=== PATIENT | male | born 1945 | race Caucasian/White ===

== ENCOUNTER → 2016-07-01 | Outpatient (CLI) | payer BC ==
[~2016-07-01] MED LIST: APIX1TAB3 PO; ATOR10TA88 PO; BUME1TAB43 PO; BUME2TAB3 PO; CARV25TA2 PO; DOXY100C76 PO; FURO80TA63 PO; HYDR-5688 PO; MCRK20 PO; METO50TA7 PO; TPRSR50 PO
[2016-07-01 14:47] LABS: BASO % 0.2 %; BASO ABS # 0.02 K/uL (0-0.2); COMPLETE YES; EOS % 1.3 %; HEMATOCRIT 43.3 % (42-52); IG% 0.2 %; LYMPH % 18.7 %; LYMPH ABS # 1.62 K/uL (1.2-3.4); MEAN CELL VOLUME 96.9 fL (80-100); MEAN CORPUSCULAR HEMOGLOBIN 32.2 pg (25-34); MEAN CORPUSCULAR HGB CONC 33.3 g/dl (32-36); MEAN PLATELET VOLUME 11.2 fL (7.4-10.4); MONO % 6.2 %; NEUT % 73.4 %; PLATELET COUNT 193 K/uL (130-400); RED BLOOD COUNT 4.47 M/uL (4.7-6.1); WHITE BLOOD COUNT 8.67 K/uL (4.8-10.8)
[2016-07-01 14:57] LABS: ALT/SGPT 23 U/L (12-78); AST/SGOT 18 U/L (15-37); BLOOD UREA NITROGEN 29 mg/dl (7-18); BUN/CREATININE RATIO 18.4 (10-20); CALCIUM 9.2 mg/dl (8.5-10.1); CARBON DIOXIDE 31 mmol/L (21-32); CHLORIDE 99 mmol/L (98-107); GLUCOSE 107 mg/dl (70-99); POTASSIUM 3.9 mmol/L (3.5-5.1); SODIUM 141 mmol/L (136-145)
[2016-07-01 15:00] LABS: ALB/GLOB RATIO 1.1 (0.9-2); ALKALINE PHOSPHATASE 128 U/L (45-117)
== END | disposition home or self-care (01) ==
LOC: EDBD → C.LAB1850 13:20
PROVIDERS: ATTEND Internal Medicine Cardiovascular Disease
DX: R10.11 Right upper quadrant pain (principal)

== ENCOUNTER → 2016-07-03 | Outpatient (CLI) | payer BC ==
--- NOTE | 2016-07-03 09:41 | DIAGNOSTIC IMAGING REPORT ---
Right upper quadrant ultrasound GALLBLADDER-ABD LIMITED CLINICAL HISTORY: R10.11 Abdominal pain, acute, right upper [id number] pain. Nausea. TECHNIQUE: Ultrasound COMPARISON STUDY: None FINDINGS: Gallbladder contains a component of sludge as well as small gallstones. There is no abnormal pericholecystic fluid. Common bile duct is 4 mm. Liver is uniform throughout. Right kidney is negative for hydronephrosis but shows several septated cysts measuring up to 10 cm. IMPRESSION: 1. Combination of gallstones and sludge within the gallbladder lumen. Normal caliber bile ducts. Complex right renal cyst measuring up to 10 cm with associated internal septations/calcifications. A multiphase CT evaluation of the kidneys is suggested as baseline evaluation Electronically signed by: Rubio Melvin M.D. 07/03/2016 9:40 AM Dictated Date/Time: 07/03/2016 9:22 AM
== END | disposition home or self-care (01) ==
LOC: C.ULTR 08:11
PROVIDERS: ATTEND Internal Medicine Cardiovascular Disease
DX: R10.11 Right upper quadrant pain (principal)

== ENCOUNTER 2016-07-11 12:27 | Inpatient (IN) | payer BC, OTHER ==
[~2016-07-11] VITALS: Ht 172.7 cm; Wt 81.1 kg
[~2016-07-11 12:27] MED LIST changes: -APIX1TAB3 PO; -BUME1TAB43 PO; -BUME2TAB3 PO; -DOXY100C76 PO; -HYDR-5688 PO; -MCRK20 PO; -METO50TA7 PO; -TPRSR50 PO
[2016-07-11 12:49] LABS: HEMATOCRIT 45.8 % (42-52); MEAN CELL VOLUME 99.3 fL (80-100); MEAN CORPUSCULAR HEMOGLOBIN 32.5 pg (25-34); MEAN CORPUSCULAR HGB CONC 32.8 g/dl (32-36); MEAN PLATELET VOLUME 12.3 fL (7.4-10.4); PLATELET COUNT 160 K/uL (130-400); RED BLOOD COUNT 4.61 M/uL (4.7-6.1); WHITE BLOOD COUNT 8.03 K/uL (4.8-10.8)
[2016-07-11 12:57] LABS: INR 1.5 (0.9-1.1); PROTHROMBIN TIME (PATIENT) 16.3 SECONDS (9.0-12.0)
[2016-07-11 13:06] LABS: BUN/CREATININE RATIO 23.5 (10-20); CALCIUM 9.2 mg/dl (8.5-10.1); CREATININE 2.1 mg/dl (0.60-1.40); POTASSIUM 4.8 mmol/L (3.5-5.1)
[2016-07-11 13:11] LABS: ALB/GLOB RATIO 1.2 (0.9-2); CKMB/CK RATIO 1.7 (0-3.0)
[2016-07-11] MEDS ORDERED: SODIUM CHLORIDE 0.9% 1000ML 1,000 ML IV STA (13:11)
[2016-07-11] MEDS ORDERED: SODIUM CHLORIDE 0.9% 250ML 250 ML IV STA (13:11)
[2016-07-11] MEDS ORDERED: METOPROLOL TARTRATE 1 MG/ML VIAL IV STA (13:11)
--- NOTE | 2016-07-11 13:28 | EMERGENCY ROOM VISIT NOTE ---
History Report prepared by Sujatha: Chio Mayo Under the Supervision of: Dr. Libra Romano M.D. First contact with patient: 12:54 Chief Complaint: ILLNESS Stated Complaint: SEPSIS, TACHYCARDIA Nursing Triage Summary: Pt brought to ED by Dr. Dallas. EKG shows A.fib with RVR. Pt states he feels weak and tired. Pt denies cp. History of Present Illness The patient is a 71 year old male who presents to the Emergency Room with complaints of persistent weakness over the past month. He states that when he wakes up in the morning, he feels like he has no energy and also feels lightheaded. He also complains of a loss off appetite. When he eats or drinks, even a sip of water, he becomes gassy, bloated, and starts belching. He notes that he has some abdominal pain when he presses on the right side of his abdomen. He complains that he is constipated. The patient has followed with Dr. King, who is under the impression that the patient has gallbladder problems. Today, Dr. King referred the patient to the emergency room due to his symptoms. Denies chest pain with exertion or other complaints. He was recently diagnosed with a-fib. Source of History: patient Onset: 1 month ago Position: other (global) Quality: other (weakness) Timing: other (persistent) Associated Symptoms: + abdominal pain (to the touch) Note: Other symptoms: lightheadedness, decreased appetite, gas and belching with PO intake Review of Systems See HPI for pertinent positives & negatives. A total of 10 systems reviewed and were otherwise negative. Past Medical & Surgical Medical Problems: (1) A-fib (2) Heart failure (3) tachycardia, abdominal pain Family History No pertinent family history stated. Social History Smoking Status: Former Smoker Marital Status: Occupation Status: employed Current/Historical Medications Scheduled Atorvastatin (Lipitor), 10 MG PO QAM Carvedilol (Coreg), 1 TAB PO BID Furosemide (Lasix), 80 MG PO QAM Allergies Coded Allergies: NO KNOWN DRUG ALLERGIES (Verified Allergy, Unknown, ., 03/06/16) Physical Exam Vital Signs Date Time Temp Pulse Resp B/P Pulse Ox O2 Delivery O2 Flow Rate FiO2 07/11/16 14:06 103 20 125/94 95 Nasal Cannula 2.0 07/11/16 13:45 100 20 145/98 99 Room Air 07/11/16 13:39 114 20 138/87 95 Room Air 07/11/16 13:38 120 138/87 07/11/16 12:52 113 07/11/16 12:48 95 Nasal Cannula 2.0 07/11/16 12:46 98 18 129/81 93 Room Air 07/11/16 12:38 94 Nasal Cannula 2.0 07/11/16 12:30 36.3 110 18 131/92 92 Room Air Physical Exam Vital signs reviewed. General: Well-appearing 71 year old male, in no significant distress, pale in appearance. HEENT: No scleral icterus, PERRLA, neck supple. Atraumatic. Cardiovascular: Rapid and irregular heartbeat, no extra sounds. Pulmonary: Clear to auscultation bilaterally, normal work of breathing. Abdomen: Soft, nontender, nondistended, positive bowel sounds. Musculoskeletal: Atraumatic, no peripheral edema. Neurologic: Patient awake alert and oriented x 3. Skin: Warm, dry, no rash, pale in appearance. Medical Decision & Procedures ER Provider Diagnostic Interpretation: Radiology results as stated below per my review and radiologist interpretation: CHEST ONE VIEW PORTABLE CLINICAL HISTORY: CP dyspnea COMPARISON STUDY: 06/13/2015 FINDINGS: Stable cardiomegaly. Prominent pulmonary vasculature. Diaphragms smooth. Costophrenic angles are sharp. IMPRESSION: Mild congestive heart failure Electronically signed by: Rubio Melvin M.D. 07/11/2016 1:36 PM Dictated Date/Time: 07/11/2016 1:36 PM Laboratory Results Test 07/11/16 12:40 07/11/16 12:46 Total Creatine Kinase 202 U/L (39-308) Creatine Kinase MB 3.5 ng/ml (0.5-3.6) Creatine Kinase MB Ratio 1.7 (0-3.0) Pro-B-Type Natriuretic Peptide 09206 pg/ml (0-900) Hepatitis C Antibody Screen NEG (NEG) Bedside Troponin I 0.120 ng/ml (0-0.045) Laboratory results per my review. Medications Administered Medications (Trade) Dose Ordered Sig/Sulma Route Start Time Stop Time Status Last Admin Dose Admin Sodium Chloride 250 ml @ 999 mls/hr Q16M STAT IV 07/11/16 13:11 07/11/16 13:26 DC 07/11/16 13:11 999 MLS/HR Sodium Chloride (Nss 1000ml) 1,000 ml @ 125 mls/hr Q8H STAT IV 07/11/16 13:11 07/11/16 15:40 DC 07/11/16 13:11 125 MLS/HR Metoprolol Tartrate (Lopressor Iv) 5 mg NOW STAT IV 07/11/16 13:11 07/11/16 13:12 DC 07/11/16 13:38 5 MG ECG Indication: weakness Rate (beats per minute): 114 Rhythm: atrial fibrillation (with RVR) Findings: RBBB, other (previous inferior infarct) ED Course 1309: Past medical records reviewed. The patient was evaluated in room B7. A complete history and physical examination was performed. 1311: Ordered Lopressor 5 mg IV, NSS 1000 ml @ 125 mls/hr IV, NSS 250 mls/hr IV. 1410: I discussed the case with Dr. Marcel KUMAR Hospitalist. The patient will be evaluated for further management. 1420: Upon reevaluation, the patient is resting comfortably. I discussed laboratory and radiographic results with him. He verbalized agreement of the treatment plan. Medical Decision Differential diagnosis: Acute coronary syndrome, pulmonary embolus, aortic dissection, musculoskeletal pain, pneumonia, pleural effusion, pneumothorax This patient was evaluated and appeared to be in no significant distress. IV access was obtained and laboratory work was drawn. The patient was placed on the court monitor and found to be in a rapid atrial fibrillation. Patient was medicated with IV metoprolol, given gentle IV hydration to maintain blood pressure. Patient's laboratory work reveals a renal insufficiency with a creatinine of 2.1, an elevated troponin at 0.449. Chest x-ray reveals mild pulmonary edema. The patient was made aware of the findings. He will be evaluated by the hospitalist service for further management. Patient is complaining that he is hungry and was given a light snack. Consults Time Called: 1405 Consulting Physician: Dr. Marcel KUMAR Hospitalist Returned Call: 1410 I discussed the case with him. The patient will be evaluated for further management. Impression Primary Impression: Rapid atrial fibrillation Additional Impressions: Elevated troponin Acute on chronic renal insufficiency Pulmonary edema Scribe Attestation The scribe's documentation has been prepared under my direction and personally reviewed by me in its entirety. I confirm that the note above accurately reflects all work, treatment, procedures, and medical decision making performed by me. Departure Information Dispostion Being Evaluated By Hospitalist Referrals Leo Eddy M.D. (PCP) Patient Instructions My [facility] Problem Qualifiers Additional Impressions: Pulmonary edema Chronicity: acute Qualified Codes: J81.0 - Acute pulmonary edema
[2016-07-11] MEDS ORDERED: METOPROLOL TARTRATE 1 MG/ML VIAL ONE (13:30)
--- NOTE | 2016-07-11 13:37 | DIAGNOSTIC IMAGING REPORT ---
CHEST ONE VIEW PORTABLE CLINICAL HISTORY: CP dyspnea COMPARISON STUDY: 06/13/2015 FINDINGS: Stable cardiomegaly. Prominent pulmonary vasculature. Diaphragms smooth. Costophrenic angles are sharp. IMPRESSION: Mild congestive heart failure Electronically signed by: Rubio Melvin M.D. 07/11/2016 1:36 PM Dictated Date/Time: 07/11/2016 1:36 PM
[2016-07-11] MEDS ORDERED: ACETAMINOPHEN 325 MG TAB PO PRN (14:30)
[2016-07-11] MEDS ORDERED: LOPERAMIDE HCL 2 MG CAP PO PRN (15:00)
--- NOTE | 2016-07-11 15:09 | History and Physical ---
History & Physical Date & Time of Service: Jul 11, 2016 at 14:36 Chief Complaint: Sepsis, Tachycardia Primary Care Physician: Leo Eddy M.D. History of Present Illness Source: patient, family This is a 71yo male with PMHx of atrial flutter, cardiomyopathy, congestive heart failure, dyslipidemia, ongoing GI symptoms lasting the past 6 weeks including abdominal pain decreased appetite, bloating, nausea, initially with constipation now replaced by diarrhea. The patient's has accompanied him. The patient was seen in Dr. Eddy's office this morning for a routine appointment. The patient admits to continued right upper quadrant pain and inability inability to tolerate oral intake. The patient reports he has been losing weight. While in the office he was found to be orthostatic, and tachycardic with heart rate increased to 110 so was sent to the ED. The patient currently complains of feeling short of breath, lightheaded when he goes from sit to stand. The patient denies chest pain, palpitations or flutter. The patient denies any fevers sweats or chills. The is unable to determine if his skin has become more yellow, although he appears jaundiced. He had been seen in Dr. King's office on 07/01/2016 where he was instructed to stop taking Lasix as he has been "losing too much weight", and was instructed to restart the medication when he had gained 3 pounds. The patient has not taken Lasix for the last 2 days. During that appointment patient complained of the above abdominal symptoms, so a RUQ ultrasound was ordered which showed evidence of gallstones and sludge on 07/03/2016. In the ED the patient has been rehydrated with NSS @ 125 Ml/hr. Cr= 2.1, total bilirubin elevated at 2.7. LFTs are not elevated. Troponin= 0.120. INR is elevated at 1.5. CBC is essentially unremarkable. Chest x-ray was completed showing mild congestive heart failure. Past Medical/Surgical History Medical Problems: (1) A-fib Status: Chronic (2) Heart failure Status: Chronic Social History Smoking Status: Former Smoker Marital Status: Occupational Status: employed Immunizations History of Influenza Vaccine: Yes History of Tetanus Vaccine?: Unknown History of Pneumococcal: No History of Hepatitis B Vaccine: Yes Multi-Drug Resistant Organisms History of MDRO: No Allergies Coded Allergies: NO KNOWN DRUG ALLERGIES (Verified Allergy, Unknown, ., 03/06/16) Home Medications Scheduled Atorvastatin (Lipitor), 10 MG PO QAM Carvedilol (Coreg), 1 TAB PO BID Furosemide (Lasix), 80 MG PO QAM Review of Systems Constitutional: + fatigue, + weakness, + weight loss, No chills, No fever, No sweats Eyes: No diplopia, No worsening of vision ENT: + problem reported (dry mouth), No hearing loss, No nasal symptoms, No sore throat, No trouble swallowing, No unusual epistaxis Respiratory: + dyspnea on exertion, + shortness of breath, No cough, No hemoptysis, No sputum Cardiovascular: No chest pain, No edema, No palpitations Abdomen: + diarrhea, + nausea, + pain, + vomiting, No GI bleeding, No constipation Musculoskeletal: No calf pain, No joint pain, No swelling Genitourinary - Male: + urinary frequency, + urinary incontinence, No hematuria Neurologic: + weakness, No balance problems, No numbness/tingling Endocrine: + fatigue Integumentary: No itch, No rash Physical Exam Vital Signs Date Time Temp Pulse Resp B/P Pulse Ox O2 Delivery O2 Flow Rate FiO2 07/11/16 14:06 103 20 125/94 95 Nasal Cannula 2.0 07/11/16 13:45 100 20 145/98 99 Room Air 07/11/16 13:39 114 20 138/87 95 Room Air 07/11/16 13:38 120 138/87 07/11/16 12:52 113 07/11/16 12:48 95 Nasal Cannula 2.0 07/11/16 12:46 98 18 129/81 93 Room Air 07/11/16 12:38 94 Nasal Cannula 2.0 07/11/16 12:30 36.3 110 18 131/92 92 Room Air General Appearance: WD/WN, no apparent distress, + pertinent finding (appears jaundiced) Head: normocephalic, atraumatic Eyes: PERRL, EOMI ENT: hearing grossly normal, + pertinent finding (petechiae over soft palate, mucous membranes dry) Neck: supple, no JVD Respiratory/Chest: chest non-tender, no respiratory distress, no accessory muscle use, + pertinent finding (wearing 2 L supplemental O2 via NC, + faint crackles at bases bilaterally) Cardiovascular: normal peripheral pulses, + tachycardia, + irregularly irregular, + pertinent finding Abdomen/GI: soft, + pertinent finding (+ hypoactive bowel sounds, + tympany with percussion, pain in right upper quadrant with palpation, no rebound tenderness or guarding) Back: normal inspection, no CVA tenderness Extremities/Musculoskelatal: normal inspection, no calf tenderness, no pedal edema Neurologic/Psych: alert, normal mood/affect, oriented x 3 Skin: warm/dry, + jaundice Diagnostics Laboratory Results Results Past 24 Hours Test 07/11/16 12:40 07/11/16 12:46 Range/Units White Blood Count 8.03 4.8-10.8 K/uL Red Blood Count 4.61 4.7-6.1 M/uL Hemoglobin 15.0 14.0-18.0 g/dL Hematocrit 45.8 42-52 % Mean Corpuscular Volume 99.3 80-100 fL Mean Corpuscular Hemoglobin 32.5 25-34 pg Mean Corpuscular Hemoglobin Concent 32.8 32-36 g/dl RDW Standard Deviation 52.5 36.4-46.3 fL RDW Coefficient of Variation 14.6 11.5-14.5 % Platelet Count 160 130-400 K/uL Mean Platelet Volume 12.3 7.4-10.4 fL Prothrombin Time 16.3 9.0-12.0 SECONDS Prothromb Time International Ratio 1.5 0.9-1.1 Activated Partial Thromboplast Time 26.4 21.0-31.0 SECONDS Partial Thromboplastin Ratio 1.0 Sodium Level 145 136-145 mmol/L Potassium Level 4.8 3.5-5.1 mmol/L Chloride Level 107 98-107 mmol/L Carbon Dioxide Level 30 21-32 mmol/L Anion Gap 8.0 3-11 mmol/L Blood Urea Nitrogen 49 7-18 mg/dl Creatinine 2.10 0.60-1.40 mg/dl Est Creatinine Clear Calc Drug Dose 34.5 ml/min Estimated GFR () 35.4 Estimated GFR (Non- 30.5 BUN/Creatinine Ratio 23.5 10-20 Random Glucose 116 70-99 mg/dl Calcium Level 9.2 8.5-10.1 mg/dl Total Bilirubin 2.7 0.2-1 mg/dl Aspartate Amino Transf (AST/SGOT) 30 15-37 U/L Alanine Aminotransferase (ALT/SGPT) 42 12-78 U/L Alkaline Phosphatase 107 45-117 U/L Total Creatine Kinase 202 39-308 U/L Creatine Kinase MB 3.5 0.5-3.6 ng/ml Creatine Kinase MB Ratio 1.7 0-3.0 Total Protein 6.8 6.4-8.2 gm/dl Albumin 3.7 3.4-5.0 gm/dl Globulin 3.1 2.5-4.0 gm/dl Albumin/Globulin Ratio 1.2 0.9-2 Bedside Troponin I 0.120 0-0.045 ng/ml Diagnostic Radiology CHEST ONE VIEW PORTABLE CLINICAL HISTORY: CP dyspnea COMPARISON STUDY: 06/13/2015 FINDINGS: Stable cardiomegaly. Prominent pulmonary vasculature. Diaphragms smooth. Costophrenic angles are sharp. IMPRESSION: Mild congestive heart failure Electronically signed by: Rubio Melvin M.D. 07/11/2016 1:36 PM Dictated Date/Time: 07/11/2016 1:36 PM The status of this report is Signed. EKG Vent. rate 114 BPM WA interval * ms QRS duration 132 ms QT/QTc 392/540 ms P-R-T axes * -77 86 Atrial fibrillation with RVR, right bundle branch block. Impression Assessment and Plan This is a 71yo male with PMHx of atrial flutter, cardiomyopathy, congestive heart failure, dyslipidemia, ongoing GI symptoms lasting the past 6 weeks including abdominal pain decreased appetite, bloating, nausea, initially with constipation now replaced by diarrhea. Weakness, fatigue, abdominal pain - Admit to telemetry - GI consulted with RUQ findings significant for gallstones and sludge on 2016, increased jaundice, RUQ pain, however without elevated LFTs. - Will need general surgery consult after HIDA performed. - checking Stool studies - Checking an abdominal series - Order HIDA scan Cardiomyopathy Congestive heart failure Atrial flutter with 2:1 AV block - Patient has been followed by Dr. King as an outpatient. - will consult Cardiology in the setting of likely need for surgery - Found to be tachycardic in the outpatient setting - EKG showing atrial fibrillation with RVR. - Continue home medications Metoprolol succinate 50 mg once daily, Coreg 25 mg BID, hold Lasix - Gently hydrate IVFs for now as pt appears dry INR elevated - 1.5, pt is not on a blood thinner. - Drinks EtOH - one 6pack in a week, patient denies recently drinking due to the above abdominal complaints - Patient does not appear to be on elequis or other agent per Dr. Castillo note. NIKHIL on CKD stage III - Creatinine elevated at 2.1, baseline appears to be 1.6 - Continue fluids as above, caution with fluid overload with history of cardiomyopathy and congestive heart failure DVT prophylaxis: Teds, SCDs CODE STATUS: Full code Disposition: From home, will need PT OT eval Level of Care Telemetry Resuscitation Status FULL RESUSCITATION VTE Prophylaxis VTE Risk Assessment Done? Y/N: Yes Risk Level: Low Given or contraindicated: T.Laly Stockings, SCD's Assessment and Plan Attending Addendum: I have physically seen and examined this patient, have directed their medical care, have supervised the PA's activity, and agree with the H&P as noted above, with the following changes: The patient is awake, appears mildly jaundiced, alert and oriented 3, normocephalic and atraumatic, lying in bed and in no acute distress. HEENT--PERRL, EOMI, mucous membranes and oropharynx dry, mildly erythematous. Neck--supple, no JVD or bruits, thyroid normal, trachea midline, no adenopathy. Heart--irregularly irregular and tachycardic, no murmurs, rubs or gallops. Lungs--few crackles at the bases bilaterally, no respiratory distress, no accessory muscle use. Abdomen--normal bowel sounds and soft, tender right upper quadrant, mildly tympanitic. Extremities--no cyanosis, clubbing or edema. There are good distal pulses b/l. Dermatologic--mild jaundice. Neurologic--cranial nerves II through XII grossly intact, motor and sensory examination normal. Rheumatologic--normal range of motion, nontender, muscles and joints. Psychiatric--normal affect. Assessment and Plan: Presumptive cholecystitis--admitted to the telemetry unit. Nothing by mouth status. Order a HIDA scan with gallbladder ejection fraction. Consult surgery. IV antibiotics. Atrial flutter with 21 AV block/cardiomyopathy/CHF--admitted to telemetry, follow serial cardiac enzymes, cardiac rhythm monitoring and order a 2-D echocardiogram with Dopplers. EKG today shows atrial fibrillation with RVR. Troponin is mildly elevated at 0.120, but may just be secondary to rapid heart rate. Continue metoprolol succinate 50 mg daily, Coreg 25 mg by mouth twice a day. We will hold Lasix this patient since patient appears hypovolemic, and gently hydrate with IV fluids. Follow serial BMP and magnesium levels. Lopressor 5 mg IV every 4 hours when necessary sustained heart rate greater than 110. Acute on chronic renal insufficiency--baseline creatinine is 1.6, and is mildly elevated at 2.1 today, pointing toward prerenal state. Gently hydrate as noted above and follow laboratories. Elevated INR of 1.5--patient does not report being on blood thinners. He does not appear to have significant alcohol intake, and liver enzymes are within normal range. We will review his outside records.
[2016-07-11 15:13] VITALS: Ht 172.7 cm; Wt 81.1 kg
[2016-07-11 15:45] VITALS: BP 134/78; PULSE 112; TEMP 36.4; O2SAT 98
[2016-07-11] MEDS: CIPROFLOXACIN / D5W 400 MG in PREMIXED IN D5W 200 ML IV SCH (16:30)
--- NOTE | 2016-07-11 16:36 | DIAGNOSTIC IMAGING REPORT ---
ABDOMEN 2 VIEWS CLINICAL HISTORY: Generalized abdominal pain. Nausea. FINDINGS: Supine and erect abdominal radiographs are correlated with abdominal CT dated 02/14/2009. There is an indeterminant distended bowel loop in the midabdomen. This measures up to 5 cm in diameter. There is no convincing radiographic evidence of bowel obstruction. No intraperitoneal free air is seen. Calcified phleboliths are observed in the pelvis. The skeletal structures are osteopenic. Mild lumbosacral is moderate. The heart is enlarged. A right pleural effusion with right basilar opacities is noted. IMPRESSION: 1. There is no clear radiographic evidence of bowel obstruction or intraperitoneal free air. 2. There is a nonspecific distended gas-filled loop of small bowel in the midabdomen, possibly related to regional inflammation. Clinical correlation will be required. 3. Cardiomegaly and a small right pleural effusion. Electronically signed by: Severo Campbell M.D. 07/11/2016 4:35 PM Dictated Date/Time: 07/11/2016 4:33 PM
[2016-07-11] MEDS ORDERED: METOPROLOL TARTRATE 1 MG/ML VIAL IV PRN (17:00)
[2016-07-11] MEDS ORDERED: LORAZEPAM 2 MG/ML 1 ML VIAL IV PRN (17:00)
[2016-07-11] MEDS ORDERED: LORAZEPAM INJ 0.5 MG in SYRINGE 0.75 ML IV PRN (17:15)
[2016-07-11] MEDS: SODIUM CHLORIDE 0.9% 1000ML 1,000 ML IV SCH (17:26)
[2016-07-11] MEDS ORDERED: HEPARIN IV LOW DOSE NO BOLUS SCH (17:55)
[2016-07-11] MEDS: METRONIDAZOLE 500MG / NSS IV SCH (18:49)
[2016-07-11 18:56] VITALS: BP 129/90; PULSE 102; O2SAT 97
[2016-07-11 19:30] VITALS: BP 125/90; PULSE 113; TEMP 36.4; O2SAT 95
--- NOTE | 2016-07-11 19:31 | CARDIOLOGY CONSULTATION ---
DATE OF CONSULTATION: 07/11/2016 DATE OF CONSULTATION: 07/11/2016. REFERRING PHYSICIAN: Angela Hayes PA-C. CHIEF COMPLAINT: Dyspnea. HISTORY OF PRESENT ILLNESS: Mr. Rashmi Butler is a 71-year-old gentleman with a longstanding history of cardiomyopathy. The patient has been seen on multiple occasions over the past several months for a variety of complaints, primarily upper respiratory in nature. Initially, the patient had symptoms of an upper respiratory infection, underwent 2 courses of antibiotics without notable resolution. This involved some worsening breathing difficulty as well as a nonproductive cough. During this period of time the patient was diagnosed with atrial flutter and underwent medical therapy for rate control. More recently, the patient has been complaining of worsening abdominal discomfort. The patient had significant nausea and anorexia over the past several weeks. This is often times associated with eating. Additionally, the patient originally had an element of constipation which has now progressed to diarrhea. During this period of time the patient has affected a 15 pound weight loss by report. His diuretics were discontinued as he was felt to be slightly dehydrated due to continued use of diuretics and notable reduced increase oral intake. The patient was evaluated in the outpatient setting today and was noted to have element of tachycardia and orthostasis. This accompanied by his ongoing gastrointestinal complaints prompted an evaluation in the Emergency Room and eventual inpatient admission. In general the patient is an active individual who is able to ambulate at his own pace. According to his , he gets dyspneic with rapid walking or other activities. He does have an element of orthopnea and has a hospital bed at home. This does not appear to have changed markedly in the recent past. He did not report any lower extremity edema. He did report the aforementioned weight loss. He has not had any symptoms of chest discomfort recently. He is not aware of any palpitations and did not describe symptoms of racing heartbeat. He did describe an element of feverishness recently but did not describe rigors. PAST MEDICAL HISTORY: 1. Significant for a cardiomyopathy. This was evaluated in 2008. At that time the ejection fraction was 30%. The patient also had a perfusion study done at that time which did not suggest evidence of ischemia. It does not appear that any additional workup has been performed in that regard. The patient does not report a history of cardiac catheterization and I cannot find a record of a recent echocardiogram. 2. Aortic insufficiency described as moderate in 2009. 3. Pulmonary hypertension based on the velocity of the TR jet in 2009. 4. Hypertension. 5. Dyslipidemia. 6. Restrictive obstructive pulmonary disease reportedly severe with occasional exacerbations. 7. Hyperglycemia. 8. 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 PAST SURGICAL HISTORY: Significant for the aforementioned resection of malignant histiocytoma and a left trigger finger release. OUTPATIENT MEDICATIONS CURRENTLY: Include atorvastatin 10 mg daily, metoprolol extended release 50 mg daily, carvedilol 25 mg twice daily. The patient had previously been on a diuretic regimen which was held recently due to concerns over dehydration. MEDICAL ALLERGIES: No known medical allergies. FAMILY HISTORY: No history of premature coronary disease or cardiomyopathy. 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 He has an occasional alcoholic beverage. He has a remote history of tobacco abuse, having quit in 1984. REVIEW OF SYSTEMS: A complete system review of systems was performed and the pertinent positives noted in the history of present illness. PHYSICAL EXAMINATION: GENERAL: The patient appeared to be slightly somnolent during the examination today due to administration of sedative immediately prior to the interview; however, he was easily arousable, answered questions appropriately. VITAL SIGNS: Include a blood pressure of 132/96 with a pulse of 102. The sclerae anicteric. HEAD, EYES, EARS, NOSE, AND THROAT: Pupils equal, reactive to light and accommodation. Extraocular movements were intact. Palpation of submandibular region did not appreciate any significant lymphadenopathy. The carotids are palpable bilaterally. I cannot appreciate any bruits on auscultation. Thyroid was not enlarged. Auscultation both lung boyd overall distant breath sounds with poor excursion. There were occasional crackles at the bases bilaterally but no expiratory wheezing. CARDIAC EXAMINATION: Revealed there to be an irregular irregular rhythm. I did not appreciate a murmur on examination. PMI did not appear to be markedly displaced. EXTREMITIES: Both wrists were normal. He has normal radial pulses bilaterally. There is no evidence of cyanosis or clubbing. Evaluation of lower extremities did not reveal any significant peripheral edema. I did not appreciate any rashes on examination today. Laboratory studies obtained at [facility] include white cell count of 8, hemoglobin of 15 and a platelet count of 160. An abdominal series and chest x-ray were obtained. The chest x-ray suggested pulmonary vascular congestion. Abdominal series was unremarkable. A 12-lead EKG was obtained today in the clinic. 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 Outpatient studies recently included abdominal ultrasound which revealed gallbladder sludge but no evidence of active cholecystitis. Additional laboratory studies included N-terminal proBNP which was elevated at 32,000. There is also some elevation in cardiac biomarkers up to 0.44 troponin. ASSESSMENT AND PLAN: 1. Acute decompensated left ventricular systolic failure: The patient does have a persistent upper respiratory symptoms. There is an element of pulmonary vascular congestion on x-ray and has severely elevated N-terminal proBNP. This is all in the setting of known severe cardiomyopathy. Unfortunately, the patient overall appears to be slightly volume depleted. He has an element of renal insufficiency based on his outpatient laboratory studies and was orthostatic in the clinic as well. This poses a considerable problem given the pulmonary vascular congestion and overall volume depletion. This may have resulted from severely reduced LV systolic function, perhaps worse than in the past. He has also been handicapped by conversion to atrial fibrillation from sinus rhythm. I think it would be reasonable to repeat an echocardiogram. The patient may require more aggressive support in this setting such as inotropic support for effective diuresis. The clinical examination and symptom report are complicated by his concurrent pulmonary disease. 2. Atrial fibrillation has been present for several months now and may have led to worsening cardiac function overall. He has had some rapid heart rates which may have contributed to decompensation or be a result of his volume depletion. He has not been on anticoagulation by his choice. The option for cardioversion exists; however, in the acute setting with his other morbidities the likelihood that he maintains sinus rhythm for an extended period is small. I think we will continue with supportive measures such as rate control and management of his volume status. 3. Valvular heart disease. The patient was previously felt to have an element of aortic insufficiency. It would be reasonable to reevaluate this with an echocardiogram. 4. Elevated cardiac biomarkers. I doubt this represents an acute coronary syndrome. It is more likely representation of chronic systolic failure in the setting of worsening renal function. He did not describe symptoms consistent with recent acute coronary syndrome. At this point I would not treat it as such. We can trend his biomarkers and reevaluate his left ventricular function. FINAL RECOMMENDATIONS: 1. Echocardiogram. 2. Continue outpatient regimen of beta blockers. 3. Await additional laboratory results for recommendation regarding diuresis. 4. Trend cardiac biomarkers. 5. Will continue to follow during this patient's admission. MOE
[2016-07-11] MEDS: HEPARIN 25,000 UNIT/500ML D5W 500 ML IV PRN (20:38)
[2016-07-11] MEDS: CARVEDILOL 25 MG TAB PO SCH (21:00)
[2016-07-11 22:55] VITALS: BP 114/73; PULSE 96; TEMP 37; O2SAT 93
--- NOTE | 2016-07-12 00:52 | GASTROINTESTINAL CONSULTATION ---
DATE OF CONSULTATION: 07/11/2016 CHIEF COMPLAINT: Right upper quadrant pain, weight loss, abnormal recent ultrasound. 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 This seems to be most bothersome following a meal, although it can occur without meals. He did have an outpatient abdominal ultrasound and this revealed evidence of gallstones and sludge within the gallbladder lumen. The bile ducts had a normal caliber. There was also a complex right renal cyst measuring up to 10 cm with associated internal septations and calcifications. The patient has no prior history of peptic ulcer disease and laboratory studies on admission showed a white count of 8 with a hemoglobin of 15, hematocrit 46, platelets 160,000, with hepatitis C serology that was negative. Serum chemistries that revealed a mildly elevated troponin level of 0.449. His albumin is 3.5, total bilirubin although elevated at 2.7, direct fraction is currently not available. The remainder of the LFTs are normal with an alkaline phosphatase of 107, ALT 42, AST 30. The patient has a markedly elevated BNP at 32,234. The patient also has renal insufficiency, BUN of 49 and creatinine 2.1. The patient denies any chronic NSAID or high-dose aspirin usage. PAST MEDICAL HISTORY: Significant for atrial flutter, cardiomyopathy, congestive heart failure, hyperlipidemia. The patient did have symptoms of constipation which has been now more of a diarrheal component. The patient was admitted through Dr. Eddy's office for tachycardia. SOCIAL HISTORY: He was a prior tobacco user. Denies alcoholic beverages. 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 ALLERGIES: He has no known drug allergies. HOME MEDICATIONS: Include atorvastatin, carvedilol, and furosemide, although this was recently reduced and discontinued because of excess weight loss during diuresis. FAMILY HISTORY: Otherwise noncontributory. REVIEW OF SYSTEMS: Otherwise noncontributory based on 14-point exam. The patient denies odynophagia, dysphagia, vomiting, although did have some nausea intermittently. The patient did have initially constipation which changed somewhat to diarrhea; however, he denies melena or bright red blood per rectum. He denies dysuria or hematuria. PHYSICAL EXAMINATION: VITAL SIGNS: At the present time include temperature of 36.4, heart rate 112, respirations 18, blood pressure 134/78, pulse ox 98 on 2 liters nasal cannula. GENERAL: The patient is awake, alert and oriented x3. HEENT: Sclerae are anicteric. Conjunctivae are moist. Oral mucosa is moist. NECK: There is no cervical or supraclavicular adenopathy. I do not appreciate thyromegaly. HEART: Normal S1, S2. LUNGS: Clear to auscultation. ABDOMEN: Soft with minimal tenderness in the right upper quadrant and to a lesser extent in the right mid abdomen, without rebound or guarding. I do not appreciate evidence of ascites or shifting dullness. There is no evidence of abdominal bruits. EXTREMITIES: Without clubbing or cyanosis. There is trace edema bilaterally. RECTAL: Deferred at this time. LABORATORY STUDIES: Reviewed and described above. In review of the patient's imaging, in addition to the recent ultrasound, CT scan from 01/2009 includes a history of sarcoma with prostatic enlargement and renal cysts in addition to bilateral pleural effusions. A large exophytic right renal cyst was reported as unchanged in 2008. Size was not provided, however. 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 The bilirubin, although elevated, is of total type and the pattern of this is unclear, if it represents direct or indirect fraction or predominate of direct or direct fraction. The other labs do not suggest an obstructive pattern or an acute hepatitis. Given the patient's history of congestive heart failure, this could reflect a source of passive congestion. There are gallstones and sludge in the gallbladder, but no evidence for biliary dilation. In addition to gallbladder source, peptic ulcer disease remains a possibility. I made the following recommendations: As a noninvasive approach, I believe an MRCP to assess the pancreas, gallbladder and biliary system would be a prudent initial step. In addition, we will obtain blood work today including a repeat liver panel, total and direct fractions of bilirubin, and GGT. At some point, upper endoscopy may be reasonable once the patient's cardiac enzyme profile is stable and the results of the MRCP are known. Although ultimately cholecystectomy may be of benefit for the patient and may be related to the patient's recurrent symptoms, this has to be carefully considered given his cardiac status. An additional source of the patient's right-sided abdominal pain may reflect the renal cyst, although this has been present for several years. It is unclear if there has been an interval change in its size or complexity and this may need additional cross-sectional imaging. We will follow with you. Dr. Urrutia is covering Friday and the weekend. Thank you for allowing me to participate in this pleasant gentleman's care.
[2016-07-12] MEDS: METRONIDAZOLE 500MG / NSS IV SCH ×3 (02:00→17:25)
[2016-07-12 03:10] VITALS: BP 133/92; PULSE 111; TEMP 36.5; O2SAT 97
[2016-07-12] MEDS: SODIUM CHLORIDE 0.9% 1000ML 1,000 ML IV SCH ×2 (03:18→13:54)
[2016-07-12 03:34] LABS: PARTIAL THROMBOPLASTIN RATIO 1.2
[2016-07-12] MEDS ORDERED: HEPARIN IV BOLUS 4,500 UNIT in SYRINGE 0 ML IV ONE (04:15)
[2016-07-12] MEDS: HEPARIN 25,000 UNIT/500ML D5W 500 ML IV PRN ×2 (04:28→22:00)
[2016-07-12] MEDS: CIPROFLOXACIN / D5W 400 MG in PREMIXED IN D5W 200 ML IV SCH ×2 (05:05→17:25)
[2016-07-12 07:06] LABS: CALCIUM 7.9 mg/dl (8.5-10.1); CREATININE 1.6 mg/dl (0.60-1.40)
[2016-07-12 07:26] VITALS: BP 127/88; PULSE 107; TEMP 36.9; O2SAT 95
[2016-07-12 07:42] LABS: HEMATOCRIT 40.2 % (42-52); MEAN CELL VOLUME 101.5 fL (80-100); MEAN CORPUSCULAR HEMOGLOBIN 32.1 pg (25-34); MEAN CORPUSCULAR HGB CONC 31.6 g/dl (32-36); MEAN PLATELET VOLUME 12.3 fL (7.4-10.4); PLATELET COUNT 129 K/uL (130-400); RED BLOOD COUNT 3.96 M/uL (4.7-6.1); WHITE BLOOD COUNT 8.37 K/uL (4.8-10.8)
[2016-07-12 07:43] LABS: BASO % 0.2 %; BASO ABS # 0.02 K/uL (0-0.2); COMPLETE YES; EOS % 1.7 %; IG% 0.4 %; LYMPH % 22.3 %; LYMPH ABS # 1.87 K/uL (1.2-3.4); NEUT % 66.4 %
--- NOTE | 2016-07-12 08:52 | DIAGNOSTIC IMAGING REPORT ---
MRCP CLINICAL HISTORY: Increased bilirubin. Right upper quadrant pain. Evaluate for choledocholithiasis. COMPARISON STUDY: CT of the chest abdomen and pelvis February 14, 2009 and right upper quadrant ultrasound July 03, 2016. TECHNIQUE: Utilizing 1.5 Silva magnet and dedicated coil, multiplanar, multiecho imaging of the upper abdomen was performed utilizing heavily T2 weighted sequences without intravenous contrast. FINDINGS: No intra or extrahepatic biliary ductal dilatation is present. The exam is compromised by motion artifact. No common bile duct calculi are identified. The sensitivity for detection of tiny calculi is diminished on this exam. There are multiple gallstones within the gallbladder. There is suspected mild gallbladder wall thickening. The gallbladder is not distended. The course and caliber of the main pancreatic duct is normal. No pancreatic masses identified on this unenhanced exam. A few suspected subcentimeter hepatic cysts are noted. A small right pleural effusion is noted. There is a diverticulum of the second portion of the duodenum, adjacent to the distal common bile duct. Bilateral renal T2 hyperintense lesions are suboptimal assessed on this unenhanced exam but likely reflect cysts. There is a septated 9 cm right renal cyst. Moderate cardiomegaly is noted. IMPRESSION: 1. No biliary ductal dilatation. No common bile duct calculi identified although exam mildly compromised by motion artifact. 2. Cholelithiasis and mild gallbladder wall thickening. No gallbladder distention. 3. No pancreatic ductal dilatation. 4. Suspected bilateral renal cysts. 5. Small right pleural effusion. Electronically signed by: Sky Stevenson M.D. 07/12/2016 8:50 AM Dictated Date/Time: 07/12/2016 8:40 AM
[2016-07-12] MEDS ORDERED: PERFLUTREN LIPID MICROSPHERE (DEFINITY) IV ONE (09:08)
[2016-07-12 10:48] LABS: PARTIAL THROMBOPLASTIN RATIO 2.6
[2016-07-12 10:53] VITALS: BP 129/91; PULSE 106; TEMP 36.4; O2SAT 97
[2016-07-12] MEDS ORDERED: SINCALIDE INJ 1.8 MCG in SODIUM CHLORIDE 0.9% 100ML 100 ML IV ONE (12:30)
--- NOTE | 2016-07-12 13:42 | DIAGNOSTIC IMAGING REPORT ---
NUCLEAR HEPATOBILIARY SCAN WITH EJECTION FRACTION IMAGING CLINICAL HISTORY: Right upper quadrant abdominal pain. COMPARISON STUDY: Abdominal ultrasound dated 07/03/2016. TECHNIQUE: Dynamic images of the liver and anterior abdomen were obtained every 5 minutes for a total of 60 minutes following the IV administration of 5.2mCi of technetium 99m Choletec. 1.8 mcg of sincalide was then injected with additional images acquired every 5 minutes for 45 minutes to calculate the gallbladder ejection fraction. FINDINGS: The hepatobiliary scan shows prompt and homogeneous hepatic uptake. There is visualized activity within the intra and extrahepatic biliary tree at 10 minutes, and within the gallbladder at 35 minutes. There is normal biliary to bowel transit, with small bowel visualized by 15 minutes. Excreted tracer within the bladder likely represents free technetium. On the sincalide imaging, the gallbladder ejection fraction was measured at 35%. IMPRESSION: 1. Unremarkable nuclear hepatobiliary scan. There is no scintigraphic evidence of cholecystitis. 2. The gallbladder ejection fraction measured 35% which is low normal. Electronically signed by: Severo Campbell M.D. 07/12/2016 1:41 PM Dictated Date/Time: 07/12/2016 1:39 PM
[2016-07-12] MEDS: CARVEDILOL 25 MG TAB PO SCH ×2 (13:52→21:10)
[2016-07-12] MEDS: METOPROLOL SUCC 50MG EXT REL TAB PO SCH (13:52)
[2016-07-12] MEDS: ATORVASTATIN 10 MG TAB PO SCH (13:53)
[2016-07-12 15:36] VITALS: BP 105/61; PULSE 92; TEMP 36.5; O2SAT 95
--- NOTE | 2016-07-12 17:11 | Progress Note ---
Subjective Date of Service: Jul 12, 2016. Subjective Pt evaluation today including: conversation w/ patient, physical exam, chart review, lab review, review of studies, review of inpatient medication list Patient tolerated last night's dinner. TOlerating his lunch at the moment. He remains on IVF. He has not been eating much the past few weeks due to early satiety and belching with oral intake. Not much SOB, no chest pain. No urinary symptoms. Problem List Medical Problems: (1) Acute on chronic renal insufficiency Status: Acute (2) Elevated troponin Status: Acute (3) Pulmonary edema Status: Acute (4) Rapid atrial fibrillation Status: Acute Review of Systems All Other Systems: Reviewed and Negative Medications Acetaminophen (Tylenol Tab) 650 mg Q4H PRN PO; Start 07/11/16 at 14:30; Stop 08/10/16 at 14:29 Atorvastatin Calcium (Lipitor Tab) 10 mg QAM PO Last administered on 07/12/16 13:53; Admin Dose 10 MG; Start 07/12/16 at 09:00; Stop 08/11/16 at 08:59 Carvedilol (Coreg Tab) 25 mg BID PO Last administered on 07/12/16 13:52; Admin Dose 25 MG; Start 07/11/16 at 21:00; Stop 08/10/16 at 20:59 Ciprofloxacin/ Dextrose/Prmx (Cipro / D5w/ Premixed D5W) 200 ml @ 100 mls/hr Q12H IV Last administered on 07/12/16 05:05; Admin Dose 100 MLS/HR; Start 07/11 at 17:00; Stop 07/21/16 at 20:59 Heparin Sodium/ Dextrose (Heparin 25,000 Unit/500ml D5W) 500 ml @ 21 mls/hr [id number] PRN IV Last administered on 07/12/16 04:28; Admin Dose 21 MLS/HR; Start 07/11/16 at 19:00; Stop 08/10/16 at 18:59 Loperamide HCl 2 mg 2 mg Q8 PRN PO; Start 07/11/16 at 15:00; Stop 08/10/16 at 14:59; Status Future Hold Lorazepam (Ativan Inj) 0.5 mg Q4H PRN IV Last administered on 07/11/16 17:16; Admin Dose 0.5 MG; Start 07/11/16 at 17:00; Stop 08/10/16 at 16:59 Lorazepam 0.5 mg/ Syringe 1 ml @ 1 mls/min Q4H PRN IV; Start 07/11/16 at 17:15 ; Stop 08/10/16 at 17:14 Metoprolol Succinate (Toprol Xl Tab) 50 mg QAM PO Last administered on t 13:52; Admin Dose 50 MG; Start 07/12/16 at 09:00; Stop 08/11/16 at 08:59 Metoprolol Tartrate 5 mg 5 mg Q4 PRN IV; Start 07/11/16 at 17:00; Stop at 16:59 Metronidazole 500 mg/Prmx 100 ml @ 100 mls/hr Q8@02,10,18 IV Last administered on 07/12/16t 10:06; Admin Dose 100 MLS/HR; Start 07/11/16 at 18:00; Stop at 17:59 Ondansetron HCl (Zofran Inj) 4 mg Q6H PRN IV; Start 07/11/16 at 14:30; Stop at 14:29 Objective Vital Signs Date Time Temp Pulse Resp B/P Pulse Ox O2 Delivery O2 Flow Rate FiO2 07/12/16 15:36 36.5 92 18 105/61 95 Nasal Cannula 2.0 07/12/16 13:00 Nasal Cannula 2.0 07/12/16 10:53 36.4 106 18 129/91 97 2.0 07/12/16 08:00 Nasal Cannula 2.0 07/12/16 07:26 36.9 107 20 127/88 95 2.0 07/12/16 04:00 Nasal Cannula 07/12/16 03:10 36.5 111 18 133/92 97 Nasal Cannula 2.0 07/12/16 00:00 Nasal Cannula 07/11/16 22:55 37.0 96 18 114/73 93 Nasal Cannula 2.0 07/11/16 20:00 Nasal Cannula 07/11/16 19:30 36.4 113 22 125/90 95 Nasal Cannula 2.0 07/11/16 18:56 102 16 129/90 97 Nasal Cannula Physical Exam Comments: nad, aox3, coherent and fluent speech and very pleasant eomi, perrl, anicteric s1 s2 rrr, no murmurs appreciated diminished breath sounds with basilar rales, no rhonchi abd soft, + RUQ tenderness with + Martinez's sign, +BS no LE edema cn 2-12 grossly intact Laboratory Results Last 24 Hours Test 07/11/16 18:10 07/11/16 22:14 07/12/16 03:10 07/12/16 06:16 Total Bilirubin 2.3 mg/dl 1.5 mg/dl Direct Bilirubin 0.6 mg/dl 0.4 mg/dl Aspartate Amino Transf (AST/SGOT) 27 U/L 19 U/L Alanine Aminotransferase (ALT/SGPT) 35 U/L 35 U/L Alkaline Phosphatase 100 U/L 87 U/L Total Protein 6.3 gm/dl 5.8 gm/dl Albumin 3.5 gm/dl 3.0 gm/dl Troponin I 0.526 ng/ml 0.484 ng/ml Activated Partial Thromboplast Time 32.4 SECONDS Partial Thromboplastin Ratio 1.2 White Blood Count 8.37 K/uL Red Blood Count 3.96 M/uL Hemoglobin 12.7 g/dL Hematocrit 40.2 % Mean Corpuscular Volume 101.5 fL Mean Corpuscular Hemoglobin 32.1 pg Mean Corpuscular Hemoglobin Concent 31.6 g/dl Platelet Count 129 K/uL Mean Platelet Volume 12.3 fL Neutrophils (%) (Auto) 66.4 % Lymphocytes (%) (Auto) 22.3 % Monocytes (%) (Auto) 9.0 % Eosinophils (%) (Auto) 1.7 % Basophils (%) (Auto) 0.2 % Neutrophils # (Auto) 5.56 K/uL Lymphocytes # (Auto) 1.87 K/uL Monocytes # (Auto) 0.75 K/uL Eosinophils # (Auto) 0.14 K/uL Basophils # (Auto) 0.02 K/uL RDW Standard Deviation 53.7 fL RDW Coefficient of Variation 14.5 % Immature Granulocyte % (Auto) 0.4 % Immature Granulocyte # (Auto) 0.03 K/uL Sodium Level 143 mmol/L Potassium Level 4.0 mmol/L Chloride Level 106 mmol/L Carbon Dioxide Level 30 mmol/L Anion Gap 7.0 mmol/L Blood Urea Nitrogen 46 mg/dl Creatinine 1.60 mg/dl Est Creatinine Clear Calc Drug Dose 45.2 ml/min Estimated GFR () 49.2 Estimated GFR (Non- 42.4 BUN/Creatinine Ratio 29.0 Random Glucose 209 mg/dl Calcium Level 7.9 mg/dl Test 07/12/16 10:12 Activated Partial Thromboplast Time 67.2 SECONDS Partial Thromboplastin Ratio 2.6 [~ rep ct add3]] CHEST ONE VIEW PORTABLE CLINICAL HISTORY: CP dyspnea COMPARISON STUDY: 06/13/2015 FINDINGS: Stable cardiomegaly. Prominent pulmonary vasculature. Diaphragms smooth. Costophrenic angles are sharp. IMPRESSION: Mild congestive heart failure ABDOMEN 2 VIEWS CLINICAL HISTORY: Generalized abdominal pain. Nausea. FINDINGS: Supine and erect abdominal radiographs are correlated with abdominal CT dated 02/14/2009. There is an indeterminant distended bowel loop in the midabdomen. This measures up to 5 cm in diameter. There is no convincing radiographic evidence of bowel obstruction. No intraperitoneal free air is seen. Calcified phleboliths are observed in the pelvis. The skeletal structures are osteopenic. Mild lumbosacral is moderate. The heart is enlarged. A right pleural effusion with right basilar opacities is noted. IMPRESSION: 1. There is no clear radiographic evidence of bowel obstruction or intraperitoneal free air. 2. There is a nonspecific distended gas-filled loop of small bowel in the midabdomen, possibly related to regional inflammation. Clinical correlation will be required. 3. Cardiomegaly and a small right pleural effusion. MRCP CLINICAL HISTORY: Increased bilirubin. Right upper quadrant pain. Evaluate for choledocholithiasis. COMPARISON STUDY: CT of the chest abdomen and pelvis February 14, 2009 and right upper quadrant ultrasound July 03, 2016. TECHNIQUE: Utilizing 1.5 Silva magnet and dedicated coil, multiplanar, multiecho imaging of the upper abdomen was performed utilizing heavily T2 weighted sequences without intravenous contrast. FINDINGS: No intra or extrahepatic biliary ductal dilatation is present. The exam is compromised by motion artifact. No common bile duct calculi are identified. The sensitivity for detection of tiny calculi is diminished on this exam. There are multiple gallstones within the gallbladder. There is suspected mild gallbladder wall thickening. The gallbladder is not distended. The course and caliber of the main pancreatic duct is normal. No pancreatic masses identified on this unenhanced exam. A few suspected subcentimeter hepatic cysts are noted. A small right pleural effusion is noted. There is a diverticulum of the second portion of the duodenum, adjacent to the distal common bile duct. Bilateral renal T2 hyperintense lesions are suboptimal assessed on this unenhanced exam but likely reflect cysts. There is a septated 9 cm right renal cyst. Moderate cardiomegaly is noted. IMPRESSION: 1. No biliary ductal dilatation. No common bile duct calculi identified although exam mildly compromised by motion artifact. 2. Cholelithiasis and mild gallbladder wall thickening. No gallbladder distention. 3. No pancreatic ductal dilatation. 4. Suspected bilateral renal cysts. 5. Small right pleural effusion. Assessment and Plan 1. RUQ abd pain - no e/o cholecystitis but did have sludge and cholelithiasis - MRCP as above without any ductal dilatation - awaiting HIDA - appreciate GI and cardio recs - tolerating diet, will stop IVF 2. Acute decompensated systolic CHF - would hold off IVF - monitor him off fluids, daily i/o, daily weights - would treat him symptomatically if he requires lasix with worsening sob, would give him lasix regardless of creatinine 3. NIKHIL on CKD III - likely from chronic HTN plus element of cardiorenal - weight loss is probably both muscle mass plus water weight, so will need to determine new dry weight for him - will check renal US as he has not had one in a while - baseline appears to be 1.2-1.4 so this is not far from baseline - avoid nephrotoxins such NSAIDs and non-emergent contrast studies & hypotension 4. Elevated troponin - levels not consistent with NSTEMI but will continue to trend - remains on heparin gtt, also for the Afib - may be demand ischemia with decompensated CHF along with NIKHIL on CKD - no chest pain 5. Chronic Afib with RVR - rate relatively better controlled on metoprolol in AM - prn metoprolol IV for RVR >110 - heparin gtt, hold off coumadin pending GI work-up and possible procedure - cardio on board
--- NOTE | 2016-07-12 18:35 | ECHOCARDIOGRAM REPORT ---
*NOTICE TO RECEIVING LIBERTARIAN AGENCY This information is strictly Confidential and protected under [place] law. [place] law prohibits you from making any further disclosure of this information unless further disclosure is expressly permitted by the written consent of the person to whom it pertains or is authorized by law. A general authorization for the release of medical or other information is not sufficient for this purpose. Hospital accepts no responsibility if the information is made available to any other person, INCLUDING THE PATIENT. Interpretation Summary * Name: ANUM MACKEY Study Date: 07/12/2016 08:25 AM BP: 127/88 mmHg * Patient Location: C.2T\S\S230\S\2 HR: 107 * : 1945 (M/d/yyyy) Gender: Male Height: 68 in * Age: 71 yrs Ethnicity: CA Weight: 196 lb * Ordering Physician: Selvin Mortensen * Referring Physician: Self, Referred * Performed By: Maira Cullen RDCS * * Reason For Study: CHF * BSA: 2.0 m2 * History: CHF * -- Conclusions -- * 1. Severely dilated LV with mild concentric LVH. * 2. Severe global LV dysfunction. EF 20-25%. * 3. Moderately dilated RV with moderate RV dysfunction. * 4. Moderate aortic regurgitation * 5. Moderate mitral regurgitation. * 6. Diastolic dysfunction. * 7. Mild pulmonary hypertension. Est PASP 35-40 mmHg. Elevated est CVP (15 mmHg). * 8. No prior studies for comparison. Procedure Details * A contrast injection of Definity was performed to improve assessment of LV function. * Contrast was injected into an intravenous site in the left arm. * One vial of Definity ultrasound contrast was diluted in normal saline to a total volume of 10 ml. A total of '2' ml of solution was administered during imaging. * Lot # [id number] of Definity utilized for procedure. * Expiration date JUL 13. * The attending nurse who injected the contrast agent was VINCENT SILVA RN. Left Ventricle * The left ventricle is moderately dilated. * There is mild concentric left ventricular hypertrophy. * Ejection Fraction = 20-25%. * There is severe global hypokinesis of the left ventricle. Right Ventricle * The right ventricle is moderately dilated. * The right ventricular systolic function is moderately reduced. Atria * The left atrium is mildly dilated. * The right atrium is moderately dilated. * No ASD detected; PFO is not assessed. Mitral Valve * The mitral valve is grossly normal. * There is no mitral valve stenosis. * There is moderate mitral regurgitation. Tricuspid Valve * The tricuspid valve is not well visualized, but is grossly normal. * There is no tricuspid stenosis. * There is mild tricuspid regurgitation. Aortic Valve * The aortic valve opens well. * The aortic valve is trileaflet. * No hemodynamically significant valvular aortic stenosis. * Moderate aortic regurgitation. Pulmonic Valve * The pulmonary valve is inadequately visualized, but the Doppler data is adequate for interpretation. * There is no pulmonic valvular stenosis. * Trace pulmonic valvular regurgitation. Great Vessels * The aortic root and proximal ascending aorta are normal sized. Pericardium/Pleural * There is no pericardial effusion. Great Vessels * Dilated inferior vena cava with reduced collapsability with sniff indicates an elevated right atrial pressure of 15 mmHg Left Ventricular Diastolic Function * Diastolic dysfunction MMode 2D Measurements and Calculations IVSd 1.4 cm IVSs 1.8 cm LVIDd 6.5 cm LVIDs 5.8 cm LVPWd 1.2 cm LVPWs 1.4 cm IVS/LVPW 1.2 FS 10.2 % EDV(Teich) 215.4 ml ESV(Teich) 168.4 ml EF(Teich) 21.8 % EDV(cubed) 273.6 ml ESV(cubed) 197.9 ml EF(cubed) 27.7 % % IVS thick 23.1 % % LVPW thick 18.5 % LV mass(C)d 398.7 grams LV mass(C)dI 196.7 grams/m\S\2 LV mass(C)s 437.8 grams LV mass(C)sI 216.0 grams/m\S\2 SV(Teich) 47.0 ml SI(Teich) 23.2 ml/m\S\2 SV(cubed) 75.7 ml SI(cubed) 37.4 ml/m\S\2 Ao root diam 4.0 cm Ao root area 12.4 cm\S\2 LA dimension 4.5 cm LA/Ao 1.1 LVAd ap4 48.9 cm\S\2 LVLd ap4 10.4 cm EDV(MOD-sp4) 189.0 ml LVAs ap4 42.8 cm\S\2 LVLs ap4 10.0 cm ESV(MOD-sp4) 151.0 ml EF(MOD-sp4) 20.1 % LVAd ap2 55.0 cm\S\2 LVLd ap2 10.8 cm EDV(MOD-sp2) 228.0 ml LVAs ap2 48.1 cm\S\2 LVLs ap2 10.5 cm ESV(MOD-sp2) 179.0 ml EF(MOD-sp2) 21.5 % SV(MOD-sp4) 38.0 ml SI(MOD-sp4) 18.8 ml/m\S\2 SV(MOD-sp2) 49.0 ml SI(MOD-sp2) 24.2 ml/m\S\2 Doppler Measurements and Calculations Ao V2 max 109.7 cm/sec Ao max PG 4.8 mmHg Ao max PG (full) 2.4 mmHg AI max elina 382.9 cm/sec AI max PG 58.7 mmHg AI dec slope 247.3 cm/sec\S\2 AI P1/2t 453.4 msec LV V1 max PG 2.4 mmHg LV V1 max 77.7 cm/sec MR max elina 436.3 cm/sec MR max PG 76.1 mmHg TR max elina 242.0 cm/sec
--- NOTE | 2016-07-12 18:42 | DIAGNOSTIC IMAGING REPORT ---
RENAL ULTRASOUND HISTORY: Renal cysts CK, re-eval cysts COMPARISON: MRCP same date, right upper quadrant ultrasound 3 11/27/2016 FINDINGS: Right kidney: Maximum dimension 12 cm. 2 right renal cyst measuring 10 and 8 cm respectively. Normal corticomedullary differentiation and cortical thickness. Left kidney: Maximum dimension 12.3 cm. 3 cm mid pole cyst Bladder: No bladder wall thickening. The bilateral ureteral jets were identified. IMPRESSION: Bilateral renal cysts. No evidence renal hydronephrosis. No change from findings previously described on MR CP study Electronically signed by: Rubio Melvin M.D. 07/12/2016 6:41 PM Dictated Date/Time: 07/12/2016 6:38 PM
[2016-07-12 19:38] VITALS: BP 107/64; PULSE 77; TEMP 36.4; O2SAT 98
[2016-07-12 23:29] VITALS: BP 109/70; PULSE 69; TEMP 36.5; O2SAT 96
--- NOTE | 2016-07-13 01:29 | PROGRESS NOTE ---
DATE: 07/12/2016 REASON FOR EVALUATION: Right upper quadrant pain. At the time of evaluation, the patient was unavailable, in the bathroom. I did review his MRCP today which showed no biliary ductal dilatation or stone in the bile duct. He does have gallstones and mild gallbladder wall thickening. There is no pancreatic duct dilation. He did subsequently have a biliary scan with an ejection fraction. The biliary scan was unremarkable, but the ejection fraction was slightly low at 35%, which is in the low normal range, which could be related to his congestive heart failure. The patient's repeat liver profile shows his AST, ALT and alkaline phosphatase were all normal. His total bilirubin is 1.5 with most of it being indirect and direct fraction is 0.4, the indirect fraction is 1.1. 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 At this point, the patient has no risk factors for peptic ulcer disease in that he is not taking any aspirin or nonsteroidals. I plan on checking a stool for H. pylori and if he continues to be symptomatic, we can proceed with an EGD on Friday provided his heart is stable.
[2016-07-13] MEDS: METRONIDAZOLE 500MG / NSS IV SCH ×3 (01:45→18:21)
[2016-07-13 04:04] VITALS: BP 116/74; PULSE 82; TEMP 36.5; O2SAT 91
[2016-07-13] MEDS: CIPROFLOXACIN / D5W 400 MG in PREMIXED IN D5W 200 ML IV SCH ×2 (05:24→16:16)
[2016-07-13 06:20] LABS: BASO % 0.3 %; BASO ABS # 0.02 K/uL (0-0.2); COMPLETE YES; EOS % 4.2 %; HEMATOCRIT 36.2 % (42-52); IG% 0.2 %; LYMPH % 25.4 %; MEAN CELL VOLUME 99.7 fL (80-100); MEAN CORPUSCULAR HEMOGLOBIN 32.2 pg (25-34); MEAN CORPUSCULAR HGB CONC 32.3 g/dl (32-36); MEAN PLATELET VOLUME 11.5 fL (7.4-10.4); MONO % 8.3 %; NEUT % 61.6 %; PLATELET COUNT 115 K/uL (130-400); RED BLOOD COUNT 3.63 M/uL (4.7-6.1); WHITE BLOOD COUNT 5.91 K/uL (4.8-10.8)
[2016-07-13 06:48] LABS: INR 1.4 (0.9-1.1); PROTHROMBIN TIME (PATIENT) 14.9 SECONDS (9.0-12.0)
[2016-07-13 06:50] LABS: CALCIUM 8.2 mg/dl (8.5-10.1); CREATININE 1.2 mg/dl (0.60-1.40); MAGNESIUM 2.3 mg/dl (1.8-2.4); PHOSPHORUS 2.6 mg/dl (2.5-4.9); POTASSIUM 3.7 mmol/L (3.5-5.1)
[2016-07-13 06:54] LABS: ALB/GLOB RATIO 1.1 (0.9-2)
[2016-07-13 07:20] VITALS: BP 125/78; PULSE 85; TEMP 36.4; O2SAT 90
[2016-07-13] MEDS: CARVEDILOL 25 MG TAB PO SCH ×2 (07:43→21:24)
[2016-07-13] MEDS: METOPROLOL SUCC 50MG EXT REL TAB PO SCH (07:43)
[2016-07-13] MEDS: ATORVASTATIN 10 MG TAB PO SCH (07:43)
--- NOTE | 2016-07-13 11:15 | PROGRESS NOTE ---
DATE: 07/13/2016 DATE: 07/13/2016. The patient states that he still has some dyspepsia after eating. His main complaint is mild shortness of breath and some dry cough. Yesterday his MRCP and biliary scan did not show any significant dysfunction of his gallbladder, although he does have some incidental gallstones. Mild indirect bilirubin fraction is consistent with Gilbert's which does not carry any clinical significance. I do not believe that he has any hepatobiliary pathology of significance. At this time my tentative plan is to schedule him for an EGD on Friday afternoon provided that his heart and lungs are stable enough to have him sedated for the procedure. Will follow the patient during hospital stay.
[2016-07-13 11:50] VITALS: BP 111/74; PULSE 82; TEMP 36.4; O2SAT 96
[2016-07-13 15:14] VITALS: BP 114/65; PULSE 94; TEMP 36.4; O2SAT 93
--- NOTE | 2016-07-13 15:27 | Progress Note ---
Subjective Date of Service: Jul 13, 2016. Subjective Pt evaluation today including: conversation w/ patient, conversation w/ family ( at bedside), physical exam, lab review, review of studies, conversation w / marketing operations consultant, review of inpatient medication list Patient reports he just had BRBPR with his BM. Last c-scope 4 years ago, polyps found and was due for another one a month ago but never had it done. Tolerating diet at the moment. Fluid being restricted as well. He reports intermittent SOB off O2 cannula. No chest pain. Problem List Medical Problems: (1) Acute on chronic renal insufficiency Status: Acute (2) Elevated troponin Status: Acute (3) Pulmonary edema Status: Acute (4) Rapid atrial fibrillation Status: Acute Review of Systems All Other Systems: Reviewed and Negative Medications Acetaminophen (Tylenol Tab) 650 mg Q4H PRN PO; Start 07/11/16 at 14:30; Stop 08/10/16 at 14:29 Atorvastatin Calcium (Lipitor Tab) 10 mg QAM PO Last administered on 07/13/16 07:43; Admin Dose 10 MG; Start 07/12/16 at 09:00; Stop 08/11/16 at 08:59 Bumetanide/Syringe (Bumex IV/ Syringe) 8 ml @ 4 mls/min BID@0800,1500 IV; Start 07/14/16 at 08:00; Stop 08/13/16 at 07:59 Carvedilol (Coreg Tab) 25 mg BID PO Last administered on 07/13/16 07:43; Admin Dose 25 MG; Start 07/11/16 at 21:00; Stop 08/10/16 at 20:59 Ciprofloxacin/ Dextrose/Prmx (Cipro / D5w/ Premixed D5W) 200 ml @ 100 mls/hr Q12H IV Last administered on 07/13/16 16:16; Admin Dose 100 MLS/HR; Start 07/11 at 17:00; Stop 07/21/16 at 20:59 Loperamide HCl 2 mg 2 mg Q8 PRN PO; Start 07/11/16 at 15:00; Stop 08/10/16 at 14:59; Status Future Hold Lorazepam (Ativan Inj) 0.5 mg Q4H PRN IV Last administered on 07/11/16 17:16; Admin Dose 0.5 MG; Start 07/11/16 at 17:00; Stop 08/10/16 at 16:59 Lorazepam 0.5 mg/ Syringe 1 ml @ 1 mls/min Q4H PRN IV; Start 07/11/16 at 17:15 ; Stop 08/10/16 at 17:14 Metoprolol Succinate (Toprol Xl Tab) 50 mg QAM PO Last administered on 07:43; Admin Dose 50 MG; Start 07/12/16 at 09:00; Stop 08/11/16 at 08:59 Metoprolol Tartrate 5 mg 5 mg Q4 PRN IV; Start 07/11/16 at 17:00; Stop at 16:59 Metronidazole 500 mg/Prmx 100 ml @ 100 mls/hr Q8@,,18 IV Last administered on 07/13/16t 10:42; Admin Dose 100 MLS/HR; Start 07/11/16 at 18:00; Stop at 17:59 Ondansetron HCl (Zofran Inj) 4 mg Q6H PRN IV; Start 07/11/16 at 14:30; Stop at 14:29 Potassium Chloride (Klor-Con Tab) 20 meq QAM PO; Start 07/13/16 at 17:30; Stop 08/12/16 at 17:29 Objective Vital Signs Date Time Temp Pulse Resp B/P Pulse Ox O2 Delivery O2 Flow Rate FiO2 07/13/16 12:00 Room Air 07/13/16 11:50 36.4 82 20 111/74 96 Room Air 07/13/16 08:00 Room Air 07/13/16 07:20 36.4 85 16 125/78 90 07/13/16 04:04 36.5 82 20 116/74 91 Room Air 07/13/16 04:00 Room Air 07/13/16 00:00 Room Air 07/12/16 23:29 36.5 69 20 109/70 96 Room Air 07/12/16 20:00 Nasal Cannula 2.0 07/12/16 19:38 36.4 77 18 107/64 98 Nasal Cannula 2.0 07/12/16 15:36 36.5 92 18 105/61 95 Nasal Cannula 2.0 Physical Exam Comments: nad, aox3, coherent and fluent speech, very pleasant irreg irreg, rate reg, no murmurs appreciated basilar crackles, no wheezing, no rhonchi abd obese, +RUQ tenderness, +BS, nd 1+ LE edema cn 2-12 grossly intact without facial drooping Laboratory Results Last 24 Hours Test 07/13/16 05:15 07/13/16 05:35 07/13/16 08:15 07/13/16 15:23 White Blood Count 5.91 K/uL Red Blood Count 3.63 M/uL Hemoglobin 11.7 g/dL Hematocrit 36.2 % Mean Corpuscular Volume 99.7 fL Mean Corpuscular Hemoglobin 32.2 pg Mean Corpuscular Hemoglobin Concent 32.3 g/dl Platelet Count 115 K/uL Mean Platelet Volume 11.5 fL Neutrophils (%) (Auto) 61.6 % Lymphocytes (%) (Auto) 25.4 % Monocytes (%) (Auto) 8.3 % Eosinophils (%) (Auto) 4.2 % Basophils (%) (Auto) 0.3 % Neutrophils # (Auto) 3.64 K/uL Lymphocytes # (Auto) 1.50 K/uL Monocytes # (Auto) 0.49 K/uL Eosinophils # (Auto) 0.25 K/uL Basophils # (Auto) 0.02 K/uL RDW Standard Deviation 51.9 fL RDW Coefficient of Variation 14.3 % Immature Granulocyte % (Auto) 0.2 % Immature Granulocyte # (Auto) 0.01 K/uL Prothrombin Time 14.9 SECONDS Prothromb Time International Ratio 1.4 Activated Partial Thromboplast Time 52.5 SECONDS Partial Thromboplastin Ratio 2.0 Sodium Level 146 mmol/L Potassium Level 3.7 mmol/L Chloride Level 109 mmol/L Carbon Dioxide Level 29 mmol/L Anion Gap 8.0 mmol/L Blood Urea Nitrogen 34 mg/dl Creatinine 1.20 mg/dl Est Creatinine Clear Calc Drug Dose 61.2 ml/min Estimated GFR () 69.6 Estimated GFR (Non- 60.1 BUN/Creatinine Ratio 28.0 Random Glucose 91 mg/dl Calcium Level 8.2 mg/dl Phosphorus Level 2.6 mg/dl Magnesium Level 2.3 mg/dl Total Bilirubin 1.1 mg/dl Direct Bilirubin 0.3 mg/dl Aspartate Amino Transf (AST/SGOT) 20 U/L Alanine Aminotransferase (ALT/SGPT) 30 U/L Alkaline Phosphatase 83 U/L Total Protein 5.3 gm/dl Albumin 2.8 gm/dl Globulin 2.5 gm/dl Albumin/Globulin Ratio 1.1 NUCLEAR HEPATOBILIARY SCAN WITH EJECTION FRACTION IMAGING CLINICAL HISTORY: Right upper quadrant abdominal pain. COMPARISON STUDY: Abdominal ultrasound dated 07/03/2016. TECHNIQUE: Dynamic images of the liver and anterior abdomen were obtained every 5 minutes for a total of 60 minutes following the IV administration of 5.2mCi of technetium 99m Choletec. 1.8 mcg of sincalide was then injected with additional images acquired every 5 minutes for 45 minutes to calculate the gallbladder ejection fraction. FINDINGS: The hepatobiliary scan shows prompt and homogeneous hepatic uptake. There is visualized activity within the intra and extrahepatic biliary tree at 10 minutes, and within the gallbladder at 35 minutes. There is normal biliary to bowel transit, with small bowel visualized by 15 minutes. Excreted tracer within the bladder likely represents free technetium. On the sincalide imaging, the gallbladder ejection fraction was measured at 35%. IMPRESSION: 1. Unremarkable nuclear hepatobiliary scan. There is no scintigraphic evidence of cholecystitis. 2. The gallbladder ejection fraction measured 35% which is low normal. Interpretation Summary * Name: ANUM MACKEY Study Date: 07/12/2016 08:25 AM BP: 127/88 mmHg * Patient Location: [facility]\S\S230\S\2 HR: 107 * : 1945 (M/d/yyyy) Gender: Male Height: 68 in * Age: 71 yrs Ethnicity: [place] Weight: 196 lb * Ordering Physician: Selvin Mortensen * Referring Physician: Self, Referred * Performed By: Maira Cullen RDCS * * Reason For Study: CHF * BSA: 2.0 m2 * History: CHF * -- Conclusions -- * 1. Severely dilated LV with mild concentric LVH. * 2. Severe global LV dysfunction. EF 20-25%. * 3. Moderately dilated RV with moderate RV dysfunction. * 4. Moderate aortic regurgitation * 5. Moderate mitral regurgitation. * 6. Diastolic dysfunction. * 7. Mild pulmonary hypertension. Est PASP 35-40 mmHg. Elevated est CVP (15 mmHg). * 8. No prior studies for comparison. * RENAL ULTRASOUND HISTORY: Renal cysts CK, re-eval cysts COMPARISON: MRCP same date, right upper quadrant ultrasound 3 11/27/2016 FINDINGS: Right kidney: Maximum dimension 12 cm. 2 right renal cyst measuring 10 and 8 cm respectively. Normal corticomedullary differentiation and cortical thickness. Left kidney: Maximum dimension 12.3 cm. 3 cm mid pole cyst Bladder: No bladder wall thickening. The bilateral ureteral jets were identified. IMPRESSION: Bilateral renal cysts. No evidence renal hydronephrosis. No change from findings previously described on MR CP study Assessment and Plan 1. RUQ abd pain - no e/o cholecystitis but did have sludge and cholelithiasis - GI symptoms unexplained by imaging findings, unlikely related to GB - may possibly be 2/2 anasarca and volume optimization may improve his symptoms 2. Acute decompensated systolic CHF - increase PASP and CVP certainly consistent with volume overload - will start him on IV bumex 2mg now and monitor response - will start bumex BID starting tomorrow - will keep him 500-1000cc fluid negative balance over 24 hrs so long as BP tolerates 3. NIKHIL on CKD III - likely from chronic HTN plus element of cardiorenal - weight loss is probably both muscle mass plus water weight, so will need to determine new dry weight for him - renal US show normal size kidneys with normal parenchyma, his kidney dysfunction is likely not very severe - baseline appears to be 1.2-1.4 - avoid nephrotoxins such NSAIDs and non-emergent contrast studies & hypotension 4. Elevated troponin - levels not consistent with NSTEMI but will continue to trend - may be demand ischemia with decompensated CHF along with NIKHIL on CKD - heparin gtt stopped due to BRBPR 5. Chronic Afib with RVR - rate relatively better controlled on metoprolol in AM - prn metoprolol IV for RVR >110 - heparin gtt, hold off coumadin pending GI work-up and possible procedure - cardio recs appreciated, discussed with Dr. Mortensen 6. BRBPR - possible has hemorrhoids, per pt report - stop heparin gtt - monitor h/h - keep Hb >8 and would give bumex 2mg IV after if a transfusion were needed
[2016-07-13 15:48] LABS: BASO % 0.3 %; BASO ABS # 0.02 K/uL (0-0.2); HEMATOCRIT 37.3 % (42-52); IG% 0.3 %; LYMPH % 24.7 %; LYMPH ABS # 1.49 K/uL (1.2-3.4); MEAN CELL VOLUME 98.9 fL (80-100); MEAN CORPUSCULAR HEMOGLOBIN 32.6 pg (25-34); MEAN PLATELET VOLUME 11.2 fL (7.4-10.4); MONO % 8.5 %; NEUT % 62.2 %; PLATELET COUNT 119 K/uL (130-400); RED BLOOD COUNT 3.77 M/uL (4.7-6.1); WHITE BLOOD COUNT 6.03 K/uL (4.8-10.8)
[2016-07-13 15:59] LABS: COMPLETE YES
[2016-07-13] MEDS ORDERED: BUMETANIDE IV 2 MG in SYRINGE 0 ML IV ONE (16:00)
--- NOTE | 2016-07-13 16:48 | CARDIOLOGY PROGRESS NOTE ---
DATE: 07/13/2016 DATE: 07/13/2016. SUBJECTIVE: This morning Mr. Butler claims to be feeling about "20%". He has an element of dyspnea even with minimal activity. He even had some dyspnea at rest for which he requested oxygen earlier in the day. His abdominal pain seems to have abated to a large degree. He has not been eating much and has an element of anorexia. He did report a bloody or dark stool earlier in the day as well. He has been coughing intermittently. PHYSICAL EXAMINATION: GENERAL: He was alert and oriented. His mood and affect appeared normal. CURRENT VITAL SIGNS: Included blood pressure of 114/65 with a pulse of 94. EYES: Sclera anicteric. LUNGS: Auscultation of lungs reveal crackles at the bases bilaterally and somewhat reduced air movement in general. There were no expiratory wheezes. CARDIAC EXAMINATION: Revealed him to be in a irregular irregular rhythm with a systolic murmur variable intensity. LABORATORY DATA: Studies obtained today included a white cell count of 6, hemoglobin of 12.3, platelet count 119, sodium 146, potassium 3.7, creatinine was 1.2. ASSESSMENT AND PLAN: 1. Abdominal pain. The patient's GI evaluation suggests that he does not have acute cholecystitis. Due to his persistent complaints he is scheduled for an EGD potentially Friday. He did have a dark stool earlier today and there is some question as to whether an additional evaluation will be required. 2. Atrial fibrillation. The patient has reasonably good rate control. He has not been very active and hence his pulse stays in the relatively good range on his current medical regiment of oral beta blockers. We did briefly discuss the reasoning behind anticoagulation and atrial fibrillation and at some point he needs to reconsider extermination inspector anticoagulation for stroke prophylaxis. This does not seem to be an appropriate time currently, yet there is some debate about whether he has blood in his stool and he is scheduled for some procedures earlier in this week. 3. Acute decompensated systolic heart failure. The patient likely has element of significant pulmonary vascular congestion based on his lab results and severely reduced LV function. He has chronic pulmonary complaints, some of which are related to his primary lung disease. At this point after discussing his case with the primary service we have elected to attempt diuresis over the course of the next 24 hours monitoring his electrolytes, renal function and symptoms closely. 4. Cardiomyopathy. Once again of unclear etiology. He did not report symptoms of angina leading up to his admission or at other times however we did discuss the utility of coronary angiography and possibly right heart catheterization in this setting. For the time being we will maintain his medical therapy and attempt to improve his compensatory state prior to performing any additional procedures. 5. Mild hypokalemia. Which will be replaced.
[2016-07-13] MEDS: POTASSIUM CHLORIDE 20 MEQ TABCR PO SCH (17:34)
[2016-07-13 19:24] VITALS: BP 119/75; PULSE 97; TEMP 36.9; O2SAT 99
[2016-07-13 23:44] VITALS: BP 114/79; PULSE 89; TEMP 36.6; O2SAT 94
[2016-07-14] VITALS (8 sets, daily range): BP systolic 105–125; BP diastolic 67–81; PULSE 80–93; TEMP 36.6–36.9; O2SAT 92–96
[2016-07-14 00:36] LABS: HEMATOCRIT 37.2 % (42-52)
[2016-07-14] MEDS: METRONIDAZOLE 500MG / NSS IV SCH ×3 (02:06→16:56)
[2016-07-14] MEDS: CIPROFLOXACIN / D5W 400 MG in PREMIXED IN D5W 200 ML IV SCH ×2 (05:00→16:56)
[2016-07-14 08:16] LABS: BASO % 0.3 %; BASO ABS # 0.02 K/uL (0-0.2); COMPLETE YES; EOS % 3.5 %; HEMATOCRIT 41.3 % (42-52); IG% 0.1 %; LYMPH % 18.7 %; LYMPH ABS # 1.33 K/uL (1.2-3.4); MEAN CELL VOLUME 100.5 fL (80-100); MEAN CORPUSCULAR HEMOGLOBIN 32.8 pg (25-34); MEAN CORPUSCULAR HGB CONC 32.7 g/dl (32-36); MEAN PLATELET VOLUME 11.5 fL (7.4-10.4); MONO % 10.1 %; NEUT % 67.3 %; PLATELET COUNT 137 K/uL (130-400); RED BLOOD COUNT 4.11 M/uL (4.7-6.1); WHITE BLOOD COUNT 7.12 K/uL (4.8-10.8)
[2016-07-14 08:28] LABS: INR 1.3 (0.9-1.1); PARTIAL THROMBOPLASTIN RATIO 1.1
[2016-07-14] MEDS: ATORVASTATIN 10 MG TAB PO SCH (08:49)
[2016-07-14] MEDS: CARVEDILOL 25 MG TAB PO SCH ×2 (08:50→21:22)
[2016-07-14] MEDS: POTASSIUM CHLORIDE 20 MEQ TABCR PO SCH (08:51)
[2016-07-14 09:00] LABS: BUN/CREATININE RATIO 18.7 (10-20); CALCIUM 8.9 mg/dl (8.5-10.1); CREATININE 1.4 mg/dl (0.60-1.40); MAGNESIUM 2.2 mg/dl (1.8-2.4); POTASSIUM 3.9 mmol/L (3.5-5.1)
[2016-07-14 09:03] LABS: ALB/GLOB RATIO 1.1 (0.9-2)
[2016-07-14] MEDS: METOPROLOL SUCC 50MG EXT REL TAB PO SCH (09:30)
[2016-07-14] MEDS: BUMETANIDE IV 2 MG in SYRINGE 0 ML IV SCH ×2 (09:31→15:09)
--- NOTE | 2016-07-14 10:45 | PROGRESS NOTE ---
DATE: 07/14/2016 SUBJECTIVE: The patient reported that he had a bloody stool yesterday, although his blood count has actually improved overnight, his hemoglobin today is 13.5 compared to 12.3 yesterday and in addition stool for Hemoccult today is negative. Stool for H. pylori is pending as is stool for bacterial pathogens as fecal leukocytes are negative as is C. diff. OBJECTIVE: VITAL SIGNS: Show a heart rate of 91, blood pressure is 118/78. IMPRESSION: The patient has right upper quadrant pain, which does not appear to be gallbladder related. He is mildly anemic. He is not on any aspirin or nonsteroidals. There is a chance that he is going to need blood thinners in the future and for this reason, I recommend he undergo an EGD which is tentatively scheduled for tomorrow afternoon provided he is stable medically. In the meantime, we will await his H. pylori stool test.
--- NOTE | 2016-07-14 12:47 | Progress Note ---
Subjective Date of Service: Jul 14, 2016. Subjective Pt evaluation today including: conversation w/ patient, physical exam, lab review, review of studies, conversation w/ data communications software consultant, review of inpatient medication list no new complaints no chest pain, no sob belching still persistent not very fond of the fluid restriction but will tolerate it for now off heparin gtt Problem List Medical Problems: (1) Acute on chronic renal insufficiency Status: Acute (2) Elevated troponin Status: Acute (3) Pulmonary edema Status: Acute (4) Rapid atrial fibrillation Status: Acute Review of Systems All Other Systems: Reviewed and Negative Medications Acetaminophen (Tylenol Tab) 650 mg Q4H PRN PO; Start 07/11/16 at 14:30; Stop 08/10/16 at 14:29 Atorvastatin Calcium (Lipitor Tab) 10 mg QAM PO Last administered on 07/14/16 08:49; Admin Dose 10 MG; Start 07/12/16 at 09:00; Stop 08/11/16 at 08:59 Bumetanide/Syringe (Bumex IV/ Syringe) 8 ml @ 4 mls/min BID@0800,1500 IV Last administered on 07/14/16 15:09; Admin Dose 4 MLS/MIN; Start 07/14/16 at 08:00; Stop 08/13/16 at 07:59 Carvedilol (Coreg Tab) 25 mg BID PO Last administered on 07/14/16 08:50; Admin Dose 25 MG; Start 07/11/16 at 21:00; Stop 08/10/16 at 20:59 Ciprofloxacin/ Dextrose/Prmx (Cipro / D5w/ Premixed D5W) 200 ml @ 100 mls/hr Q12H IV Last administered on 07/14/16 05:00; Admin Dose 100 MLS/HR; Start 07/11 at 17:00; Stop 07/21/16 at 20:59 Loperamide HCl 2 mg 2 mg Q8 PRN PO; Start 07/11/16 at 15:00; Stop 08/10/16 at 14:59; Status Future Hold Lorazepam (Ativan Inj) 0.5 mg Q4H PRN IV Last administered on 07/11/16 17:16; Admin Dose 0.5 MG; Start 07/11/16 at 17:00; Stop 08/10/16 at 16:59 Lorazepam 0.5 mg/ Syringe 1 ml @ 1 mls/min Q4H PRN IV; Start 07/11/16 at 17:15 ; Stop 08/10/16 at 17:14 Metoprolol Succinate (Toprol Xl Tab) 50 mg QAM PO Last administered on 09:30; Admin Dose 50 MG; Start 07/12/16 at 09:00; Stop 08/11/16 at 08:59 Metoprolol Tartrate 5 mg 5 mg Q4 PRN IV; Start 07/11/16 at 17:00; Stop at 16:59 Metronidazole 500 mg/Prmx 100 ml @ 100 mls/hr Q8@,,18 IV Last administered on 07/14/16 10:33; Admin Dose 100 MLS/HR; Start 07/11/16 at 18:00; Stop at 17:59 Ondansetron HCl (Zofran Inj) 4 mg Q6H PRN IV; Start 07/11/16 at 14:30; Stop at 14:29 Potassium Chloride (Klor-Con Tab) 20 meq QAM PO Last administered on 07/14/16 08:51; Admin Dose 20 MEQ; Start 07/13/16 at 17:30; Stop 08/12/16 at 17:29 Objective Vital Signs Date Time Temp Pulse Resp B/P Pulse Ox O2 Delivery O2 Flow Rate FiO2 07/14/16 10:52 36.9 93 18 116/79 94 Room Air 07/14/16 08:30 Room Air 07/14/16 07:33 36.8 91 19 118/78 96 Room Air 07/14/16 04:10 36.6 82 16 115/79 93 Room Air 07/14/16 04:00 Room Air 07/14/16 00:00 Room Air 07/13/16 23:44 36.6 89 16 114/79 94 Room Air 07/13/16 20:00 Room Air 07/13/16 19:24 36.9 97 20 119/75 99 Nasal Cannula 2.0 07/13/16 16:00 Room Air 07/13/16 15:14 36.4 94 20 114/65 93 Room Air Physical Exam Comments: nad, aox3 periorbital swelling noted yesterday has improved eomi, perrl, anicteric irreg irreg, reg rate, no murmur appreciated basilar crackles, no wheezing, diminished breath sounds abd soft nt nd +BS 1+ LE edema Laboratory Results Last 24 Hours Test 07/13/16 15:35 07/14/16 00:00 07/14/16 00:25 07/14/16 08:05 White Blood Count 6.03 K/uL 7.12 K/uL Red Blood Count 3.77 M/uL 4.11 M/uL Hemoglobin 12.3 g/dL 12.1 g/dL 13.5 g/dL Hematocrit 37.3 % 37.2 % 41.3 % Mean Corpuscular Volume 98.9 fL 100.5 fL Mean Corpuscular Hemoglobin 32.6 pg 32.8 pg Mean Corpuscular Hemoglobin Concent 33.0 g/dl 32.7 g/dl Platelet Count 119 K/uL 137 K/uL Mean Platelet Volume 11.2 fL 11.5 fL Neutrophils (%) (Auto) 62.2 % 67.3 % Lymphocytes (%) (Auto) 24.7 % 18.7 % Monocytes (%) (Auto) 8.5 % 10.1 % Eosinophils (%) (Auto) 4.0 % 3.5 % Basophils (%) (Auto) 0.3 % 0.3 % Neutrophils # (Auto) 3.75 K/uL 4.79 K/uL Lymphocytes # (Auto) 1.49 K/uL 1.33 K/uL Monocytes # (Auto) 0.51 K/uL 0.72 K/uL Eosinophils # (Auto) 0.24 K/uL 0.25 K/uL Basophils # (Auto) 0.02 K/uL 0.02 K/uL RDW Standard Deviation 51.0 fL 51.9 fL RDW Coefficient of Variation 14.2 % 14.3 % Immature Granulocyte % (Auto) 0.3 % 0.1 % Immature Granulocyte # (Auto) 0.02 K/uL 0.01 K/uL Stool Occult Blood NEGATIVE Prothrombin Time 14.0 SECONDS Prothromb Time International Ratio 1.3 Activated Partial Thromboplast Time 28.2 SECONDS Partial Thromboplastin Ratio 1.1 Sodium Level 145 mmol/L Potassium Level 3.9 mmol/L Chloride Level 107 mmol/L Carbon Dioxide Level 28 mmol/L Anion Gap 10.0 mmol/L Blood Urea Nitrogen 26 mg/dl Creatinine 1.40 mg/dl Est Creatinine Clear Calc Drug Dose 51.2 ml/min Estimated GFR () 57.8 Estimated GFR (Non- 49.8 BUN/Creatinine Ratio 18.7 Random Glucose 116 mg/dl Calcium Level 8.9 mg/dl Magnesium Level 2.2 mg/dl Total Bilirubin 1.0 mg/dl Aspartate Amino Transf (AST/SGOT) 18 U/L Alanine Aminotransferase (ALT/SGPT) 28 U/L Alkaline Phosphatase 98 U/L Total Protein 6.2 gm/dl Albumin 3.3 gm/dl Globulin 2.9 gm/dl Albumin/Globulin Ratio 1.1 Assessment and Plan 1. RUQ abd pain - no e/o cholecystitis but did have sludge and cholelithiasis - GI symptoms unexplained by imaging findings, unlikely related to GB - may possibly be 2/2 anasarca and volume optimization may improve his symptoms - will be going for EGD tomorrow to eval UGIT 2. Acute decompensated systolic CHF - increase PASP and CVP certainly consistent with volume overload - cont bumex 2mg BID - monitor i/o and daily weights (improving) and will need to determine new dry weight for patient - will keep him 500-1000cc fluid negative balance over 24 hrs so long as BP tolerates 3. NIKHIL on CKD III - likely from chronic HTN plus element of cardiorenal - weight loss is probably both muscle mass plus water weight, so will need to determine new dry weight for him - renal US show normal size kidneys with normal parenchyma, his kidney dysfunction is likely not very severe - baseline appears to be 1.2-1.4 and stable from today's labs - avoid nephrotoxins such NSAIDs and non-emergent contrast studies & hypotension 4. Elevated troponin - levels not consistent with NSTEMI - may be demand ischemia with decompensated CHF along with NIKHIL on CKD - heparin gtt stopped due to BRBPR, although stool tested negative for occult blood - discussed with Dr. Mortensen, no urgent need to resume heparin gtt 5. Chronic Afib with RVR - rate relatively better controlled on metoprolol in AM - prn metoprolol IV for RVR >110 - cardio recs appreciated, discussed with Dr. Mortensen - EGD tomorrow - will need to discuss need for anticoagulation pending EGD results 6. BRBPR - possible has hemorrhoids, per pt report - stop heparin gtt - monitor h/h - keep Hb >8 and would give bumex 2mg IV after if a transfusion were needed
[2016-07-14] MEDS: HEPARIN SOD 5000 UNIT/0.5 ML CARP SQ SCH (21:27)
[2016-07-15] VITALS (11 sets, daily range): BP systolic 108–125; BP diastolic 75–88; PULSE 82–103; TEMP 36.3–36.8; O2SAT 91–95
[2016-07-15] MEDS: METRONIDAZOLE 500MG / NSS IV SCH ×3 (01:15→18:35)
[2016-07-15] MEDS: HEPARIN SOD 5000 UNIT/0.5 ML CARP SQ SCH ×3 (05:43→21:29)
[2016-07-15] MEDS: CIPROFLOXACIN / D5W 400 MG in PREMIXED IN D5W 200 ML IV SCH ×2 (05:51→16:54)
[2016-07-15 05:55] LABS: BASO % 0.3 %; BASO ABS # 0.02 K/uL (0-0.2); COMPLETE YES; EOS % 4.1 %; HEMATOCRIT 39.1 % (42-52); LYMPH % 21.2 %; MEAN CELL VOLUME 99.7 fL (80-100); MEAN CORPUSCULAR HEMOGLOBIN 32.1 pg (25-34); MEAN CORPUSCULAR HGB CONC 32.2 g/dl (32-36); MEAN PLATELET VOLUME 11.4 fL (7.4-10.4); MONO % 10.3 %; NEUT % 64.1 %; PLATELET COUNT 132 K/uL (130-400); RED BLOOD COUNT 3.92 M/uL (4.7-6.1); WHITE BLOOD COUNT 6.61 K/uL (4.8-10.8)
[2016-07-15 06:08] LABS: PARTIAL THROMBOPLASTIN RATIO 1.1
[2016-07-15 06:30] LABS: BUN/CREATININE RATIO 18.3 (10-20); CALCIUM 8.5 mg/dl (8.5-10.1); CREATININE 1.5 mg/dl (0.60-1.40); POTASSIUM 3.7 mmol/L (3.5-5.1)
[2016-07-15 07:29] LABS: ESTIMATED AVERAGE GLUCOSE 140 mg/dl; HA1C FLAG Normal (Normal)
[2016-07-15] MEDS: CARVEDILOL 25 MG TAB PO SCH ×2 (08:53→21:31)
[2016-07-15] MEDS: ATORVASTATIN 10 MG TAB PO SCH (08:53)
[2016-07-15] MEDS: POTASSIUM CHLORIDE 20 MEQ TABCR PO SCH (08:53)
[2016-07-15] MEDS: METOPROLOL SUCC 50MG EXT REL TAB PO SCH (08:53)
[2016-07-15] MEDS: BUMETANIDE IV 2 MG in SYRINGE 0 ML IV SCH ×2 (08:53→16:54)
--- NOTE | 2016-07-15 10:42 | CARDIOLOGY PROGRESS NOTE ---
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 As the patient was in atrial fibrillation on admission, he was started on heparin, and he also complained of ongoing heart failure symptoms (dyspnea on exertion, ankle edema, shortness of breath). After starting on heparin, the patient developed melanotic stools for which he will undergo an EGD later today. He does have evidence of cholelithiasis; however, it is not felt to be the cause of his GI symptoms. The patient is currently being seen in room #204, and he continues to complain of dyspnea with minimal exertion, mild orthopnea causing him to elevate his HOB, abdominal bloating, ankle edema, and poor appetite. He denies any chest pain, heaviness, tightness, or pressure. No neck, jaw, back, or arm pain. No PND. He denies any palpitations, tachypalpitations, syncope, or near syncope. PHYSICAL EXAMINATION: VITAL SIGNS: Temperature is 36.5 degrees Celsius, pulse is 85-95 and irregularly irregular, respiratory rate is 18, blood pressure is 108/75. SPO2 is 92% on room air. I&O's -594 mL over the past 24 hours. Prior to that, he had a positive fluid balance of approximately 4 liters. Body weight 87 kilograms, down 0.1 kilograms since yesterday. GENERAL: The patient appears in no acute distress. HEENT: Head is atraumatic, normocephalic. EOMs intact. Sclerae are anicteric. Face is symmetric. No perioral cyanosis. Mucous membranes moist. NECK: Without thyromegaly or adenopathy. Jugular venous pressure is approximately one-third to one-half way to the angle of the jaw sitting upright. CHEST AND LUNGS: With diminished breath sounds in bilateral bases, bibasilar crackles. No wheezes noted. CARDIOVASCULAR: S1 and S2 are irregularly irregular with a grade 2/6 apical holosystolic murmur. No diastolic murmurs appreciated. No obvious gallops or rubs. PMI is laterally displaced. No lifts, heaves, or thrills. No abdominal, aortic or renal bruits. ABDOMEN: Bowel sounds are present. Tender to palpation along the right upper quadrant - liver edge non-palpable. Abdomen mildly distended with but not tense. EXTREMITIES: With +1 ankle edema bilaterally. Intact posterior, tibial and radial pulses. NEUROLOGIC: The patient is awake, alert and oriented. Pleasant and cooperative. Answers questions appropriately. Speech is clear. Normal movement in bilateral upper and lower extremities. Gait pattern since. Telemetry monitoring reveals persistent atrial fibrillation with reasonably well controlled V-rate. LABORATORY DATA: Sodium is 148 mmol/L, potassium 3.7 mmol/L. BUN 27 mg/dL, creatinine 1.50 mg/dL. Random glucose is 94 mg/dL. Serum magnesium level is normal at 2.0 mg/dL. Total bilirubin 1.0. AST is 18 units per liter, ALT is 28 units per liter, alkaline phosphatase 98 units per liter. Total protein is 6.2 with an albumin of 3.3 and a globulin 2.9 g/dL. INR elevated at 1.3. White blood cell count 6.61. Hemoglobin 12.6 g/dl, hematocrit 39.1%, and platelet count 132,000. Stool for occult blood negative x2. Stool for H. pylori antigen is pending. Hepatitis C screen is negative. ASSESSMENT: 1. Decompensated Systolic CHF 2. Cardiomyopathy, current LVEF 20% to 25%. Moderate AI, moderate MR. 3. Severe restrictive/obstructive pulmonary disease. 4. History of pulmonary hypertension. 5. History of melanotic stools, anticoagulation is currently contraindicated. 6. Rate controlled Atrial Fibrillation, currently not a candidate for anticoagulation until cleared endoscopically. 7. Multiple gastrointestinal complaints. Workup is underway. Could consider hepatic congestion, gut edema as a potential cause in light of his underlying cardiomyopathy and acute on chronic systolic congestive heart failure. PLAN: 1. The patient does have a negative fluid balance overnight, and his body weight has come down slightly. 2. Continue IV Bumex with close monitoring of renal function. 3. If symptoms persist - both cardiac and GI - would strongly consider a trial of IV Dobutamine. This should help him compensate from heart failure standpoint, and we may be able to retrospectively see if he has improvement in his GI symptoms following treatment for his heart failure. 4. Continue Coreg 25 mg b.i.d. 5. Continue Toprol-XL 50 mg each morning. 6. Continue Lipitor 10 mg daily. 7. Continue potassium chloride. 8. If cleared endoscopically, consider starting one of the novel anticoagulants prior to discharging to home and consider an attempt at restoring normal sinus rhythm 4 weeks after being anticoagulated. 9. We will continue to follow. [facility] HOSPITALoLida
[2016-07-15] MEDS ORDERED: PROPOFOL IV EMULSION 10 MG/ML 20 ML VIAL IV ONE (14:23)
[2016-07-15] MEDS ORDERED: LIDOCAINE HCL 2% 2 ML VIAL (20MG/ML) ONE (14:23)
--- NOTE | 2016-07-15 14:39 | Endo History and Physical ---
History & Physical Date of Service: Jul 15, 2016. 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 R Rotator cuff ) Hx Urinary Tract Surgery: No Social History Smoking Status: Never Smoker Hx Substance Use: No Hx Alcohol Use: Yes (OCCASSIONALLY, last drink > 30 days ago) Allergies Coded Allergies: NO KNOWN DRUG ALLERGIES (Verified Allergy, Unknown, ., 03/06/16) Current Medications Reported Home Medications Medications Dose Route/Sig Max Daily Dose Days Date Category Lipitor (Atorvastatin Calcium) 10 Mg Tab 10 Mg PO QAM 02/20/16 Reported Coreg (Carvedilol) 25 Mg Tab 1 Tab PO BID 90 02/20/16 Reported Lasix (Furosemide) 80 Mg Tab 80 Mg PO QAM 02/20/16 Reported Vital Signs Weight (Kilograms): 87.000 Height (Feet): 5 Height (Inches): 8.00 Date Time Temp Pulse Resp B/P Pulse Ox O2 Delivery O2 Flow Rate FiO2 07/15/16 13:37 36.4 96 18 122/84 95 Room Air 07/15/16 13:01 36.7 90 20 125/77 95 Room Air 07/15/16 12:00 94 Room Air 07/15/16 10:51 36.7 90 20 125/77 95 Room Air 07/15/16 08:00 94 Room Air 07/15/16 07:21 36.7 94 20 108/75 91 Room Air 07/15/16 04:00 92 Room Air 07/15/16 03:18 36.5 82 20 108/75 92 Room Air 07/14/16 23:59 92 Room Air 07/14/16 23:38 36.8 84 22 105/67 92 Room Air 07/14/16 20:00 92 Room Air 07/14/16 19:05 36.7 93 18 125/81 92 Room Air 07/14/16 16:00 Room Air 07/14/16 15:27 36.6 80 18 110/70 92 Room Air Physical Exam General Appearance: WD/WN Respiratory/Chest: Respiratory effort: no dyspnea Cardiovascular: Heart Auscultation: RRR Abdomen: Inspection & Palpation: soft Assessment and Plan RUQ pain for EGD
--- NOTE | 2016-07-15 14:49 | Discharge Instructions ---
Endoscopy Patient Instructions Date / Procedure(s) Performed Jul 15, 2016. EGD Allergy Information Coded Allergies: NO KNOWN DRUG ALLERGIES (Verified Allergy, Unknown, ., 03/06/16) Discharge Date / Findings Jul 15, 2016. Congestive gastropathy Medication Instructions Restart Stopped Medication(s): resume meds Current Inpatient Medications Medications (Trade) Dose Ordered Sig/Sulma Route Start Time Stop Time Status Last Admin Dose Admin Acetaminophen (Tylenol Tab) 650 mg Q4H PRN PO 07/11/16 14:30 08/10/16 14:29 Ondansetron HCl (Zofran Inj) 4 mg Q6H PRN IV 07/11/16 14:30 08/10/16 14:29 Atorvastatin Calcium (Lipitor Tab) 10 mg QAM PO 07/12/16 09:00 08/11/16 08:59 07/15/16 08:53 10 MG Carvedilol (Coreg Tab) 25 mg BID PO 07/11/16 21:00 08/10/16 20:59 07/15/16 08:53 25 MG Metoprolol Succinate (Toprol Xl Tab) 50 mg QAM PO 07/12/16 09:00 08/11/16 08:59 07/15/16 08:53 50 MG Loperamide HCl 2 mg 2 mg Q8 PRN PO 07/11/16 15:00 08/10/16 14:59 Future Hold Ciprofloxacin/ Dextrose/Prmx (Cipro / D5w/ Premixed D5W) 200 ml @ 100 mls/hr Q12H IV 07/11/16 17:00 07/21/16 20:59 07/15/16 05:51 100 MLS/HR Lorazepam (Ativan Inj) 0.5 mg Q4H PRN IV 07/11/16 17:00 08/10/16 16:59 07/11/16 17:16 0.5 MG Metoprolol Tartrate 5 mg 5 mg Q4 PRN IV 07/11/16 17:00 08/10/16 16:59 Lorazepam 0.5 mg/ Syringe 1 ml @ 1 mls/min Q4H PRN IV 07/11/16 17:15 08/10/16 17:14 Metronidazole 500 mg/Prmx 100 ml @ 100 mls/hr Q8@,,18 IV 07/11/16 18:00 07/21/16 17:59 07/15/16 08:52 100 MLS/HR Bumetanide/Syringe (Bumex IV/ Syringe) 8 ml @ 4 mls/min BID@0800,1500 IV 07/14/16 08:00 08/13/16 07:59 07/15/16 08:53 4 MLS/MIN Potassium Chloride (Klor-Con Tab) 20 meq QAM PO 07/13/16 17:30 08/12/16 17:29 07/15/16 08:53 20 MEQ Heparin Sodium (Porcine) (Heparin Sq 5000 Unit/0.5ml) 5,000 unit Q8 SQ 07/14/16 22:00 08/13/16 21:59 07/15/16 05:43 5,000 UNIT Provider Instructions Activity Restrictions - No exercising or heavy lifting for 24 hours. - Do not drink alcohol the day of the procedure. - Do not drive a car or operate machinery until the day after the procedure. - Do not make any important decisions or sign important papers in 24 hours after the procedure. Following Day: - Return to full activity which may include returning to work/school. Diet Start your diet with liquids and light foods (jello, soup, juice, toast). Then eat your usual diet if not nauseated. Treatment For Common After Affects For mild abdominal pain, bloating, or excessive gas: - Rest - Eat lightly - Lie on right side Follow-Up Information Follow-up with as scheduled Anesthesia Information What You Should Know You have had a procedure that required some medicine to reduce anxiety and discomfort. This treatment is called moderate sedation. After receiving the treatment, you may be sleepy, but you will be able to breathe on your own. The effects of the treatment may last for several hours. Follow these instructions along with Activity/Diet recommendations noted above: * Do NOT do anything where dizziness or clumsiness would be dangerous. * Rest quietly at home today, then you can be up and about tomorrow. * Have a responsible person stay with you the rest of today. * You may have had an I.V. today. If so, you may take the dressing off later today. Recommendations Call your doctor if: * Trouble breathing * Continuous vomiting for more than 24 hours * Temperature above 101 degrees * Severe abdominal pain or bloating * Pain not relieved by pain medicine ordered * There is increased drainage or redness from any incision * A large amount of rectal bleeding greater than 2-3 tablespoons. (If you had a polyp/s removed or have hemorrhoids, a small amount of blood - from the rectum is to be expected.) * You have any unanswered questions or concerns. IN THE EVENT OF A SERIOUS EMERGENCY, GO TO THE NEAREST EMERGENCY ROOM Your discharge instructions were prepared by provider Washington Urrutia. Patient Instructions Signature Page Rashmi Butler Patient (or Guardian) Signature/Date: I have read and understand the instructions given to me by my caregivers. Caregiver/RN/Doctor Signature/Date: The above-named patient and/or guardian has received patient instructions on this date. + Original Patient Signature Page (only) stays with chart. Please make copy for patient.
[2016-07-15] MEDS ORDERED: PHENYLEPHRINE 100MCG/ML 5ML SYR ONE (14:52)
--- NOTE | 2016-07-15 14:57 | GI REPORT ---
Procedure Date: 07/15/2016 2:41 PM Procedure: Upper GI endoscopy Indications: Abdominal pain in the right upper quadrant Medicines: Propofol total dose 70 mg IV, Lidocaine 80 mg IV Complications: No immediate complications. Estimated Blood Loss: Estimated blood loss: none. Procedure: Pre-Anesthesia Assessment: - Prior to the procedure, a History and Physical was performed, and patient medications, allergies and sensitivities were reviewed. The patient's tolerance of previous anesthesia was reviewed. - The risks and benefits of the procedure and the sedation options and risks were discussed with the patient. All questions were answered and informed consent was obtained. After obtaining informed consent, the endoscope was passed under direct vision. Throughout the procedure, the patient's blood pressure, pulse, and oxygen saturations were monitored continuously.The upper GI endoscopy was accomplished without difficulty. The patient tolerated the procedure well. The scope was introduced through the mouth, and advanced to the second part of duodenum. Findings: The examined esophagus was normal. Diffuse moderately erythematous mucosa with bleeding consistent with congestive gastropathy was found in the gastric body. Estimated blood loss: none. A non-bleeding diverticulum was found in the second part of the duodenum. Impression: - Normal esophagus. - Erythematous mucosa in the gastric body. - Non-bleeding duodenal diverticulum. - No specimens collected. Recommendation: - Continue present medications. - Return patient to hospital hood for ongoing care. Washington Urrutia M.D. Washington Urrutia MD 07/15/2016 2:57:34 PM This report has been signed electronically. Note Initiated On: 07/15/2016 2:41 PM I attest to the content of the Intraoperative Record and orders documented therein, exceptions below
--- NOTE | 2016-07-15 15:17 | Progress Note ---
Subjective Date of Service: Jul 15, 2016. 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, review of inpatient medication list Pain: still with epigastric / RUQ pain PO Intake: NPO for EGD Voiding: no voiding problems patient laying in bed, c/o continued abdominal pain, loose stools with some blood appreciate note from cardiology reviewed EGD report - no active bleeding, normal esophagus, congestive gastropathy patient reports that breathing stable, no chest pain, mild edema that is chronic Problem List Medical Problems: (1) Acute on chronic renal insufficiency Status: Acute (2) Elevated troponin Status: Acute (3) Pulmonary edema Status: Acute (4) Rapid atrial fibrillation Status: Acute Review of Systems Constitutional: + fatigue, + weakness Respiratory: + dyspnea on exertion Abdomen: + pain All Other Systems: Reviewed and Negative Medications Current Inpatient Medications Medications (Trade) Dose Ordered Sig/Sulma Route Start Time Stop Time Status Last Admin Dose Admin Acetaminophen (Tylenol Tab) 650 mg Q4H PRN PO 07/11/16 14:30 08/10/16 14:29 Ondansetron HCl (Zofran Inj) 4 mg Q6H PRN IV 07/11/16 14:30 08/10/16 14:29 Atorvastatin Calcium (Lipitor Tab) 10 mg QAM PO 07/12/16 09:00 08/11/16 08:59 07/15/16 08:53 10 MG Carvedilol (Coreg Tab) 25 mg BID PO 07/11/16 21:00 08/10/16 20:59 07/15/16 08:53 25 MG Metoprolol Succinate (Toprol Xl Tab) 50 mg QAM PO 07/12/16 09:00 08/11/16 08:59 07/15/16 08:53 50 MG Loperamide HCl 2 mg 2 mg Q8 PRN PO 07/11/16 15:00 08/10/16 14:59 Future Hold Ciprofloxacin/ Dextrose/Prmx (Cipro / D5w/ Premixed D5W) 200 ml @ 100 mls/hr Q12H IV 07/11/16 17:00 07/21/16 20:59 07/15/16 05:51 100 MLS/HR Lorazepam (Ativan Inj) 0.5 mg Q4H PRN IV 07/11/16 17:00 08/10/16 16:59 07/11/16 17:16 0.5 MG Metoprolol Tartrate 5 mg 5 mg Q4 PRN IV 07/11/16 17:00 08/10/16 16:59 Lorazepam 0.5 mg/ Syringe 1 ml @ 1 mls/min Q4H PRN IV 07/11/16 17:15 08/10/16 17:14 Metronidazole 500 mg/Prmx 100 ml @ 100 mls/hr Q8@02,10,18 IV 07/11/16 18:00 07/21/16 17:59 07/15/16 08:52 100 MLS/HR Bumetanide/Syringe (Bumex IV/ Syringe) 8 ml @ 4 mls/min BID@0800,1500 IV 07/14/16 08:00 08/13/16 07:59 07/15/16 08:53 4 MLS/MIN Potassium Chloride (Klor-Con Tab) 20 meq QAM PO 07/13/16 17:30 08/12/16 17:29 07/15/16 08:53 20 MEQ Heparin Sodium (Porcine) (Heparin Sq 5000 Unit/0.5ml) 5,000 unit Q8 SQ 07/14/16 22:00 08/13/16 21:59 07/15/16 05:43 5,000 UNIT Objective Vital Signs Date Time Temp Pulse Resp B/P Pulse Ox O2 Delivery O2 Flow Rate FiO2 07/15/16 13:37 36.4 96 18 122/84 95 Room Air 07/15/16 13:01 36.7 90 20 125/77 95 Room Air 07/15/16 12:00 94 Room Air 07/15/16 10:51 36.7 90 20 125/77 95 Room Air 07/15/16 08:00 94 Room Air 07/15/16 07:21 36.7 94 20 108/75 91 Room Air 07/15/16 04:00 92 Room Air 07/15/16 03:18 36.5 82 20 108/75 92 Room Air 07/14/16 23:59 92 Room Air 07/14/16 23:38 36.8 84 22 105/67 92 Room Air 07/14/16 20:00 92 Room Air 07/14/16 19:05 36.7 93 18 125/81 92 Room Air 07/14/16 16:00 Room Air 07/14/16 15:27 36.6 80 18 110/70 92 Room Air Physical Exam General Appearance: WD/WN, no apparent distress Eyes: normal inspection, EOMI, sclerae normal ENT: normal ENT inspection, hearing grossly normal, pharynx normal Neck: supple, no adenopathy, no JVD, trachea midline Respiratory/Chest: chest non-tender, lungs clear, normal breath sounds, no respiratory distress, no accessory muscle use Cardiovascular: regular rate, rhythm, no edema, no gallop, no JVD, no murmur Abdomen: normal bowel sounds, non tender, soft, no organomegaly Extremities: normal range of motion, non-tender, normal inspection, no calf tenderness, + pedal edema 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, no motor/sensory deficits, alert, normal mood/affect, oriented x 3 Skin: normal color, warm/dry, no rash Laboratory Results Last 24 Hours Test 07/14/16 22:00 07/15/16 05:30 Stool Occult Blood NEGATIVE White Blood Count 6.61 K/uL Red Blood Count 3.92 M/uL Hemoglobin 12.6 g/dL Hematocrit 39.1 % Mean Corpuscular Volume 99.7 fL Mean Corpuscular Hemoglobin 32.1 pg Mean Corpuscular Hemoglobin Concent 32.2 g/dl Platelet Count 132 K/uL Mean Platelet Volume 11.4 fL Neutrophils (%) (Auto) 64.1 % Lymphocytes (%) (Auto) 21.2 % Monocytes (%) (Auto) 10.3 % Eosinophils (%) (Auto) 4.1 % Basophils (%) (Auto) 0.3 % Neutrophils # (Auto) 4.24 K/uL Lymphocytes # (Auto) 1.40 K/uL Monocytes # (Auto) 0.68 K/uL Eosinophils # (Auto) 0.27 K/uL Basophils # (Auto) 0.02 K/uL RDW Standard Deviation 51.6 fL RDW Coefficient of Variation 14.4 % Immature Granulocyte % (Auto) 0.0 % Immature Granulocyte # (Auto) 0.00 K/uL Activated Partial Thromboplast Time 29.8 SECONDS Partial Thromboplastin Ratio 1.1 Sodium Level 148 mmol/L Potassium Level 3.7 mmol/L Chloride Level 109 mmol/L Carbon Dioxide Level 30 mmol/L Anion Gap 9.0 mmol/L Blood Urea Nitrogen 27 mg/dl Creatinine 1.50 mg/dl Est Creatinine Clear Calc Drug Dose 47.8 ml/min Estimated GFR () 53.1 Estimated GFR (Non- 45.9 BUN/Creatinine Ratio 18.3 Random Glucose 94 mg/dl Calcium Level 8.5 mg/dl Magnesium Level 2.0 mg/dl Assessment and Plan 71 yo male with history of systolic heart failure, presented with 6 weeks of abdominal symptoms consistent with RUQ pain, vomiting, loss of appetite, initially constipation and then diarrhea, now with some bloody diarrhea 1. RUQ abd pain - no e/o cholecystitis but did have sludge and cholelithiasis - EGD on 07/15 with normal esophagus, congestive gastropathy, no active bleeding - appreciate cardiology note, may try dobutamine to see if improving cardiac output improves RUQ pain caused by liver congestion 2. Acute decompensated systolic CHF - increase PASP and CVP certainly consistent with volume overload - cont bumex 2mg BID, renal function tolerating and weight trending down slowly - continue Coreg, Toprol - consider dobutamine? 3. NIKHIL on CKD III, acute component resolved - likely from chronic HTN plus element of cardiorenal - renal US show normal size kidneys with normal parenchyma, his kidney dysfunction is likely not very severe - baseline appears to be 1.2-1.4, today is 1.5, repeat tomorrow - avoid nephrotoxins such NSAIDs and non-emergent contrast studies & hypotension 4. Elevated troponin - levels not consistent with NSTEMI - likely just demand ischemia with decompensated CHF along with NIKHIL on CKD - heparin gtt stopped due to BRBPR, although stool tested negative for occult blood 5. Chronic Afib with RVR - rate relatively better controlled on metoprolol in AM - prn metoprolol IV for RVR >110 - cardio recs appreciated - tentatively plan for novel anticoagulant 6. BRBPR - possible has hemorrhoids, per pt report - stop heparin gtt - hb stable - colonoscopy? would be up to GI
--- NOTE | 2016-07-15 15:29 | PROGRESS NOTE ---
DATE: 07/15/2016 HISTORY OF PRESENT ILLNESS: The patient states that he continues to have some dyspepsia and belching. He underwent an EGD today which showed a normal esophagus. There was a diverticulum in the second portion of the duodenum and significantly in the stomach, there was a lot of erythema and some erosions consistent with congestive gastropathy. This is undoubtedly related to his severe congestive heart failure. There were no ulcerations or fiona bleeding. IMPRESSION AND PLAN: The patient has been having some right upper quadrant pain. I believe that his symptoms are related to congestive gastropathy and potentially edema of the bowel wall in other areas from his congestive heart failure. Unfortunately, the primary treatment for this is to improve his congestive heart failure. There is no specific treatment from a GI standpoint. I do not believe that his gallstones are playing a role in his current symptoms.
--- NOTE | 2016-07-15 15:31 | Anesthesiology Progress Note ---
Anesthesia Post Op Note Date & Time Jul 15, 2016 at 15:31 Vital Signs Pain Intensity: 0.0 Vital Signs Past 12 Hours Date Time Temp Pulse Resp B/P Pulse Ox O2 Delivery O2 Flow Rate FiO2 07/15/16 15:24 100 18 117/74 96 Room Air 07/15/16 15:09 96 16 109/67 96 Room Air 07/15/16 14:54 95 16 102/64 95 Room Air 07/15/16 13:37 36.4 96 18 122/84 95 Room Air 07/15/16 13:01 36.7 90 20 125/77 95 Room Air 07/15/16 12:00 94 Room Air 07/15/16 10:51 36.7 90 20 125/77 95 Room Air 07/15/16 08:00 94 Room Air 07/15/16 07:21 36.7 94 20 108/75 91 Room Air 07/15/16 04:00 92 Room Air Notes Mental Status: alert / awake / arousable, participated in evaluation Pt Amnestic to Procedure: Yes Nausea / Vomiting: adequately controlled Pain: adequately controlled Airway Patency, RR, SpO2: stable & adequate BP & HR: stable & adequate Hydration State: stable & adequate Anesthetic Complications: no major complications apparent
[2016-07-15] MEDS: ONDANSETRON INJ 2 MG/ML 2 ML VIAL IV PRN (18:41)
[2016-07-16] VITALS (20 sets, daily range): BP systolic 95–126; BP diastolic 59–80; PULSE 62–92; TEMP 36.7–37.2; O2SAT 91–98
[2016-07-16] MEDS: METRONIDAZOLE 500MG / NSS IV SCH ×3 (01:56→18:07)
[2016-07-16] MEDS: CIPROFLOXACIN / D5W 400 MG in PREMIXED IN D5W 200 ML IV SCH ×2 (05:13→18:06)
[2016-07-16] MEDS: HEPARIN SOD 5000 UNIT/0.5 ML CARP SQ SCH ×3 (05:18→20:49)
[2016-07-16 07:04] LABS: HEMATOCRIT 39.3 % (42-52); MEAN CORPUSCULAR HEMOGLOBIN 32.4 pg (25-34); MEAN CORPUSCULAR HGB CONC 32.1 g/dl (32-36); MEAN PLATELET VOLUME 11.7 fL (7.4-10.4); PLATELET COUNT 121 K/uL (130-400); RED BLOOD COUNT 3.89 M/uL (4.7-6.1); WHITE BLOOD COUNT 6.65 K/uL (4.8-10.8)
[2016-07-16 07:16] LABS: PARTIAL THROMBOPLASTIN RATIO 1.2
[2016-07-16] MEDS: BUMETANIDE IV 2 MG in SYRINGE 0 ML IV SCH ×2 (08:42→14:55)
[2016-07-16] MEDS: ATORVASTATIN 10 MG TAB PO SCH (08:43)
[2016-07-16] MEDS: CARVEDILOL 25 MG TAB PO SCH ×2 (08:43→20:45)
[2016-07-16] MEDS: POTASSIUM CHLORIDE 20 MEQ TABCR PO SCH (08:43)
[2016-07-16] MEDS: METOPROLOL SUCC 50MG EXT REL TAB PO SCH (08:44)
[2016-07-16 08:50] LABS: BUN/CREATININE RATIO 19.1 (10-20); CALCIUM 8.2 mg/dl (8.5-10.1); CREATININE 1.5 mg/dl (0.60-1.40); POTASSIUM 3.7 mmol/L (3.5-5.1)
[2016-07-16] MEDS ORDERED: DOBUTamine / D5W 500 MG IV SCH (09:15)
--- NOTE | 2016-07-16 09:44 | CARDIOLOGY PROGRESS NOTE ---
DATE: 07/16/2016 DATE: 07/16/2016. SUBJECTIVE: This morning Mr. Butler claims to be feeling well. He was able to tolerate more food yesterday after his procedure. Still occasionally he has an upset stomach. He was ambulatory around the room. He states that he felt quite well with minimal ambulation. He denies significant breathing trouble currently. PHYSICAL EXAMINATION: GENERAL: He was alert and oriented. His mood and affect appeared normal. He answered all questions appropriately. CURRENT VITAL SIGNS: Include blood pressure 126/80 with a pulse of 62. LUNGS: Auscultation of lung boyd reveal crackles to the mid lung bilaterally. Overall air movement was somewhat diminished. There was no expiratory wheezes. CARDIAC EXAMINATION: Revealed him to be in a irregular irregular rhythm. LOWER EXTREMITIES: Evaluation of the lower extremities did not reveal any significant peripheral edema. LABORATORY STUDIES obtained this morning included sodium of 146 and potassium 3.7. BUN was 21 and creatinine was 1.5. White cell count was 6.7, hemoglobin was 12.6, platelet count was 121. ASSESSMENT AND PLAN: 1. Acute decompensated systolic heart failure. The patient did diurese slightly yesterday on his intravenous regimen of Bumex. At this point it seems as though his abdominal complains are likely not related to natural GI process but more likely passive congestion from his significant left ventricular dysfunction. I discussed with the patient the options for continued outpatient management which would involve very slow improvement in his overall filling pressures on oral Bumex or opportunity for more aggressive diuresis here in the hospital with a dobutamine infusion and intravenous diuretics. At this point we will attempt more aggressive diuresis here in the hospital with dobutamine monitoring his renal function, electrolytes and hemodynamics closely. At this point he appears to be tolerating the remainder of his medical regimen which should be continued. 2. Atrial fibrillation. The patient overall has good rate control on his current medical regimen. He is likely to have higher heart rates on dobutamine infusion which hopefully will be well tolerated. With respect to anticoagulation we will need to confirm with GI the possibility of initiating anticoagulation for stroke prophylaxis at the time of discharge.
[2016-07-16] MEDS: DOBUTAMINE 500MG / D5W IV PRN (10:05)
--- NOTE | 2016-07-16 12:42 | DIAGNOSTIC IMAGING REPORT ---
CHEST ONE VIEW PORTABLE CLINICAL HISTORY: PICC line placement in right arm please line position COMPARISON STUDY: 07/11/2016 FINDINGS: Placement of a right-sided PICC catheter with the tip in this. Vena cava. No evidence of pneumothorax. Moderate stable cardiomegaly. IMPRESSION: PICC catheter place in this. Vena cava. No evidence of pneumothorax. Moderate stable cardiomegaly. Electronically signed by: Rubio Melvin M.D. 07/16/2016 12:41 PM Dictated Date/Time: 07/16/2016 12:40 PM
--- NOTE | 2016-07-16 13:27 | Progress Note ---
Subjective Date of Service: Jul 16, 2016. Subjective Pt evaluation today including: conversation w/ patient, physical exam, lab review, review of studies, conversation w/ [facility] consultant, review of inpatient medication list Pain: no pain today PO Intake: adequate Voiding: no voiding problems patient ambulating around the nurses unit, feeling better today discussed with cardiology, plan for dobutamine infusion, PICC placed discussed plan with patient, explained that GI testing cannot find reason for his symptoms at this point we will try to relieve liver and gastric congestion from heart failure no chest pain, no dyspnea, no BM yet today, no vomiting Problem List Medical Problems: (1) Acute on chronic renal insufficiency Status: Acute (2) Elevated troponin Status: Acute (3) Pulmonary edema Status: Acute (4) Rapid atrial fibrillation Status: Acute Review of Systems Constitutional: + fatigue, + weakness Cardiac: + edema All Other Systems: Reviewed and Negative Medications Current Inpatient Medications Medications (Trade) Dose Ordered Sig/Sulma Route Start Time Stop Time Status Last Admin Dose Admin Acetaminophen (Tylenol Tab) 650 mg Q4H PRN PO 07/11/16 14:30 08/10/16 14:29 Ondansetron HCl (Zofran Inj) 4 mg Q6H PRN IV 07/11/16 14:30 08/10/16 14:29 07/15/16 18:41 4 MG Atorvastatin Calcium (Lipitor Tab) 10 mg QAM PO 07/12/16 09:00 08/11/16 08:59 07/16/16 08:43 10 MG Carvedilol (Coreg Tab) 25 mg BID PO 07/11/16 21:00 08/10/16 20:59 07/16/16 08:43 25 MG Metoprolol Succinate (Toprol Xl Tab) 50 mg QAM PO 07/12/16 09:00 08/11/16 08:59 07/16/16 08:44 50 MG Loperamide HCl 2 mg 2 mg Q8 PRN PO 07/11/16 15:00 08/10/16 14:59 Future Hold Ciprofloxacin/ Dextrose/Prmx (Cipro / D5w/ Premixed D5W) 200 ml @ 100 mls/hr Q12H IV 07/11/16 17:00 07/21/16 20:59 07/16/16 05:13 100 MLS/HR Lorazepam (Ativan Inj) 0.5 mg Q4H PRN IV 07/11/16 17:00 08/10/16 16:59 07/11/16 17:16 0.5 MG Metoprolol Tartrate 5 mg 5 mg Q4 PRN IV 07/11/16 17:00 08/10/16 16:59 Lorazepam 0.5 mg/ Syringe 1 ml @ 1 mls/min Q4H PRN IV 07/11/16 17:15 08/10/16 17:14 Metronidazole 500 mg/Prmx 100 ml @ 100 mls/hr Q8@02,10,18 IV 07/11/16 18:00 07/21/16 17:59 07/16/16 09:59 100 MLS/HR Bumetanide/Syringe (Bumex IV/ Syringe) 8 ml @ 4 mls/min BID@0800,1500 IV 07/14/16 08:00 08/13/16 07:59 07/16/16 08:42 4 MLS/MIN Heparin Sodium (Porcine) (Heparin Sq 5000 Unit/0.5ml) 5,000 unit Q8 SQ 07/14/16 22:00 08/13/16 21:59 07/16/16 05:18 5,000 UNIT Potassium Chloride 20 meq 20 meq BID PO 07/16/16 21:00 08/15/16 20:59 Dobutamine HCl (DOBUTamine / D5W) 250 ml @ 0 mls/hr Q0M PRN IV 07/16/16 09:30 08/15/16 09:29 07/16/16 10:05 7.4 MLS/HR Objective Vital Signs Date Time Temp Pulse Resp B/P Pulse Ox O2 Delivery O2 Flow Rate FiO2 07/16/16 12:04 36.7 82 20 101/66 94 Room Air 07/16/16 12:00 37.1 81 18 109/63 95 Nasal Cannula 1.0 07/16/16 12:00 95 Nasal Cannula 1.0 07/16/16 11:30 88 117/75 07/16/16 10:45 76 101/66 07/16/16 10:30 84 95/59 07/16/16 10:15 89 107/80 07/16/16 10:00 81 108/63 07/16/16 08:00 Nasal Cannula 1.0 07/16/16 07:34 36.9 62 20 126/80 95 Nasal Cannula 1.0 07/16/16 04:00 96 Nasal Cannula 2.0 07/16/16 03:07 37.0 76 15 116/78 96 Nasal Cannula 1.0 07/16/16 01:00 37.2 66 99/59 96 Nasal Cannula 2.0 07/16/16 01:00 96 Nasal Cannula 2.0 07/15/16 20:00 94 Room Air 07/15/16 19:40 36.8 96 18 111/82 94 Room Air 07/15/16 16:03 36.3 103 16 125/88 95 Room Air 07/15/16 16:00 95 Room Air 07/15/16 15:24 100 18 117/74 96 Room Air 07/15/16 15:09 96 16 109/67 96 Room Air 07/15/16 14:54 95 16 102/64 95 Room Air 07/15/16 13:37 36.4 96 18 122/84 95 Room Air Physical Exam General Appearance: WD/WN, no apparent distress Eyes: normal inspection, EOMI, sclerae normal ENT: normal ENT inspection, hearing grossly normal, pharynx normal Neck: supple, no adenopathy, no JVD, trachea midline Respiratory/Chest: chest non-tender, lungs clear, normal breath sounds, no respiratory distress, no accessory muscle use Cardiovascular: regular rate, rhythm, no gallop, no JVD, no murmur Abdomen: normal bowel sounds, non tender, soft, no organomegaly Extremities: normal range of motion, non-tender, normal inspection, no calf tenderness, pelvis stable, + pedal edema Neurologic/Psychiatric: assurance manager II-XII nml as tested, no motor/sensory deficits, alert, normal mood/affect, oriented x 3 Skin: normal color, warm/dry, no rash Laboratory Results Last 24 Hours Test 07/16/16 05:26 07/16/16 06:26 07/16/16 11:13 Sodium Level 146 mmol/L Potassium Level 3.7 mmol/L Chloride Level 107 mmol/L Carbon Dioxide Level 34 mmol/L Anion Gap 5.0 mmol/L Blood Urea Nitrogen 29 mg/dl Creatinine 1.50 mg/dl Est Creatinine Clear Calc Drug Dose 46.6 ml/min Estimated GFR () 53.1 Estimated GFR (Non- 45.9 BUN/Creatinine Ratio 19.1 Random Glucose 105 mg/dl Calcium Level 8.2 mg/dl White Blood Count 6.65 K/uL Red Blood Count 3.89 M/uL Hemoglobin 12.6 g/dL Hematocrit 39.3 % Mean Corpuscular Volume 101.0 fL Mean Corpuscular Hemoglobin 32.4 pg Mean Corpuscular Hemoglobin Concent 32.1 g/dl RDW Standard Deviation 52.7 fL RDW Coefficient of Variation 14.6 % Platelet Count 121 K/uL Mean Platelet Volume 11.7 fL Activated Partial Thromboplast Time 32.3 SECONDS Partial Thromboplastin Ratio 1.2 Bedside Glucose 142 mg/dl Assessment and Plan 71 yo male with history of systolic heart failure, presented with 6 weeks of abdominal symptoms consistent with RUQ pain, vomiting, loss of appetite, initially constipation and then diarrhea, now with some bloody diarrhea 1. RUQ abd pain - no e/o cholecystitis but did have sludge and cholelithiasis - EGD on 07/15 with normal esophagus, congestive gastropathy, no active bleeding - appreciate cardiology note, going to try dobutamine to see if improving cardiac output improves RUQ pain caused by liver congestion start this today, PICC placed continue to advance diet as tolerated, less GI complaints today 2. Acute decompensated systolic CHF - increase PASP and CVP certainly consistent with volume overload - cont bumex 2mg BID, renal function tolerating with Cr 1.5 and weight trending down slowly - continue Coreg, Toprol - PICC placed today, start Dobutamine infusion under direction of cardiology 3. NIKHIL on CKD III, acute component resolved - likely from chronic HTN plus element of cardiorenal - renal US show normal size kidneys with normal parenchyma, his kidney dysfunction is likely not very severe - baseline appears to be 1.2-1.4, today it is 1.5 again, good UO, monitor closely with starting dobutamine, check in AM - avoid nephrotoxins such NSAIDs and non-emergent contrast studies & hypotension 4. Elevated troponin - levels not consistent with NSTEMI - likely just demand ischemia with decompensated CHF along with NIKHIL on CKD - heparin gtt stopped due to BRBPR, although stool tested negative for occult blood 5. Chronic Afib with RVR - rate relatively better controlled on metoprolol in AM, watch for increased rates with Dobutamine - prn metoprolol IV for RVR >110 - cardio recs appreciated - tentatively plan for novel anticoagulant on discharge 6. BRBPR - possible has hemorrhoids, per pt report - stop heparin gtt - hb stable - colonoscopy? would be up to GI Plan: keep on tele, dobutamine infusion for more diuresis and hopefully relief of liver and gastric congestion
[2016-07-16 20:15] LABS: BUN/CREATININE RATIO 18.2 (10-20); CALCIUM 7.9 mg/dl (8.5-10.1); CREATININE 1.6 mg/dl (0.60-1.40); MAGNESIUM 1.8 mg/dl (1.8-2.4); POTASSIUM 3.5 mmol/L (3.5-5.1)
[2016-07-16] MEDS ORDERED: POTASSIUM CHLORIDE 20 MEQ TABCR PO SCH (21:00)
[2016-07-17] VITALS (8 sets, daily range): BP systolic 101–125; BP diastolic 67–98; PULSE 72–87; TEMP 36.3–36.9; O2SAT 77–97
[2016-07-17] MEDS: METRONIDAZOLE 500MG / NSS IV SCH (02:23)
[2016-07-17] MEDS: CIPROFLOXACIN / D5W 400 MG in PREMIXED IN D5W 200 ML IV SCH (05:14)
[2016-07-17] MEDS: HEPARIN SOD 5000 UNIT/0.5 ML CARP SQ SCH ×3 (05:41→21:02)
[2016-07-17 08:36] LABS: PARTIAL THROMBOPLASTIN RATIO 1.2
[2016-07-17] MEDS: METOPROLOL SUCC 50MG EXT REL TAB PO SCH (08:45)
[2016-07-17] MEDS: BUMETANIDE IV 2 MG in SYRINGE 0 ML IV SCH ×2 (08:45→14:26)
[2016-07-17] MEDS: CARVEDILOL 25 MG TAB PO SCH ×2 (08:46→21:00)
[2016-07-17] MEDS: POTASSIUM CHLORIDE 20 MEQ TABCR PO SCH ×3 (08:47→21:00)
[2016-07-17] MEDS: ATORVASTATIN 10 MG TAB PO SCH (08:48)
[2016-07-17 08:53] LABS: BUN/CREATININE RATIO 18.1 (10-20); CREATININE 1.3 mg/dl (0.60-1.40); MAGNESIUM 1.8 mg/dl (1.8-2.4); POTASSIUM 3.5 mmol/L (3.5-5.1)
--- NOTE | 2016-07-17 09:27 | CARDIOLOGY PROGRESS NOTE ---
DATE: 07/17/2016 DATE: 07/17/2016. SUBJECTIVE: This morning Mr. Butler claims to be feeling well. He was able to eat some of his dinner last night. He did experience some eructation later in the evening which was improved with use of minerva louisa. He appears to have a good appetite this morning and is currently eating breakfast. He denies significant abdominal pain. He was ambulatory to some degree yesterday and did not report worsening symptoms of dyspnea or dizziness. PHYSICAL EXAMINATION: GENERAL: He was alert and oriented. His mood and affect appeared normal. He answered all questions appropriately. CURRENT VITAL SIGNS: Include blood pressure 120/78 with a pulse of 87. LUNGS: Auscultation of his lungs reveal overall distant breath sounds with relatively poor excursion. Occasional crackles at the bases bilaterally. CARDIAC EXAMINATION: Revealed him to be in a regular rhythm with a very soft holosystolic murmur. LOWER EXTREMITIES: Evaluation of the lower extremities did not reveal any significant peripheral edema. LABORATORY STUDIES today included a sodium of 148, potassium of 3.5, BUN 24, creatinine was 1.3. ASSESSMENT AND PLAN: 1. Acute decompensated left ventricular systolic failure. The patient did diurese fairly aggressively yesterday however he seemed to have an element of increased intravenous fluid administration. I discussed this with the nurses and it is not quite clear where the extra fluid came from. As a result our net negative volume was attenuated. His symptoms appear to be improved slightly. He is tolerating the dobutamine well without evidence of significant arrhythmia or tachycardia. At this point it would seem reasonable to continue his current diuretic regimen on dobutamine and see if we can affect a better diuresis overnight. I think at that point can consider resuming his oral regimen for continued diuresis as an outpatient. He probably would do better with Bumex orally as an outpatient than furosemide. With respect to additional agents at some point it would be reasonable to consider institution of after load reduction most likely with nitrates and hydralazine given his fluctuating renal function. Whether he would be able to tolerate spironolactone in addition is unclear. This could be entertained as well as an outpatient. I think once his volume status is improved and he is on a stable medical regimen we can also consider coronary angiography which has been deferred to this point based on the patient's preference. 2. Atrial fibrillation. The patient's rate seems to be well controlled despite dobutamine infusion. He has no symptoms relative to the arrhythmia. In the past he has not been interested in anticoagulation but I think this could be initiated prior to or at the yarsani of discharge. 3. Hypokalemia. The patient's potassium is slightly low. I did double his supplementation yesterday and I will double it again today. Likely affected by more aggressive diuresis. 4. Valvular heart disease. The patient was noted to have both moderate aortic and mitral regurgitation on his echocardiogram at the time of admission. No intervention available at this point.
--- NOTE | 2016-07-17 15:17 | Progress Note ---
Subjective Date of Service: Jul 17, 2016. Subjective Pt evaluation today including: conversation w/ patient, physical exam, lab review, conversation w/ audit consultant, review of inpatient medication list Pain: denies abdominal pain PO Intake: tolerating regular consistency Voiding: no voiding problems patient responded well to Dobutamine, however, lots of IV fluids with antibiotics d/w cardiology this AM, will stop IV antibiotics patient doing well, breathing comfortably, still with belching after meals but minerva louisa relieves symptoms no BM yet today, stools still loose, no blood, less frequent so that's an improvement looking to continue diuresis with Dobutamine Problem List Medical Problems: (1) Acute on chronic renal insufficiency Status: Acute (2) Elevated troponin Status: Acute (3) Pulmonary edema Status: Acute (4) Rapid atrial fibrillation Status: Acute Review of Systems Abdomen: + diarrhea, + problem reported (belching) All Other Systems: Reviewed and Negative Medications Current Inpatient Medications Medications (Trade) Dose Ordered Sig/Sulma Route Start Time Stop Time Status Last Admin Dose Admin Acetaminophen (Tylenol Tab) 650 mg Q4H PRN PO 07/11/16 14:30 08/10/16 14:29 Ondansetron HCl (Zofran Inj) 4 mg Q6H PRN IV 07/11/16 14:30 08/10/16 14:29 07/15/16 18:41 4 MG Atorvastatin Calcium (Lipitor Tab) 10 mg QAM PO 07/12/16 09:00 08/11/16 08:59 07/17/16 08:48 10 MG Carvedilol (Coreg Tab) 25 mg BID PO 07/11/16 21:00 08/10/16 20:59 07/17/16 08:46 25 MG Metoprolol Succinate (Toprol Xl Tab) 50 mg QAM PO 07/12/16 09:00 08/11/16 08:59 07/17/16 08:45 50 MG Loperamide HCl (Imodium Cap) 2 mg Q8 PRN PO 07/11/16 15:00 08/10/16 14:59 Future Hold Lorazepam (Ativan Inj) 0.5 mg Q4H PRN IV 07/11/16 17:00 08/10/16 16:59 07/11/16 17:16 0.5 MG Metoprolol Tartrate 5 mg 5 mg Q4 PRN IV 07/11/16 17:00 08/10/16 16:59 Lorazepam 0.5 mg/ Syringe 1 ml @ 1 mls/min Q4H PRN IV 07/11/16 17:15 08/10/16 17:14 Bumetanide/Syringe (Bumex IV/ Syringe) 8 ml @ 4 mls/min BID@0800,1500 IV 07/14/16 08:00 08/13/16 07:59 07/17/16 14:26 4 MLS/MIN Heparin Sodium (Porcine) 5000 unit 5,000 unit Q8 SQ 07/14/16 22:00 08/13/16 21:59 07/17/16 14:25 5,000 UNIT Dobutamine HCl (DOBUTamine / D5W) 250 ml @ 0 mls/hr Q0M PRN IV 07/16/16 09:30 08/15/16 09:29 07/16/16 10:05 7.4 MLS/HR Heparin Sodium (Porcine) (Heparin 10 Unit/ ml 5 ml Flush) 5 ml PRN PRN FLUSH 07/16/16 23:45 08/15/16 23:44 Potassium Chloride (Klor-Con Tab) 40 meq BID PO 07/17/16 09:00 08/16/16 08:59 07/17/16 10:33 40 MEQ Objective Vital Signs Date Time Temp Pulse Resp B/P Pulse Ox O2 Delivery O2 Flow Rate FiO2 07/17/16 11:05 36.4 72 16 101/67 92 Room Air 07/17/16 08:13 36.3 87 16 120/78 92 Room Air 07/17/16 04:00 93 Room Air 07/17/16 03:24 36.7 84 22 116/98 93 Room Air 07/17/16 00:01 91 Room Air 1.0 07/16/16 23:25 36.9 84 20 110/70 91 Room Air 07/16/16 20:00 91 Room Air 1.0 07/16/16 19:24 36.7 92 16 110/70 91 Room Air 07/16/16 16:13 36.8 81 18 121/63 98 07/16/16 16:00 98 Nasal Cannula 1.0 Physical Exam General Appearance: WD/WN, no apparent distress Eyes: normal inspection, EOMI, sclerae normal ENT: normal ENT inspection, hearing grossly normal, pharynx normal Neck: supple, no adenopathy, no JVD, trachea midline Respiratory/Chest: chest non-tender, lungs clear, normal breath sounds, no respiratory distress, no accessory muscle use Cardiovascular: regular rate, rhythm, no edema, no gallop, no JVD, no murmur Abdomen: normal bowel sounds, non tender, soft, no organomegaly Extremities: normal range of motion, non-tender, normal inspection, no pedal edema, no calf tenderness Neurologic/Psychiatric: trimmer buffing wheel II-XII nml as tested, no motor/sensory deficits, alert, normal mood/affect, oriented x 3 Skin: normal color, warm/dry, no rash Lymphatic: no adenopathy Laboratory Results Last 24 Hours Test 07/16/16 19:33 07/17/16 08:11 Sodium Level 144 mmol/L 143 mmol/L Potassium Level 3.5 mmol/L 3.5 mmol/L Chloride Level 101 mmol/L 102 mmol/L Carbon Dioxide Level 37 mmol/L 35 mmol/L Anion Gap 6.0 mmol/L 6.0 mmol/L Blood Urea Nitrogen 29 mg/dl 24 mg/dl Creatinine 1.60 mg/dl 1.30 mg/dl Est Creatinine Clear Calc Drug Dose 43.7 ml/min 53.8 ml/min Estimated GFR () 49.2 63.2 Estimated GFR (Non- 42.4 54.5 BUN/Creatinine Ratio 18.2 18.1 Random Glucose 145 mg/dl 164 mg/dl Calcium Level 7.9 mg/dl 8.0 mg/dl Magnesium Level 1.8 mg/dl 1.8 mg/dl Activated Partial Thromboplast Time 31.1 SECONDS Partial Thromboplastin Ratio 1.2 Assessment and Plan 71 yo male with history of systolic heart failure, presented with 6 weeks of abdominal symptoms consistent with RUQ pain, vomiting, loss of appetite, initially constipation and then diarrhea, now with some bloody diarrhea 1. RUQ abd pain - no e/o cholecystitis but did have sludge and cholelithiasis - EGD on 07/15 with normal esophagus, congestive gastropathy, no active bleeding - appreciate cardiology note, going to try dobutamine to see if improving cardiac output improves RUQ pain caused by liver congestion started 07/16, mild improvement in GI symptoms thus far advanced diet to regular consistency belching - relieved with minerva louisa, he wishes to continue this stop Cipro/Flagyl IV, no evidence of any bacterial or GI infection 2. Acute decompensated systolic CHF - increase PASP and CVP certainly consistent with volume overload - cont bumex 2mg BID, renal function tolerating with Cr 1.3 and weight trending down slowly - continue Coreg, Toprol - continue Dobutamine infusion under direction of cardiology, already improved diuresis 3. NIKHIL on CKD III, acute component resolved - likely from chronic HTN plus element of cardiorenal - renal US show normal size kidneys with normal parenchyma, his kidney dysfunction is likely not very severe - baseline appears to be 1.2-1.4, today it is 1.3, increased diuresis with starting dobutamine - avoid nephrotoxins such NSAIDs and non-emergent contrast studies & hypotension 4. Elevated troponin - levels not consistent with NSTEMI - likely just demand ischemia with decompensated CHF along with NIKHIL on CKD - heparin gtt stopped due to BRBPR, although stool tested negative for occult blood 5. Chronic Afib with RVR - rate relatively better controlled on metoprolol in AM, watch for increased rates with Dobutamine, none thus far - prn metoprolol IV for RVR >110 - cardio recs appreciated - tentatively plan for novel anticoagulant on discharge 6. BRBPR - possible has hemorrhoids, per pt report - stop heparin gtt - hb stable - colonoscopy? would be up to GI, no plans for now Plan: keep on tele, dobutamine infusion for more diuresis and hopefully relief of liver and gastric congestion ambulate in halls if possible discharge to home once adequately diuresed
[2016-07-17] MEDS: DOBUTAMINE 500MG / D5W IV PRN (19:23)
[2016-07-18] VITALS (7 sets, daily range): BP systolic 109–135; BP diastolic 61–104; PULSE 69–89; TEMP 36.5–36.8; O2SAT 92–97
[2016-07-18] MEDS: HEPARIN SOD 5000 UNIT/0.5 ML CARP SQ SCH ×3 (06:07→21:59)
[2016-07-18 06:17] LABS: HEMATOCRIT 38.7 % (42-52); MEAN CELL VOLUME 99.5 fL (80-100); MEAN CORPUSCULAR HEMOGLOBIN 32.4 pg (25-34); MEAN CORPUSCULAR HGB CONC 32.6 g/dl (32-36); MEAN PLATELET VOLUME 11.1 fL (7.4-10.4); PLATELET COUNT 117 K/uL (130-400); RED BLOOD COUNT 3.89 M/uL (4.7-6.1); WHITE BLOOD COUNT 6.99 K/uL (4.8-10.8)
[2016-07-18 06:37] LABS: PARTIAL THROMBOPLASTIN RATIO 1.3
[2016-07-18] MEDS: BUMETANIDE IV 2 MG in SYRINGE 0 ML IV SCH ×2 (09:30→14:54)
[2016-07-18] MEDS: CARVEDILOL 25 MG TAB PO SCH ×2 (09:30→21:22)
[2016-07-18] MEDS: POTASSIUM CHLORIDE 20 MEQ TABCR PO SCH ×2 (09:31→21:23)
[2016-07-18] MEDS: ATORVASTATIN 10 MG TAB PO SCH (09:32)
[2016-07-18] MEDS: METOPROLOL SUCC 50MG EXT REL TAB PO SCH (09:32)
--- NOTE | 2016-07-18 12:06 | CARDIOLOGY PROGRESS NOTE ---
DATE: 07/18/2016 DATE: 07/18/2016. SUBJECTIVE: This morning Mr. Butler claims to be feeling much better. He was able to tolerate his dinner last night and breakfast this morning without significant abdominal complaints. He continues to have occasional eructation but this seems to be improved. He has been up in a chair and ambulatory with improvements in his breathing as well. PHYSICAL EXAMINATION: GENERAL: He is alert and oriented. His mood and affect appeared normal. He answered all questions appropriately. CURRENT VITAL SIGNS: Include blood pressure 117/72 with a pulse of 89. EYES: Sclera are anicteric. LUNGS: Auscultation of his lung boyd reveal them to be clear. I did not appreciate any rales on exam today. He had improved air movement. CARDIAC EXAMINATION: Revealed him to be in an irregular regular rhythm but I did not appreciate any murmurs on exam. LABORATORY STUDIES today included a sodium of 143, potassium of 3.5, BUN was 24, creatinine was 1.3. IMPRESSION: 1. Acute decompensated left ventricular systolic failure. The patient is definitely improving and affected reasonable diuresis yesterday. He has had a good response to dobutamine and intravenous diuretics. His overall net loss is over 2 liters compromised to some degree by high intravenous intake. At this point it would seem reasonable to continue the dobutamine infusion for most of the day turning it off in the evening hours and switching him to an oral regimen tomorrow in anticipation of discharge. The patient will be discharged home on his usual outpatient medical regimen of beta blockers and I think we can switch him to oral Bumex from furosemide, likely an equivalent does at 2 mg b.i.d. Hopefully at home he will continue to have diuresis over time. If there is evidence of weight gain or pulmonary vascular congestion he may response to addition of a thiazide diuretic in conjunction with his Bumex. 2. Cardiomyopathy. Etiology of the patient's cardiomyopathy is unknown. We did discuss today the possibility of coronary angiography on an outpatient basis. He does not appear to be a good candidate for NOEL inhibition currently but if his renal function stays stable this may be instituted as an outpatient. Alternatively nitrates and hydralazine may be beneficial. The patient's LV function is compromised to the degree where he would be a candidate for prophylactic defibrillator should he not have evidence of coronary disease or undergo revascularization. This can be discussed as an outpatient. 3. Atrial fibrillation. The patient's rates have been well controlled in the hospital on his current regimen of beta blockers. We did discuss anticoagulation again today and I recommended systemic anticoagulation either with warfarin or one of the novel agents. He wishes to discuss this with his daughter who works closely with the pharmaceutical industry and I will provide him with some names of medications that would be suitable.
--- NOTE | 2016-07-18 16:56 | Progress Note ---
Subjective Date of Service: Jul 18, 2016. Subjective Pt evaluation today including: conversation w/ patient, physical exam, conversation w/ otm consultant, review of inpatient medication list Pain: no pain PO Intake: adequate Voiding: no voiding problems good diuresis with Dobutamine, d/w cardiology, planning to stop tonight likely for d/c tomorrow breathing well, less belching, still with loose stools but less frequent Problem List Medical Problems: (1) Acute on chronic renal insufficiency Status: Acute (2) Elevated troponin Status: Acute (3) Pulmonary edema Status: Acute (4) Rapid atrial fibrillation Status: Acute Review of Systems All Other Systems: Reviewed and Negative Medications Current Inpatient Medications Medications (Trade) Dose Ordered Sig/Sulma Route Start Time Stop Time Status Last Admin Dose Admin Acetaminophen (Tylenol Tab) 650 mg Q4H PRN PO 07/11/16 14:30 08/10/16 14:29 Ondansetron HCl (Zofran Inj) 4 mg Q6H PRN IV 07/11/16 14:30 08/10/16 14:29 07/15/16 18:41 4 MG Atorvastatin Calcium (Lipitor Tab) 10 mg QAM PO 07/12/16 09:00 08/11/16 08:59 07/18/16 09:32 10 MG Carvedilol (Coreg Tab) 25 mg BID PO 07/11/16 21:00 08/10/16 20:59 07/18/16 09:30 25 MG Metoprolol Succinate (Toprol Xl Tab) 50 mg QAM PO 07/12/16 09:00 08/11/16 08:59 07/18/16 09:32 50 MG Loperamide HCl (Imodium Cap) 2 mg Q8 PRN PO 07/11/16 15:00 08/10/16 14:59 Future Hold Lorazepam (Ativan Inj) 0.5 mg Q4H PRN IV 07/11/16 17:00 08/10/16 16:59 07/11/16 17:16 0.5 MG Metoprolol Tartrate 5 mg 5 mg Q4 PRN IV 07/11/16 17:00 08/10/16 16:59 Lorazepam 0.5 mg/ Syringe 1 ml @ 1 mls/min Q4H PRN IV 07/11/16 17:15 08/10/16 17:14 Bumetanide/Syringe (Bumex IV/ Syringe) 8 ml @ 4 mls/min BID@0800,1500 IV 07/14/16 08:00 08/13/16 07:59 07/18/16 14:54 4 MLS/MIN Heparin Sodium (Porcine) 5000 unit 5,000 unit Q8 SQ 07/14/16 22:00 08/13/16 21:59 07/18/16 13:51 5,000 UNIT Dobutamine HCl (DOBUTamine / D5W) 250 ml @ 0 mls/hr Q0M PRN IV 07/16/16 09:30 07/18/16 22:00 07/17/16 19:23 7.6 MLS/HR Heparin Sodium (Porcine) (Heparin 10 Unit/ ml 5 ml Flush) 5 ml PRN PRN FLUSH 07/16/16 23:45 08/15/16 23:44 Potassium Chloride (Klor-Con Tab) 40 meq BID PO 07/17/16 09:00 08/16/16 08:59 07/18/16 09:31 40 MEQ Miscellaneous (Stop Order) 1 ea 2200 ONCE N/A 07/18/16 22:00 07/18/16 22:01 Objective Vital Signs Date Time Temp Pulse Resp B/P Pulse Ox O2 Delivery O2 Flow Rate FiO2 07/18/16 16:09 36.6 81 16 113/73 97 Room Air 07/18/16 12:00 Room Air 07/18/16 11:15 36.6 89 16 117/72 96 Room Air 07/18/16 08:00 Room Air 07/18/16 07:54 36.8 83 18 122/78 96 Room Air 07/18/16 04:00 Room Air 07/18/16 03:57 36.8 84 19 109/61 92 Room Air 07/17/16 23:59 Room Air 07/17/16 23:50 36.9 78 19 125/83 94 Room Air 07/17/16 20:13 36.9 82 18 101/76 97 07/17/16 20:00 Room Air Physical Exam General Appearance: WD/WN, no apparent distress Eyes: normal inspection, EOMI, sclerae normal ENT: normal ENT inspection, hearing grossly normal, pharynx normal Neck: supple, no adenopathy, no JVD, trachea midline Respiratory/Chest: chest non-tender, lungs clear, normal breath sounds, no respiratory distress, no accessory muscle use Cardiovascular: regular rate, rhythm, no edema, no gallop, no JVD, no murmur Abdomen: normal bowel sounds, non tender, soft, no organomegaly Extremities: normal range of motion, non-tender, normal inspection, no pedal edema, no calf tenderness 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, no motor/sensory deficits, alert, normal mood/affect, oriented x 3 Skin: normal color, warm/dry, no rash Lymphatic: no adenopathy Laboratory Results Last 24 Hours Test 07/18/16 06:03 White Blood Count 6.99 K/uL Red Blood Count 3.89 M/uL Hemoglobin 12.6 g/dL Hematocrit 38.7 % Mean Corpuscular Volume 99.5 fL Mean Corpuscular Hemoglobin 32.4 pg Mean Corpuscular Hemoglobin Concent 32.6 g/dl RDW Standard Deviation 51.5 fL RDW Coefficient of Variation 14.4 % Platelet Count 117 K/uL Mean Platelet Volume 11.1 fL Activated Partial Thromboplast Time 34.5 SECONDS Partial Thromboplastin Ratio 1.3 Assessment and Plan 71 yo male with history of systolic heart failure, presented with 6 weeks of abdominal symptoms consistent with RUQ pain, vomiting, loss of appetite, initially constipation and then diarrhea, now with some bloody diarrhea 1. RUQ abd pain: resolved at this point, dobutamine seems to be helping relieve congestion of liver and stomach - no e/o cholecystitis but did have sludge and cholelithiasis - EGD on 07/15 with normal esophagus, congestive gastropathy, no active bleeding 2. Acute decompensated systolic CHF - increase PASP and CVP certainly consistent with volume overload - cont bumex 2mg BID, renal function tolerating with Cr 1.3 yesterday - continue Coreg, Toprol - continue Dobutamine infusion until tonight, good diureses, reaching euvolemia 3. NIKHIL on CKD III, acute component resolved - likely from chronic HTN plus element of cardiorenal - renal US show normal size kidneys with normal parenchyma, his kidney dysfunction is likely not very severe - baseline appears to be 1.2-1.4, yesterday it was 1.3, increased diuresis with starting dobutamine - avoid nephrotoxins such NSAIDs and non-emergent contrast studies & hypotension 4. Elevated troponin - levels not consistent with NSTEMI - likely just demand ischemia with decompensated CHF along with NIKHIL on CKD - heparin gtt stopped due to BRBPR, although stool tested negative for occult blood 5. Chronic Afib with RVR - rate relatively better controlled on metoprolol in AM, watch for increased rates with Dobutamine, none thus far - prn metoprolol IV for RVR >110 - cardio recs appreciated - tentatively plan for novel anticoagulant on discharge, will d/w cardiology 6. BRBPR - possible has hemorrhoids, per pt report - stop heparin gtt - hb stable - colonoscopy? would be up to GI, no plans for now Plan: d/c home tomorrow
[2016-07-18] MEDS: ONDANSETRON INJ 2 MG/ML 2 ML VIAL IV PRN (18:24)
[2016-07-18] MEDS ORDERED: MAGNESIUM HYDROXIDE SUSP 30 ML UDC PO PRN (19:00)
[2016-07-18] MEDS ORDERED: NURSING VERBAL MED ORDER ONE ×2 (19:00→22:45)
[2016-07-18] MEDS ORDERED: MAGNESIUM HYDROXIDE SUSP 30 ML UDC PO ONE (19:00)
[2016-07-18] MEDS ORDERED: ALUMINUM/MAGNESIUM SUSP 30 ML UDC PO ONE (19:15)
[2016-07-18] MEDS ORDERED: [UNRECOGNIZED DRUG - REMARK] ONE (22:00)
[2016-07-18] MEDS ORDERED: SIMETHICONE 80 MG CHEW PO STA (22:44)
[2016-07-19] VITALS: O2SAT 96
[2016-07-19 03:41] VITALS: BP 134/95; PULSE 101; TEMP 36.4; O2SAT 96
[2016-07-19 04:00] VITALS: O2SAT 96
[2016-07-19] MEDS: HEPARIN SOD 5000 UNIT/0.5 ML CARP SQ SCH (06:35)
--- NOTE | 2016-07-19 07:00 | GASTROINTESTINAL CONSULTATION ---
DATE OF CONSULTATION: 07/18/2016 HISTORY OF PRESENT ILLNESS: The patient had been feeling well up until this evening. He apparently had abdominal distress with eating steak sandwich onions. He had no nausea or vomiting, but a similar right upper quadrant and epigastric pain developed. Yesterday the patient had some blood in his stool. This did not occur today with his bowel movement. His hemoglobin has been stable overall and has been 12.6 each day since July 15. The patient feels better and is slightly less winded and fatigued. He has been undergoing treatment for his CHF with dobutamine. CURRENT MEDICATIONS: SubQ heparin, Bumex, atorvastatin, Lopressor, carvedilol, Ativan, acetaminophen and Zofran. REVIEW OF SYSTEMS: Otherwise noncontributory. PHYSICAL EXAMINATION: GENERAL: The patient is awake, alert and oriented. He is resting overall comfortably in bed. VITAL SIGNS: Show a temperature of 36.6, blood pressure 113/73, respirations 16, heart rate 81 and pulse ox 97 on room air. BUN and creatinine are down to 24 and 1.3. IMPRESSION AND PLAN: For his abdominal distress and dyspepsia, I have recommend Maalox 15-30 mL as needed for gastrointestinal distress. Overall improvement in his congestive heart failure has led to diminished abdominal pain except for that prompted by the meal earlier this afternoon. There has been no further rectal bleeding and his hemoglobin is stable. However, I believe it is reasonable at some to consider a colonoscopy if he is able to tolerate the prep and sedation; this can be arranged as an outpatient in 4-6 weeks, unless, gastrointestinal bleeding were to continue requiring an earlier assessment; this can be arranged as an outpatient. The patient believes he had a colonoscopy done approximately [address] Gonzalez. MOE
[2016-07-19 07:27] VITALS: BP 101/78; PULSE 102; TEMP 37.1; O2SAT 94
[2016-07-19] MEDS: CARVEDILOL 25 MG TAB PO SCH (08:33)
[2016-07-19] MEDS: ATORVASTATIN 10 MG TAB PO SCH (08:34)
[2016-07-19] MEDS: METOPROLOL SUCC 50MG EXT REL TAB PO SCH (08:34)
[2016-07-19] MEDS ORDERED: BUMETANIDE 1 MG TAB PO SCH (09:00)
[2016-07-19] MEDS ORDERED: POTASSIUM CHLORIDE 20 MEQ TABCR PO SCH (09:00)
[2016-07-19] MEDS ORDERED: APIX1TAB3 PO (09:49)
[2016-07-19] MEDS ORDERED: TPRSR50 PO (09:49)
[2016-07-19] MEDS ORDERED: BUME1TAB43 PO (09:49)
[2016-07-19] MEDS ORDERED: MCRK20 PO (09:49)
--- NOTE | 2016-07-19 10:03 | Discharge Instructions ---
Discharge Instructions Date of Service Jul 19, 2016. Admission Reason for Admission: Acute on chronic systolic heart failure, abdominal congestion Discharge Discharge Diagnosis / Problem: Acute on chronic systolic HF, cardiomyopathy, abdominal pain Discharge Goals Goal(s): Improve function, Improve disease control Activity Recommendations Activity Limitations: resume your previous activity Lifting Limitations: none Exercise/Sports Limitations: as tolerated May Resume Sexual Activity: when tolerated Shower/Bathe: no limitations Driving or Machine Use: no limitations . Instructions / Follow-Up Instructions / Follow-Up Medications: please note the following new or changed or stopped medications - TOPROL: 50mg every morning, added for better heart rate control with atrial fibrillation, continue this on discharge - BUMEX: 2mg every morning (2 tablets of 1mg), diuretic, this replaces the Lasix you were previously taking, stop Lasix - POTASSIUM CHLORIDE: 40mEq every morning to combat potassium losses from Bumex we discussed anticoagulation but with your dark stools and need for colonoscopy , decided to hold of on full anticoagulation, Eliquis script sent to [facility], DO NOT FILL THIS SCRIPT Acute on chronic systolic heart failure: diuresed well with IV Bumex and the addition of Dobutamine infusion for several days, weight down to 81kg from 91kg on admission continue on Coreg, Toprol, Bumex and follow up closely with Dr. King for further recommendations and instructions Atrial fibrillation: rates controlled on Coreg and Toprol, holding on anticoagulation due to dark stools still Abdominal pain: MRCP with gall stones but no cholecystitis, no stones in ducts. HIDA scan without evidence of cholecystitis (infection of gall bladder) and low normal function of gall bladder. EGD with no gastritis, + for congestive gastropathy consistent with venous congestion from heart failure continue to monitor for symptom improvement with better control of heart failure continue to use Kita Gsoia and/or Maalox for relief of belching follow up with Dr. Urrutia for colonoscopy in a few weeks after you see Dr. King for clearance FOLLOW UP - please call for follow up with Dr. Eddy in one week - please call for follow up with Dr. King in 2-3 weeks - can call [facility] (Dr Urrutia) for follow up as needed for colonoscopy, any issues over the weekend you can call Dr. Brian at [phone] Call your Primary Care doctor if any of the following symptoms or problems start or get worse: * Shortness of breath or difficulty breathing * Wake up at night short of breath * Chest pain * Cough * Swelling of your hands, feet, or legs * More fatigued or tired with your normal activity * Palpitations - sudden fast heart beats WEIGHT * Weigh yourself every morning after using the bathroom. * Use the same scale. * Wear the same amount of clothing. * Write your weight down on a chart. * Call your Primary Care doctor if you gain more than 2-3 pounds in 1-2 days. MEDICATIONS * Use this discharge instruction sheet for medication instructions. * Take your medications at the time your doctor ordered. * Do not skip a dose of your medicines. * If you miss a dose of medicine, take it as soon as possible, but DO NOT DOUBLE A DOSE. * Read your medicine information when you get home. * Know all of the side effects of your medicine. If in doubt, ask your pharmacist * Call your Primary Care doctor's office if you have any side effects. * Be sure all of your doctors know what medicine and herbs you take (including cold, flu, and herbal medicine). Take the following with you to your follow-up doctor appointments: * Weight Chart * Medication List * List of questions Do not drink excessive alcohol, beer or wine. Current Hospital Diet Patient's current hospital diet: AHA Diet (Heart Healthy) Discharge Diet Recommended Diet: AHA Diet (Heart Healthy) Fluid Restriction: 1200 ml (5 cups) Procedures Procedures Performed: EGD Pending Studies Studies pending at discharge: no Laboratory Results Hemoglobin A1c Test 07/14/16 08:05 Range/Units Estimated Average Glucose 140 mg/dl Hemoglobin A1c 6.5 H 4.5-5.6 % Medical Emergencies . Who to Call and When: Call 911 or go to the Emergency Room if: * If at any time you feel your situation is an emergency * You have tightness or pain in your chest that does not go away with rest or Nitroglycerin * You are very short of breath even with rest . Non-Emergent Contact Non-Emergency issues call your: Primary Care Provider, Resaw Feeder Call Non-Emergent contact if: you have any medication questions increased weight by 2-3 pounds from discharge weight, increased lower extremity edema, increased shortness of breath . . "Provider Documentation" section prepared by Paul Brian. VTE Core Measure Inpt VTE Proph given/why not?: T.E.D. Stockings, SCD's, Treatment not indicated (had some GI bleeding early in admission, resolved) [place] Drug Monitoring Program Search Results: no issues identified
--- NOTE | 2016-07-19 10:06 | CARDIOLOGY PROGRESS NOTE ---
DATE: 07/19/2016 DATE: 07/19/2016. SUBJECTIVE: This morning Mr. Butler claims to have had some abdominal discomfort over the course of the evening. This occurred after eating a large dinner with onions which in the past have traditionally caused some stomach upset. He did not get much sleep over the course of the evening but this morning feels that his symptoms have generally resolved. He was up and ambulatory to some degree yesterday, did not notice any significant worsening of his edema. Most of the day yesterday his stomach felt well. PHYSICAL EXAMINATION: GENERAL: He was alert and oriented. His mood and affect appeared normal. CURRENT VITAL SIGNS: Include blood pressure 101/78 with a pulse of 102. EYES: Sclera are anicteric. LUNGS: Auscultation of his lung apices reveal them to be clear with good air movement. CARDIAC EXAMINATION: Revealed him to be in an irregular irregular rhythm. LABORATORY STUDIES today included a white count of 6.9, hemoglobin of 12.6, platelet count of 117, chemistry profile is pending. ASSESSMENT AND PLAN: Acute decompensated left ventricular systolic failure: From a heart failure standpoint the patient diuresed effectively yesterday on dobutamine which now has been discontinued. Overall he seems to have lost several pounds and I think this is a good start with respect to continued diuresis anticipated on an outpatient basis. It was felt that a lot of his abdominal symptoms were likely related to congestion from heart failure and it is unfortunate that he had recurrence of his symptoms last evening. It is unclear whether the specific food may have caused some stomach upset. At this point I think it is reasonable to transition him to an oral regimen of Bumex and potassium. I think 2 mg of Bumex daily with 40 mEq of potassium is likely adequate. May need to adjust this based on the results of his potassium study this morning. He should be maintained on his beta jordana and if he is willing he can consider institution of an anticoagulant, something that could also be discussed when he follows up in the clinic.
[2016-07-19 10:37] LABS: BUN/CREATININE RATIO 19.1 (10-20); CALCIUM 8.8 mg/dl (8.5-10.1); CREATININE 1.2 mg/dl (0.60-1.40); POTASSIUM 3.6 mmol/L (3.5-5.1)
[2016-07-19 11:27] VITALS: BP 92/63; PULSE 80; TEMP 37.1; O2SAT 94
[2016-07-19 11:34] VITALS: BP 92/63; PULSE 80; TEMP 37.1; O2SAT 94
--- NOTE | 2016-07-20 07:48 | Discharge Summary ---
Discharge Summary Date of Service Jul 20, 2016. Discharge Summary Admission Date: Jul 11, 2016 at 14:35 Discharge Date: Jul 19, 2016 Discharge Disposition: Home Principal Diagnosis: Acute on chronic systolic heart failure Problems/Secondary Diagnoses: RUQ pain due to venous congestion atrial fibrillation GI bleeding, unclear source Immunizations: Have You Had Influenza Vaccine: Yes History of Tetanus Vaccine?: Unknown History of Pneumococcal: No History of Hepatitis B Vaccine: Yes Procedures: HIDA scan - no cholecystitis, no choledocholithiasis, GB EF 35%, low normal MRCP - no stones in CBD EGD - no gastritis, no ulcers, + congestive gastropathy Echocardiogram - dilated LV, EF 20-25%, elevated PA pressures 35-40mmHg, LA dilation, diastolic dysfunction Consultations: Cardiology Gastroenterology Medication Reconciliation New Medications: Bumetanide (Bumex) 1 Mg Tab 2 MG PO DAILY for 30 Days, #60 TABS 3 Refills Metoprolol Succinate (Metoprolol Succinate ER) 50 Mg Tabcr 50 MG PO QAM, #30 TABS 3 Refills Potassium Chloride (Klor-Con M20) 20 Meq Tabcr 40 MEQ PO DAILY, #60 TABS 3 Refills Continued Medications: Atorvastatin (Lipitor) 10 Mg Tab 10 MG PO QAM, TAB Carvedilol (Coreg) 25 Mg Tab 1 TAB PO BID for 90 Days, #180 TAB 3 Refills Discontinued Medications: Furosemide (Lasix) 80 Mg Tab 80 MG PO QAM, TAB Discharge Exam Patient feeling much better on the day of discharge. We reviewed that according to our records he was down 10kg from admission. He feels that his weight was down even more than that based on weighing 200lbs previously and most recently in the hospital he was 170 lbs. He has some nausea/vomiting over night and belching but he attributed this to eating an entire steak and onions. He admits that he should not have eaten as much as he did so quickly and that onions always give him digestive problems. He woke up feeling much better and was able to tolerate a light breakfast and had every intention of going home on 07/19. No chest pain, no dyspnea, no edema. Moving bowels, they continue to be intermittently dark like melena and some occasional bright red blood. We discussed the recommendation for anticoagulation with atrial fibrillation which Dr. King had discussed as outpatient and Dr. Mortensen had recommended while hospitalized. I explained that it was recommended, even looked into the cost of Eliquis which was $198 a month and Xarelto that was $190 a month. However, patient very reluctant to try anticoagulation due to the issues with his bowels and unclear source of bleeding. He would like to discuss further with Dr. King. Review of Systems: Constitutional: No chills, No fatigue, No fever, No problem reported, No sweats, No weakness, No weight loss Eyes: No diplopia, No discharge, No eye pain, No problem reported, No redness, No worsening of vision ENT: No dental problems, No hearing loss, No nasal symptoms, No problem reported, No sore throat, No tinnitus, No trouble swallowing, No unusual epistaxis Respiratory: No cough, No dyspnea at rest, No dyspnea on exertion, No hemoptysis, No problem reported, No shortness of breath, No sputum, No wheezing Cardiovascular: No PND, No chest pain, No claudication, No edema, No orthopnea, No palpitations, No problem reported Abdomen: + GI bleeding (intermittent dark stools), + diarrhea, + nausea ( belching after meals, improving), No constipation, No pain, No vomiting Musculoskeletal: No calf pain, No joint pain, No muscle pain, No problem reported, No swelling Genitourinary - Male: No dysuria, No hematuria, No urinary frequency, No urinary urgency Neurologic: No balance problems, No memory loss, No numbness/tingling, No paralysis, No problem reported, No vertigo, No weakness Psychiatric: No anhedonism, No anxiety, No depression symptoms, No insomnia , No problem reported, No substance abuse Endocrine: No excessive thirst, No excessive urination, No fatigue, No problem reported Hematologic / Lymphatic: No abnormal bleeding/bruising, No clotting problems , No night sweats, No problem reported, No swollen lymph nodes Integumentary: No bleeding, No color change, No itch, No new/changing skin lesions, No problem reported, No rash Physical Exam: General Appearance: WD/WN, no apparent distress Eyes: normal inspection, EOMI, sclerae normal ENT: normal ENT inspection, hearing grossly normal, pharynx normal Neck: supple, no adenopathy, no JVD, trachea midline Respiratory/Chest: chest non-tender, lungs clear, normal breath sounds, no respiratory distress, no accessory muscle use Cardiovascular: no edema, no gallop, no JVD, no murmur, normal peripheral pulses, + irregularly irregular Abdomen / GI: normal bowel sounds, non tender, soft, no organomegaly Extremities: normal inspection, no calf tenderness, normal capillary refill , no pedal edema, normal range of motion 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 Numerous GI studies including HIDA, MRCP and EGD did not reveal a clear GI etiology of symptoms. EGD did show gastropathy so he was given Dobutamine infusion for 3 days which markedly improved diuresis and improved but did not resolve his GI symptoms of nausea, belching and diarrhea. Discussed with GI, they are willing to do a colonoscopy in several weeks time to further evaluate diarrhea and intermittent dark stools. 1. RUQ abd pain, nausea, belching after meals: markedly improved at this point, dobutamine seemed to be help relieve congestion of liver and stomach - no e/o cholecystitis but did have sludge and cholelithiasis on MRCP - HIDA with low normal EF of 35% but no true dyskinesis - EGD on 07/15 with normal esophagus, congestive gastropathy, no active bleeding - recommend follow up with [facility] if he continues to have issues - belching relieved with sips of Kita Gosia, patient wishes to only continue this for symptom relief 2. Acute decompensated systolic CHF, dilated cardiomyopathy with EF 20-25%, diastolic dysfunction - increase PASP and CVP certainly consistent with volume overload - diuresed with Bumex well while admitted, plan to change outpatient diuretics to Bumex 2mg PO daily - Cr stable at 1.2 with diuresis - continue Coreg, Toprol 50mg daily added for better HR control with atrial fibrillation - received Dobutamine infusion for 3 days, good diureses, reached euvolemia - follow up with Dr. King in 2-3 weeks 3. NIKHIL on CKD III, acute component resolved - likely from chronic HTN plus element of cardiorenal - renal US show normal size kidneys with normal parenchyma, his kidney dysfunction is likely not very severe - baseline appears to be 1.2-1.4, on discharge it was 1.2, increased diuresis with starting dobutamine - avoid nephrotoxins such NSAIDs and non-emergent contrast studies & hypotension 4. Elevated troponin - levels not consistent with NSTEMI - likely just demand ischemia with decompensated CHF along with NIKHIL on CKD - heparin gtt stopped due to BRBPR, although stool tested negative for occult blood 5. Chronic Afib with RVR - rate better controlled on Toprol 50mg in AM - cardio recs appreciated - long discussion with patient about recommendation for anticoagulation, needs it for stroke prevention - due to his occasional rectal bleeding he is highly reluctant to take any anticoagulation - discussed taking an aspirin at least, he also refuses - urged him to discuss with Dr. King in the office 6. Diarrhea with occasional bright red blood, occasional dark stools - Hb stable for days, unclear of etiology of dark stools, bright red blood would be more consistent with hemorrhoids - C diff, stool cultures negative - plan for colonoscopy with [facility] tentatively in 4 weeks, needs to be cleared by cardiology outpatient first Plan: d/c home today Total Time Spent: Greater than 30 minutes This includes examination of the patient, discharge planning, medication reconciliation, and communication with other providers. Discharge Instructions Please refer to the electronic Patient Visit Report (Discharge Instructions) for additional information. Follow-Up Dr. Eddy in one week Dr. King in two weeks [facility] for colonoscopy in 4 weeks Additional Copies To Jerrod King M.D.; [place] Urrutia M.D.; Leo Eddy M.D.
[2016-09-20] MEDS ORDERED: BUME2TAB3 PO (10:48)
[2016-09-20] MEDS ORDERED: METO50TA7 PO (10:48)
[2016-09-20] MEDS ORDERED: DOXY100C76 PO (10:54)
== END 2016-07-19 12:45 | disposition home or self-care (01) | DRG 292 ==
LOC: ENRESERVDT → ENRESERVTM → C.EDB 12:31 → C.2T 14:35 → C.2E 07-14 15:14
PROVIDERS: ADMIT Hospitalist; ATTEND Internal Medicine
PROC: 0DJ08ZZ Inspection of Upper Intestinal Tract, Via Natural or Artificial Opening Endoscopic (ICD-10-PCS; principal; 2016-07-15 13:33)
DX: I50.23 Acute on chronic systolic (congestive) heart failure (principal); N17.9 Acute kidney failure, unspecified; I13.0 Hypertensive heart and chronic kidney disease with heart failure and stage 1 through stage 4 chronic kidney disease, or unspecified chronic kidney disease; I48.92 Unspecified atrial flutter; I24.8 Other forms of acute ischemic heart disease; I42.0 Dilated cardiomyopathy; I48.91 Unspecified atrial fibrillation; N18.3 Chronic kidney disease, stage 3 (moderate); E78.5 Hyperlipidemia, unspecified; Z87.891 Personal history of nicotine dependence; J44.9 Chronic obstructive pulmonary disease, unspecified; K82.8 Other specified diseases of gallbladder; K80.20 Calculus of gallbladder without cholecystitis without obstruction; I45.10 Unspecified right bundle-branch block; N28.1 Cyst of kidney, acquired; E87.6 Hypokalemia; I08.0 Rheumatic disorders of both mitral and aortic valves; K57.10 Diverticulosis of small intestine without perforation or abscess without bleeding

== ENCOUNTER → 2016-08-06 | Outpatient (CLI) | payer BC ==
[~2016-08-06] MED LIST changes: +ATOR10TA82 PO; -ATOR10TA88 PO; +BUME1TAB43 PO; +BUME2TAB3 PO; +DOXY100C76 PO; -FURO80TA63 PO; +HYDR-5688 PO; +MCRK20 PO; +METO50TA7 PO; +TPRSR50 PO
[2016-08-06 15:31] LABS: ALT/SGPT 18 U/L (12-78); BLOOD UREA NITROGEN 25 mg/dl (7-18); BUN/CREATININE RATIO 20.6 (10-20); CALCIUM 8.8 mg/dl (8.5-10.1); CARBON DIOXIDE 32 mmol/L (21-32); CHLORIDE 104 mmol/L (98-107); GLUCOSE 86 mg/dl (70-99); MAGNESIUM 2.3 mg/dl (1.8-2.4); POTASSIUM 4.2 mmol/L (3.5-5.1); SODIUM 141 mmol/L (136-145)
[2016-08-06 15:34] LABS: ALB/GLOB RATIO 0.9 (0.9-2); ALKALINE PHOSPHATASE 98 U/L (45-117); AST/SGOT 16 U/L (15-37)
== END | disposition home or self-care (01) ==
LOC: C.LAB1850 12:48
PROVIDERS: ATTEND Internal Medicine Cardiovascular Disease
DX: I42.9 Cardiomyopathy, unspecified (principal)

== ENCOUNTER → 2016-09-17 | Outpatient (CLI) | payer BC ==
[2016-09-17 15:19] LABS: BASO % 0.3 %; BASO ABS # 0.02 K/uL (0-0.2); COMPLETE YES; EOS % 1.8 %; HEMATOCRIT 38.9 % (42-52); IG% 0.1 %; LYMPH % 21.9 %; LYMPH ABS # 1.74 K/uL (1.2-3.4); MEAN CORPUSCULAR HGB CONC 32.6 g/dl (32-36); MEAN PLATELET VOLUME 11.1 fL (7.4-10.4); MONO % 6.5 %; NEUT % 69.4 %; PLATELET COUNT 150 K/uL (130-400); RED BLOOD COUNT 3.97 M/uL (4.7-6.1); WHITE BLOOD COUNT 7.95 K/uL (4.8-10.8)
[2016-09-17 15:40] LABS: BLOOD UREA NITROGEN 37 mg/dl (7-18); BUN/CREATININE RATIO 23.1 (10-20); CALCIUM 8.8 mg/dl (8.5-10.1); CARBON DIOXIDE 33 mmol/L (21-32); CHLORIDE 106 mmol/L (98-107); GLUCOSE 146 mg/dl (70-99); POTASSIUM 3.8 mmol/L (3.5-5.1); SODIUM 146 mmol/L (136-145)
== END | disposition home or self-care (01) ==
LOC: C.LAB1850 13:26
PROVIDERS: ATTEND Internal Medicine Cardiovascular Disease
DX: J44.0 Chronic obstructive pulmonary disease with (acute) lower respiratory infection (principal); I50.9 Heart failure, unspecified

== ENCOUNTER 2016-09-26 08:16 | Observation (INO) | payer BC ==
[2016-09-20 10:49] VITALS: BMI 28.0
--- NOTE | 2016-09-20 11:31 | PAT Medication Instructions ---
Service Date September 20, 2016. Current Home Medication List Atorvastatin (Lipitor), 10 MG PO QAM Bumetanide (Bumex), 2 MG PO BID Carvedilol (Coreg), 1 TAB PO QAM Doxycycline Monohydrate (Monodox), 100 MG PO UD Metoprolol Succ (Toprol Xl) (Toprol-Xl), 75 MG PO QAM Medication Instructions For Your Scheduled Surgery - Hold the following medications the morning of surgery: Bumetanide (Bumex), 2 MG PO BID - Take the following medications the morning of surgery with a sip of water OTHERWISE NOTHING TO EAT OR DRINK AFTER MIDNIGHT: Carvedilol (Coreg), 1 TAB PO QAM Atorvastatin (Lipitor), 10 MG PO QAM Metoprolol Succ (Toprol Xl) (Toprol-Xl), 75 MG PO QAM - Take the following medications as scheduled the night before surgery: Bumetanide (Bumex), 2 MG PO BID If you have any questions please call us at [phone] or [phone] or [phone]
[2016-09-26] VITALS (12 sets, daily range): BP systolic 81–114; BP diastolic 54–78; PULSE 55–87; TEMP 36.2–37.1; O2SAT 95–99; Ht 172.7 cm; Wt 74.8 kg
[~2016-09-26] VITALS: Ht 172.7 cm; Wt 74.8 kg
[~2016-09-26 08:16] MED LIST changes: -BUME1TAB43 PO; -HYDR-5688 PO; -MCRK20 PO; -TPRSR50 PO
[2016-09-26] MEDS ORDERED: CEFAZOLIN IV 2,000 MG/60 ML D5W IV ONE (08:52)
[2016-09-26] MEDS ORDERED: HYDR-5688 PO (09:19)
--- NOTE | 2016-09-26 09:19 | Discharge Instructions ---
Discharge Instructions Date of Service Sep 26, 2016. Visit Reason for Visit: Cholelithasis Discharge Discharge Diagnosis / Problem: laparoscopoic cholecystectomy Discharge Goals Goal(s): Decrease discomfort Activity Recommendations Activity Limitations: as noted below Lifting Limitations: no more than 10 pounds Shower/Bathe: no limitations Driving or Machine Use: resume 3 days after discharge Anesthesia . Post Anesthesia Instructions: If you have had General Anesthesia or IV Sedation: * Do not drive today. * Resume driving when surgeon permits. * Do not make important decisions or sign legal documents today. * Call surgeon for: 1. Temperature elevations greater than 101 degrees F. 2. Uncontrollable pain. 3. Excessive bleeding. 4. Persistent nausea and vomiting. 5. Medication intolerance (nausea, vomiting or rash). * For nausea and vomiting use only clear liquids such as: tea, soda, bouillon until nausea subsides, then gradually increase diet as tolerated. * If you have any concerns or questions, call your surgeon's office. If physician is unavailable and it is an emergency, call 911 or go to the nearest emergency room. . Instructions / Follow-Up Instructions / Follow-Up Dr. Jacobson in 1-2 weeks, call [phone] if you do not already have an appt or with any concerns Diet Recommendations Recommended Home Diet: no limitations Pending Studies Studies pending at discharge: yes List of pending studies: pathology Medical Emergencies . Who to Call and When: Medical Emergencies: If at any time you feel your situation is an emergency, please call 911 immediately. . Non-Emergent Contact Non-Emergency issues call your: Surgeon Call Non-Emergent contact if: you have a fever, temperature is above 101.5, your pain is not controlled, wound has increased redness . . "Provider Documentation" section prepared by Vince Sheth. .
[2016-09-26] MEDS ORDERED: MIDAZOLAM HCL 1 MG/ML 2ML VIAL ONE (09:21)
[2016-09-26] MEDS ORDERED: FENTANYL CITRATE INJ 50 MCG/1 ML 2 ML VIAL ONE ×2 (09:21→10:42)
--- NOTE | 2016-09-26 09:21 | History & Physical Bridge Note ---
H&P Re-Evaluation Bridge Note: I have examined the patient, reviewed the History & Physical and in the interval since the performance of the History & Physical I have noted the following changes of clinical significance: No changes noted
[2016-09-26] MEDS ORDERED: ATROPINE SULFATE 0.1 MG/ML 5ML SYR IV PRN (09:30)
[2016-09-26] MEDS ORDERED: ONDANSETRON INJ 2 MG/ML 2 ML VIAL IV PRN ×2 (09:30→11:00)
[2016-09-26] MEDS ORDERED: FENTANYL CITRATE INJ 50 MCG/1 ML 2 ML VIAL IV PRN (09:30)
[2016-09-26] MEDS ORDERED: EpHEDrine SULFATE INJ 50 MG/ML AMP IV PRN (09:30)
[2016-09-26] MEDS ORDERED: BUPIVACAINE/EPINEPHRINE 0.5% MPF 1:200,000 30 ML VIAL ONE (09:33)
[2016-09-26] MEDS ORDERED: LACTATED RINGER'S 1000ML 1,000 ML IV SCH (10:50)
--- NOTE | 2016-09-26 10:53 | [facility] Operative Report ---
Operative Report Operative Date Sep 26, 2016. Pre-Operative Diagnosis Cholelithiasis Post-Operative Diagnosis same Procedure(s) Performed lap adrienne Surgeon Dr. Jacobson Picker And Sorter Load And Unload Surgeon(s) Maykel Sheth PA-C Estimated Blood Loss 10 cc Findings gallbladder with omental adhesions/stones Specimens A: Gallbladder and contents Anesthesia get Complication(s) None Disposition Recovery Room / PACU I attest to the content of the Intraoperative Record and any orders documented therein. Any exceptions are noted below.
[2016-09-26] MEDS ORDERED: MoRPHine SULFATE 2 MG/ML CARP IV PRN (11:00)
--- NOTE | 2016-09-26 11:54 | OPERATIVE REPORT ---
DATE OF OPERATION: 09/26/2016 PREOPERATIVE DIAGNOSIS: Symptomatic cholelithiasis and cholecystitis. POSTOPERATIVE DIAGNOSIS: Same. PROCEDURE: Laparoscopic cholecystectomy. SURGEON: Dr. Jacobson. SUPPLY COORDINATOR: Maykel Sheth PA-C. ESTIMATED BLOOD LOSS: Approximately 10 mL. COMPLICATIONS: No immediate. ANESTHESIA: General. OPERATION AND FINDINGS: OPERATIVE NOTE: After informed consent was obtained, the patient was taken to the operating suite and placed in supine position. After successful intubation, the abdomen was shaved and sterilely prepped and draped in usual fashion. Supraumbilical incision made with an 11 blade scalpel and carried down through the soft tissue using electrocautery. Anterior rectus fascia was opened using electrocautery and two #0 Vicryl stay sutures were placed. Peritoneum was elevated with hemostats and incised under direct vision using a Metzenbaum scissor. A finger sweep was performed to take down adhesions. A 12 mm Alicia trocar was placed. The abdomen was insufflated to 16 mmHg. Laparoscope was inserted and the abdomen was examined 360 degrees. A subxiphoid 5 mm port and 2 right upper quadrant 5 mm ports were placed under direct vision. The patient was placed in a slight reverse Trendelenburg position and airplaned to the left. The gallbladder did have some adhesions around it. We grasped it and elevated it superiorly and laterally. I used some scissors, some blunt dissection as well as some electrocautery to take down adhesions around the neck of the gallbladder. Eventually we were able to delineate the cystic duct and skeletonize it. It was clipped twice proximally and once distally and transected. In similar fashion, the cystic artery was identified, skeletonized and divided. There was a small posterior and lateral branch of the artery which was also clipped and divided. The gallbladder was removed from the gallbladder fossa intact. At one point the clip on the gallbladder side did come off and released a small amount of bile and 1 stone which was immediately removed. After removing the gallbladder it was placed into an EndoCatch bag. We thoroughly irrigated the right upper quadrant. We controlled any bleeding on the gallbladder fossa using electrocautery. At the end of the case, there was adequate hemostasis and no evidence of a bile leak. Quick look around the abdomen showed no other abnormality. The gallbladder was removed from the camera port site. All the ports were removed and the abdomen was desufflated. The fascia of the camera port was closed using 0 Vicryl in a [id number] fashion. All the wounds were irrigated and closed using 4-0 Monocryl. Marcaine was injected around them for postoperative analgesia and skin glue used as a dressing. The patient was awakened, extubated, and transferred to recovery in stable condition. I attest to the content of the Intraoperative Record and any orders documented therein. Any exception s are noted below.
--- NOTE | 2016-09-26 11:56 | Anesthesiology Progress Note ---
Anesthesia Post Op Note Date & Time Sep 26, 2016 at 11:55 Vital Signs Pain Intensity: 0 Vital Signs Past 12 Hours Date Time Temp Pulse Resp B/P (MAP) Pulse Ox O2 Delivery O2 Flow Rate FiO2 09/26/16 11:46 36.3 09/26/16 11:42 57 17 101/74 94 09/26/16 11:42 58 17 09/26/16 11:37 53 14 09/26/16 11:37 51 14 92/67 96 09/26/16 11:36 56 16 95 09/26/16 11:36 59 16 09/26/16 11:34 101/75 09/26/16 11:32 93/69 09/26/16 11:31 55 17 95 09/26/16 11:31 54 17 09/26/16 11:27 109/66 09/26/16 11:26 64 19 94 09/26/16 11:26 67 19 09/26/16 11:25 63 16 09/26/16 11:25 66 16 94 09/26/16 11:22 104/71 09/26/16 11:20 56 30 09/26/16 11:20 61 30 94 09/26/16 11:17 101/71 09/26/16 11:15 61 23 97 09/26/16 11:15 72 23 09/26/16 11:12 108/63 09/26/16 11:10 81 16 09/26/16 11:10 74 16 96 09/26/16 11:07 93/70 09/26/16 11:05 71 12 96 09/26/16 11:05 73 12 09/26/16 11:02 98/69 09/26/16 11:00 74 10 09/26/16 11:00 67 10 95 09/26/16 10:57 103/52 09/26/16 10:55 82 95 09/26/16 10:55 90 09/26/16 10:52 107/71 09/26/16 10:50 83 09/26/16 10:50 83 98 09/26/16 10:50 36.1 74 16 107/71 98 Mask 10 09/26/16 08:40 36.6 87 18 106/73 (84) 96 Room Air Notes Mental Status: alert / awake / arousable, participated in evaluation Pt Amnestic to Procedure: Yes Nausea / Vomiting: adequately controlled Pain: adequately controlled Airway Patency, RR, SpO2: stable & adequate BP & HR: stable & adequate Hydration State: stable & adequate Anesthetic Complications: no major complications apparent
[2016-09-26] MEDS ORDERED: PHENYLEPHRINE 100MCG/ML 5ML SYR ONE (12:19)
[2016-09-26] MEDS ORDERED: ONDANSETRON INJ 2 MG/ML 2 ML VIAL ONE (12:19)
[2016-09-26] MEDS ORDERED: KETOROLAC TROMETHAMINE 30 MG/ML VIAL ONE (12:19)
[2016-09-26] MEDS ORDERED: DEXAMETHASONE SOD INJ 4 MG/ML VIAL ONE (12:19)
[2016-09-26] MEDS ORDERED: ROCURONIUM BROMIDE 10 MG/ML 5 ML VIAL ONE (12:19)
[2016-09-26] MEDS ORDERED: EpHEDrine SULFATE 50MG/5ML SYR ONE (12:19)
[2016-09-26] MEDS ORDERED: LIDOCAINE HCL 2% 2 ML VIAL (20MG/ML) ONE (12:19)
[2016-09-26] MEDS ORDERED: PROPOFOL IV EMULSION 10 MG/ML 20 ML VIAL IV ONE (12:19)
[2016-09-26] MEDS ORDERED: NEOSTIGMINE METHYLSULFATE 5 MG/5 ML SYR ONE (12:19)
[2016-09-26] MEDS ORDERED: SODIUM CHLORIDE 0.9% 1000ML 1,000 ML IV SCH (14:22)
[2016-09-26] MEDS ORDERED: DOXYCYCLINE HYCLATE 100 MG CAP PO SCH (14:30)
[2016-09-26] MEDS ORDERED: HYDROCODONE/ACETAMOPHEN 5/325MG TAB PO PRN (14:30)
[2016-09-26] MEDS ORDERED: MoRPHine SULFATE 4 MG/ML 1 ML CARP\\VIAL IV PRN (14:30)
[2016-09-26 14:47] LABS: BASO % 0.1 %; BASO ABS # 0.01 K/uL (0-0.2); COMPLETE YES; EOS % 0.5 %; HEMATOCRIT 39.9 % (42-52); IG% 0.1 %; LYMPH % 10.7 %; LYMPH ABS # 0.94 K/uL (1.2-3.4); MEAN CELL VOLUME 96.6 fL (80-100); MEAN CORPUSCULAR HEMOGLOBIN 32.2 pg (25-34); MEAN CORPUSCULAR HGB CONC 33.3 g/dl (32-36); MEAN PLATELET VOLUME 10.1 fL (7.4-10.4); MONO % 1.1 %; NEUT % 87.5 %; PLATELET COUNT 174 K/uL (130-400); RED BLOOD COUNT 4.13 M/uL (4.7-6.1); WHITE BLOOD COUNT 8.79 K/uL (4.8-10.8)
--- NOTE | 2016-09-26 14:58 | DIAGNOSTIC IMAGING REPORT ---
SINGLE VIEW CHEST CLINICAL HISTORY: Postoperative examination. FINDINGS: An AP, portable, upright chest radiograph is compared to study dated 07/16/2016 and correlated with chest CT dated 02/14/2009. The examination is degraded by portable technique and patient rotation. The heart is enlarged and there is atherosclerotic calcification of the thoracic aorta. The pulmonary vasculature is noncongested. Fullness of the dov is unchanged from previous. Chronic interstitial thickening is similar to previous. There is no airspace consolidation, large pleural effusion, or pneumothorax. The skeletal structures are osteopenic. The bony thorax is grossly intact. IMPRESSION: Cardiomegaly with no acute cardiopulmonary abnormality. Electronically signed by: Severo Campbell M.D. 09/26/2016 2:56 PM Dictated Date/Time: 09/26/2016 2:55 PM
[2016-09-26] MEDS ORDERED: ACETAMINOPHEN 325 MG TAB PO PRN (15:00)
[2016-09-26] MEDS ORDERED: IV FLUIDS COMPLETED PRN (15:00)
[2016-09-26 15:34] LABS: CKMB/CK RATIO 4.7 (0-3.0)
--- NOTE | 2016-09-26 15:34 | Medical Consult ---
Consultation Date of Consultation: Sep 26, 2016. Attending Physician: Solitario Jacobson D.O. Reason for Consultation: hypoxia, shortness of breath, hypotension History of Present Illness Pt is a 71 yo male with hx of systolic CHF, atrial fibrillation, cardiomyopathy who presented to [facility] for lap cholecystectomy on 09/26/16. While in recovery room pt reports to have shortness of breath at rest with hypoxia noted on room air. Pt was also noted to be hypotensive. Medicine service was consulted for further post op management. Pt reports cough with clear sputum, shortness of breath at rest. No fevers, chills, N/V/D. but reports abdominal pain at surgical site. Past Medical/Surgical History Medical Problems: (1) Acute on chronic renal insufficiency Status: Acute (2) Elevated troponin Status: Acute (3) Pulmonary edema Status: Acute (4) Rapid atrial fibrillation Status: Acute Social History Smoking Status: Former Smoker Marital Status: Occupation Status: employed Allergies Coded Allergies: NO KNOWN DRUG ALLERGIES (Verified Allergy, Unknown, ., 09/26/16) Current Inpatient Medications Current Inpatient Medications Medications (Trade) Dose Ordered Sig/Sulma Route Start Time Stop Time Status Last Admin Dose Admin Cefazolin Sodium 60 ml @ 100 mls/hr PREOP IV 10/03/16 06:00 10/03/16 18:00 Lactated Ringer's 1,000 ml @ 100 mls/hr Q10H IV 10/03/16 06:00 10/03/16 18:00 Acetaminophen/ Hydrocodone Bitart ([place] 5/325 Tab) 1 tab Q4H PRN PO 09/26/16 11:00 10/10/16 10:59 Lactated Ringer's 1,000 ml @ 100 mls/hr Q10H IV 09/26/16 10:50 10/26/16 10:49 Morphine Sulfate (MoRPHine SULFATE INJ) 4 mg Q1H PRN IV 09/26/16 11:00 10/10/16 10:59 Ondansetron HCl (Zofran Inj) 4 mg Q6H PRN IV 09/26/16 11:00 10/26/16 10:59 Sodium Chloride 1,000 ml @ 125 mls/hr Q8H IV 09/26/16 14:22 10/26/16 14:21 UNV Acetaminophen/ Hydrocodone Bitart ([place] 5/325 Tab) 1 tab Q4H PRN PO 09/26/16 14:30 10/10/16 14:29 UNV Morphine Sulfate (MoRPHine SULFATE INJ) 4 mg Q1H PRN IV 09/26/16 14:30 10/10/16 14:29 UNV Atorvastatin Calcium (Lipitor Tab) 10 mg QAM PO 09/27/16 09:00 10/27/16 08:59 UNV Carvedilol (Coreg Tab) 25 mg QAM PO 09/27/16 09:00 10/27/16 08:59 UNV Doxycycline Hyclate (Vibramycin Cap) 100 mg UD PO 09/26/16 14:30 10/26/16 14:29 UNV Metoprolol Succinate (Toprol Xl Tab) 75 mg QAM PO 09/27/16 09:00 10/27/16 08:59 UNV Miscellaneous (Iv Fluids Completed) 1 ea PRN PRN N/A 09/26/16 15:00 09/26/17 14:59 UNV Heparin Sodium (Porcine) (Heparin Sq 5000 Unit/0.5ml) 5,000 unit Q8 SQ 09/26/16 22:00 10/26/16 21:59 UNV Sodium Chloride 1,000 ml @ 100 mls/hr Q10H IV 09/26/16 15:00 10/26/16 14:59 UNV Acetaminophen (Tylenol Tab) 650 mg Q4H PRN PO 09/26/16 15:00 10/26/16 14:59 UNV Review of Systems Constitutional: No fever, No chills, No sweats, No weakness Respiratory: + cough, + dyspnea at rest, No sputum, No wheezing, No shortness of breath Cardiovascular: No chest pain, No orthopnea, No PND, No edema Abdomen: No pain, No nausea, No vomiting Musculoskeletal: No joint pain, No muscle pain, No swelling, No calf pain Genitourinary - Male: No hematuria, No dysuria, No urinary frequency Psychiatric: No depression symptoms, No anhedonism, No anxiety, No insomnia Endocrine: No fatigue, No excessive thirst Integumentary: No rash, No itch Physical Exam Date Time Temp Pulse Resp B/P (MAP) Pulse Ox O2 Delivery O2 Flow Rate FiO2 09/26/16 13:25 36.2 56 20 81/67 95 Nasal Cannula 2 09/26/16 12:55 64 16 82/64 95 Nasal Cannula 2 09/26/16 12:26 55 16 90/60 95 Nasal Cannula 2 09/26/16 11:55 36.2 56 17 103/54 95 Room Air 2 09/26/16 11:46 36.3 09/26/16 11:42 57 17 101/74 94 09/26/16 11:42 58 17 09/26/16 11:37 53 14 09/26/16 11:37 51 14 92/67 96 09/26/16 11:36 56 16 95 09/26/16 11:36 59 16 09/26/16 11:34 101/75 09/26/16 11:32 93/69 09/26/16 11:31 55 17 95 09/26/16 11:31 54 17 09/26/16 11:27 109/66 09/26/16 11:26 64 19 94 09/26/16 11:26 67 19 09/26/16 11:25 63 16 09/26/16 11:25 66 16 94 09/26/16 11:22 104/71 09/26/16 11:20 56 30 09/26/16 11:20 61 30 94 09/26/16 11:17 101/71 09/26/16 11:15 61 23 97 09/26/16 11:15 72 23 09/26/16 11:12 108/63 09/26/16 11:10 81 16 09/26/16 11:10 74 16 96 09/26/16 11:07 93/70 09/26/16 11:05 71 12 96 09/26/16 11:05 73 12 09/26/16 11:02 98/69 09/26/16 11:00 74 10 09/26/16 11:00 67 10 95 09/26/16 10:57 103/52 09/26/16 10:55 82 95 09/26/16 10:55 90 09/26/16 10:52 107/71 09/26/16 10:50 83 09/26/16 10:50 83 98 09/26/16 10:50 36.1 74 16 107/71 98 Mask 10 09/26/16 08:40 36.6 87 18 106/73 (84) 96 Room Air General Appearance: WD/WN, + mild distress Head: normocephalic, atraumatic Neck: supple, no adenopathy, thyroid normal, no JVD Respiratory/Chest: chest non-tender, lungs clear, normal breath sounds, no respiratory distress Cardiovascular: no edema, no gallop, no JVD, + tachycardia Abdomen/GI: normal bowel sounds, non tender, soft, no organomegaly Back: normal inspection, no CVA tenderness, no muscle spasm, normal range of motion Extremities/Musculoskelatal: normal inspection, no calf tenderness, normal capillary refill, no pedal edema Neurologic/Psych: alert, normal mood/affect, normal reflexes, oriented x 3 Skin: normal color, warm/dry, no rash Laboratory Results Last 24 Hours Test 09/26/16 14:22 09/26/16 14:37 Creatine Kinase MB Ratio White Blood Count 8.79 K/uL Red Blood Count 4.13 M/uL Hemoglobin 13.3 g/dL Hematocrit 39.9 % Mean Corpuscular Volume 96.6 fL Mean Corpuscular Hemoglobin 32.2 pg Mean Corpuscular Hemoglobin Concent 33.3 g/dl Platelet Count 174 K/uL Mean Platelet Volume 10.1 fL Neutrophils (%) (Auto) 87.5 % Lymphocytes (%) (Auto) 10.7 % Monocytes (%) (Auto) 1.1 % Eosinophils (%) (Auto) 0.5 % Basophils (%) (Auto) 0.1 % Neutrophils # (Auto) 7.69 K/uL Lymphocytes # (Auto) 0.94 K/uL Monocytes # (Auto) 0.10 K/uL Eosinophils # (Auto) 0.04 K/uL Basophils # (Auto) 0.01 K/uL RDW Standard Deviation 47.6 fL RDW Coefficient of Variation 13.5 % Immature Granulocyte % (Auto) 0.1 % Immature Granulocyte # (Auto) 0.01 K/uL Assessment & Plan Pt is a 71 yo male with cardiomyopathy, systolic CHF, atrial fibrillation who is POD #0 lap adrienne noted to be hypoxic and hypotensive in recovery room Hypoxia and hypotension likely postoperative changes/atelectasis. No acute findings on CXR. Pt euvolemic on exam. Pt already received 2L bolus of NS. Cont IVF at 100cc hr after a third bolus. Cont flutter valve and duonebs PRN and start on solumedrol. Noted to be on dobutamine in june. May have to utilize if worsening hypotension. Cont to hold antihypertensives at this time and observe in telemetry. EKG determined atrial fibrillation. Will obtain trops x 3 sets. Prolonged QT interval - Cautious use of antibiotics, please refrain from zofran , EKG in AM Chronic systolic heart failure. Hold diuretics/BB at this time due to hypotension. Cardiomyopathy. Etiology of the patient's cardiomyopathy is unknown. Will need cardiac cath at some point for further evaluation. Atrial fibrillation. Pt has refused AC in the past, rate slight bradycardic
[2016-09-26 15:41] LABS: BUN/CREATININE RATIO 19.6 (10-20); CALCIUM 9.3 mg/dl (8.5-10.1); CREATININE 1.8 mg/dl (0.60-1.40); POTASSIUM 4.8 mmol/L (3.5-5.1)
[2016-09-26 16:56] LABS: INR 1.2 (0.9-1.1); PROTHROMBIN TIME (PATIENT) 12.5 SECONDS (9.0-12.0)
[2016-09-26] MEDS ORDERED: HEPARIN 25,000 UNIT/500ML D5W 500 ML IV PRN (17:00)
[2016-09-26] MEDS: SODIUM CHLORIDE 0.9% 1000ML 1,000 ML IV SCH ×2 (17:10→23:35)
[2016-09-26] MEDS ORDERED: NURSING VERBAL MED ORDER ONE (18:45)
[2016-09-26] MEDS: HYDROCODONE/ACETAMOPHEN 5/325MG TAB PO PRN ×2 (18:49→23:36)
[2016-09-26] MEDS ORDERED: METOPROLOL TARTRATE 25 MG TAB PO SCH (19:00)
[2016-09-26 20:35] LABS: CKMB/CK RATIO 3.3 (0-3.0)
[2016-09-26] MEDS: METHYLPREDNISOLONE IV 60 MG in SYRINGE 0 ML IV SCH (20:54)
[2016-09-26] MEDS ORDERED: HEPARIN SOD 5000 UNIT/0.5 ML CARP SQ SCH (22:00)
[2016-09-27 02:34] VITALS: BP 114/61; PULSE 72; TEMP 36.5; O2SAT 96
[2016-09-27 03:09] LABS: CKMB/CK RATIO 3.7 (0-3.0)
[2016-09-27 04:00] VITALS: O2SAT 96
[2016-09-27 06:42] LABS: PARTIAL THROMBOPLASTIN RATIO 2.8
[2016-09-27 07:58] VITALS: BP 103/63; PULSE 80; TEMP 36.3; O2SAT 96
--- NOTE | 2016-09-27 08:14 | Anesthesiology Progress Note ---
Anesthesia Post Op Note Date & Time Sep 27, 2016 at 08:13 Vital Signs Pain Intensity: 3.0 Vital Signs Past 12 Hours Date Time Temp Pulse Resp B/P (MAP) Pulse Ox O2 Delivery O2 Flow Rate FiO2 09/27/16 07:58 36.3 80 18 103/63 (76) 96 Nasal Cannula 2.0 09/27/16 04:00 96 Nasal Cannula 1.5 09/27/16 02:34 36.5 72 16 114/61 (78) 96 Nasal Cannula 1.0 09/26/16 23:59 96 Nasal Cannula 1.5 09/26/16 23:14 37.1 76 20 113/73 (86) 96 Nasal Cannula 1.5 Notes Mental Status: alert / awake / arousable, participated in evaluation Pt Amnestic to Procedure: Yes Nausea / Vomiting: adequately controlled Pain: adequately controlled Airway Patency, RR, SpO2: stable & adequate BP & HR: stable & adequate Hydration State: stable & adequate Anesthetic Complications: no major complications apparent
[2016-09-27] MEDS: METHYLPREDNISOLONE IV 60 MG in SYRINGE 0 ML IV SCH (08:45)
[2016-09-27] MEDS ORDERED: CARVEDILOL 25 MG TAB PO SCH (09:00)
[2016-09-27] MEDS ORDERED: METOPROLOL SUCC 50MG EXT REL TAB PO SCH (09:00)
[2016-09-27] MEDS ORDERED: ATORVASTATIN 10 MG TAB PO SCH (09:00)
--- NOTE | 2016-09-27 10:29 | Surgery Progress Note ---
Surgery Progress Note Date of Service Sep 27, 2016. Subjective Post OP Day: 1 + feeling well, + ambulating, + pain controlled, + diet (regular), No chest pain , No nausea Objective Vital Signs: Date Time Temp Pulse Resp B/P (MAP) Pulse Ox O2 Delivery O2 Flow Rate FiO2 09/27/16 08:00 Room Air 09/27/16 07:58 36.3 80 18 103/63 (76) 96 Nasal Cannula 2.0 09/27/16 04:00 96 Nasal Cannula 1.5 09/27/16 02:34 36.5 72 16 114/61 (78) 96 Nasal Cannula 1.0 09/26/16 23:59 96 Nasal Cannula 1.5 09/26/16 23:14 37.1 76 20 113/73 (86) 96 Nasal Cannula 1.5 09/26/16 20:00 Nasal Cannula 2.0 09/26/16 20:00 82 16 114/78 (90) 97 Nasal Cannula 2.0 09/26/16 16:59 75 18 110/69 (83) 99 Nasal Cannula 09/26/16 16:44 77 16 112/71 (85) 99 Nasal Cannula 2.0 09/26/16 16:05 36.4 79 16 104/65 99 Nasal Cannula 2.0 09/26/16 16:01 36.4 81 18 114/73 (87) 99 Nasal Cannula 2.0 09/26/16 13:25 36.2 56 20 81/67 95 Nasal Cannula 2 09/26/16 12:55 64 16 82/64 95 Nasal Cannula 2 09/26/16 12:26 55 16 90/60 95 Nasal Cannula 2 09/26/16 11:55 36.2 56 17 103/54 95 Room Air 2 09/26/16 11:46 36.3 09/26/16 11:42 57 17 101/74 94 09/26/16 11:42 58 17 09/26/16 11:37 53 14 09/26/16 11:37 51 14 92/67 96 09/26/16 11:36 56 16 95 09/26/16 11:36 59 16 09/26/16 11:34 101/75 09/26/16 11:32 93/69 09/26/16 11:31 55 17 95 09/26/16 11:31 54 17 09/26/16 11:27 109/66 6/1/17 11:26 64 19 94 09/26/16 11:26 67 19 09/26/16 11:25 63 16 09/26/16 11:25 66 16 94 09/26/16 11:22 104/71 09/26/16 11:20 56 30 09/26/16 11:20 61 30 94 09/26/16 11:17 101/71 09/26/16 11:15 61 23 97 09/26/16 11:15 72 23 09/26/16 11:12 108/63 09/26/16 11:10 81 16 09/26/16 11:10 74 16 96 09/26/16 11:07 93/70 09/26/16 11:05 71 12 96 09/26/16 11:05 73 12 09/26/16 11:02 98/69 09/26/16 11:00 74 10 09/26/16 11:00 67 10 95 09/26/16 10:57 103/52 09/26/16 10:55 82 95 09/26/16 10:55 90 09/26/16 10:52 107/71 09/26/16 10:50 83 09/26/16 10:50 83 98 09/26/16 10:50 36.1 74 16 107/71 98 Mask 10 Abdomen: non distended, soft Incision(s): clean, dry Laboratory Results: Results Past 24 Hours Test 09/26/16 14:37 09/26/16 16:35 09/26/16 20:03 09/26/16 23:29 Range/Units White Blood Count 8.79 4.8-10.8 K/uL Red Blood Count 4.13 4.7-6.1 M/uL Hemoglobin 13.3 14.0-18.0 g/dL Hematocrit 39.9 42-52 % Mean Corpuscular Volume 96.6 80-100 fL Mean Corpuscular Hemoglobin 32.2 25-34 pg Mean Corpuscular Hemoglobin Concent 33.3 32-36 g/dl Platelet Count 174 130-400 K/uL Mean Platelet Volume 10.1 7.4-10.4 fL Neutrophils (%) (Auto) 87.5 % Lymphocytes (%) (Auto) 10.7 % Monocytes (%) (Auto) 1.1 % Eosinophils (%) (Auto) 0.5 % Basophils (%) (Auto) 0.1 % Neutrophils # (Auto) 7.69 1.4-6.5 K/uL Lymphocytes # (Auto) 0.94 1.2-3.4 K/uL Monocytes # (Auto) 0.10 0.11-0.59 K/uL Eosinophils # (Auto) 0.04 0-0.5 K/uL Basophils # (Auto) 0.01 0-0.2 K/uL RDW Standard Deviation 47.6 36.4-46.3 fL RDW Coefficient of Variation 13.5 11.5-14.5 % Immature Granulocyte % (Auto) 0.1 % Immature Granulocyte # (Auto) 0.01 0.00-0.02 K/uL Sodium Level 141 136-145 mmol/L Potassium Level 4.8 3.5-5.1 mmol/L Chloride Level 103 98-107 mmol/L Carbon Dioxide Level 32 21-32 mmol/L Anion Gap 6.0 3-11 mmol/L Blood Urea Nitrogen 35 7-18 mg/dl Creatinine 1.80 0.60-1.40 mg/dl Est Creatinine Clear Calc Drug Dose 39.1 ml/min Estimated GFR () 42.6 Estimated GFR (Non- 36.8 BUN/Creatinine Ratio 19.6 10-20 Random Glucose 122 70-99 mg/dl Calcium Level 9.3 8.5-10.1 mg/dl Magnesium Level 2.3 1.8-2.4 mg/dl Total Creatine Kinase 49 51 39-308 U/L Creatine Kinase MB 2.3 1.7 0.5-3.6 ng/ml Creatine Kinase MB Ratio 4.7 3.3 0-3.0 Troponin I 0.365 0.339 0-0.045 ng/ml Hepatitis C Antibody Screen NEG NEG Prothrombin Time 12.5 9.0-12.0 SECONDS Prothromb Time International Ratio 1.2 0.9-1.1 Activated Partial Thromboplast Time 25.9 53.2 21.0-31.0 SECONDS Partial Thromboplastin Ratio 1.0 2.0 Test 09/27/16 02:26 09/27/16 06:09 Range/Units Total Creatine Kinase 43 39-308 U/L Creatine Kinase MB 1.6 0.5-3.6 ng/ml Creatine Kinase MB Ratio 3.7 0-3.0 Troponin I 0.301 0-0.045 ng/ml Activated Partial Thromboplast Time 71.7 21.0-31.0 SECONDS Partial Thromboplastin Ratio 2.8 Assessment & Plan s/p lap adrienne tolerating diet and analgesics post-op hypotension/hypoxia resolved seen with Dr. Jacobson, case reviewed with cardiology (Dr. Mckinney)
[2016-09-27 11:14] VITALS: BP 103/63; PULSE 80; TEMP 36.3; O2SAT 96
--- NOTE | 2016-09-27 11:28 | Hospitalist Progress Note ---
Hospitalist Progress Note Date of Service Sep 27, 2016. (Phyllis Stein ., PA-C) Subjective Pt evaluation today including: conversation w/ patient, physical exam, chart review, lab review, review of studies, review of inpatient medication list Voiding: no voiding problems, no incontinence Patient states he is feeling well. He is eating and drinking OK. Abdominal pain well-controlled, 1-06/07. +flatus, no BM postop. He admits to lightheadedness/ dizziness yesterday postop- symptoms have resolved. Ambulated in hallways this AM w/ no complications. Patient denies any fever, chills, sweats, lightheadedness, dizziness, vision changes, CP, palpitations, edema, SOB, wheezing, cough, nausea, vomiting, diarrhea, urinary symptoms, melena, numbness/ tingling, weakness, muscle/joint pain, anxiety/depression, active bleeding, or new skin discoloration/changes. (Phyllis Stein ., PA-C) Medications Current Inpatient Medications Medications (Trade) Dose Ordered Sig/Sulma Route Start Time Stop Time Status Last Admin Dose Admin Cefazolin Sodium 60 ml @ 100 mls/hr PREOP IV 10/03/16 06:00 10/03/16 18:00 Lactated Ringer's 1,000 ml @ 100 mls/hr Q10H IV 10/03/16 06:00 10/03/16 18:00 Acetaminophen/ Hydrocodone Bitart ([place] 5/325 Tab) 1 tab Q4H PRN PO 09/26/16 11:00 10/10/16 10:59 09/26/16 23:36 1 TAB Morphine Sulfate (MoRPHine SULFATE INJ) 4 mg Q1H PRN IV 09/26/16 14:30 10/10/16 14:29 Atorvastatin Calcium (Lipitor Tab) 10 mg QAM PO 09/27/16 09:00 10/27/16 08:59 09/27/16 08:45 10 MG Miscellaneous (Iv Fluids Completed) 1 ea PRN PRN N/A 09/26/16 15:00 09/26/17 14:59 Sodium Chloride 1,000 ml @ 100 mls/hr Q10H IV 09/26/16 16:30 10/26/16 14:59 09/26/16 23:35 100 MLS/HR Acetaminophen (Tylenol Tab) 650 mg Q4H PRN PO 09/26/16 15:00 10/26/16 14:59 Methylprednisolone Sodium Succinate 60 mg/Syringe 0.96 ml @ 1.5 mls/min BID IV 09/26/16 21:00 10/26/16 20:59 09/27/16 08:45 1.5 MLS/MIN Heparin Sodium/ Dextrose 500 ml @ 25 mls/hr Q20H PRN IV 09/26/16 17:00 10/26/16 16:59 09/26/16 17:12 26 MLS/HR Metoprolol Tartrate (Lopressor Tab) 75 mg HS PO 09/26/16 19:00 10/26/16 18:59 09/26/16 19:29 75 MG (Phyllis Stein, RUBINA) Objective Vital Signs Date Time Temp Pulse Resp B/P (MAP) Pulse Ox O2 Delivery O2 Flow Rate FiO2 09/27/16 08:00 Room Air 09/27/16 07:58 36.3 80 18 103/63 (76) 96 Nasal Cannula 2.0 09/27/16 04:00 96 Nasal Cannula 1.5 09/27/16 02:34 36.5 72 16 114/61 (78) 96 Nasal Cannula 1.0 09/26/16 23:59 96 Nasal Cannula 1.5 09/26/16 23:14 37.1 76 20 113/73 (86) 96 Nasal Cannula 1.5 09/26/16 20:00 Nasal Cannula 2.0 09/26/16 20:00 82 16 114/78 (90) 97 Nasal Cannula 2.0 09/26/16 16:59 75 18 110/69 (83) 99 Nasal Cannula 09/26/16 16:44 77 16 112/71 (85) 99 Nasal Cannula 2.0 09/26/16 16:05 36.4 79 16 104/65 99 Nasal Cannula 2.0 09/26/16 16:01 36.4 81 18 114/73 (87) 99 Nasal Cannula 2.0 09/26/16 13:25 36.2 56 20 81/67 95 Nasal Cannula 2 09/26/16 12:55 64 16 82/64 95 Nasal Cannula 2 09/26/16 12:26 55 16 90/60 95 Nasal Cannula 2 09/26/16 11:55 36.2 56 17 103/54 95 Room Air 2 09/26/16 11:46 36.3 09/26/16 11:42 57 17 101/74 94 09/26/16 11:42 58 17 09/26/16 11:37 53 14 09/26/16 11:37 51 14 92/67 96 09/26/16 11:36 56 16 95 09/26/16 11:36 59 16 09/26/16 11:34 101/75 09/26/16 11:32 93/69 09/26/16 11:31 55 17 95 09/26/16 11:31 54 17 09/26/16 11:27 109/66 09/26/16 11:26 64 19 94 09/26/16 11:26 67 19 09/26/16 11:25 63 16 09/26/16 11:25 66 16 94 09/26/16 11:22 104/71 09/26/16 11:20 56 30 09/26/16 11:20 61 30 94 09/26/16 11:17 101/71 09/26/16 11:15 61 23 97 09/26/16 11:15 72 23 (Phyllis Stein ., PA-C) Physical Exam General Appearance: no apparent distress Eyes: normal inspection, PERRL ENT: hearing grossly normal Neck: supple Respiratory/Chest: lungs clear, no respiratory distress, no accessory muscle use Cardiovascular: + irregularly irregular (rate controlled ) Abdomen: normal bowel sounds, soft, + tenderness (mild tenderness around incision sites ) Extremities: no pedal edema, no calf tenderness Neurologic/Psychiatric: alert, normal mood/affect, oriented x 3 Skin: normal color, warm/dry, no rash (Phyllis Stein ., PA-C) Laboratory Results Last 24 Hours Test 09/26/16 14:37 09/26/16 16:35 09/26/16 20:03 09/26/16 23:29 White Blood Count 8.79 K/uL Red Blood Count 4.13 M/uL Hemoglobin 13.3 g/dL Hematocrit 39.9 % Mean Corpuscular Volume 96.6 fL Mean Corpuscular Hemoglobin 32.2 pg Mean Corpuscular Hemoglobin Concent 33.3 g/dl Platelet Count 174 K/uL Mean Platelet Volume 10.1 fL Neutrophils (%) (Auto) 87.5 % Lymphocytes (%) (Auto) 10.7 % Monocytes (%) (Auto) 1.1 % Eosinophils (%) (Auto) 0.5 % Basophils (%) (Auto) 0.1 % Neutrophils # (Auto) 7.69 K/uL Lymphocytes # (Auto) 0.94 K/uL Monocytes # (Auto) 0.10 K/uL Eosinophils # (Auto) 0.04 K/uL Basophils # (Auto) 0.01 K/uL RDW Standard Deviation 47.6 fL RDW Coefficient of Variation 13.5 % Immature Granulocyte % (Auto) 0.1 % Immature Granulocyte # (Auto) 0.01 K/uL Sodium Level 141 mmol/L Potassium Level 4.8 mmol/L Chloride Level 103 mmol/L Carbon Dioxide Level 32 mmol/L Anion Gap 6.0 mmol/L Blood Urea Nitrogen 35 mg/dl Creatinine 1.80 mg/dl Est Creatinine Clear Calc Drug Dose 39.1 ml/min Estimated GFR () 42.6 Estimated GFR (Non- 36.8 BUN/Creatinine Ratio 19.6 Random Glucose 122 mg/dl Calcium Level 9.3 mg/dl Magnesium Level 2.3 mg/dl Total Creatine Kinase 49 U/L 51 U/L Creatine Kinase MB 2.3 ng/ml 1.7 ng/ml Creatine Kinase MB Ratio 4.7 3.3 Troponin I 0.365 ng/ml 0.339 ng/ml Hepatitis C Antibody Screen NEG Prothrombin Time 12.5 SECONDS Prothromb Time International Ratio 1.2 Activated Partial Thromboplast Time 25.9 SECONDS 53.2 SECONDS Partial Thromboplastin Ratio 1.0 2.0 Test 09/27/16 02:26 09/27/16 06:09 Total Creatine Kinase 43 U/L Creatine Kinase MB 1.6 ng/ml Creatine Kinase MB Ratio 3.7 Troponin I 0.301 ng/ml Activated Partial Thromboplast Time 71.7 SECONDS Partial Thromboplastin Ratio 2.8 (Phyllis Stein, AMYC) Assessment and Plan Patient is a 71 y/o male, with PMHx cardiomyopathy, systolic CHF, atrial fibrillation, s/p lap cholecystectomy for cholelithiasis/cholecystitis by Dr. Jacobson on 09/26. Consultation due to hypoxia and hypotension postop. Hypoxia and hypotension, likely postoperative changes/atelectasis- RESOLVED: - Admit to tele for cardiac monitoring - Trend cardiac enzymes- peak trop 0.365 - IV Heparin initiated on 09/26- d/c'd by cardiology on 09/27 - CXR- no acute findings - Treated w/ 3L NS bolus, then IVF @ 100 ml/hr - IV SoluMedrol 60 mg BID - Flutter valve and DuoNebs PRN - Cardiology consulted, appreciate recommendations - ?adrenal insufficiency due to similar symptoms in past w/ improvement noted w / IV Steroids treatment- recommend considering Cosyntropin stimulation test outpt s/p lap cholecystectomy for cholelithiasis/cholecystitis by Dr. Jacobson on 09/26: - Surgical management and pain management per primary team- pain managed w/ [place] PRN Prolonged QTc interval - Cautious use of antibiotics, refrain from Zofran, follow EKG Chronic systolic heart failure/Cardiomyopathy, ?ischemic vs idiopathic/a.fib- rate controlled: - Bumex 2 mg BID, Coreg 25 mg daily, and Metoprolol 75 mg daily held postop due to hypotension - Continue Lipitor 10 mg daily - Patient refused AC in past - Patient follows w/ Dr. King DVT prophylaxis: IV Heparin Code Status: LEVEL I, FULL Dispo: Discharge as per primary team (Phyllis Stein, PA-C) chart reviewed, pt discussed with Elsa Stein PAC, and agree with above. was not aware that pt was for discharge today and was discharged prior to my being able to see him. d/w Ms Stein, and d/w drapery inspector - with recurrent hypotensive events without a severe physiologic stressor -- ?adrenal insufficiency or at least a relative adrenal insufficiency. may just all be circumstantial to his situations at the time medically, but given recurrences, seems reasonable to pursue a cosyntropin stim when he's at baseline. he noted to MARTY Dougherty that he'll discuss w PCP, she called PCP office to ensure PCP aware of this as a concern. (Sherwin Watters D.Ramiro.)
--- NOTE | 2016-09-27 14:44 | CARDIOLOGY CONSULTATION ---
DATE OF CONSULTATION: 09/27/2016 DATE OF CONSULTATION: 09/27/2016. PERTINENT HISTORY: Mr. Butler is a 71-year-old white male who underwent laparoscopic cholecystectomy yesterday by Dr. Jacobson. This consultation was ordered to assist in his cardiac management. Of note, the patient is followed closely by Dr. King in the outpatient setting. The patient underwent his operative procedure without event. His usual cardiac medications were placed on hold due to relative hypotension. He also received several liters of intravenous fluid. Unfortunately, there has been no evidence of decompensated congestive failure. The patient's cardiac history began back in 2008 when he was diagnosed with a nonischemic cardiomyopathy with an ejection fraction of approximately 30-35%. The patient's chronic systolic congestive heart failure has been well controlled in the outpatient setting. There have been no recent hospitalizations for decompensation. During a hospitalization for abdominal discomfort back in June, an echocardiogram was performed. This revealed severe global hypokinesis with an ejection fraction of 20-25%. The right ventricle is dilated and hypokinetic. There is evidence of moderate aortic and mitral insufficiency. There is also evidence of mild pulmonary hypertension with a pulmonary artery systolic pressure estimated at 35-40 mmHg. The patient was just seen in the office by Dr. King on 09/17/2016. Spironolactone was added to his medical regimen to help with volume control. The patient also carries a history of persistent atrial fibrillation. He required use of 2 separate beta blockers to control his ventricular response to his atrial fibrillation. The patient does not note palpitations. He has not had recent exertional chest pain or limiting dyspnea. He further denies syncope, presyncope, PND, orthopnea, lower extremity edema, and claudication. Currently, the patient is resting comfortably in bedside chair without complaints. He ambulated in the hallways without difficulty earlier today. He is anxious for hospital discharge. PAST MEDICAL HISTORY: 1. Nonischemic cardiomyopathy -- 20-25% -- diagnosed in 2008. 2. Chronic systolic congestive heart failure. 3. Persistent atrial fibrillation -- patient refuses anticoagulation. 4. Moderate aortic insufficiency. 5. Moderate mitral regurgitation. 6. Mild pulmonary hypertension -- 35-40%. 7. Hypertension. 8. Hypercholesterolemia. 9. Hyperglycemia. 10. Severe chronic obstructive pulmonary disease. 11. History of malignant histiocytoma -- left upper extremity. 12. History of left trigger finger release. CURRENT MEDICATIONS: 1. Methylprednisolone 60 mg IV b.i.d. 2. Lipitor 10 mg at bedtime. 3. Metoprolol tartrate 75 mg at bedtime. 4. Heparin drip. USUAL OUTPATIENT MEDICATIONS: 1. Carvedilol 25 mg b.i.d. 2. Metoprolol succinate 75 mg daily. 3. Bumex 2 mg daily. 4. Spironolactone 25 mg per day. 5. Lipitor 10 mg at bedtime. ALLERGIES: None. SOCIAL HISTORY: The patient is and lives with his . 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 Quit tobacco use in 1984. Uses alcohol occasionally. FAMILY HISTORY: No early coronary artery disease. REVIEW OF SYSTEMS: A 10-point review of systems was negative except for that described above. PHYSICAL EXAMINATION: GENERAL: This is a well-developed, well-nourished white male in no acute distress. VITAL SIGNS: Blood pressure is 103/63 with a regular pulse of 80. Respiratory rate is 18. The patient is afebrile at 36.3 degrees Celsius. Saturation is 96% on room air. HEAD, EYES, EARS, NOSE, AND THROAT EXAMINATION: Negative. NECK: Supple with full carotid upstrokes. No obvious bruits. Jugular venous pressure is flat at 90 degrees. There is no thyromegaly. CARDIOVASCULAR EXAMINATION: Reveals a regular rhythm with a 2/6 apical holosystolic murmur heard. S3 is noted. No S4. LUNGS: Clear without rales, rhonchi, or wheezes. ABDOMEN: Soft without bruits. Incisions are intact. EXTREMITIES: Reveal intact radial artery pulses bilaterally. There is no peripheral edema. LABORATORY DATA: CBC notes hemoglobin 13.3, hematocrit 39.9, white count 8.7, platelet count 174,000. Electrolytes note a sodium 141, potassium 4.8, chloride 103, bicarbonate 32, BUN 35, creatinine 1.8, glucose 122. Magnesium level is 2.3. Troponin I levels are mildly elevated at 0.365, 0.339, 0.301. CKs were normal at 49, 51, and 43 with MB fractions of 2.3, 1.7, 1.6 respectively. EKG notes atrial fibrillation with a left axis deviation, complete right bundle branch block pattern, and an old inferior myocardial infarction. Chest x-ray shows cardiomegaly, but no active disease. panel monitor noted one episode of nonsustained ventricular tachycardia of 9 beats at length. IMPRESSION: Mr. Butler underwent laparoscopic cholecystectomy without event. He did receive several liters of fluid; however, remains euvolemic and compensated at this time. It would be reasonable to start his usual outpatient cardiac medications. Would be certain to change his metoprolol tartrate back to metoprolol succinate. He was apparently placed on intravenous heparin because of his mildly elevated troponin I level. This is a chronic finding and likely related to his congestive cardiomyopathy. Would discontinue heparin at this time. Will leave the decision of an ARB or NOEL inhibitor up to Dr. King in the outpatient setting. PLAN: 1. Would restart usual cardiac medications. 2. Would discontinue heparin. 3. Would discontinue intravenous hydration. 4. Follow up with Dr. King in the outpatient setting. 5. Stable for hospital discharge from a cardiac perspective.
--- NOTE | 2016-10-01 09:00 | DISCHARGE SUMMARY ---
PRIMARY DISCHARGE DIAGNOSES: 1. Symptomatic cholelithiasis and chronic cholecystitis. 2. Postoperative hypotension and hypoxia. 3. Cardiomyopathy. 4. Chronic Atrial fibrillation. 5. Hypertension. 6. Chronic obstructive pulmonary disease. PROCEDURE PERFORMED: Laparoscopic cholecystectomy. CONSULTATIONS: 1. [facility] hospitalist to assist in evaluation of hypotension and hypoxia. 2. [facility] Cardiology for routine followup. HOSPITAL COURSE: The patient is a 71-year-old male brought in through same day for anticipated outpatient laparoscopic cholecystectomy. Procedure was well tolerated. While in same day he was noted to be hypotensive and hypoxic. He was admitted to telemetry for further monitoring. EKG showed Afib and Troponin was slightly elevated at 0.365. He was started on IV heparin drip. He is also given IV steroids. He improved overnight, did not have chest pain. Cardiology attributed his troponin, which remained at 0.3, to chronic congestive cardiomyopathy. He was feeling well. He was tolerating diet and oral analgesics. His blood pressure was 141/61. His pulse ox was 96% on room air. He was stable for discharge. DISCHARGE INSTRUCTIONS: Discharge home. Follow up with Dr. Jacobson in 2 weeks. Follow up with Dr. King as planned. Also with his PCP for evaluation of possible adrenal insufficiency, he apparently has had hypotension in the past. DISCHARGE MEDICATIONS: [place] 1-2 tablets every 4 hours as needed. Resume his previous medications, Lipitor 10 mg daily, Bumex 2 mg b.i.d., Coreg 25 mg daily, Toprol-XL 75 mg daily. MTDD
[2016-10-03] MEDS ORDERED: CEFAZOLIN 2000 MG/60 ML D5W IV SCH (06:00)
[2016-10-03] MEDS ORDERED: LACTATED RINGER'S 1000ML 1,000 ML IV SCH (06:00)
== END 2016-09-27 12:55 | disposition home or self-care (01) ==
LOC: C.ACU 08:16 → C.2T 14:29 → ENRESERV 15:15
PROVIDERS: ADMIT Surgery; ATTEND Surgery
DX: K80.10 Calculus of gallbladder with chronic cholecystitis without obstruction (principal); K80.12 Calculus of gallbladder with acute and chronic cholecystitis without obstruction; I48.1 Persistent atrial fibrillation; I35.1 Nonrheumatic aortic (valve) insufficiency; I48.92 Unspecified atrial flutter; I11.0 Hypertensive heart disease with heart failure; I50.9 Heart failure, unspecified; I42.9 Cardiomyopathy, unspecified; J44.9 Chronic obstructive pulmonary disease, unspecified; E78.5 Hyperlipidemia, unspecified; I51.7 Cardiomegaly; I34.0 Nonrheumatic mitral (valve) insufficiency; I07.1 Rheumatic tricuspid insufficiency; G62.9 Polyneuropathy, unspecified; Z87.891 Personal history of nicotine dependence; Z79.899 Other long term (current) drug therapy

== ENCOUNTER → 2016-10-07 | Outpatient (CLI) | payer BC ==
[~2016-10-07] MED LIST changes: +HYDR-5688 PO
== END | disposition home or self-care (01) ==
LOC: C.LAB1850 13:55
PROVIDERS: ATTEND Physician Assistant Medical
DX: I95.1 Orthostatic hypotension (principal)

== ENCOUNTER → 2017-04-01 | Outpatient (CLI) | payer BC ==
[~2017-04-01] MED LIST changes: -HYDR-5688 PO
== END | disposition home or self-care (01) ==
LOC: C.PATHSPEC 17:15
PROVIDERS: ATTEND Dermatology
DX: D18.01 Hemangioma of skin and subcutaneous tissue (principal); L91.8 Other hypertrophic disorders of the skin

== ENCOUNTER → 2017-07-22 | Outpatient (CLI) | payer OTHER ==
[~2017-07-22] MED LIST changes: -METO50TA7 PO; +METO50TA8 PO
[2017-07-22 12:58] LABS: BLOOD UREA NITROGEN 37 mg/dl (7-18); CALCIUM 8.7 mg/dl (8.5-10.1); CARBON DIOXIDE 27 mmol/L (21-32); CREATININE 1.91 mg/dl (0.60-1.40); GLUCOSE 105 mg/dl (70-99); POTASSIUM 4.4 mmol/L (3.5-5.1); SODIUM 139 mmol/L (136-145)
[2017-07-22 13:01] LABS: ALKALINE PHOSPHATASE 103 U/L (45-117); ALT/SGPT 16 U/L (12-78); AST/SGOT 12 U/L (15-37); TOTAL PROTEIN 7.6 gm/dl (6.4-8.2)
== END | disposition home or self-care (01) ==
LOC: C.LAB1850 10:45
PROVIDERS: ATTEND Internal Medicine Cardiovascular Disease
DX: I50.9 Heart failure, unspecified (principal); I48.91 Unspecified atrial fibrillation

== ENCOUNTER → 2017-11-17 | Outpatient (CLI) | payer OTHER ==
[~2017-11-17] MED LIST changes: +PANT40TA PO; +[UNRECOGNIZED DRUG - OTHER] PO
[2017-11-17 17:22] LABS: ALBUMIN 3.7 gm/dl (3.4-5.0); BLOOD UREA NITROGEN 24 mg/dl (7-18); CARBON DIOXIDE 29 mmol/L (21-32); CREATININE 1.68 mg/dl (0.60-1.40); GLUCOSE 88 mg/dl (70-99); PHOSPHORUS 3.4 mg/dl (2.5-4.9); POTASSIUM 4.8 mmol/L (3.5-5.1); SODIUM 140 mmol/L (136-145)
== END | disposition home or self-care (01) ==
LOC: C.LAB1850 15:45
PROVIDERS: ATTEND Internal Medicine Nephrology
DX: N28.9 Disorder of kidney and ureter, unspecified (principal)

== ENCOUNTER → 2017-11-24 | Day surgery (SDC) | payer OTHER ==
[2017-11-17 10:07] VITALS: BMI 27.0
[~2017-11-24] VITALS: Ht 177.8 cm; Wt 86.4 kg
[~2017-11-24] MED LIST changes: -DOXY100C76 PO; +ESMOLOL HCL 10 MG/ML 10 ML VIAL ONE; +LIDOCAINE HCL 2% 2 ML VIAL (20MG/ML) ONE; +PHENYLEPHRINE 100MCG/ML 5ML SYR ONE; +PROPOFOL IV EMULSION 10 MG/ML 20 ML VIAL ONE
[2017-11-24 11:27] VITALS: Ht 177.8 cm; Wt 86.4 kg
--- NOTE | 2017-11-24 11:40 | Endo History and Physical ---
History & Physical Date of Service: Nov 24, 2017. Chief Complaint: Screening Referring Physician: Dr. Eddy History of Present Illness 72 yo CM who presents for screening colonoscopy. 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)) Hx Thoracic Surgery: No Hx Orthopedic: Yes (R RCR, TIGGER FINGER R ) Hx Urinary Tract Surgery: No Family History None Social History Smoking Status: Former Smoker Hx Substance Use: No Hx Alcohol Use: Yes (SOCIALLY) Allergies Coded Allergies: NO KNOWN DRUG ALLERGIES (Verified Allergy, Unknown, ., 11/24/17) Current Medications Reported Home Medications Medications Dose Route/Sig Max Daily Dose Days Date Category Dose Instructions [Hot Tea] PO QD 11/24/17 Reported Protonix (Pantoprazole Sodium) 40 Mg Tab 40 Mg PO DAILY 11/17/17 Reported Toprol-Xl (Metoprolol Succinate) 50 Mg Tabcr 50 Mg PO QAM 09/20/16 Reported Bumex (Bumetanide) 2 Mg Tab 2 Mg PO BID 09/20/16 Reported ONCE IN AM AND AFTERNOON Lipitor (Atorvastatin Calcium) 10 Mg Tab 10 Mg PO QAM 02/20/16 Reported Coreg (Carvedilol) 25 Mg Tab 1 Tab PO QAM 90 02/20/16 Reported Vital Signs Weight (Kilograms): 86.36 Height (Feet): 5 Height (Inches): 10 Physical Exam General Appearance: WD/WN, no apparent distress Respiratory/Chest: Auscultation: breath sounds normal Cardiovascular: Heart Auscultation: RRR Abdomen: Bowel Sounds: normal Inspection & Palpation: soft, non-distended, no tenderness, guarding & rebound Assessment and Plan Assessment: 72 yo CM who presents for screening colonoscopy. Plan: Proceed with colonoscopy.
--- NOTE | 2017-11-24 12:55 | Discharge Instructions ---
Endoscopy Patient Instructions Date / Procedure(s) Performed Nov 24, 2017. Colonoscopy Allergy Information Coded Allergies: NO KNOWN DRUG ALLERGIES (Verified Allergy, Unknown, ., 11/24/17) Discharge Date / Findings Nov 24, 2017. Diverticulosis Internal hemorrhoids Medication Instructions OK to resume all medications today as prescribed Reported Home Medications Medications Dose Route/Sig Max Daily Dose Days Date Category Dose Instructions [Hot Tea] PO QD 11/24/17 Reported Protonix (Pantoprazole Sodium) 40 Mg Tab 40 Mg PO DAILY 11/17/17 Reported Toprol-Xl (Metoprolol Succinate) 50 Mg Tabcr 50 Mg PO QAM 09/20/16 Reported Bumex (Bumetanide) 2 Mg Tab 2 Mg PO BID 09/20/16 Reported ONCE IN AM AND AFTERNOON Lipitor (Atorvastatin Calcium) 10 Mg Tab 10 Mg PO QAM 02/20/16 Reported Coreg (Carvedilol) 25 Mg Tab 1 Tab PO QAM 90 02/20/16 Reported Provider Instructions Activity Restrictions - No exercising or heavy lifting for 24 hours. - Do not drink alcohol the day of the procedure. - Do not drive a car or operate machinery until the day after the procedure. - Do not make any important decisions or sign important papers in 24 hours after the procedure. Following Day: - Return to full activity which may include returning to work/school. Diet Start your diet with liquids and light foods (jello, soup, juice, toast). Then eat your usual diet if not nauseated. Treatment For Common After Affects For mild abdominal pain, bloating, or excessive gas: - Rest - Eat lightly - Lie on right side Follow-Up Information Follow-up with DR. TAVERAS as scheduled Anesthesia Information What You Should Know You have had a procedure that required some medicine to reduce anxiety and discomfort. This treatment is called moderate sedation. After receiving the treatment, you may be sleepy, but you will be able to breathe on your own. The effects of the treatment may last for several hours. Follow these instructions along with Activity/Diet recommendations noted above: * Do NOT do anything where dizziness or clumsiness would be dangerous. * Rest quietly at home today, then you can be up and about tomorrow. * Have a responsible person stay with you the rest of today. * You may have had an I.V. today. If so, you may take the dressing off later today. Recommendations Call your doctor if: * Trouble breathing * Continuous vomiting for more than 24 hours * Temperature above 101 degrees * Severe abdominal pain or bloating * Pain not relieved by pain medicine ordered * There is increased drainage or redness from any incision * A large amount of rectal bleeding greater than 2-3 tablespoons. (If you had a polyp/s removed or have hemorrhoids, a small amount of blood - from the rectum is to be expected.) * You have any unanswered questions or concerns. IN THE EVENT OF A SERIOUS EMERGENCY, GO TO THE NEAREST EMERGENCY ROOM Your discharge instructions were prepared by provider Kwame Eaton. Patient Instructions Signature Page Rashmi Butler Patient (or Guardian) Signature/Date: I have read and understand the instructions given to me by my caregivers. Caregiver/RN/Doctor Signature/Date: The above-named patient and/or guardian has received patient instructions on this date. + Original Patient Signature Page (only) stays with chart. Please make copy for patient.
[2017-11-24 13:05] VITALS: BP 119/89; PULSE 94; O2SAT 97
--- NOTE | 2017-11-24 13:09 | GI REPORT ---
Patient Name: Rashmi Butler Procedure Date: 11/24/2017 11:57 AM Date of : 1945 Admit Type: Outpatient Age: 72 Gender: Male Attending MD: Kwame Eaton DO Procedure: Colonoscopy Providers: Kwame Eaton DO Referring MD: Leo Eddy Indications: Screening for colorectal malignant neoplasm Medicines: Monitored Anesthesia Care Complications: No immediate complications. Estimated Blood Loss: Estimated blood loss: none. Procedure: Pre-Anesthesia Assessment: - Prior to the procedure, a History and Physical was performed, and patient medications and allergies were reviewed. The patient's tolerance of previous anesthesia was also reviewed. The risks and benefits of the procedure and the sedation options and risks were discussed with the patient. All questions were answered, and informed consent was obtained. Prior Anticoagulants: The patient has taken no previous anticoagulant or antiplatelet agents. ASA Grade Assessment: III - A patient with severe systemic disease. After reviewing the risks and benefits, the patient was deemed in satisfactory condition to undergo the procedure. After I obtained informed consent, the scope was passed under direct vision. Throughout the procedure, the patient's blood pressure, pulse, and oxygen saturations were monitored continuously. The scope was introduced through the anus and advanced to the terminal ileum. The colonoscopy was performed without difficulty. The patient tolerated the procedure well. The quality of the bowel preparation was good. The terminal ileum, ileocecal valve, appendiceal orifice, and rectum were photographed. Findings: The perianal and digital rectal examinations were normal. Multiple small-mouthed diverticula were found in the sigmoid colon. Non-bleeding internal hemorrhoids were found during retroflexion. The hemorrhoids were small. Impression: - Diverticulosis in the sigmoid colon. - Non-bleeding internal hemorrhoids. - No specimens collected. Recommendation: - Resume previous diet. - Continue present medications. - Repeat colonoscopy in 10 years for surveillance. - Return to primary care physician as previously scheduled. Kwame Eaton DO 11/24/2017 1:09:11 PM This report has been signed electronically. Note Initiated On: 11/24/2017 11:57 AM Number of Addenda: 0 I attest to the content of the Intraoperative Record and orders documented therein, exceptions below {[id number]}
--- NOTE | 2017-11-24 14:27 | Anesthesiology Progress Note ---
Anesthesia Post Op Note Date & Time Nov 24, 2017 at 14:27 Vital Signs Vital Signs Past 12 Hours Date Time Temp Pulse Resp B/P (MAP) Pulse Ox O2 Delivery O2 Flow Rate FiO2 11/24/17 13:05 94 20 119/89 (99) 97 Room Air 11/24/17 12:42 101 20 116/78 (91) 95 Room Air 11/24/17 12:25 97 20 116/77 (90) 95 Room Air 11/24/17 11:43 36.8 103 18 107/89 (95) 97 Room Air Notes Mental Status: alert / awake / arousable, participated in evaluation Pt Amnestic to Procedure: Yes Nausea / Vomiting: adequately controlled Pain: adequately controlled Airway Patency, RR, SpO2: stable & adequate BP & HR: stable & adequate Hydration State: stable & adequate Anesthetic Complications: no major complications apparent
== END | disposition home or self-care (01) ==
LOC: C.GI 10:55
PROVIDERS: ATTEND Internal Medicine
DX: Z12.11 Encounter for screening for malignant neoplasm of colon (principal); K21.9 Gastro-esophageal reflux disease without esophagitis; K64.8 Other hemorrhoids; K57.30 Diverticulosis of large intestine without perforation or abscess without bleeding; Z90.49 Acquired absence of other specified parts of digestive tract; Z87.891 Personal history of nicotine dependence

== ENCOUNTER 2020-07-27 07:03 | Observation (INO) ==
[~2020-07-27 07:03] MED LIST changes: -ATOR10TA82 PO; +BACITRACIN INJ 50,000 UNIT VIAL ONE; -BUME2TAB3 PO; +BUPIVACAINE 0.25% 30 ML VIAL ONE; -CARV25TA2 PO; -ESMOLOL HCL 10 MG/ML 10 ML VIAL ONE; +LIDOCAINE HCL 1% 20 ML VIAL ONE; -LIDOCAINE HCL 2% 2 ML VIAL (20MG/ML) ONE; -METO50TA8 PO; -PANT40TA PO; -PHENYLEPHRINE 100MCG/ML 5ML SYR ONE; -PROPOFOL IV EMULSION 10 MG/ML 20 ML VIAL ONE; -[UNRECOGNIZED DRUG - OTHER] PO
[2020-07-27] MEDS ORDERED: MIDAZOLAM HCL 5 MG/ML 1 ML VIAL ONE (07:35)
[2020-07-27] MEDS ORDERED: fentaNYL citrate 100 MCG/2 ML VIAL ONE (07:35)
--- NOTE | 2020-07-27 07:54 | Pre Anesthesia Assessment ---
Date of Service July 27, 2020 Pre Sedation Assessment Vital Signs Temp Pulse Resp BP Pulse Ox 07/27/20 07:13 36.8 C 95 H 17 128/80 100 Cardiovascular + irregularly irregular Respiratory + respiratory effort normal Pre-Sedation Airway Assessment Smoking Status: Former smoker Hx Sleep Apnea: No Short, Thick Neck: No Thyromental Distance: > or= 3.5 Finger Breadths Oral Cavity: + WNL Mallampati Class: III ASA: ASA3 NPO Status Date of Last Intake of Fluids: 07/26/20 Time of Last Intake of Fluids: 21:00 Date of Last Intake of Solid Food: 07/26/20 Time of Last Intake of Solid Foods: 21:00 Procedure Planning Contraindications for Sedation: none Current Medications Reviewed: Yes Notes The planned sedation has been discussed with the patient. Informed Consent was obtained. I have identified the patient, determined the appropriateness of sedation and have assessed the patient immediately prior to the procedure. All medicine(s) and interventions are by my order.
--- NOTE | 2020-07-27 07:54 | History & Physical Bridge Note ---
Date of Service July 27, 2020 History & Physical Bridge Note I have examined the patient, reviewed the History & Physical and in the interval since the performance of the History & Physical I have noted the following changes of clinical significance: no changes noted
--- NOTE | 2020-07-27 08:49 | Post Anesthesia Assessment ---
Date of Service July 27, 2020 Post Sedation Assessment Vital Signs Temp Pulse Resp BP Pulse Ox 07/27/20 07:13 36.8 C 95 H 17 128/80 100 Recovery Score Activity: Moves 4 extremities Respiration: Deep Breath/Cough Circulation: +/-20% PreAnes Value Consciousness: Fully Awake Oxygen Saturation: > 92% On Room Air Discharge Sedation Level of Care: Fast Track Phase II Post Sedation Plan On clinical assessment, the patient appears to have tolerated the sedation without complications. Patient is recovering as anticipated. Patient will continue to be monitored by nursing and may be discharged when sedation discharge criteria are met per below protocol. Upon Completions of procedure up to 15 minutes continue every 5 minute vital signs and the P.A.R. score; then discharge to a Phase I or Fast Track to Phase II per the following guidelines: * Discharge Patient to appropriate Phase II area if PAR is 8 or greater or return to pre- procedure baseline. The post - procedure orders will be as directed. * If PAR score is less than 8 or not return to pre-procedure baseline then patient will follow Phase I monitoring till PAR is reached for Phase II. The Phase I may be done in procedure room or may call to secure a Phase I area. * If naloxone or flumazenil are used for reversal, hold in Phase I for continued monitoring from when last reversal dose was given for a minimum of 60 minutes or longer pending the nurse and/or physician discretion of patient condition before discharge to Phase II. Please call the Sedation Physician to re-evaluate and complete post-note for discharge to Phase II area. Do NOT discharge from procedure sedation or Phase 1 until post- sedation evaluation note is complete by procedure /sedation MD Sedation Discharge Instructions to be given to the patient at discharge to home.
--- NOTE | 2020-07-27 08:53 | Electrophysiology Report ---
Date of Service July 27, 2020 Electrophysiology Procedure Electrophysiology Procedure Report Procedure performed: Implantation of single-chamber ICD Staff entry specialist: Selvin Mortensen MD Indication: The patient is a 75-year-old gentleman with a history of severely reduced LV systolic function with an ejection fraction of 20%. He is on optimal medical therapy. He has not had revascularization in the past 90 days nor suffered a myocardial infarction in the past 45 days. He has [place] [employer] class II symptoms. He has a narrow QRS complex on his EKG and is not a candidate for SAFETY MANAGER. He has anticipated longevity greater than 1 year and based on this information was felt be a good candidate for single-chamber ICD is primary prevention against sudden cardiac . Procedure in detail: The patient was informed of the risks benefits and alternatives to the intended procedure and she wished to proceed. He was taken to the electrophysiology suite in a fasting state. A preoperative antibiotic had been administered. The patient was monitored electrocardiographically throughout today's procedure and conscious sedation was administered per protocol. The left upper pectoral area is prepped and draped in usual sterile fashion. This area was anesthetized using subcutaneous administration of a xylocaine solution. An incision was made at this site and carried down to the prepectoralis fascia using sharp dissection. Electrocautery was also employed for dissection as well as for hemostasis. A device pocket was fashioned tissues above the pectoralis muscle. Subsequent to this maneuver the left axillary vein was accessed using modified Seldinger tech nique. A Sheath was placed over a guidewire at this site and used to facilitate passage of the pacing lead to the right ventricular apex under fluoroscopic guidance. Adequate sensing and threshold parameters were obtained prior to Active fixation of the lead to the endocardial surface. The proximal portion of the lead was then sutured to the prepectoral fascia using nonabsorbable suture. The device pocket was irrigated with antibiotic solution. The lead was then attached to the device. The device and lead were then placed in the pocket and pocket was closed in 3 layers of absorbable suture. Steri-Strips and sterile dressing were applied. The device was tested noninvasively prior to conclusion the procedure. The patient tolerated procedure well there no immediate complications. Equipment used: New pulse generator: [employer]. Model number: [id number] serial number [id number] Right ventricular lead: [employer] Model number: [id number] serial number [id number] Measured data: Right ventricular lead: R waves measured 10.1 mV. Pacing threshold 1 V at 0.4 ms with a pacing impedance of 342 ohms Impression: Successful implantation of single-chamber ICD MNPG Electrophysiology codes ICD Procedure 1: ICD: 03096 Insert single or dual ICD system PG Moderate Sedation Codes Moderate Sedation Codes Procedure 1: Sedation/Anesthesia: 42972 Mod Sedation by the same physician;Init15 Min Child Age 5 & Up Procedure 2: Sedation/Anesthesia: 90407 Mod Sedation by the same physician; Ea [id number] Minutes
[2020-07-27] MEDS ORDERED: ACETAMINOPHEN 325 MG TAB PO PRN (08:57)
[2020-07-27] MEDS ORDERED: oxyCODONE HCL IR 5 MG TAB (IMMEDIATE RELEASE) PO PRN (08:57)
[2020-07-27] MEDS ORDERED: ONDANSETRON INJ 2 MG/ML 2 ML VIAL IV PRN (09:19)
[2020-07-27] MEDS: SPIRONOLACTONE 25 MG TAB PO SCH (12:02)
[2020-07-27] MEDS: PANTOprazole 40 MG TAB PO SCH (12:02)
[2020-07-27] MEDS: ATORVASTATIN 10 MG TAB PO SCH (12:02)
[2020-07-27] MEDS: DOXYCYCLINE HYCLATE 100 MG CAP PO SCH ×2 (12:02→20:44)
[2020-07-27] MEDS ORDERED: LORazepam 0.5 MG TAB PO PRN (12:05)
[2020-07-27] MEDS: METOPROLOL SUCC 50MG EXT REL TAB PO SCH (13:51)
[2020-07-27] MEDS ORDERED: DIGOXIN 0.125 MG TAB PO SCH (16:00)
[2020-07-27] MEDS: ceFAZolin 1000MG 1,000 MG/7.5 ML SYR IV SCH ×2 (18:13→23:14)
--- NOTE | 2020-07-28 08:30 | XRay Report ---
XR chest 2V PA/lateral HISTORY: 75 years-old Male EXACT TIME ORDERED Evaluate for pneumothorax and l status post placement of a left subclavian pacer COMPARISON: 07/12/2020 TECHNIQUE: PA and lateral views of the chest FINDINGS: Single lead left subclavian pacer/AICD. Unchanged cardiomegaly with stable asymmetric right hilar pro minence. Calcified plaque of the thoracic aorta. No pneumothorax, large or overt pulmonary edema. Mil d blunting of the posterior costophrenic angles suggests trace pleural effusions. Bones of the chest appear grossly intact. Cholecystectomy. IMPRESSION: Status post placement of a single lead left subclavian pacer/AICD. No postprocedural pneu mothorax. ACT 112: Negative or not required by law. The above report was generated using voice recognition software. It may contain grammatical, syntax o r spelling errors. Electronically signed by: Robbi Lacey M.D. 07/28/2020 8:28 AM
[2020-07-28] MEDS: SPIRONOLACTONE 25 MG TAB PO SCH (08:41)
[2020-07-28] MEDS: DOXYCYCLINE HYCLATE 100 MG CAP PO SCH (08:41)
[2020-07-28] MEDS: ATORVASTATIN 10 MG TAB PO SCH (08:41)
[2020-07-28] MEDS: PANTOprazole 40 MG TAB PO SCH (08:41)
[2020-07-28] MEDS: METOPROLOL SUCC 50MG EXT REL TAB PO SCH (08:41)
[2020-07-28] MEDS: ceFAZolin 1000MG 1,000 MG/7.5 ML SYR IV SCH (08:45)
--- NOTE | 2020-07-31 09:49 | Discharge Summary ---
Date of Service July 28, 2020 Admission HPI Per Admitting Provider patient longstanding history of severely reduced LV systolic function presented for implantation an ICD as primary prevention against sudden cardiac . Principal Diagnosis q Discharge Exam At time of discharge the patient is alert. Comfortable. Answer questions appropriately. device implant site did not reveal any evidence of hematoma. There is no drainage. No significant ecchymosis. Discharge Data Allergies Allergy/AdvReac Type Severity Reaction Status Date / Time No Known Drug Allergies Allergy Unknown . Verified 07/27/20 07:26 Procedures Performed Operation Date: 07/27/20 08:00 Actual Procedures p ICD Insertion Single or Dual - Arcenio Mortensen MD Ordered Studies 07/27/20 07:23 CL Cath Imgs for PACS use only Routine Hospital Course (1) Cardiomyopathy: On the day of admission the patient underwent implantation of single- chamber Medtronic ICD. There were no immediate complications. The following morning an x-ray did not demonstrate any evidence of pneumothorax. Lead position was adequate. Device interrogation revealed good function of the ventricular lead. Wound evaluation not reveal any complication. Patient was discharged on his usual medications without addition. Total Time Total Time Spent Total Time Spent (In Minutes): 12 Total Time Includes: Examination of the Patient, Discharge Planning and Medication Reconciliation Discharge Plan Discharge Items Patient Disposition: Home - Self-Care Reason For Visit: Cardiomyopathy Discharge Diagnosis: cardiomyopathy Activity: Per Instructions section Activity Comment: No lifting left arm above shoulder or behind neck for 6 weeks Lifting: No more than 10 pounds Bathing: Keep incision dry Bathing Comment: keep wound dry and steri-strip intact until f/u next week Driving/Machine Use: Resume 1 day after discharge Non-emergency contact: Credit Risk Analyst Call non-emergency contact if: you have any medication questions, your symptoms worsen, your pain is not controlled, you have a fever, your wound has increased redness, your wound has increased drainage and your wound pain has increased Follow-up/Referrals: Leo Eddy MD [Primary Care Provider] - 08/03/20 1:15 pm Arcenio Mortensen MD [Physician] - 08/03/20 10:00 am (NURSE) Diet: Heart Healthy Addtl Attending Provider Instructions: f/u with nurse at cardiology clinic 08/03/2020 1000am Pending Studies at Discharge: No Stand-Alone Forms: [employer], Smoking Cessation Medications and DC Order Prescriptions: New oxycodone 5 mg capsule 5 mg PO Q6H PRN (Reason: pain) Qty: 5 RF: 0 Continued spironolactone 25 mg tablet 25 mg PO DAILY Qty: 30 RF: 0 ergocalciferol (vitamin D2) 50,000 unit capsule 50,000 units PO WEEKLY Qty: 12 RF: 0 atorvastatin 10 mg tablet 10 mg PO DAILY Qty: 90 RF: 3 doxycycline hyclate 100 mg tablet 100 mg PO BID Qty: 180 RF: 3 bumetanide 2 mg tablet 1 mg PO .COMPLEX Qty: 90 RF: 3 pantoprazole 40 mg tablet,delayed release (DR/EC) 40 mg PO DAILY Qty: 30 RF: 5 digoxin 125 mcg (0.125 mg) tablet 125 mcg PO DAILY RF: 0 metoprolol succinate 50 mg tablet extended release 24 hr See Rx Instructions PO DAILY Qty: 60 RF: 0 Discharge Orders: Discharge Order (Routine); Ordered 07/28/20 Ordered By: Arcenio Mortensen Admission Data Admit Date/Time: 07/27/20 08:24 Attending Provider: Arcenio Mortensen Admit Provider: Arcenio Mortensen Primary Care Provider: Leo Eddy Other Interventions: Discharge Summary Assessment (RN) Last Done: 07/28/20 09:55 Coding Level of Care Code 64774 OBS Care - Discharge Diagnoses Cardiomyopathy I42.9
== END 2020-07-28 10:49 | disposition home or self-care (01) ==
LOC: EP 07:03 → 2S 07:03
PROC: EPB.ICD (2020-07-27 08:00)

== ENCOUNTER 2020-09-21 14:44 | Inpatient (IN) ==
[2020-09-21] MEDS ORDERED: SODIUM CHLORIDE 0.9% 1000ML 1,000 ML IV SCH ×2 (15:00→20:14)
--- NOTE | 2020-09-21 15:40 | XRay Report ---
SINGLE VIEW CHEST CLINICAL HISTORY: Atypical chest pain. FINDINGS: An AP, portable, upright chest radiograph is compared to study dated 09/18/2020. Correlation is made with chest CT dated 02/14/2009. A single lead cardiac AICD is unchanged in position and part ially obscures the left upper chest. The heart is enlarged noting atherosclerotic calcification of th e thoracic aorta. Enlargement of the central pulmonary arteries suggests pulmonary artery hypertensio n. The pulmonary vasculature is noncongested. Emphysema and chronic interstitial thickening is simila r to previous. Trace pleural effusions are suggested. No airspace consolidation is seen typical for p neumonia. Scarring/atelectasis is noted at the lung bases. There is no pneumothorax. The skeletal str uctures are osteopenic. The bony thorax is grossly intact. IMPRESSION: 1. Cardiomegaly and AICD. There is no radiographic evidence of congestive failure. 2. Trace pleural effusions. 3. The nodular density questioned on the lateral projection of the 09/18/2020 examination is not appre ciated on this single AP view.. ACT 112: Negative or not required by law. Electronically signed by: Severo Campbell M.D. 09/21/2020 3:38 PM
[2020-09-21 15:45] LABS: iSTAT Hemoglobin 13.3 g/dl (14.0-18.0); iSTAT Ionized Calcium 1.15 mmol/l (1.12-1.32); iSTAT Potassium 4.9 mmol/L (3.3-5.0)
--- NOTE | 2020-09-21 15:54 | Electrocardiogram Report ---
Test Reason : Blood Pressure : / mmHG Vent. Rate : 091 BPM Atrial Rate : 079 BPM P-R Int : 000 ms QRS Dur : 148 ms QT Int : 424 ms P-R-T Axes : 000 -79 077 degrees QTc Int : 521 ms Poor data quality, interpretation may be adversely affected Atrial fibrillation with premature ventricular or aberrantly conducted complexes Left axis deviation Right bundle branch block Possible Lateral infarct , age undetermined Inferior infarct (cited on or before 11-JUL-2016) Abnormal ECG When compared with ECG of 27-SEP-2016 06:22, Borderline criteria for Lateral infarct are now Present T wave inversion no longer evident in Lateral leads Confirmed by Wild Mckinney ([id number]) on 09/21/2020 3:54:30 PM Referred By: Confirmed By:Wild Mckinney
[2020-09-21 15:55] LABS: Basophils # (auto) 0.02 K/uL (0-0.2); Basophils % (auto) 0.2 %; Eosinophils # (auto) 0.01 K/uL (0-0.5); Eosinophils % (auto) 0.1 %; Hematocrit (blood only) 40.3 % (42-52); Hemoglobin 13.4 g/dL (14.0-18.0); Immature Granulocytes # (auto) 0.02 K/uL (0.00-0.02); Immature Granulocytes % (auto) 0.2 %; Lymphocytes # (auto) 1.52 K/uL (1.2-3.4); Lymphocytes % (auto) 17.9 %; Mean Corpuscular Hemoglobin 33.1 pg (25-34); Mean Corpuscular Hgb Conc 33.3 g/dL (32-36); Mean Corpuscular Volume 99.5 fL (80-100); Monocytes # (auto) 0.79 K/uL (0.11-0.59); Monocytes % (auto) 9.3 %; Neutrophils # (auto) 6.15 K/uL (1.4-6.5); Neutrophils % (auto) 72.3 %; Platelet Count 168 K/uL (130-400); RDW Coefficient of Variation 15.1 % (11.5-14.5); RDW Standard Deviation 53.7 fL (36.4-46.3); Red Blood Count 4.05 M/uL (4.7-6.1); White Blood Count 8.51 K/uL (4.8-10.8)
[2020-09-21 16:12] LABS: BUN Creatinine Ratio 18.8 (10-20); Calcium 9.9 mg/dl (8.5-10.1); Creatinine Clr Calc Pharmacy 18.6 ml/min; Est GFR (African American) 19.6 ml/min; Est GFR (Non-African American) 16.9 ml/min; Magnesium 2.5 mg/dl (1.8-2.4); Potassium 4.8 mmol/L (3.5-5.1)
[2020-09-21 16:20] LABS: Troponin I 0.614 ng/ml (0-0.045)
[2020-09-21 16:24] LABS: INR 1.6 (0.9-1.1); Partial Thromboplastin Time 25.8 Seconds (21.0-31.0); Prothrombin Time 15.5 Seconds (9.0-12.0)
--- NOTE | 2020-09-21 16:50 | CT Scan Report ---
CT SCAN OF THE ABDOMEN AND PELVIS WITHOUT CONTRAST CLINICAL HISTORY: jody COMPARISON STUDY: CT of abdomen and pelvis performed on February 14, 2009 is not available in the [facility] tem at this time. TECHNIQUE: CT scan of the abdomen and pelvis was performed from the lung bases to the proximal femurs . Images are reviewed in the axial, sagittal, and coronal planes. IV contrast was not administered fo r this examination. A dose lowering technique was utilized adhering to the principles of ALARA. CT DOSE: 262.90 mGy.cm FINDINGS: Lower chest: Bilateral pleural effusion, small on the left and moderate on the right associated with diffuse septal thickening and and peribronchial cuffing of the aerated lung parenchyma. Mild four-michael mber cardiomegaly. Distal peacemaker leads are seen and associated with beam hardening artifact. Liver: The unenhanced liver is normal in size, contour, and attenuation. There is no intrahepatic tamera iary ductal dilatation. Gallbladder: Surgically absent. Spleen: Normal in size. Punctate calcifications are seen within splenic parenchyma. Pancreas: Unremarkable. Adrenal glands: Unremarkable. Kidneys: The unenhanced kidneys are normal in size without hydronephrosis.. No renal calculi are iden tified. Bilateral renal cysts are seen, largest is seen adjacent of the right renal cortex, measuring 9.8 x 7.5 cm in axial dimension and shows internal calcified septa. Bowel: The small bowel and colon are normal in course and caliber. Minimal fat stranding is seen surr ounding the cecal and might represent colitis. Appendix is nondilated and gas filled. Peritoneum: There is no intraperitoneal free air or abdominal ascites. Vasculature: The abdominal aorta is normal in course and caliber. Adenopathy: None. Pelvic viscera: Urinary bladder is partially decompressed with significant diffuse thickening of its wall. Prostate gland is mildly enlarged. Bilateral small fat-containing inguinal hernias are seen. Skeletal structures: Mild degenerative changes of the spine. IMPRESSION: 1. Bilateral pleural effusion, cardiomegaly and pulmonary edema. 2. Mild fat stranding surrounding cecum, could represent normal variant or colitis. 3. Bilateral renal cysts, largest is seen on the right and associated with calcified septation. Eval uation is limited due to lack of IV contrast as well as beam hardening artifact. Wall calcifications and septation of the renal cystic lesions could BE sign of neoplastic process. Further evaluation wit h contrast-enhanced CT or MRI of the abdomen is suggested. 4. Mild diffuse thickening of urinary bladder wall which might be seen in cystitis or neoplastic pro cess. Please correlate with prior history and urinalysis result. ACT 112: Negative or not required by law. The above report was generated using voice recognition software. It may contain grammatical, syntax o r spelling errors. Electronically signed by: Shelli Mitchell DO 09/21/2020 4:48 PM
--- NOTE | 2020-09-21 17:38 | Emergency Department Note ---
History of Present Illness General Chief complaint: Arrhythmia/Palpitations Stated complaint: PALPITATIONS, LIGHT HEADED Time Seen by Provider: 09/21/20 14:54 History of Present Illness Provider complaint: Dyspnea near syncope Onset (ago): day(s) 3 Associated symptoms: + nausea/vomiting (Nausea no vomiting) and + shortness of breath; no chest pain, no cough, no fever/chills, no headaches and no syncope 75-year-old male presents emergency department for dyspnea. Patient reports his dyspnea has been worse over the last 3 days. Patient reports that his dyspnea is worse with exertion and he is also reporting significant orthopnea. Patient also reports near syncope. He denies falling or hitting his head. Patient also reports feeling weakness. Patient also reports nausea, no vomiting. No hematemesis coffee-ground emesis or bilious vomiting. Home Medications Medication Instructions Recorded Confirmed Type ergocalciferol (vitamin D2) 1,250 50,000 units PO WEEKLY #12 cap 12/14/18 History mcg (50,000 unit) capsule spironolactone 25 mg tablet 25 mg PO DAILY #30 tab 12/14/18 09/21/20 History atorvastatin 10 mg tablet 10 mg PO DAILY #90 tab 05/25/20 09/21/20 Rx pantoprazole 40 mg tablet,delayed 40 mg PO DAILY #30 tab 06/13/20 09/21/20 Rx release digoxin 125 mcg (0.125 mg) tablet 125 mcg PO Q2D tab 08/01/20 09/21/20 History bumetanide 2 mg tablet 2 mg PO DAILY #90 tab 08/30/20 09/21/20 Rx metoprolol succinate 50 mg 25 mg PO BID tab 09/19/20 09/21/20 History tablet,extended release 24 hr Allergies Allergy/AdvReac Type Severity Reaction Status Date / Time No Known Drug Allergies Allergy Unknown . Verified 09/21/20 16:31 Past Med/Surg History Medical History Aortic regurgitation Cardiomyopathy Now severe, echo Apr 2020 w/ EF=15-20% Chronic obstructive pulmonary disease Chronic renal insufficiency Dyslipidemia GERD (gastroesophageal reflux disease) Hyperglycemia Hypertension Mitral regurgitation MR (mitral regurgitation) Paroxysmal ventricular tachycardia Systolic CHF with reduced left ventricular function, NYHA class 3 Surgical History History of colonoscopy History of repair of rotator cuff Hx laparoscopic cholecystectomy (2017) Presence of single chamber implantable cardioverter-defibrillator (ICD) (07/2020) Family History Mother Leukemia Sister Acute myocardial infarction Social History Smoking Status: Never smoker Hx Alcohol Use: No Hx Substance Use: No Beliefs That Will Affect Care: None Current Living Situation: Spouse Feels Safe at Home: Yes Assistive Devices: None Review of Systems A total of 10 systems reviewed and were otherwise negative Physical Exam Vital Signs Vital Signs - 24 hr 09/21/20 14:48 09/21/20 15:03 Temperature 36.3 C L Temperature Source Skin Pulse Rate 113 H Pulse Rhythm Regular Pulse Strength Normal Respiratory Rate 20 Respiratory Effort / Characteristics Non-Labored Spontaneous Respiratory Depth Normal Respiratory Pattern Regular Blood Pressure 94/63 L Blood Pressure Mean 73 Pulse Oximetry 98 Oxygen Delivery Method Room Air Room Air Sepsis Recent Fever Within 48 Hours No Sepsis New/Unexplained Change in Mental Status N/A Sepsis Action Taken by Nursing No Action Required Physical Exam GENERAL: He is oriented to person, place, and time. He appears well-developed and well-nourished. He does not appear distressed. HENT: Exam performed. - Head: Normocephalic and atraumatic. - Right Ear: External ear normal. No mastoid tenderness. - Left Ear: External ear normal. No mastoid tenderness. - Mouth/Throat: The oropharynx is clear and moist. No trismus in the jaw. No dental abscesses or uvula swelling. No oropharyngeal exudate or tonsillar abscesses. EYES: Conjunctivae and EOM are normal. Pupils are equal, round, and reactive to light. Right eye exhibits no discharge. Left eye exhibits no discharge. No scleral icterus. NECK: Normal range of motion. Neck supple. No JVD present. No spinous process tenderness present. No carotid bruit present. No rigidity. No tracheal deviation and normal range of motion present. No Brudzinski's sign and no Kernig's sign noted. CV: Normal rate, irregular rhythm, normal heart sounds and intact distal pulses. There is no peripheral edema. Palpable radial pulses bue. PULM/CHEST: Effort normal and breath sounds normal. No respiratory distress. No stridor. He has no wheezes. He has no rales. - Chest Wall: He exhibits no tenderness. ABD: The abdomen is soft. Bowel sounds are normal. He has no distension. No mass is present. There is no tenderness. There is no rebound, no guarding, no Martinez's sign and no tenderness at McBurney's point. Rovsig negative. MUSC/SKEL: Normal range of motion. There is no peripheral edema, tenderness or deformity. LYMPH: No cervical adenopathy. NEURO: He is alert and oriented to person, place, and time. He has normal strength. No cranial nerve deficit or sensory deficit. Coordination and gait normal. GCS eye subscore is 4. GCS verbal subscore is 5. GCS motor subscore is 6. Cerebellar tests wnl. SKIN: Skin is warm and dry. He is not diaphoretic. PSYCH: He has a normal mood and affect. Behavior is normal. Judgment and thought content normal. Course Course 1454: The patient was evaluated in room C4. A complete history and physical exam was performed Cardiac monitoring: An order was placed for continuous cardiac monitoring. The monitor shows a rate of 90 with atrial fibrillation rhythm EMR reviewed. Patient was seen in the cardiology clinic by Dr. King today. Per Dr. King's note, the patient should be hospitalized. Per Dr. King's note he has declined anticoagulation. Has an ejection fraction of 15 to 20% and likely low output failure. 1700: Vital signs stable. Labs show a creatinine of 3.3, up from his baseline of around 2.4. Imaging shows cardiomegaly with trace pleural effusions. Administered Medications Sodium Chloride (Nss 1000ml) 1,000 mls @ 125 mls/hr IV .Q8H ALEX Stop: 10/21/20 14:59 Last Admin: 09/21/20 15:34 Dose: 125 mls/hr Documented by: [id number] Medical Decision Making Laboratory Data Result diagrams: 09/21/20 15:26 09/21/20 15:26 Lab Results 09/21/20 09/21/20 09/21/20 Range/Units 15:15 15:15 15:26 WBC 8.51 (4.8-10.8) K/uL RBC 4.05 L (4.7-6.1) M/uL Hgb 13.4 L (14.0-18.0) g/dL POC Hgb (14.0-18.0) g/dl Hct 40.3 L (42-52) % POC Hct (42-52) % MCV 99.5 (80-100) fL MCH 33.1 (25-34) pg MCHC 33.3 (32-36) g/dL RDW Std Deviation 53.7 H (36.4-46.3) fL RDW Coeff of Gaby 15.1 H (11.5-14.5) % Plt Count 168 (130-400) K/uL MPV 12.0 H (7.4-10.4) fL Immature Gran % (Auto) 0.2 % Neut % (Auto) 72.3 % Lymph % (Auto) 17.9 % Delta % (Auto) 9.3 % Eos % (Auto) 0.1 % Baso % (Auto) 0.2 % Neut # (Auto) 6.15 (1.4-6.5) K/uL Lymph # (Auto) 1.52 (1.2-3.4) K/uL Delta # (Auto) 0.79 H (0.11-0.59) K/uL Eos # (Auto) 0.01 (0-0.5) K/uL Baso # (Auto) 0.02 (0-0.2) K/uL Immature Gran # (Auto) 0.02 (0.00-0.02) K/uL PT (9.0-12.0) Seconds INR (0.9-1.1) APTT (21.0-31.0) Seconds PTT Ratio POC Sodium (135-144) mmol/L Sodium (136-145) mmol/L POC Potassium (3.3-5.0) mmol/L Potassium (3.5-5.1) mmol/L POC Chloride (101-112) mmol/L Chloride (98-107) mmol/L Carbon Dioxide (21-32) mmol/L POC Total CO2 (24-31) mmol/L Anion Gap (3-11) POC Anion Gap (16-25) mmol/L POC BUN (7-18) mg/dl BUN (7-18) mg/dl Creatinine (0.6-1.4) mg/dl POC Creatinine (0.6-1.3) mg/dl Est Cr Clr Drug Dosing ml/min Est GFR ( Amer) ml/min Est GFR (Non-Af Amer) ml/min BUN/Creatinine Ratio (10-20) Glucose (70-99) mg/dl POC Glucose (other) (70-99) mg/dl Calcium (8.5-10.1) mg/dl POC Ioniz Calcium Zenon (1.12-1.32) mmol/l Magnesium (1.8-2.4) mg/dl Troponin I (0-0.045) ng/ml Lipase (73-393) U/L Digoxin (0.8-2.0) ng/ml COVID-19 Eval Order Covid19 at [facility] SARS-CoV-2 (PCR) NEGATIVE (Negative) 09/21/20 09/21/20 09/21/20 Range/Units 15:26 15:26 15:32 WBC (4.8-10.8) K/uL RBC (4.7-6.1) M/uL Hgb (14.0-18.0) g/dL POC Hgb 13.3 L (14.0-18.0) g/dl Hct (42-52) % POC Hct 39 L (42-52) % MCV (80-100) fL MCH (25-34) pg MCHC (32-36) g/dL RDW Std Deviation (36.4-46.3) fL RDW Coeff of Gaby (11.5-14.5) % Plt Count (130-400) K/uL MPV (7.4-10.4) fL Immature Gran % (Auto) % Neut % (Auto) % Lymph % (Auto) % Delta % (Auto) % Eos % (Auto) % Baso % (Auto) % Neut # (Auto) (1.4-6.5) K/uL Lymph # (Auto) (1.2-3.4) K/uL Delta # (Auto) (0.11-0.59) K/uL Eos # (Auto) (0-0.5) K/uL Baso # (Auto) (0-0.2) K/uL Immature Gran # (Auto) (0.00-0.02) K/uL PT (9.0-12.0) Seconds INR (0.9-1.1) APTT (21.0-31.0) Seconds PTT Ratio POC Sodium 141 (135-144) mmol/L Sodium 141 (136-145) mmol/L POC Potassium 4.9 (3.3-5.0) mmol/L Potassium 4.8 (3.5-5.1) mmol/L POC Chloride 103 (101-112) mmol/L Chloride 105 (98-107) mmol/L Carbon Dioxide 25 (21-32) mmol/L POC Total CO2 26 (24-31) mmol/L Anion Gap 11.0 (3-11) POC Anion Gap 17.0 (16-25) mmol/L POC BUN 56 H (7-18) mg/dl BUN 63 H (7-18) mg/dl Creatinine 3.35 H (0.6-1.4) mg/dl POC Creatinine 4.0 H (0.6-1.3) mg/dl Est Cr Clr Drug Dosing 18.6 ml/min Est GFR ( Amer) 19.6 ml/min Est GFR (Non-Af Amer) 16.9 ml/min BUN/Creatinine Ratio 18.8 (10-20) Glucose 115 H (70-99) mg/dl POC Glucose (other) 118 H (70-99) mg/dl Calcium 9.9 (8.5-10.1) mg/dl POC Ioniz Calcium Zenon 1.15 (1.12-1.32) mmol/l Magnesium 2.5 H (1.8-2.4) mg/dl Troponin I 0.614 H* (0-0.045) ng/ml Lipase 166 (73-393) U/L Digoxin 1.0 (0.8-2.0) ng/ml COVID-19 Eval Order SARS-CoV-2 (PCR) (Negative) 09/21/20 Range/Units 16:04 WBC (4.8-10.8) K/uL RBC (4.7-6.1) M/uL Hgb (14.0-18.0) g/dL POC Hgb (14.0-18.0) g/dl Hct (42-52) % POC Hct (42-52) % MCV (80-100) fL MCH (25-34) pg MCHC (32-36) g/dL RDW Std Deviation (36.4-46.3) fL RDW Coeff of Gaby (11.5-14.5) % Plt Count (130-400) K/uL MPV (7.4-10.4) fL Immature Gran % (Auto) % Neut % (Auto) % Lymph % (Auto) % Delta % (Auto) % Eos % (Auto) % Baso % (Auto) % Neut # (Auto) (1.4-6.5) K/uL Lymph # (Auto) (1.2-3.4) K/uL Delta # (Auto) (0.11-0.59) K/uL Eos # (Auto) (0-0.5) K/uL Baso # (Auto) (0-0.2) K/uL Immature Gran # (Auto) (0.00-0.02) K/uL PT 15.5 H (9.0-12.0) Seconds INR 1.6 H (0.9-1.1) APTT 25.8 (21.0-31.0) Seconds PTT Ratio 1.0 POC Sodium (135-144) mmol/L Sodium (136-145) mmol/L POC Potassium (3.3-5.0) mmol/L Potassium (3.5-5.1) mmol/L POC Chloride (101-112) mmol/L Chloride (98-107) mmol/L Carbon Dioxide (21-32) mmol/L POC Total CO2 (24-31) mmol/L Anion Gap (3-11) POC Anion Gap (16-25) mmol/L POC BUN (7-18) mg/dl BUN (7-18) mg/dl Creatinine (0.6-1.4) mg/dl POC Creatinine (0.6-1.3) mg/dl Est Cr Clr Drug Dosing ml/min Est GFR ( Amer) ml/min Est GFR (Non-Af Amer) ml/min BUN/Creatinine Ratio (10-20) Glucose (70-99) mg/dl POC Glucose (other) (70-99) mg/dl Calcium (8.5-10.1) mg/dl POC Ioniz Calcium Zneon (1.12-1.32) mmol/l Magnesium (1.8-2.4) mg/dl Troponin I (0-0.045) ng/ml Lipase (73-393) U/L Digoxin (0.8-2.0) ng/ml COVID-19 Eval Order SARS-CoV-2 (PCR) (Negative) Imaging Data Radiologist's Impression: Chest X-Ray 09/21/20 15:01 SINGLE VIEW CHEST CLINICAL HISTORY: Atypical chest pain. FINDINGS: An AP, portable, upright chest radiograph is compared to study dated 09/18/2020. Correlation is made with chest CT dated 02/14/2009. A single lead cardiac AICD is unchanged in position and partially obscures the left upper chest. The heart is enlarged noting atherosclerotic calcification of the thoracic aorta. Enlargement of the central pulmonary arteries suggests pulmonary artery hypertension. The pulmonary vasculature is noncongested. Emphysema and chronic interstitial thickening is similar to previous. Trace pleural effusions are suggested. No airspace consolidation is seen typical for pneumonia. Scarring/atelectasis is noted at the lung bases. There is no pneumothorax. The skeletal structures are osteopenic. The bony thorax is grossly intact. IMPRESSION: 1. Cardiomegaly and AICD. There is no radiographic evidence of congestive failure. 2. Trace pleural effusions. 3. The nodular density questioned on the lateral projection of the 09/18/2020 examination is not appreciated on this single AP view.. ACT 112: Negative or not required by law. Electronically signed by: Severo Campbell M.D. 09/21/2020 3:38 PM Abdomen/Pelvis CT 09/21/20 15:35 CT SCAN OF THE ABDOMEN AND PELVIS WITHOUT CONTRAST CLINICAL HISTORY: [email or web address] COMPARISON STUDY: CT of abdomen and pelvis performed on February 14, 2009 is not available in the system at this time. TECHNIQUE: CT scan of the abdomen and pelvis was performed from the lung bases to the proximal femurs. Images are reviewed in the axial, sagittal, and coronal planes. IV contrast was not administered for this examination. A dose lowering technique was utilized adhering to the principles of ALARA. CT DOSE: 262.90 mGy.cm FINDINGS: Lower chest: Bilateral pleural effusion, small on the left and moderate on the right associated with diffuse septal thickening and and peribronchial cuffing of the aerated lung parenchyma. Mild four-chamber cardiomegaly. Distal peacemaker leads are seen and associated with beam hardening artifact. Liver: The unenhanced liver is normal in size, contour, and attenuation. There is no intrahepatic biliary ductal dilatation. Gallbladder: Surgically absent. Spleen: Normal in size. Punctate calcifications are seen within splenic parenchyma. Pancreas: Unremarkable. Adrenal glands: Unremarkable. Kidneys: The unenhanced kidneys are normal in size without hydronephrosis.. No renal calculi are identified. Bilateral renal cysts are seen, largest is seen adjacent of the right renal cortex, measuring 9.8 x 7.5 cm in axial dimension and shows internal calcified septa. Bowel: The small bowel and colon are normal in course and caliber. Minimal fat stranding is seen surrounding the cecal and might represent colitis. Appendix is nondilated and gas filled. Peritoneum: There is no intraperitoneal free air or abdominal ascites. Vasculature: The abdominal aorta is normal in course and caliber. Adenopathy: None. Pelvic viscera: Urinary bladder is partially decompressed with significant diffuse thickening of its wall. Prostate gland is mildly enlarged. Bilateral small fat-containing inguinal hernias are seen. Skeletal structures: Mild degenerative changes of the spine. IMPRESSION: 1. Bilateral pleural effusion, cardiomegaly and pulmonary edema. 2. Mild fat stranding surrounding cecum, could represent normal variant or colitis. 3. Bilateral renal cysts, largest is seen on the right and associated with calcified septation. Evaluation is limited due to lack of IV contrast as well as beam hardening artifact. Wall calcifications and septation of the renal cystic lesions could BE sign of neoplastic process. Further evaluation with contrast- enhanced CT or MRI of the abdomen is suggested. 4. Mild diffuse thickening of urinary bladder wall which might be seen in cystitis or neoplastic process. Please correlate with prior history and urinalysis result. ACT 112: Negative or not required by law. The above report was generated using voice recognition software. It may contain grammatical, syntax or spelling errors. Electronically signed by: Shelli Mitchell DO 09/21/2020 4:48 PM ECG Data Indication: + SOB/dyspnea Rate (beats per minute): 91 Rhythm: + atrial fibrillation ECG ST segments: + Normal ST segments Additional Comments: QRS 148 QTC 521 MDM Narrative 1454: The patient was evaluated in room C4. A complete history and physical exam was performed Cardiac monitoring: An order was placed for continuous cardiac monitoring. The monitor shows a rate of 90 with atrial fibrillation rhythm EMR reviewed. Patient was seen in the cardiology clinic by Dr. King today. Per Dr. King's note, the patient should be hospitalized. Per Dr. King's note he has declined anticoagulation. Has an ejection fraction of 15 to 20% and likely low output failure. 1700: Vital signs stable. Labs show a creatinine of 3.3, up from his baseline of around 2.4. Imaging shows cardiomegaly with trace pleural effusions. Impression & Plan NIKHIL (acute kidney injury), A-fib, Heart failure, ORTEGA (dyspnea on exertion), Elevated troponin Discharge Plan Visit Data Chief Complaint: Arrhythmia/Palpitations Stated Complaint: PALPITATIONS, LIGHT HEADED ED Provider: Alan Carlson Discharge Problem: NIKHIL (acute kidney injury), A-fib, Heart failure, ORTEGA (dyspnea on exertion), Elevated troponin Patient Disposition: Admitted As Inpatient Forms Stand Alone Forms: [facility] [employer] Prescriptions Prescriptions: No Action spironolactone 25 mg tablet 25 mg PO DAILY Qty: 30 RF: 0 ergocalciferol (vitamin D2) 50,000 unit capsule 50,000 units PO WEEKLY Qty: 12 RF: 0 atorvastatin 10 mg tablet 10 mg PO DAILY Qty: 90 RF: 3 pantoprazole 40 mg tablet,delayed release (DR/EC) 40 mg PO DAILY Qty: 30 RF: 5 bumetanide 2 mg tablet 2 mg PO DAILY Qty: 90 RF: 3 digoxin 125 mcg (0.125 mg) tablet 125 mcg PO Q2D RF: 0 metoprolol succinate 50 mg tablet extended release 24 hr 25 mg PO BID RF: 0 Referrals Referrals: Leo Eddy MD [Primary Care Provider] - Discharge Problem: A-fib Qualifiers: Atrial fibrillation type: unspecified Qualified Code(s): I48.91 - Unspecified atrial fibrillation Heart failure Qualifiers: Heart failure type: unspecified Heart failure chronicity: acute Qualified Code(s): I50.9 - Heart failure, unspecified
--- NOTE | 2020-09-21 18:21 | History & Physical Report ---
Date of Service September 21, 2020 Assessment & Plan (1) NIKHIL (acute kidney injury): Since creatinine was at baseline around 1.61.8 earlier this year, now up to 3.35 Consider overdiuresis as patient is on multiple diuretics Patient is being hydrated with normal saline, will slow rate as patient has a significant cardiomyopathy Monitor blood pressure and heart rate with this (2) Permanent atrial fibrillation: Patient was found to be tachycardic, likely secondary to volume depletion as previously described Heart rate is now within normal limits. Remains in atrial fibrillation, rate controlled on Toprol 50 mg daily Patient is previously refused anticoagulation as documented in cardiology is notes. (3) Heart failure: Recent echo shows LVEF of 15-20% Hold diuretics for now while patient is being mostly hydrated We will consult Dr. King for further recommendations I did also briefly discuss with the patient regarding possible recommendations for palliative care, symptomatic treatment (4) Adult failure to thrive: Patient has had significant weight loss over the past several months, likely secondary to his multiple ongoing medical issues Consider palliative care consultation as noted above for symptom management (5) Bladder wall thickening: Incidental CT findings. Reviewed urinalysis. Consider further follow-up and possible cystoscopy depending on course of acute medical issues. History of Present Illness Chief Complaint: Dyspnea, tachycardia Primary Care Provider: Leo Eddy MD This is a 75-year-old male with past medical history of CHF, severe cardio myopathy with LVEF of 50-20% that presents today with tachycardia and dyspnea. Patient is pleasant but a somewhat difficult historian. Patient has longstanding cardiomyopathy of which he follows with Dr. King. He is on bumetanide and spironolactone. Patient was seen in Dr. King's office today and had complained that he was having worsening dyspnea over the past 3 days. This was very exertional and was also accompanied by significant orthopnea. Blood pressure was documented 94/63 and pulse was 113. Dr. King was concerned that the patient may be over diuresed and patient was told to present to the emergency room for further evaluation. Time my evaluation, the patient had already been he hydrated with normal saline. At this point his blood pressure was over 100 systolic and heart rate had slowed into the 7090s though he remained in atrial fibrillation at his baseline. Patient had complained of shortness of breath as previously described. Patient's at bedside also note that the patient had a significant weight loss of approximately 60 pounds over the past 6 months. Patient denies any overt chest pain. He also denies any fever, chills, nausea, diarrhea, constipation. He does note decreased p.o. intake. Allergies Allergy/AdvReac Type Severity Reaction Status Date / Time No Known Drug Allergies Allergy Unknown . Verified 09/21/20 16:31 Home Medications Medication Instructions Recorded Confirmed Type ergocalciferol (vitamin D2) 1,250 50,000 units PO WEEKLY #12 cap 12/14/18 09/21/20 History mcg (50,000 unit) capsule spironolactone 25 mg tablet 25 mg PO DAILY #30 tab 12/14/18 09/21/20 History atorvastatin 10 mg tablet 10 mg PO DAILY #90 tab 05/25/20 09/21/20 Rx pantoprazole 40 mg tablet,delayed 40 mg PO DAILY #30 tab 06/13/20 09/21/20 Rx release digoxin 125 mcg (0.125 mg) tablet 125 mcg PO Q2D tab 08/01/20 09/21/20 History bumetanide 2 mg tablet 2 mg PO DAILY #90 tab 08/30/20 09/21/20 Rx metoprolol succinate 50 mg 25 mg PO BID tab 09/19/20 09/21/20 History tablet,extended release 24 hr Past Med/Surg History Medical History Aortic regurgitation Cardiomyopathy Now severe, echo Apr 2020 w/ EF=15-20% Chronic obstructive pulmonary disease Chronic renal insufficiency Dyslipidemia GERD (gastroesophageal reflux disease) Hyperglycemia Hypertension Mitral regurgitation MR (mitral regurgitation) Paroxysmal ventricular tachycardia Systolic CHF with reduced left ventricular function, NYHA class 3 Surgical History History of colonoscopy History of repair of rotator cuff Hx laparoscopic cholecystectomy (2016) Presence of single chamber implantable cardioverter-defibrillator (ICD) (07/2020) Family History Mother Leukemia Sister Acute myocardial infarction Social History Smoking Status: Never smoker Hx Alcohol Use: No Hx Substance Use: No Beliefs That Will Affect Care: None Current Living Situation: Spouse Feels Safe at Home: Yes Assistive Devices: None Review of Systems Constitutional: + anorexia and + weight loss; no fever, no chills, no weakness and no weight gain Eyes: as per Subjective / HPI Respiratory: + dyspnea and + dyspnea on exertion; no cough and no chest congestion Cardiovascular: + dyspnea on exertion, + orthopnea and + lightheadedness; no chest pain, no palpitations, no syncope and no edema Gastrointestinal: no abdominal pain, no nausea, no vomiting, no constipation and no diarrhea/loose stools Genitourinary: no dysuria, no difficulty urinating, no urinary hesitancy and no urinary incontinence Musculoskeletal: no back pain, no neck pain, no joint pain, no stiffness and no myalgia Integumentary: no rash Neurologic: + falls and + generalized weakness; no gait abnormality and no unsteadiness Physical Exam Constitutional: cooperative and comfortable; no acute distress Neck: trachea midline, no thyromegaly Respiratory: normal respiratory effort Auscultation: + diminished lung sounds and + crackles; no rales, no rhonchi and no wheezes Cardiovascular: Rate/Rhythm: regular rate and regular rhythm Heart Sounds: normal S1 and normal S2; no murmur Extremities: no edema Gastrointestinal (Abdomen): Inspection/Auscultation: abdomen normal to inspection Percussion/Palpation: abdomen soft; abdomen nontender, no guarding, abdomen not rigid and no hepatosplenomegaly Skin: no rashes, warm and dry Results & Data Results & Data ([facility]) Vital Signs (Past 12 Hours) Vital Signs Temp Pulse Resp BP Pulse Ox 09/21/20 14:48 36.3 C L 113 H 20 94/63 L 98 Diagnostic Findings SINGLE VIEW CHEST CLINICAL HISTORY: Atypical chest pain. FINDINGS: An AP, portable, upright chest radiograph is compared to study dated 09/18/2020. Correlation is made with chest CT dated 02/14/2009. A single lead cardiac AICD is unchanged in position and partially obscures the left upper chest. The heart is enlarged noting atherosclerotic calcification of the thoracic aorta. Enlargement of the central pulmonary arteries suggests pulmonary artery hypertension. The pulmonary vasculature is noncongested. Emphysema and chronic interstitial thickening is similar to previous. Trace pleural effusions are suggested. No airspace consolidation is seen typical for pneumonia. Scarring/atelectasis is noted at the lung bases. There is no pneumothorax. The skeletal structures are osteopenic. The bony thorax is grossly intact. IMPRESSION: 1. Cardiomegaly and AICD. There is no radiographic evidence of congestive failure. 2. Trace pleural effusions. 3. The nodular density questioned on the lateral projection of the 09/18/2020 examination is not appreciated on this single AP view.. ----- CT SCAN OF THE ABDOMEN AND PELVIS WITHOUT CONTRAST CLINICAL HISTORY: nikhil COMPARISON STUDY: CT of abdomen and pelvis performed on February 14, 2009 is not available in the system at this time. TECHNIQUE: CT scan of the abdomen and pelvis was performed from the lung bases to the proximal femurs. Images are reviewed in the axial, sagittal, and coronal planes. IV contrast was not administered for this examination. A dose lowering technique was utilized adhering to the principles of ALARA. CT DOSE: 262.90 mGy.cm FINDINGS: Lower chest: Bilateral pleural effusion, small on the left and moderate on the right associated with diffuse septal thickening and and peribronchial cuffing of the aerated lung parenchyma. Mild four-chamber cardiomegaly. Distal peacemaker leads are seen and associated with beam hardening artifact. Liver: The unenhanced liver is normal in size, contour, and attenuation. There is no intrahepatic biliary ductal dilatation. Gallbladder: Surgically absent. Spleen: Normal in size. Punctate calcifications are seen within splenic parenchyma. Pancreas: Unremarkable. Adrenal glands: Unremarkable. Kidneys: The unenhanced kidneys are normal in size without hydronephrosis.. No renal calculi are identified. Bilateral renal cysts are seen, largest is seen adjacent of the right renal cortex, measuring 9.8 x 7.5 cm in axial dimension and shows internal calcified septa. Bowel: The small bowel and colon are normal in course and caliber. Minimal fat stranding is seen surrounding the cecal and might represent colitis. Appendix is nondilated and gas filled. Peritoneum: There is no intraperitoneal free air or abdominal ascites. Vasculature: The abdominal aorta is normal in course and caliber. Adenopathy: None. Pelvic viscera: Urinary bladder is partially decompressed with significant diffuse thickening of its wall. Prostate gland is mildly enlarged. Bilateral small fat-containing inguinal hernias are seen. Skeletal structures: Mild degenerative changes of the spine. IMPRESSION: 1. Bilateral pleural effusion, cardiomegaly and pulmonary edema. 2. Mild fat stranding surrounding cecum, could represent normal variant or colitis. 3. Bilateral renal cysts, largest is seen on the right and associated with calcified septation. Evaluation is limited due to lack of IV contrast as well as beam hardening artifact. Wall calcifications and septation of the renal cystic lesions could BE sign of neoplastic process. Further evaluation with contrast-enhanced CT or MRI of the abdomen is suggested. 4. Mild diffuse thickening of urinary bladder wall which might be seen in cystitis or neoplastic process. Please correlate with prior history and urinalysis result. PG Care Time/CCT Total # of Minutes Spent Total Time Spent with Patient: Total time spent is greater than 50% in coordination of care (as documented) at patient's floor/unit and/or counseling patient: Coding Level of Care Code 46467 Initial Inpt Care Lvl 3 Diagnoses NIKHIL (acute kidney injury) N17.9 Permanent atrial fibrillation I48.2 Heart failure I50.9 Heart failure chronicity: acute Heart failure type: unspecified Adult failure to thrive R62.7 Bladder wall thickening N32.89 (1) Heart failure Heart failure chronicity: acute Heart failure type: unspecified Qualified Code(s): I50.9 - Heart failure, unspecified
[2020-09-21] MEDS ORDERED: ACETAMINOPHEN 325 MG TAB PO PRN (20:14)
[2020-09-21] MEDS: HEPARIN SOD 5,000 UNIT/0.5 ML VIAL SQ SCH (22:40)
[2020-09-21] MEDS: METOPROLOL SUCC 25MG EXT REL TAB PO SCH (22:41)
[2020-09-22 01:48] LABS: Appearance Urine Cloudy (Clear); Bacteria Urine Automated Negative (Negative); Bilirubin Urine Negative (Negative); Blood Urine Negative (Negative); Color Urine Dark Yellow; Glucose Urine UA Negative (Negative); Ketones Urine Trace (Negative); Leukocyte Esterase Urine Negative (Negative); Nitrite Urine Negative (Negative); Protein Urine 1+ (Negative); RBC Urine Automated 0-4 /hpf (0-4); Specific Gravity Urine 1.017 (1.000-1.030); Urobilinogen Urine Negative (Negative)
[2020-09-22 02:30] LABS: Cast Urine Automated >30 /lpf (0-5)
[2020-09-22] MEDS: ONDANSETRON INJ 2 MG/ML 2 ML VIAL IV PRN (02:53)
[2020-09-22 06:50] LABS: Basophils # (auto) 0.01 K/uL (0-0.2); Basophils % (auto) 0.1 %; Eosinophils # (auto) 0.02 K/uL (0-0.5); Eosinophils % (auto) 0.2 %; Hematocrit (blood only) 37.8 % (42-52); Hemoglobin 12.3 g/dL (14.0-18.0); Immature Granulocytes # (auto) 0.01 K/uL (0.00-0.02); Immature Granulocytes % (auto) 0.1 %; Lymphocytes # (auto) 1.44 K/uL (1.2-3.4); Lymphocytes % (auto) 16.1 %; Mean Corpuscular Hemoglobin 32.6 pg (25-34); Mean Corpuscular Hgb Conc 32.5 g/dL (32-36); Mean Corpuscular Volume 100.3 fL (80-100); Mean Platelet Volume 11.9 fL (7.4-10.4); Monocytes % (auto) 11.2 %; Neutrophils # (auto) 6.44 K/uL (1.4-6.5); Neutrophils % (auto) 72.3 %; Nucleated RBC # (auto) 0.07 K/uL (0-0); Nucleated RBC % (auto) 0.8 %; Platelet Count 158 K/uL (130-400); RDW Coefficient of Variation 15.4 % (11.5-14.5); RDW Standard Deviation 54.9 fL (36.4-46.3); Red Blood Count 3.77 M/uL (4.7-6.1); White Blood Count 8.92 K/uL (4.8-10.8)
[2020-09-22 07:16] LABS: BUN Creatinine Ratio 18.6 (10-20); Calcium 9.2 mg/dl (8.5-10.1); Creatinine Clr Calc Pharmacy 16.1 ml/min; Est GFR (Non-African American) 14.7 ml/min; Magnesium 2.3 mg/dl (1.8-2.4)
[2020-09-22] MEDS: ATORVASTATIN 10 MG TAB PO SCH (07:51)
[2020-09-22] MEDS: PANTOprazole 40 MG TAB PO SCH (07:52)
[2020-09-22] MEDS: METOPROLOL SUCC 25MG EXT REL TAB PO SCH ×2 (07:52→20:53)
[2020-09-22] MEDS: HEPARIN SOD 5,000 UNIT/0.5 ML VIAL SQ SCH ×3 (07:53→21:00)
[2020-09-22] MEDS ORDERED: SODIUM CHLORIDE 0.9% 1000ML 1,000 ML IV SCH (08:35)
--- NOTE | 2020-09-22 09:16 | Cardiology Consultation ---
Date of Consultation September 22, 2020 Assessment & Plan (1) Low output heart failure: (2) Cardiorenal syndrome with renal failure: (3) Atrial fibrillation with RVR: (4) Presence of single chamber implantable cardioverter-defibrillator (ICD): 75-year-old man with longstanding severe cardiomyopathy who is demonstrating acute on chronic decline in functional status felt secondary to low output heart failure. Remarkably, he has never been hospitalized for heart failure in the past. He failed outpatient management with aggressive diuresis and actually became volume depleted. After receiving intravenous fluids, his volume status is uncertain presently. We will proceed with right heart cardiac catheterization (arranged with Dr. Sukhwinder Castellon) to evaluate central venous pressure and wedge pressure and determine potential role of diuretics. Very likely will proceed with inotropic support with dobutamine in hopes of improving his cardiorenal syndrome by increasing cardiac output and renal perfusion. Based on his echocardiogram and clinical history, suspect that his wedge pressure will be disproportionately increased versus his central venous pressure due to high pulmonary vascular resistance related to his significant underlying lung disease. Would discontinue his current IV fluids and base further hydration versus diuresis on findings at right heart cath. He initially had rapid ventricular response to his permanent atrial fibrillation, currently his rate is controlled but he likely will become tachycardic on dobutamine and his degree of inotropic versus beta-blockade will need to be titrated.As such, he may benefit from transfer to ICU for closer observation and titration of intravenous inotropic medications. Case discussed with Dr. Leavitt. History of Present Illness Reason for Consultation: Low output hear failure Requesting Physician: Wilfredo Leavitt MD Attending Physician: Wilfredo Leavitt MD History of Present Illness 75-year-old man with severe restrictive/obstructive pulmonary disease, longstanding cardiomyopathy (previous EF=35%, now 15-20% range), s/p recent ICD placement, and permanent atrial fibrillation (declines anticoagulation/on metoprolol), who was admitted 09/21/20 with acute on chronic decline in functional status believed secondary to low output heart failure. Please see office note of 09/21/2020 for further background as well as recent symptoms leading up to his current hospital admission. Briefly, patient noted increase in dyspnea and weight gain and was prescribed a more aggressive diuretic regimen, subsequently he did not improve but did lose a substantial amount of weight and had an increase in creatinine. On the day of admission, he was tachypneic and tachycardic and felt nauseous and very weak.In the emergency department, he received a liter of fluid, as well as additional fluid overnight. He feels much better this morning, was able to eat breakfast and no longer feels fatigued or dyspneic. He is able to lie flat. He denies any chest pain or subjective palpitations. His tachycardia resolved. Unfortunately, his creatinine has further increased (2.34 on 09/18, 3.35 yesterday, 3.76 today). Preliminary review of his echocardiogram this morning shows severely reduced systolic function (EF 15%) with normal right heart size. Mild mitral and aortic regurgitation. He had no specific somatic complaints at rest this morning. Allergies Allergy/AdvReac Type Severity Reaction Status Date / Time No Known Drug Allergies Allergy Unknown . Verified 09/21/20 16:31 Home Medications Medication Instructions Recorded Confirmed Type ergocalciferol (vitamin D2) 1,250 50,000 units PO WEEKLY #12 cap 12/14/18 09/21/20 History mcg (50,000 unit) capsule spironolactone 25 mg tablet 25 mg PO DAILY #30 tab 12/14/18 09/21/20 History atorvastatin 10 mg tablet 10 mg PO DAILY #90 tab 05/25/20 09/21/20 Rx pantoprazole 40 mg tablet,delayed 40 mg PO DAILY #30 tab 06/13/20 09/21/20 Rx release digoxin 125 mcg (0.125 mg) tablet 125 mcg PO Q2D tab 08/01/20 09/21/20 History bumetanide 2 mg tablet 2 mg PO DAILY #90 tab 08/30/20 09/21/20 Rx metoprolol succinate 50 mg 25 mg PO BID tab 09/19/20 09/21/20 History tablet,extended release 24 hr Patient History Medical History Aortic regurgitation Cardiomyopathy Now severe, echo Apr 2020 w/ EF=15-20% Chronic obstructive pulmonary disease Chronic renal insufficiency Dyslipidemia GERD (gastroesophageal reflux disease) Hyperglycemia Hypertension Mitral regurgitation MR (mitral regurgitation) Paroxysmal ventricular tachycardia Systolic CHF with reduced left ventricular function, NYHA class 3 Surgical History History of colonoscopy History of repair of rotator cuff Hx laparoscopic cholecystectomy (2016) Presence of single chamber implantable cardioverter-defibrillator (ICD) (07/2020) Family History Acute myocardial infarction Sister Leukemia Mother Social History Smoking Status: Former smoker Hx Alcohol Use: No Hx Substance Use: No Beliefs That Will Affect Care: None Current Living Situation: Spouse Other Information That Helps Us Care for You: No Feels Safe at Home: Yes Safety Concerns: Feels Safe At This Time Assistive Devices: None Physical Exam Physical Exam: Normal habitus elderly white male appears comfortable currently.l Afebrile. BP 91/57 mmHg. Pulse 88 bpm and irregular. Skin: No petechiae, ecchymoses, or generalized lesions. HEENT: Unremarkable. Neck: jugular venous pulse One third of the way to the angle of the jaw at 90 degrees, no carotid bruits. Chest: Left subclavian ICD site benign. Lungs: mildly decreased breath sounds With rare basilar crackles, no wheezing. Cardiac: irregular rhythm and increased pulmonic closure sound, 2/6 apical holosystolic murmur, no diastolic murmur. Abdomen: Nondistended and nontender. Extremities: No edema, pulses intact. Neurologic: Normal conversation and affect, grossly nonfocal. Results & Data ([facility]) Vital Signs (Past 12 Hours) Vital Signs Temp Pulse Resp BP Pulse Ox 09/22/20 07:22 98.1 F 78 18 91/57 L 96 09/22/20 04:09 98.1 F 90 21 116/72 90 09/21/20 23:26 98.1 F 90 27 H 116/72 90 Laboratory Results Hemoglobin 12.3 with white count 8.9, normal platelet count. Normal electrolytes, BUN 70, creatinine 3.76 (63/3.35 yesterday). Magnesium 2.3. Troponin 0 0.614 and 0.528. BNP on admission was 25,825. Diagnostic Findings Chest x-ray showed no radiographic evidence of CHF, there are trace pleural effusions. ECG showed atrial fibrillation with right bundle branch block, possible lateral and inferior infarcts. Compared with 2017 ECG, borderline criteria for lateral infarct now present, T wave inversion no longer evident in lateral leads. PG Care Time/CCT Total # of Minutes Spent Total Time Spent with Patient: Total time spent is greater than 50% in coordination of care (as documented) at patient's floor/unit and/or counseling patient: Coding Level of Care Code 80700 Initial Inpt Care Lvl 3 Diagnoses Low output heart failure I50.9 Cardiorenal syndrome with renal failure I13.10 Atrial fibrillation with RVR I48.91 Presence of single chamber implantable cardioverter-defibrillator (ICD) Z95.810 Time Spent (min) 80
[2020-09-22] MEDS ORDERED: DOBUTamine 500MG / 250ML D5W (CATH LAB USE ONLY) ONE (10:39)
--- NOTE | 2020-09-22 11:17 | Cardiac Catheterization ---
[facility] Data: [employer] Cardiac Status Clinical evaluation leading to the procedure CAD Presenation: Sx unlikely to be ischemic Anginal Classification: No Symptoms Heart Failure: NYHA Class: CCS IV Cardiogenic Shock within 24 Hours: Yes Cardiac Arrest within 24 Hours: No Imaging Studies Past 6 Months: Yes Stress Studies Past 6 Months: No Diagnostic Physicians Name: Selvin Castellon MD Status: Elective Closure Device Percutaneous Entry Location: Antecubital vein Closure Device: None-Manual Hold Recommendations: Medical Therapy and/or Counseling Intraprocedure Events Significant Disection: No Perforation: No Cardiac Cath Procedure Full Procedure Date September 22, 2020 Pre-Procedure Diagnosis Pre-Procedure Diagnosis: CHF AUC Score AUC Score: 7 Post-Procedure Diagnosis Post-Procedure Diagnosis: Decreased LV Systolic Function and Elevated Intracardiac Pressures Procedure(s) Performed Procedure(s) Performed: Right Heart Cath and Ultrasound Guided Vascular Access Gameplay Programmer Selvin Castellon MD Clinical Pharmacy Specialist(s) Everardo Estimated Blood Loss Estimated Blood Loss: < 5 Medication(s) Medication(s): Lidocaine 1% Medication(s): Dobutamine Summary of Findings Right heart catheterization Indication: Low output heart failure, cardiorenal syndrome Procedure: Right antecubital vein access obtained under ultrasound guidance, 6 Fr sheath placed 6Fr [place] navigated into pulmonary artery under fluoroscopic guidance Findings: RA 16 RV 59/16 PA 64/36 (47) PCW 41 PaSat 36% AoSat 93% on 2L by pulse ox Aniket CO/CI 2.2/1.2 Thermo CO/CI 1.8/1.0 Started on dobutamine. No significant change to PA sat after 5 minutes. Summary: 1. Low cardiac output 2. Severely elevated left-sided filling pressures 3. Elevated right-sided filling pressures 4. Severe pulmonary hypertension (postcapillary). Recommendations: Continue inotropes and resume diuretics per Dr. King Hemodynamics Rest Ao:: -- Final Ao: -- LV: -- Recommendations Recommendations: Medical Therapy and/or Counseling Specimens Specimens: None Radiation Exposure (mGy) 135 Contrast (mls) -- Fluids (cc crystalloids) Fluids (cc crystalloids): -- Drains Drains: -- Anesthesia -- Procedural Complication(s) None Disposition [employer] Holding/Recovery I attest to the content of the Intraoperative Record and any orders documented therein. Any exceptions are noted below. [facility] Card Cath Procedure Codes Cardiac Catheterization Procedure 1: Cardiovascular Cath Procedures: 99614 Right Heart Cath Procedure 2: Cardiovascular Cath Procedures: 69970 Pharmacologic agent admin & hemodynamics Therapeutic Services & Ancillary Proc Procedure 1: Cardiovascular Tx and Anc Procedures: 77605 Ultrasonic Guidance Vascular Access PG Care Time/CCT Total # of Minutes Spent Total Time Spent with Patient: Total time spent is greater than 50% in coordination of care (as documented) at patient's floor/unit and/or counseling patient:
--- NOTE | 2020-09-22 11:33 | Urology Consultation ---
Date of Consultation September 22, 2020 Assessment & Plan (1) Bladder wall thickening: (2) Bilateral renal cysts: 75yo M with a significant cardiac hx admitted with acute on chronic decline in functional status felt secondary to low output heart failure. - Hospital course, CT imaging, labs, and past medical hx reviewed. - Plan of care and imaging reviewed with Dr. Galdamez, on-call urologist. - Incidental finding on CTAP noted bilateral renal cysts concerning for neoplastic process and mild diffuse bladder wall thickening - He is afebrile. - Labs reviewed, Wbc stable and creatinine 3.76. - Urinalysis on admission not suggestive of infection. - History of Present Illness Reason for Consultation: b/l renal cysts concern for neoplastic process NIKHIL Attending Physician: Wilfredo Leavitt MD History of Present Illness 75yo M admitted with acute on chronic decline in functional status felt secondary to low output heart failure. Past medical history includes restrictive/obstructive pulmonary disease, longstanding cardiomyopathy, s/p recent ICD placement, and permanent atrial fibrillation The patient presented to [facility] ER for evaluation following an office visit with Dr. King given his complaints of worsening dyspnea over the past 3 days. This was very exertional and was also accompanied by significant orthopnea. He was instructed to go to the ER and was admitted for further evaluation. The patient underwent right cardiac cath on 09/[address] Castellon. Urology consulted for b/l renal cysts concern for neoplastic process found incidentally on CTAP. CTAP IMPRESSION: 1. Bilateral pleural effusion, cardiomegaly and pulmonary edema. 2. Mild fat stranding surrounding cecum, could represent normal variant or colitis. 3. Bilateral renal cysts, largest is seen on the right and associated with calcified septation. Evaluation is limited due to lack of IV contrast as well as beam hardening artifact. Wall calcifications and septation of the renal cystic lesions could BE sign of neoplastic process. Further evaluation with contrast- enhanced CT or MRI of the abdomen is suggested. 4. Mild diffuse thickening of urinary bladder wall which might be seen in cystitis or neoplastic process. Please correlate with prior history and urinalysis result. Urinalysis on admission negative blood, negative bacteria, negative nitrite. Afebrile, Wbc 8.51, Cr 3.35. Patient examined at beside this morning. Allergies Allergy/AdvReac Type Severity Reaction Status Date / Time No Known Drug Allergies Allergy Unknown . Verified 09/21/20 16:31 Home Medications Medication Instructions Recorded Confirmed Type ergocalciferol (vitamin D2) 1,250 50,000 units PO WEEKLY #12 cap 12/14/18 09/21/20 History mcg (50,000 unit) capsule spironolactone 25 mg tablet 25 mg PO DAILY #30 tab 12/14/18 09/21/20 History atorvastatin 10 mg tablet 10 mg PO DAILY #90 tab 05/25/20 09/21/20 Rx pantoprazole 40 mg tablet,delayed 40 mg PO DAILY #30 tab 06/13/20 09/21/20 Rx release digoxin 125 mcg (0.125 mg) tablet 125 mcg PO Q2D tab 08/01/20 09/21/20 History bumetanide 2 mg tablet 2 mg PO DAILY #90 tab 08/30/20 09/21/20 Rx metoprolol succinate 50 mg 25 mg PO BID tab 09/19/20 09/21/20 History tablet,extended release 24 hr Patient History Medical History Aortic regurgitation Cardiomyopathy Now severe, echo Apr 2020 w/ EF=15-20% Chronic obstructive pulmonary disease Chronic renal insufficiency Dyslipidemia GERD (gastroesophageal reflux disease) Hyperglycemia Hypertension Mitral regurgitation MR (mitral regurgitation) Paroxysmal ventricular tachycardia Systolic CHF with reduced left ventricular function, NYHA class 3 Surgical History History of colonoscopy History of repair of rotator cuff Hx laparoscopic cholecystectomy (2016) Presence of single chamber implantable cardioverter-defibrillator (ICD) (07/2020) Family History Mother Leukemia Sister Acute myocardial infarction Social History Smoking Status: Former smoker Hx Alcohol Use: No Hx Substance Use: No Beliefs That Will Affect Care: None Current Living Situation: Spouse Other Information That Helps Us Care for You: No Feels Safe at Home: Yes Safety Concerns: Feels Safe At This Time Assistive Devices: None Results & Data ([facility]) Vital Signs (Past 12 Hours) Vital Signs Temp Pulse Pulse Resp BP Pulse Ox Pulse Ox 09/22/20 10:15 37.1 C 82 91/66 L 92 09/22/20 08:41 96 09/22/20 07:54 87 09/22/20 07:22 36.7 C 78 18 91/57 L 96 09/22/20 04:09 36.7 C 90 21 116/72 90 09/21/20 23:26 36.7 C 90 27 H 116/72 90 PG Care Time/CCT Total # of Minutes Spent Total Time Spent with Patient: Total time spent is greater than 50% in coordination of care (as documented) at patient's floor/unit and/or counseling patient: Coding Diagnoses Bladder wall thickening N32.89 Bilateral renal cysts N28.1
[2020-09-22] MEDS ORDERED: STAT IV Infusion **Titration per Protocol STA (11:34)
[2020-09-22] MEDS ORDERED: FUROSEMIDE 80 MG in SYRINGE 0 ML IV ONE (11:34)
[2020-09-22 11:38] LABS: iSTAT Arterial Blood Gas HCO3 29 meg/L (19-24); iSTAT Arterial Blood Gas pCO2 60 mmHg (35-46); iSTAT Arterial Blood Gas pH 7.29 (7.35-7.45); iSTAT Arterial Blood Gas pO2 < 32 mmHg (80-95); iSTAT Carbon Dioxide 31 mmol/L (24-31)
[2020-09-22 11:38] LABS: iSTAT Arterial Blood Gas HCO3 27 meg/L (19-24); iSTAT Arterial Blood Gas pCO2 58 mmHg (35-46); iSTAT Arterial Blood Gas pH 7.28 (7.35-7.45); iSTAT Arterial Blood Gas pO2 < 32 mmHg (80-95); iSTAT Carbon Dioxide 29 mmol/L (24-31)
--- NOTE | 2020-09-22 12:08 | Nephrology Consultation ---
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 Recently diuretics dose was decreased as renal function is worsening and he was noted to have significant weight loss. Admitted to the hospital with 3 days history of worsening dyspnea, NIKHIL with creatinine 3.4, baseline creatinine 1.8-2.3. Creatinine worsened further to 3.8 this morning. Receive more than 2 L of IV fluid since admission and diuretics was on hold. Just had right heart catheterization showing Low cardiac output, Severely elevated left-sided filling pressures, Elevated right-sided filling pressures and Severe pulmonary hypertension. - continue on dobutamine, suggest starting on the Bumex 1 IV twice a day, increase dose as needed, aim for net -0.5 to 1 L per day --monitor renal function and electrolyte closely while on diuretic --has many risk factor for worsening renal function including severe pulmonary hypertension, cardiomyopathy with EF 15 and need for high-dose diuretics for elevated at right and left-sided filling pressure. Will follow Thank you for allowing me to participate in your patient's care. It was a pleasure to see Mr. Butler (2) Cardiorenal syndrome with renal failure: (3) Bilateral renal cysts: (4) ORTEGA (dyspnea on exertion): History of Present Illness Reason for Consultation: NIKHIL with advanced CKD. Attending Physician: Wilfredo Leavitt MD History of Present Illness Mr. 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 Nephrology consult requested for further management. EMR records are reviewed in detail during patient's visit. presented to ER yesterday with progressive worsening of dyspnea for 3 days which was worsening with minimum exertion. Also had an episode of near syncope at home. Has been noticing generalized weakness, nausea and poor p.o. intake but no vomiting. He was on Bumex 2 mg daily and spironolactone 25 mg at home, recently Bumex dose was decreased to 1 mg daily as he was noted to have significant weight loss and rise in creatinine. In ER he received 1 L of I V fluid bolus and additional overnight. Has longstanding history of severe restrictive/obstructive pulmonary disease with pulmonary hypertension, cardiomyopathy, EF 15-20% range s/p recent ICD placement, and permanent atrial fibrillation, declines anticoagulation/on metoprolol. Stage IV CKD secondary to cardiorenal syndrome baseline creatinine has been quite variable from 1.8-2.3. Creatinine was 3.4 yesterday which worsened further to 3.8 today. Electrolyte has been acceptable. Urinalysis with low- grade proteinuria but no hematuria pyuria. CT abdomen pelvis without contrast showed bilateral normal size kidney with cyst in both kidney and there is concern with 1 cyst in right kidney with septation and calcification inside as well as bladder wall thickening. Ex-smoker quit smoking more than 20 years ago, drinks alcohol rarely. Retired [employer] of [employer]. Overall he continues to feel somewhat fatigued but denies significant worsening of breathing. Allergies Allergy/AdvReac Type Severity Reaction Status Date / Time No Known Drug Allergies Allergy Unknown . Verified 09/21/20 16:31 Home Medications Medication Instructions Recorded Confirmed Type ergocalciferol (vitamin D2) 1,250 50,000 units PO WEEKLY #12 cap 12/14/18 09/21/20 History mcg (50,000 unit) capsule spironolactone 25 mg tablet 25 mg PO DAILY #30 tab 12/14/18 09/21/20 History atorvastatin 10 mg tablet 10 mg PO DAILY #90 tab 05/25/20 09/21/20 Rx pantoprazole 40 mg tablet,delayed 40 mg PO DAILY #30 tab 06/13/20 09/21/20 Rx release digoxin 125 mcg (0.125 mg) tablet 125 mcg PO Q2D tab 08/01/20 09/21/20 History bumetanide 2 mg tablet 2 mg PO DAILY #90 tab 08/30/20 09/21/20 Rx metoprolol succinate 50 mg 25 mg PO BID tab 09/19/20 09/21/20 History tablet,extended release 24 hr Patient History Medical History Aortic regurgitation Cardiomyopathy Now severe, echo Apr 2020 w/ EF=15-20% Chronic obstructive pulmonary disease Chronic renal insufficiency Dyslipidemia GERD (gastroesophageal reflux disease) Hyperglycemia Hypertension Mitral regurgitation MR (mitral regurgitation) Paroxysmal ventricular tachycardia Systolic CHF with reduced left ventricular function, NYHA class 3 Surgical History History of colonoscopy History of repair of rotator cuff Hx laparoscopic cholecystectomy (2017) Presence of single chamber implantable cardioverter-defibrillator (ICD) (07/2020) Family History Mother Leukemia Sister Acute myocardial infarction Social History Smoking Status: Former smoker Hx Alcohol Use: No Hx Substance Use: No Beliefs That Will Affect Care: None Current Living Situation: Spouse Other Information That Helps Us Care for You: No Feels Safe at Home: Yes Safety Concerns: Feels Safe At This Time Assistive Devices: None Review of Systems Review of Systems: All systems reviewed & are unremarkable except as noted in Subjective Physical Exam Constitutional: WD/WN, vitals as above + ill appearing; no acute distress Eyes: + anicteric sclerae ENMT: Ears: no hearing impairment Neck: normal visual inspection and trachea midline Respiratory: no cough Auscultation: no crackles, no rales and no wheezes Cardiovascular: Rate/Rhythm: + irregularly irregular Heart Sounds: normal S1 and normal S2 Vessels: + JVD Gastrointestinal (Abdomen): Inspection/Auscultation: normal bowel sounds Percussion/Palpation: abdomen nontender, no guarding and abdomen not rigid Musculoskeletal: Extremities: extremities normal to inspection Gait: normal gait Skin: no rashes, warm and dry Neurologic: moves all extremities and awake; no focal motor deficits and not confused Psychiatric: A+Ox3, euthymic affect Results & Data ([facility]) Vital Signs (Past 12 Hours) Vital Signs Temp Pulse Pulse Resp BP Pulse Ox Pulse Ox 09/22/20 11:58 36 C L 79 18 99/65 L 89 L 09/22/20 10:15 37.1 C 82 91/66 L 92 09/22/20 08:41 96 09/22/20 07:54 87 09/22/20 07:22 36.7 C 78 18 91/57 L 96 09/22/20 04:09 36.7 C 90 21 116/72 90 PG Care Time/CCT Total # of Minutes Spent Total Time Spent with Patient: Total time spent is greater than 50% in coordination of care (as documented) at patient's floor/unit and/or counseling patient: Coding Level of Care Code 98252 Initial Inpt Care Lvl 3 Diagnoses NIKHIL (acute kidney injury) N17.9 Cardiorenal syndrome with renal failure I13.10 Bilateral renal cysts N28.1 ORTEGA (dyspnea on exertion) R06.00
[2020-09-22] MEDS ORDERED: ICU PROTOCOL FOR HYPERGLYCEMIA PRN (12:09)
--- NOTE | 2020-09-22 13:01 | Hospitalist Progress Note ---
Date of Service September 22, 2020 Assessment & Plan (1) Goals of care, counseling/discussion: Extensive discussion regarding goals of care with the patient and his at bedside. Patient wishes to remain for full resuscitation at this time including CPR and intubation despite likely futility of such interventions in the setting of a nonshockable rhythm that his ICD does not fire. Declines palliative care at this time. His daughter who has a PhD in the biological sciences will be around next week and wishes to have a possible family discussion then regarding goals of care. (2) Heart failure: Acute on chronic heart failure with reduced ejection fraction Repeat echocardiogram similar to June 2016 with no significant change. LVEF 15 to 20%. Moderate mitral regurgitation. Moderate tricuspid regurgitation. Appreciate right heart cath by Dr. Castellon. Lasix 80 mg IV given after this and patient will be transferred to the ICU on dobutamine. (3) Low output heart failure: As above (4) Cardiorenal syndrome with renal failure: As above (5) NIKHIL (acute kidney injury): Intravenous fluids given overnight due to concern for overdiuresis, stopped this morning due to suspected cardiorenal syndrome with low output heart failure. Consult nephrology for alternative diagnosis r/o (6) Permanent atrial fibrillation: Patient was found to be tachycardic, likely secondary to volume depletion as previously described Heart rate is now within normal limits. Remains in atrial fibrillation, rate controlled on Toprol 50 mg daily Patient is previously refused anticoagulation as documented in cardiology is notes. (7) Adult failure to thrive: Patient has had significant weight loss over the past several months, likely secondary to his multiple ongoing medical issues Consider palliative care consultation as noted above for symptom management (8) Bladder wall thickening: Incidental CT findings. UA not suggestive of infection. Urine cytology sent to the given cardiorenal syndrome will defer any further work-up at this stage. Urology consult (9) Bilateral renal cysts: As above (10) Presence of single chamber implantable cardioverter-defibrillator (ICD): Noted (11) Gastritis: Continue pantoprazole 40 mg p.o. daily (12) A-fib: Consider full dose anticoagulation - historically has refused this per cardiology notes although patient was unaware of this today. Continue rate control with metoprolol and digoxin. Admission and Anticipated Discharge Date Admission Date: September 21, 2020 Subjective Patient with very severe onset sudden worsening dyspnea over the last 3 days. Feels much the same today, possibly slightly worse with IV fluids overnight. No chest pain with elevated troponin. No leg swelling, palpitations, orthopnea or PND. No fever, chills or cough. Discussed care with Dr King this morning and planning on right heart cath with Dr Castellon. Review of Systems Review of Systems: All systems reviewed & are unremarkable except as noted in HPI & below Physical Exam Constitutional: WD/WN, vitals as above Eyes: + anicteric sclerae Respiratory: normal respiratory effort and able to speak in complete sentences; no respiratory distress, no labored breathing and does not use accessory muscles Auscultation: + diminished lung sounds (bibasal); no crackles and no wheezes Cardiovascular: Rate/Rhythm: regular rate and + irregularly irregular Heart Sounds: + murmur (LUSB systolic 3/6) Vessels: + JVD Extremities: + abnormal capillary refill, no calf tenderness and no pedal edema Gastrointestinal (Abdomen): normal bowel sounds, soft, nontender, no hepatosplenomegaly Musculoskeletal: no cyanosis or clubbing, extremities motor strength 5/5 Skin: no rashes, warm and dry Neurologic: moves all extremities and awake; not confused Psychiatric: A+Ox3, euthymic affect Results & Data Results & Data ([facility]) Vital Signs (Past 12 Hours) Vital Signs Temp Pulse Pulse Resp BP Pulse Ox Pulse Ox 09/22/20 12:09 36 C L 93 H 18 99/65 L 89 L 09/22/20 11:58 36 C L 79 18 99/65 L 89 L 09/22/20 10:15 37.1 C 82 91/66 L 92 09/22/20 08:41 96 09/22/20 07:54 87 09/22/20 07:22 36.7 C 78 18 91/57 L 96 09/22/20 04:09 36.7 C 90 21 116/72 90 PG Care Time/CCT Total # of Minutes Spent Total Time Spent with Patient: Total time spent is greater than 50% in coordination of care (as documented) at patient's floor/unit and/or counseling patient: Coding Level of Care Code 10024 Subseq Hosp Care Lvl 3 Diagnoses Goals of care, counseling/discussion Z71.89 Heart failure I50.23 Heart failure chronicity: acute on chronic Heart failure type: systolic Low output heart failure I50.9 Cardiorenal syndrome with renal failure I13.10 NIKHIL (acute kidney injury) N17.9 Permanent atrial fibrillation I48.2 Adult failure to thrive R62.7 Bladder wall thickening N32.89 Bilateral renal cysts N28.1 Presence of single chamber implantable cardioverter-defibrillator (ICD) Z95.810 Gastritis K29.70 A-fib I48.91 Atrial fibrillation type: unspecified (1) Heart failure Heart failure chronicity: acute on chronic Heart failure type: systolic Qualified Code(s): I50.23 - Acute on chronic systolic (congestive) heart failure (2) A-fib Atrial fibrillation type: unspecified Qualified Code(s): I48.91 - Unspecified atrial fibrillation
--- NOTE | 2020-09-22 14:30 | XCELERA ---
[id number]
[2020-09-22] MEDS: DIGOXIN 0.125 MG TAB PO SCH (16:59)
--- NOTE | 2020-09-22 19:33 | Critical Care Consultation ---
Date of Consultation September 22, 2020 Assessment & Plan (1) Admitted to intensive care unit: Reason Critically Ill: 75-year-old male with low output heart failure in the setting of nonischemic cardiomyopathy with an EF of 15% presenting with cardiorenal syndrome requiring close hemodynamic monitoring with institution of inotropes and diuretic therapy. NEURO - * CAM ICU: NEGATIVE CARDIAC/VASCULAR - * Low output cardiac failure: * Cardiomyopathy w/ EF of 15% * Underwent diagnostic RIGHT sided cardiac cath today with the following findings - * Summary: 1. Low cardiac output 2. Severely elevated left-sided filling pressures 3. Elevated right-sided filling pressures 4. Severe pulmonary hypertension (postcapillary). * Patient started on Dobutamine gtt. * Received 80 mg IV Lasix intraprocedurally. * Per Nephrology recommendation, will start Bumex IV. Hopeful for appropriate diuresis, but will consider gtt if needed. * Patient already w/ ICD in place. * Concerning for end stage disease process. * Permanent A. Fib: * Patient take metoprolol daily. * Has previously refused increasing doses of metoprolol. * Additionally, has also refused anticoagulation. * Continue w/ Dig. * Monitor on telemetry. RESPIRATORY - * COPD/CHF: * Continue w/ NC O2 PRN * Additional pulmonary toilet as needed. GI/NUTRITION - * AHA diet * Prophylaxis: Pantoprazole RENAL/LYTES - * ARF: * Likely suggestive of cardiorenal syndrome 2/2 low output heart failure. * Degree of volume overload w/ current wt of 165 lbs. Per outpatient HF clinic, patient's recommended dry weight of 150 lbs. * Continue w/ diuresis. * Addition of inotropic Rx to hopefully improve forward flow and rental profusion. * Will place Jacobs catheter for strict I&Os. * Appreciate ongoing Nephrology recommendations. - * Jacobs in place - Strict I&Os. ENDO - * No h/o DM or Thyroid Dz * BSGs per unit protocol. ISS --> gtt per unit policy. HEME - * Stable H&H ID - * No concerns for infection at this time. LINES/IV ACCESS - * PIVs x2 * Jacobs DVT PROPHYLAXIS - * Heparin * SCDs CODE STATUS - * During initiation of conversation, patient began discussing his career/life accomplishments. He informs me that his children are planning on flying in to visit him next week. He is very aware of his ongoing medical conditions and does recognize the fragility of his current state. Per nursing staff, the patient was taking a number of phone calls and was "saying his goodbyes". * Despite all of this, and recognizing that cardiovascular collapse would be catastrophic given his baseline conditions, he is adamant that he would wish to remain a FULL CODE at this time. I have personally spent 45 minutes of critical care time in the direct management of this patient. This is a life/limb threatening event. This includes time spent evaluating patient, direct bedside care, chart review, placing orders, interpretation of diagnostic studies, discussion with consultants, patient, and family members, as well as other required patient management activities. This time is exclusive of all separately billable procedures, and teaching time and separate from and in addition to any other critical care service time. Thank you for allowing us to participate in the care of this patient. Please refer to my attending physician's documentation for any further recommendations. (2) Cardiorenal syndrome with renal failure: (3) Low output heart failure: (4) NIKHIL (acute kidney injury): (5) Presence of single chamber implantable cardioverter-defibrillator (ICD): History of Present Illness Attending Physician: Wilfredo Leavitt MD History of Present Illness Patient is a 75-year-old male with a significant past medical history of COPD, nonischemic cardiomyopathy status post AICD with EF of 15 to 20%, mitral re gurgitation, tricuspid regurgitation, hypertension, hyperlipidemia, chronic renal insufficiency, chronic systolic heart failure, permanent A. fib. Patient has been complaining of ongoing shortness of breath over the last several days. 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 He was directed to the emergency department where he was subsequently admitted. On initial assessment, the patient was noted to have an NIKHIL on CKD. He received IV fluids throughout the night. Patient was evaluated by cardiology and subsequently underwent right-sided heart cath today which demonstrated low cardiac output with severely elevated LEFT-sided filling pressures and elevated RIGHT-sided filling pressures as well. The patient was started on dobutamine drip and received 80 mg of IV Lasix. He was transferred to the ICU for ongoing management. Upon evaluation in the ICU, the patient is awake, alert, and oriented. Other than his worsening shortness of breath, the patient denies any other new symptoms. Particularly, the patient denies any headaches, blurry vision, double vision, slurred speech, facial droop, unilateral weakness/numbness, chest pain, palpitations, or abdominal pain. He has complained of nausea without vomiting recently and has had dizziness with change of position upon awakening in the morning. Allergies Allergy/AdvReac Type Severity Reaction Status Date / Time No Known Drug Allergies Allergy Unknown . Verified 09/21/20 16:31 Home Medications Medication Instructions Recorded Confirmed Type ergocalciferol (vitamin D2) 1,250 50,000 units PO WEEKLY #12 cap 12/14/18 09/21/20 History mcg (50,000 unit) capsule spironolactone 25 mg tablet 25 mg PO DAILY #30 tab 12/14/18 09/21/20 History atorvastatin 10 mg tablet 10 mg PO DAILY #90 tab 05/25/20 09/21/20 Rx pantoprazole 40 mg tablet,delayed 40 mg PO DAILY #30 tab 06/13/20 09/21/20 Rx release digoxin 125 mcg (0.125 mg) tablet 125 mcg PO Q2D tab 08/01/20 09/21/20 History bumetanide 2 mg tablet 2 mg PO DAILY #90 tab 08/30/20 09/21/20 Rx metoprolol succinate 50 mg 25 mg PO BID tab 09/19/20 09/21/20 History tablet,extended release 24 hr Patient History Medical History Aortic regurgitation Cardiomyopathy Now severe, echo Apr 2020 w/ EF=15-20% Chronic obstructive pulmonary disease Chronic renal insufficiency Dyslipidemia GERD (gastroesophageal reflux disease) Hyperglycemia Hypertension Mitral regurgitation MR (mitral regurgitation) Paroxysmal ventricular tachycardia Systolic CHF with reduced left ventricular function, NYHA class 3 Surgical History History of colonoscopy History of repair of rotator cuff Hx laparoscopic cholecystectomy (2016) Presence of single chamber implantable cardioverter-defibrillator (ICD) (07/2020) Family History Mother Leukemia Sister Acute myocardial infarction Social History Smoking Status: Former smoker Hx Alcohol Use: No Hx Substance Use: No Communication Ability: Effective Beliefs That Will Affect Care: None marital status: Current Living Situation: Spouse How many Children do You have: 2 Other Information That Helps Us Care for You: No Feels Safe at Home: Yes Safety Concerns: Feels Safe At This Time Assistive Devices: None Review of Systems Review of Systems: A complete 10 point review of systems was reviewed with the patient with pertinent positives and negatives as per history of present illness. All else were negative. Physical Exam Physical Exam: VITAL SIGNS - Vital signs and nursing notes were reviewed. GENERAL - 75-year-old male appearing his stated age who is in no acute distress. Communicates well with provider and answers questions appropriately. HEAD - NC/AT. EYES - PERRL with EOMI bilaterally. Sclera anicteric. EARS - No deformities of external structures noted on gross examination bilaterally. NOSE - Midline and without cyanosis. No epistaxis or purulent drainage noted. MOUTH/OROPHARYNX - Without perioral cyanosis. Buccal mucosa pink and moist and without leukoplakia. NECK - Neck with FROM. LUNGS - Chest wall symmetric without accessory muscle use, intercostals retractions, or central cyanosis. Normal vesicular breath sounds CTA B/L. No wheezes, rales, or rhonchi appreciated. CARDIAC - RRR with S1/S2. No murmur, rubs, or gallops appreciated. No reproducible tenderness to palpation appreciated over the anterior chest wall. ABDOMEN - Abdominal contour flat without pulsations or visible masses. BS normoactive all four quadrants. No tenderness, palpable masses, hepatosplenomegaly, or ascites noted. EXTREMITIES - No clubbing or peripheral cyanosis. No pretibial edema present. +3/5 radial and dorsalis pedis pulses palpated throughout. +5/5 strength noted in UE/LE bilaterally. NEUROLOGIC - Cranial nerves II through XII grossly intact. Sensory intact to light touch throughout. PSYCH - A&Ox3 and cooperates fully with examiner. Pt is very pleasant and interacts well with examiner. Results & Data Results & Data ([facility]) Vital Signs (Past 12 Hours) Vital Signs Temp Pulse Pulse Resp BP BP Pulse Ox 09/22/20 18:01 75 90/53 L 98 09/22/20 18:00 88 91 09/22/20 17:01 86 105/61 98 09/22/20 17:00 106 H 92 09/22/20 16:59 90 09/22/20 16:01 85 102/56 L 95 09/22/20 16:00 36.9 C 81 97 09/22/20 15:00 90 94/72 L 96 09/22/20 14:30 84 91 09/22/20 14:00 87 105/55 L 97 09/22/20 13:32 87 99/55 L 96 09/22/20 13:30 116 H 98 09/22/20 13:00 82 91/64 L 96 09/22/20 12:45 88 L 09/22/20 12:42 95 H 96/54 L 94 09/22/20 12:41 95 H 93/67 L 90 09/22/20 12:36 91 H 83 L 09/22/20 12:35 36.7 C 96 H 20 93/67 L 89 L 09/22/20 12:09 36 C L 93 H 18 99/65 L 89 L 09/22/20 11:58 36 C L 79 18 99/65 L 89 L 09/22/20 10:15 37.1 C 82 91/66 L 92 09/22/20 08:41 09/22/20 07:54 87 Pulse Ox 09/22/20 18:01 09/22/20 18:00 09/22/20 17:01 09/22/20 17:00 09/22/20 16:59 09/22/20 16:01 09/22/20 16:00 09/22/20 15:00 09/22/20 14:30 09/22/20 14:00 09/22/20 13:32 09/22/20 13:30 09/22/20 13:00 09/22/20 12:45 09/22/20 12:42 09/22/20 12:41 09/22/20 12:36 09/22/20 12:35 09/22/20 12:09 09/22/20 11:58 09/22/20 10:15 09/22/20 08:41 96 09/22/20 07:54 Coding Level of Care Code Critical Care 1st 30-74 mins Diagnoses Admitted to intensive care unit Z78.9 Cardiorenal syndrome with renal failure I13.10 Low output heart failure I50.9 NIKHIL (acute kidney injury) N17.9 Presence of single chamber implantable cardioverter-defibrillator (ICD) Z95.810 Time Spent (min) 45
[2020-09-23] MEDS ORDERED: BUMETANIDE 1 MG in SYRINGE 0 ML IV ONE (01:15)
[2020-09-23 05:21] LABS: Basophils # (auto) 0.02 K/uL (0-0.2); Basophils % (auto) 0.3 %; Eosinophils # (auto) 0.13 K/uL (0-0.5); Eosinophils % (auto) 1.7 %; Hematocrit (blood only) 33.3 % (42-52); Immature Granulocytes # (auto) 0.02 K/uL (0.00-0.02); Immature Granulocytes % (auto) 0.3 %; Lymphocytes # (auto) 1.37 K/uL (1.2-3.4); Lymphocytes % (auto) 17.7 %; Mean Corpuscular Hemoglobin 33.1 pg (25-34); Mean Corpuscular Volume 100.3 fL (80-100); Mean Platelet Volume 11.3 fL (7.4-10.4); Monocytes # (auto) 0.68 K/uL (0.11-0.59); Monocytes % (auto) 8.8 %; Neutrophils # (auto) 5.54 K/uL (1.4-6.5); Neutrophils % (auto) 71.2 %; Platelet Count 112 K/uL (130-400); RDW Coefficient of Variation 15.2 % (11.5-14.5); RDW Standard Deviation 54.2 fL (36.4-46.3); Red Blood Count 3.32 M/uL (4.7-6.1); White Blood Count 7.76 K/uL (4.8-10.8)
[2020-09-23 05:52] LABS: Albumin Level 3.2 gm/dl (3.4-5.0); BUN Creatinine Ratio 18.7 (10-20); Bilirubin Direct 0.6 mg/dl (0-0.2); Bilirubin,Total 1.7 mg/dl (0.2-1); Calcium 8.1 mg/dl (8.5-10.1); Creatinine Clr Calc Pharmacy 18.5 ml/min; Est GFR (African American) 19.2 ml/min; Est GFR (Non-African American) 16.6 ml/min; Magnesium 2.2 mg/dl (1.8-2.4); Phosphorus 4.1 mg/dl (2.5-4.9); Potassium 3.8 mmol/L (3.5-5.1); Total Protein 5.9 gm/dl (6.4-8.2)
[2020-09-23] MEDS: HEPARIN SOD 5,000 UNIT/0.5 ML VIAL SQ SCH ×2 (05:52→20:47)
[2020-09-23] MEDS ORDERED: POTASSIUM CHLORIDE CRTAB 20 MEQ TABCR PO STA ×2 (06:18→09:57)
--- NOTE | 2020-09-23 08:52 | Critical Care Progress Note ---
Date of Service September 23, 2020 Assessment & Plan (1) Admitted to intensive care unit: Reason Critically Ill: 75-year-old male with low output heart failure in the setting of nonischemic cardiomyopathy with an EF of 15% presenting with cardiorenal syndrome requiring close hemodynamic monitoring with institution of inotropes and diuretic therapy. NEURO - * CAM ICU: NEGATIVE CARDIAC/VASCULAR - * Low output cardiac failure: * Cardiomyopathy w/ EF of 15% * Underwent diagnostic RIGHT sided cardiac cath today with the following findings - * Summary: 1. Low cardiac output 2. Severely elevated left-sided filling pressures 3. Elevated right-sided filling pressures 4. Severe pulmonary hypertension (postcapillary). * Patient started on Dobutamine gtt. * Received 80 mg IV Lasix intraprocedurally. * Per Nephrology recommendation, will start Bumex IV. Hopeful for appropriate diuresis, but will consider gtt if needed. * Patient already w/ ICD in place. * Concerning for end stage disease process. * Permanent A. Fib: * Patient take metoprolol daily. * Has previously refused increasing doses of metoprolol. * Additionally, has also refused anticoagulation. * Continue w/ Dig. * Monitor on telemetry. RESPIRATORY - * COPD/CHF: * Continue w/ NC O2 PRN * Additional pulmonary toilet as needed. GI/NUTRITION - * AHA diet * Prophylaxis: Pantoprazole RENAL/LYTES - * ARF: * Likely suggestive of cardiorenal syndrome 2/2 low output heart failure. * Degree of volume overload w/ current wt of 165 lbs. Per outpatient HF clinic, patient's recommended dry weight of 150 lbs. * Continue w/ diuresis. * Addition of inotropic Rx to hopefully improve forward flow and rental profusion. * Will place Jacobs catheter for strict I&Os. * Appreciate ongoing Nephrology recommendations. - * Jacobs in place - Strict I&Os. ENDO - * No h/o DM or Thyroid Dz * BSGs per unit protocol. ISS --> gtt per unit policy. HEME - * Stable H&H ID - * No concerns for infection at this time. LINES/IV ACCESS - * PIVs x2 * Jacobs DVT PROPHYLAXIS - * Heparin * SCDs CODE STATUS - * FULL CODE at this time. (2) Cardiorenal syndrome with renal failure: (3) Low output heart failure: (4) NIKHIL (acute kidney injury): (5) Presence of single chamber implantable cardioverter-defibrillator (ICD): Admission and Anticipated Discharge Date Admission Date: September 21, 2020 Supervising Physician Co-Signing Physician Notes Patient was discussed with bedside nursing I have personally spent 35 minutes of critical care time in the direct management of this patient. This is a life/limb threatening event. This includes time spent evaluating patient, direct bedside care, chart review, placing orders, interpretation of diagnostic studies, discussion with consultants, patient, and/or family members regarding treatment decisions, as well as other required patient management activities. This time is exclusive of all separately billable procedures, and teaching time and separate from and in addition to any other critical care service time. Subjective Patient was resting comfortably in room. Denies chest pain or shortness of breath. Review of Systems Review of Systems: As per HPI otherwise negative Physical Exam Physical Exam: General: Alert. nontoxic. Skin: Warm, dry, Head: Atraumatic Ears, nose, mouth and throat: airway patent Cardiovascular: Normal peripheral perfusion: Bedside director cardiac reveals extrasystoles occasional runs of nonsustained ventricular tachycardia Respiratory: no respiratory distress, supplemental oxygen present Gastrointestinal: Non distended Musculoskeletal: No deformity Results & Data Results & Data ([facility]) Vital Signs (Past 12 Hours) Vital Signs Temp Pulse BP Pulse Ox Pulse Ox 09/23/20 06:30 36.4 C L 88 91 09/23/20 06:01 36.4 C L 93 H 94/60 L 86 L 09/23/20 06:00 36.4 C L 81 90 09/23/20 05:30 36.3 C L 115 H 93 09/23/20 05:00 36.3 C L 83 96/58 L 95 09/23/20 04:30 36.4 C L 78 96 09/23/20 04:00 36.4 C L 85 107/64 94 09/23/20 03:30 36.3 C L 89 94 09/23/20 03:00 36.3 C L 89 99/69 L 93 09/23/20 02:30 36.4 C L 84 95 09/23/20 02:00 36.4 C L 86 101/60 98 09/23/20 01:30 36.4 C L 77 95 09/23/20 01:01 36.4 C L 92 H 101/54 L 94 09/23/20 01:00 36.4 C L 81 95 09/23/20 00:30 36.4 C L 94 H 95 09/23/20 00:00 36.6 C 76 86/65 L 95 09/22/20 23:30 36.6 C 81 95 09/22/20 23:16 95 09/22/20 23:02 36.8 C 86 91 09/22/20 23:01 36.8 C 65 94/53 L 96 09/22/20 23:00 36.8 C 80 96 09/22/20 22:30 36.8 C 81 95 09/22/20 22:00 36.8 C 86 97/61 L 97 09/22/20 21:30 36.7 C 95 H 94 09/22/20 21:00 36.6 C 86 80/60 L 94 Laboratory Results 09/23/20 09/23/20 09/22/20 Range/Units 05:10 05:10 13:41 WBC 7.76 (4.8-10.8) K/uL RBC 3.32 L (4.7-6.1) M/uL Hgb 11.0 L (14.0-18.0) g/dL Hct 33.3 L (42-52) % MCV 100.3 H (80-100) fL MCH 33.1 (25-34) pg MCHC 33.0 (32-36) g/dL RDW Std Deviation 54.2 H (36.4-46.3) fL RDW Coeff of Gaby 15.2 H (11.5-14.5) % Plt Count 112 L (130-400) K/uL MPV 11.3 H (7.4-10.4) fL Immature Gran % (Auto) 0.3 % Neut % (Auto) 71.2 % Lymph % (Auto) 17.7 % Owsley % (Auto) 8.8 % Eos % (Auto) 1.7 % Baso % (Auto) 0.3 % Neut # (Auto) 5.54 (1.4-6.5) K/uL Lymph # (Auto) 1.37 (1.2-3.4) K/uL Owsley # (Auto) 0.68 H (0.11-0.59) K/uL Eos # (Auto) 0.13 (0-0.5) K/uL Baso # (Auto) 0.02 (0-0.2) K/uL Immature Gran # (Auto) 0.02 (0.00-0.02) K/uL POC pH (7.35-7.45) POC pCO2 (35-46) mmHg POC pO2 (80-95) mmHg POC HCO3 (19-24) isaac/L POC Total CO2 (24-31) mmol/L POC Base Excess (-9-1.8) isaac/L POC ABG O2 Sat (90-95) % Sodium 140 (136-145) mmol/L Potassium 3.8 D (3.5-5.1) mmol/L Chloride 106 (98-107) mmol/L Carbon Dioxide 30 (21-32) mmol/L Anion Gap 4.0 (3-11) BUN 64 H (7-18) mg/dl Creatinine 3.40 H D (0.6-1.4) mg/dl Est Cr Clr Drug Dosing 18.5 ml/min Est GFR ( Amer) 19.2 ml/min Est GFR (Non-Af Amer) 16.6 ml/min BUN/Creatinine Ratio 18.7 (10-20) Glucose 89 (70-99) mg/dl Calcium 8.1 L (8.5-10.1) mg/dl Phosphorus 4.1 (2.5-4.9) mg/dl Magnesium 2.2 (1.8-2.4) mg/dl Total Bilirubin 1.7 H (0.2-1) mg/dl Direct Bilirubin 0.6 H (0-0.2) mg/dl AST 151 H (15-37) U/L ALT 182 H (12-78) U/L Alkaline Phosphatase 127 H (45-117) U/L Total Protein 5.9 L (6.4-8.2) gm/dl Albumin 3.2 L (3.4-5.0) gm/dl Nasal Screen MRSA (PCR) Negative (Negative) 09/22/20 09/22/20 Range/Units 11:19 11:05 WBC (4.8-10.8) K/uL RBC (4.7-6.1) M/uL Hgb (14.0-18.0) g/dL Hct (42-52) % MCV (80-100) fL MCH (25-34) pg MCHC (32-36) g/dL RDW Std Deviation (36.4-46.3) fL RDW Coeff of Gaby (11.5-14.5) % Plt Count (130-400) K/uL MPV (7.4-10.4) fL Immature Gran % (Auto) % Neut % (Auto) % Lymph % (Auto) % Owsley % (Auto) % Eos % (Auto) % Baso % (Auto) % Neut # (Auto) (1.4-6.5) K/uL Lymph # (Auto) (1.2-3.4) K/uL Owsley # (Auto) (0.11-0.59) K/uL Eos # (Auto) (0-0.5) K/uL Baso # (Auto) (0-0.2) K/uL Immature Gran # (Auto) (0.00-0.02) K/uL POC pH 7.29 L 7.28 L (7.35-7.45) POC pCO2 60 H 58 H (35-46) mmHg POC pO2 < 32 L < 32 L (80-95) mmHg POC HCO3 29 H 27 H (19-24) isaac/L POC Total CO2 31 29 (24-31) mmol/L POC Base Excess 2.0 H 0.0 (-9-1.8) isaac/L POC ABG O2 Sat 34.0 L 36.0 L (90-95) % Sodium (136-145) mmol/L Potassium (3.5-5.1) mmol/L Chloride (98-107) mmol/L Carbon Dioxide (21-32) mmol/L Anion Gap (3-11) BUN (7-18) mg/dl Creatinine (0.6-1.4) mg/dl Est Cr Clr Drug Dosing ml/min Est GFR ( Amer) ml/min Est GFR (Non-Af Amer) ml/min BUN/Creatinine Ratio (10-20) Glucose (70-99) mg/dl Calcium (8.5-10.1) mg/dl Phosphorus (2.5-4.9) mg/dl Magnesium (1.8-2.4) mg/dl Total Bilirubin (0.2-1) mg/dl Direct Bilirubin (0-0.2) mg/dl AST (15-37) U/L ALT (12-78) U/L Alkaline Phosphatase (45-117) U/L Total Protein (6.4-8.2) gm/dl Albumin (3.4-5.0) gm/dl Nasal Screen MRSA (PCR) (Negative) Coding Level of Care Code Critical Care 1st 30-74 mins Diagnoses Admitted to intensive care unit Z78.9 Cardiorenal syndrome with renal failure I13.10 Low output heart failure I50.9 NIKHIL (acute kidney injury) N17.9 Presence of single chamber implantable cardioverter-defibrillator (ICD) Z95.810
[2020-09-23] MEDS ORDERED: BUMETANIDE 0.5 MG in DEXTROSE 5% 10 ML IV SCH (09:00)
[2020-09-23] MEDS ORDERED: BUMETANIDE 1 MG in SYRINGE 0 ML IV SCH (09:00)
--- NOTE | 2020-09-23 09:13 | XRay Report ---
XR chest 1V portable CLINICAL HISTORY: f/u COMPARISON STUDY: Chest radiograph September 21, 2020. FINDINGS: Right hilar prominence is unchanged from earlier exams. Small right pleural effusion is not ed. Interstitial thickening and bilateral opacities, greater on the right, have increased since prior exam of September 21, 2020. Cardiomegaly is unchanged. Left pacer/AICD is in place. There is no pneumothor ax. IMPRESSION: 1. Increase in interstitial thickening and airspace opacities, greater within the right lung. The fin dings favor asymmetric pulmonary edema. A superimposed infectious process within the right lung canno t be excluded. 2. Small right pleural effusion. ACT 112: Negative or not required by law. Electronically signed by: Sky Stevenson M.D. 09/23/2020 9:12 AM
[2020-09-23 09:42] LABS: Base Excess VBG 4.8 mEq/L; pH VBG 7.35 (7.36-7.41)
[2020-09-23] MEDS: BUMETANIDE 10 MG in DEXTROSE 5% 10 ML IV SCH (09:58)
[2020-09-23] MEDS: METOPROLOL SUCC 25MG EXT REL TAB PO SCH ×2 (09:59→20:48)
[2020-09-23] MEDS: ATORVASTATIN 10 MG TAB PO SCH (09:59)
[2020-09-23] MEDS: PANTOprazole 40 MG TAB PO SCH (09:59)
--- NOTE | 2020-09-23 11:52 | Nephrology Progress Note ---
Date of Service September 23, 2020 Assessment & Plan (1) NIKHIL (acute kidney injury): Acute cardiorenal syndrome. Non-oliguric. Kidney function stable. Electrolytes acceptable. Improvement in volume status noted. No emergent indication for dialysis. Document strict I/O's. Continue diuresis. Monitor metabolic profile q 12 hours while on Bumex gtt. Remains on dobutamine gtt. (2) Cardiorenal syndrome with renal failure: Plan of care reviewed with ICU team. Cardiology following. (3) Bilateral renal cysts: CT reviewed. Urology consult pending. (4) Bladder wall thickening: Urine microscopy acellular. Urology consult pending. (5) Chronic kidney disease: CKD IV with baseline creatinine 1.8-2.3 mg/dL. Medications appropriately dosed fo kidney function. Goals of care reviewed this AM. Admission and Anticipated Discharge Date Admission Date: September 21, 2020 Subjective No acute events overnight. Overall, Unal reports improvement in breathing. He was able to sleep last night for the first time in several days. He is feeling rested. Appetite fair. Adequate urine output. No chest pain. Review of Systems Review of Systems: All systems reviewed & are unremarkable except as noted in HPI & below Physical Exam Constitutional: well developed; no acute distress Eyes: no scleral abnormality and no corneal abnormality ENMT: Mouth: no oral mucosal abnormality and oral mucous membranes not dry Neck: normal visual inspection and trachea midline Respiratory: normal respiratory effort Auscultation: lungs clear to auscultation bilaterally Cardiovascular: Rate/Rhythm: + irregularly irregular Heart Sounds: normal S1, normal S2 and + murmur Vessels: + JVD Extremities: no edema Musculoskeletal: Extremities: no cyanosis and no clubbing Skin: normal turgor; no lesions Neurologic: Motor/Sensory: no tremor and no asterixis Psychiatric: Orientation: alert and oriented x 3 Results & Data ([facility]) Vital Signs (Past 12 Hours) Vital Signs Temp Pulse Resp BP Pulse Ox 09/23/20 11:01 36.4 C L 119 H 22 93/67 L 92 09/23/20 10:01 36.3 C L 90 106/45 L 94 09/23/20 10:00 36.3 C L 91 09/23/20 09:01 36.4 C L 90 107/55 L 97 09/23/20 08:00 36.3 C L 84 112/74 94 09/23/20 07:00 36.3 C L 89 104/62 93 09/23/20 06:30 36.4 C L 88 91 09/23/20 06:01 36.4 C L 93 H 94/60 L 86 L 09/23/20 06:00 36.4 C L 81 90 09/23/20 05:30 36.3 C L 115 H 93 09/23/20 05:00 36.3 C L 83 96/58 L 95 09/23/20 04:30 36.4 C L 78 96 09/23/20 04:00 36.4 C L 85 107/64 94 09/23/20 03:30 36.3 C L 89 94 09/23/20 03:00 36.3 C L 89 99/69 L 93 09/23/20 02:30 36.4 C L 84 95 09/23/20 02:00 36.4 C L 86 101/60 98 09/23/20 01:30 36.4 C L 77 95 09/23/20 01:01 36.4 C L 92 H 101/54 L 94 09/23/20 01:00 36.4 C L 81 95 09/23/20 00:30 36.4 C L 94 H 95 09/23/20 00:00 36.6 C 76 86/65 L 95 Laboratory Results Laboratory Results - last 24 hr 09/22/20 09/23/20 09/23/20 13:41 05:10 05:10 WBC 7.76 RBC 3.32 L Hgb 11.0 L Hct 33.3 L MCV 100.3 H MCH 33.1 MCHC 33.0 RDW Std Deviation 54.2 H RDW Coeff of Gaby 15.2 H Plt Count 112 L MPV 11.3 H Immature Gran % (Auto) 0.3 Neut % (Auto) 71.2 Lymph % (Auto) 17.7 Barren % (Auto) 8.8 Eos % (Auto) 1.7 Baso % (Auto) 0.3 Neut # (Auto) 5.54 Lymph # (Auto) 1.37 Barren # (Auto) 0.68 H Eos # (Auto) 0.13 Baso # (Auto) 0.02 Immature Gran # (Auto) 0.02 VBG pH VBG pCO2 VBG pO2 VBG HCO3 VBG O2 Saturation VBG Base Excess Barometric Pressure Sodium 140 Potassium 3.8 D Chloride 106 Carbon Dioxide 30 Anion Gap 4.0 BUN 64 H Creatinine 3.40 H D Est Cr Clr Drug Dosing 18.5 Est GFR ( Amer) 19.2 Est GFR (Non-Af Amer) 16.6 BUN/Creatinine Ratio 18.7 Glucose 89 Lactate Calcium 8.1 L Phosphorus 4.1 Magnesium 2.2 Total Bilirubin 1.7 H Direct Bilirubin 0.6 H AST 151 H ALT 182 H Alkaline Phosphatase 127 H Total Protein 5.9 L Albumin 3.2 L Nasal Screen MRSA (PCR) Negative 09/23/20 09/23/20 09:31 09:31 WBC RBC Hgb Hct MCV MCH MCHC RDW Std Deviation RDW Coeff of Gaby Plt Count MPV Immature Gran % (Auto) Neut % (Auto) Lymph % (Auto) Barren % (Auto) Eos % (Auto) Baso % (Auto) Neut # (Auto) Lymph # (Auto) Barren # (Auto) Eos # (Auto) Baso # (Auto) Immature Gran # (Auto) VBG pH 7.35 L VBG pCO2 59 H VBG pO2 56 VBG HCO3 32 VBG O2 Saturation 85.0 VBG Base Excess 4.8 Barometric Pressure 730.5 Sodium Potassium Chloride Carbon Dioxide Anion Gap BUN Creatinine Est Cr Clr Drug Dosing Est GFR ( Amer) Est GFR (Non-Af Amer) BUN/Creatinine Ratio Glucose Lactate 0.8 Calcium Phosphorus Magnesium Total Bilirubin Direct Bilirubin AST ALT Alkaline Phosphatase Total Protein Albumin Nasal Screen MRSA (PCR) PG Care Time/CCT Total # of Minutes Spent Total Time Spent with Patient: Total time spent is greater than 50% in coordination of care (as documented) at patient's floor/unit and/or counseling patient: Coding Level of Care Code 10743 Subseq Hosp Care Lvl 3 Diagnoses NIKHIL (acute kidney injury) N17.9 Cardiorenal syndrome with renal failure I13.10 Bilateral renal cysts N28.1 Bladder wall thickening N32.89 Chronic kidney disease N18.9
--- NOTE | 2020-09-23 13:04 | Cardiology Progress Note ---
Date of Service He is awake and alert this morning. He denies any chest pain chest pressure chest heaviness he notes that his shortness of breath is improving. He thinks his abdominal distention is improving as well as his appetite. He has no lower extremity edema. He notes he is sleeping better the last night or 2. He denies any palpitations or fluttering. He denies any orthostatic symptoms or dizziness with a systolic blood pressure in the high 80s and low 90s. HEENT markedly reduced carotid upstrokes Lungs: Decreased breath sounds in the bases bilaterally Heart: Irregular rate and rhythm no appreciable murmurs Abdomen: Soft distended positive bowel sounds nontender Extremities: No clubbing cyanosis or edema Psychiatric his affect appeared appropriate September 23, 2020 Assessment & Plan Admission and Anticipated Discharge Date Admission Date: September 21, 2020 Subjective Assessment & Plan (1) Low output heart failure: (2) Cardiorenal syndrome with renal failure: (3) Atrial fibrillation with RVR: (4) Presence of single chamber implantable cardioverter-defibrillator (ICD): His case was discussed with the ICU team and Dr. Schultz. I would continue with the Bumex drip and dobutamine at this point. His renal function slowly improving with improved forward flow. His elevated liver enzymes Are elevated secondary to hepatic congestion. Long-term his only option would be to consider advanced heart failure therapy. He has not a candidate for transplant given his renal function and his age. I discussed and one option would be to consider an LVAD but after reviewing his most recent echocardiogram he has severe RV dysfunction as well and we know in patients with severe RV dysfunction they cannot fill the left ventricle and therefore the LVAD cannot adequately provide enough cardiac output. I would leave his only option as a BiVAD. I discussed that if you would want to consider advanced heart failure therapy we could transfer him to [facility]. I did discuss an LVAD with him we discussed the risks and benefits as well as complications including infection and bleeding and stroke as well as the fact that he would either need to be hooked up to a home device or be on battery power when he is not hooked up to his home device. He would like some information to read about. Otherwise I did make any changes to his medical regiment Results & Data ([facility]) Vital Signs (Past 12 Hours) Vital Signs Temp Pulse Resp BP Pulse Ox 09/23/20 12:27 36.6 C 76 18 89/49 L 96 09/23/20 11:01 36.4 C L 119 H 22 93/67 L 92 09/23/20 10:01 36.3 C L 90 106/45 L 94 09/23/20 10:00 36.3 C L 91 09/23/20 09:01 36.4 C L 90 107/55 L 97 09/23/20 08:00 36.3 C L 84 112/74 94 09/23/20 07:00 36.3 C L 89 104/62 93 09/23/20 06:30 36.4 C L 88 91 09/23/20 06:01 36.4 C L 93 H 94/60 L 86 L 09/23/20 06:00 36.4 C L 81 90 09/23/20 05:30 36.3 C L 115 H 93 09/23/20 05:00 36.3 C L 83 96/58 L 95 09/23/20 04:30 36.4 C L 78 96 09/23/20 04:00 36.4 C L 85 107/64 94 09/23/20 03:30 36.3 C L 89 94 09/23/20 03:00 36.3 C L 89 99/69 L 93 09/23/20 02:30 36.4 C L 84 95 09/23/20 02:00 36.4 C L 86 101/60 98 09/23/20 01:30 36.4 C L 77 95 09/23/20 01:01 36.4 C L 92 H 101/54 L 94 09/23/20 01:00 36.4 C L 81 95
[2020-09-23 16:57] LABS: Base Excess VBG 5.2 mEq/L; Oxygen Saturation VBG 88.4 %; pH VBG 7.36 (7.36-7.41)
[2020-09-23 17:31] LABS: BUN Creatinine Ratio 18.8 (10-20); Calcium 8.1 mg/dl (8.5-10.1); Creatinine Clr Calc Pharmacy 20.3 ml/min; Est GFR (African American) 21.6 ml/min; Est GFR (Non-African American) 18.6 ml/min; Potassium 3.8 mmol/L (3.5-5.1)
--- NOTE | 2020-09-23 18:52 | Hospitalist Progress Note ---
Date of Service September 23, 2020 Assessment & Plan (1) Acute on chronic systolic heart failure: severely depressed EF - 15%. s/p right heart cath yesterday with results noted (elevated L & R sided pressures, etc). continue dobutamine infusion. continue bumex infusion. currently net negative for the day and weight is trending down. volume status for certain improving. continue metoprolol succinate. not a candidate for NOEL, ARB or entresto due to low BP and acute renal failure. (2) Cardiomyopathy: EF 15-25%. as above in systolic CHF. (3) Cardiorenal syndrome with renal failure: As above NIKHIL/ARF hopefully will improve with dobutamine infusion and time daily BMP (4) NIKHIL (acute kidney injury): 2nd to severe systolic CHF/low-flow cardiac state/prerenal. hopeful for slow improvement with creatinine with dobutamine and time. (5) Permanent atrial fibrillation: Continue digoxin + beta jordana for rate control. Recent digoxin level wnl. Rates acceptable while on dobutamine. Strongly consider anticoagulation. (6) Adult failure to thrive: 2nd to advanced cardiac disease? other? (7) Bladder wall thickening: Incidental CT finding. No active UTI. Urine cytology pending. (8) Bilateral renal cysts: Noted Urology consult completed; nothing to do at this time daily BMP (9) Presence of single chamber implantable cardioverter-defibrillator (ICD): Noted (10) Gastritis: Continue pantoprazole 40 mg p.o. daily (11) Macrocytic anemia: check b12, folate, and TSH this admission (12) Thrombocytopenia: in light of macrocytic anemia - check b12/folate/TSH to start (13) DVT prophylaxis: heparin - change from TID dosing to BID dosing given impaired renal function care d/w Liss Del Rosario & Hermelindo Admission and Anticipated Discharge Date Admission Date: September 21, 2020 Subjective pt's breathing is improved from admission although he has done minimal activity while in ICU no cough no dyspnea at rest no chest pain no abd pain very pleasant, no distress eating ok tele - a.fib, rates low 100s Review of Systems Constitutional: no fever and no chills Respiratory: no cough and no pain on inspiration Cardiovascular: no chest pain and no edema Gastrointestinal: no abdominal pain, no nausea and no vomiting Physical Exam Constitutional: no acute distress and no altered mental status ENMT: external ear and nose normal, oropharynx normal Respiratory: Auscultation: + diminished lung sounds (bases) and + rales (soft, bases ) Cardiovascular: Rate/Rhythm: + tachycardic and + irregularly irregular Heart Sounds: normal S1, normal S2 and + murmur (1/6 systolic LLSB) Vessels: + JVD (mild), posterior tibial pulses present and dorsalis pedis pulses present Extremities: no edema Gastrointestinal (Abdomen): normal bowel sounds, soft, nontender, no hepatosplenomegaly (+hepatojugular reflex ) Psychiatric: A+Ox3, euthymic affect Results & Data Results & Data ([facility]) Vital Signs (Past 12 Hours) Vital Signs Temp Pulse Resp BP Pulse Ox 09/23/20 18:00 36.9 C 99 H 20 105/83 98 09/23/20 17:01 36.9 C 112 H 21 95/81 L 95 09/23/20 16:11 36.9 C 104 H 20 108/61 94 09/23/20 16:00 36.8 C 99 H 96 09/23/20 15:00 36.8 C 81 25 H 93/70 L 95 09/23/20 14:01 36.8 C 99 H 20 101/63 94 09/23/20 13:01 36.6 C 101 H 99/60 L 96 09/23/20 12:27 36.6 C 76 18 89/49 L 96 09/23/20 11:01 36.4 C L 119 H 22 93/67 L 92 09/23/20 10:01 36.3 C L 90 106/45 L 94 09/23/20 10:00 36.3 C L 91 09/23/20 09:01 36.4 C L 90 107/55 L 97 09/23/20 08:00 36.3 C L 84 112/74 94 09/23/20 07:00 36.3 C L 89 104/62 93 Laboratory Results Laboratory Results - last 24 hr 09/23/20 09/23/20 09/23/20 05:10 05:10 09:31 WBC 7.76 RBC 3.32 L Hgb 11.0 L Hct 33.3 L MCV 100.3 H MCH 33.1 MCHC 33.0 RDW Std Deviation 54.2 H RDW Coeff of Gaby 15.2 H Plt Count 112 L MPV 11.3 H Immature Gran % (Auto) 0.3 Neut % (Auto) 71.2 Lymph % (Auto) 17.7 [place] % (Auto) 8.8 Eos % (Auto) 1.7 Baso % (Auto) 0.3 Neut # (Auto) 5.54 Lymph # (Auto) 1.37 [place] # (Auto) 0.68 H Eos # (Auto) 0.13 Baso # (Auto) 0.02 Immature Gran # (Auto) 0.02 VBG pH 7.35 L VBG pCO2 59 H VBG pO2 56 VBG HCO3 32 VBG O2 Saturation 85.0 VBG Base Excess 4.8 Barometric Pressure 730.5 Sodium 140 Potassium 3.8 D Chloride 106 Carbon Dioxide 30 Anion Gap 4.0 BUN 64 H Creatinine 3.40 H D Est Cr Clr Drug Dosing 18.5 Est GFR ( Amer) 19.2 Est GFR (Non-Af Amer) 16.6 BUN/Creatinine Ratio 18.7 Glucose 89 Lactate Calcium 8.1 L Phosphorus 4.1 Magnesium 2.2 Total Bilirubin 1.7 H Direct Bilirubin 0.6 H AST 151 H ALT 182 H Alkaline Phosphatase 127 H Total Protein 5.9 L Albumin 3.2 L 09/23/20 09/23/20 09/23/20 09:31 16:39 16:39 WBC RBC Hgb Hct MCV MCH MCHC RDW Std Deviation RDW Coeff of Gaby Plt Count MPV Immature Gran % (Auto) Neut % (Auto) Lymph % (Auto) [place] % (Auto) Eos % (Auto) Baso % (Auto) Neut # (Auto) Lymph # (Auto) [place] # (Auto) Eos # (Auto) Baso # (Auto) Immature Gran # (Auto) VBG pH 7.36 VBG pCO2 58 H VBG pO2 57 VBG HCO3 32 VBG O2 Saturation 88.4 VBG Base Excess 5.2 Barometric Pressure 733.8 Sodium 140 Potassium 3.8 Chloride 106 Carbon Dioxide 32 Anion Gap 2.0 L BUN 58 H Creatinine 3.09 H D Est Cr Clr Drug Dosing 20.3 Est GFR ( Amer) 21.6 Est GFR (Non-Af Amer) 18.6 BUN/Creatinine Ratio 18.8 Glucose 122 H Lactate 0.8 Calcium 8.1 L Phosphorus Magnesium Total Bilirubin Direct Bilirubin AST ALT Alkaline Phosphatase Total Protein Albumin 09/23/20 16:39 WBC RBC Hgb Hct MCV MCH MCHC RDW Std Deviation RDW Coeff of Gaby Plt Count MPV Immature Gran % (Auto) Neut % (Auto) Lymph % (Auto) [place] % (Auto) Eos % (Auto) Baso % (Auto) Neut # (Auto) Lymph # (Auto) [place] # (Auto) Eos # (Auto) Baso # (Auto) Immature Gran # (Auto) VBG pH VBG pCO2 VBG pO2 VBG HCO3 VBG O2 Saturation VBG Base Excess Barometric Pressure Sodium Potassium Chloride Carbon Dioxide Anion Gap BUN Creatinine Est Cr Clr Drug Dosing Est GFR ( Amer) Est GFR (Non-Af Amer) BUN/Creatinine Ratio Glucose Lactate 1.6 Calcium Phosphorus Magnesium Total Bilirubin Direct Bilirubin AST ALT Alkaline Phosphatase Total Protein Albumin PG Care Time/CCT Total # of Minutes Spent Total Time Spent with Patient: Total time spent is greater than 50% in coordination of care (as documented) at patient's floor/unit and/or counseling patient: Coding Level of Care Code 00763 Subseq Hosp Care Lvl 2 Diagnoses Acute on chronic systolic heart failure I50.23 Cardiomyopathy I42.9 Cardiomyopathy type: unspecified Cardiorenal syndrome with renal failure I13.10 NIKHIL (acute kidney injury) N17.9 Permanent atrial fibrillation I48.2 Adult failure to thrive R62.7 Bladder wall thickening N32.89 Bilateral renal cysts N28.1 Presence of single chamber implantable cardioverter-defibrillator (ICD) Z95.810 Gastritis K29.70 Macrocytic anemia D53.9 Thrombocytopenia D69.6 DVT prophylaxis Z29.9 (1) Cardiomyopathy Cardiomyopathy type: unspecified Qualified Code(s): I42.9 - Cardiomyopathy, unspecified
[2020-09-23] MEDS: ONDANSETRON INJ 2 MG/ML 2 ML VIAL IV PRN (20:52)
[2020-09-23 23:59] LABS: BUN Creatinine Ratio 18.9 (10-20); Calcium 8.2 mg/dl (8.5-10.1); Creatinine Clr Calc Pharmacy 21.7 ml/min; Est GFR (African American) 23.4 ml/min; Est GFR (Non-African American) 20.2 ml/min; Magnesium 2.1 mg/dl (1.8-2.4)
[2020-09-24 00:02] LABS: Phosphorus 3.2 mg/dl (2.5-4.9)
[2020-09-24 05:10] LABS: Basophils # (auto) 0.01 K/uL (0-0.2); Basophils % (auto) 0.2 %; Eosinophils # (auto) 0.21 K/uL (0-0.5); Eosinophils % (auto) 3.2 %; Hematocrit (blood only) 33.6 % (42-52); Hemoglobin 11.1 g/dL (14.0-18.0); Immature Granulocytes # (auto) 0.01 K/uL (0.00-0.02); Immature Granulocytes % (auto) 0.2 %; Lymphocytes # (auto) 1.26 K/uL (1.2-3.4); Lymphocytes % (auto) 19.2 %; Mean Corpuscular Hemoglobin 33.2 pg (25-34); Mean Corpuscular Volume 100.6 fL (80-100); Mean Platelet Volume 11.1 fL (7.4-10.4); Monocytes # (auto) 0.64 K/uL (0.11-0.59); Monocytes % (auto) 9.7 %; Neutrophils # (auto) 4.44 K/uL (1.4-6.5); Neutrophils % (auto) 67.5 %; Platelet Count 120 K/uL (130-400); RDW Coefficient of Variation 15.3 % (11.5-14.5); RDW Standard Deviation 53.6 fL (36.4-46.3); Red Blood Count 3.34 M/uL (4.7-6.1); White Blood Count 6.57 K/uL (4.8-10.8)
[2020-09-24 05:12] LABS: Base Excess VBG 9.3 mEq/L; Oxygen Saturation VBG 86.4 %; pH VBG 7.41 (7.36-7.41)
[2020-09-24 05:30] LABS: Albumin Level 3.3 gm/dl (3.4-5.0); BUN Creatinine Ratio 18.2 (10-20); Bilirubin Direct 0.4 mg/dl (0-0.2); Calcium 8.3 mg/dl (8.5-10.1); Est GFR (African American) 25.1 ml/min; Est GFR (Non-African American) 21.6 ml/min; Magnesium 2.3 mg/dl (1.8-2.4); Potassium 3.9 mmol/L (3.5-5.1)
[2020-09-24 05:32] LABS: Bilirubin,Total 1.3 mg/dl (0.2-1); Phosphorus 3.3 mg/dl (2.5-4.9); Total Protein 6.4 gm/dl (6.4-8.2)
[2020-09-24] MEDS: BUMETANIDE 10 MG in DEXTROSE 5% 10 ML IV SCH (05:44)
[2020-09-24] MEDS: PANTOprazole 40 MG TAB PO SCH (08:35)
[2020-09-24] MEDS: HEPARIN SOD 5,000 UNIT/0.5 ML VIAL SQ SCH ×2 (08:36→20:14)
[2020-09-24] MEDS: ATORVASTATIN 10 MG TAB PO SCH (08:36)
[2020-09-24] MEDS: METOPROLOL SUCC 25MG EXT REL TAB PO SCH ×2 (08:36→20:14)
--- NOTE | 2020-09-24 10:26 | Critical Care Progress Note ---
Date of Service September 24, 2020 Assessment & Plan (1) Admitted to intensive care unit: Reason Critically Ill: 75-year-old male with low output heart failure in the setting of nonischemic cardiomyopathy with an EF of 15% presenting with cardiorenal syndrome requiring close hemodynamic monitoring with institution of inotropes and diuretic therapy. NEURO - * CAM ICU: NEGATIVE CARDIAC/VASCULAR - * Low output cardiac failure: * Cardiomyopathy w/ EF of 15% * Underwent diagnostic RIGHT sided cardiac cath today with the following findings - * Summary: 1. Low cardiac output 2. Severely elevated left-sided filling pressures 3. Elevated right-sided filling pressures 4. Severe pulmonary hypertension (postcapillary). * Patient started on Dobutamine gtt. * Patient already w/ ICD in place. * Concerning for end stage disease process. * Considering advanced mechanical circulatory support * Permanent A. Fib: * Patient take metoprolol daily. * Has previously refused increasing doses of metoprolol. * Additionally, has also refused anticoagulation. * Continue w/ Dig. * Monitor on telemetry. RESPIRATORY - * COPD/CHF: * Continue w/ NC O2 PRN * Additional pulmonary toilet as needed. GI/NUTRITION - * AHA diet -1500 mL fluid restriction * Prophylaxis: Pantoprazole RENAL/LYTES - * Acute renal failure: * Likely suggestive of cardiorenal syndrome 2/2 low output heart failure. * Degree of volume overload w/ current wt of 165 lbs. Per outpatient HF clinic, patient's recommended dry weight of 150 lbs. * Diuresis with Bumex infusion 0.25 mg/h * -2.5 L after yesterday * Will place Jacobs catheter for strict I&Os. * Appreciate ongoing Nephrology recommendations. - * Jacobs in place - Strict I&Os. ENDO - * No h/o DM or Thyroid Dz * BSGs per unit protocol. ISS --> gtt per unit policy. HEME - * Stable H&H ID - * No concerns for infection at this time. LINES/IV ACCESS - * PIVs x2 * Jacobs DVT PROPHYLAXIS - * Heparin * SCDs CODE STATUS - * FULL CODE at this time. (2) Cardiorenal syndrome with renal failure: (3) Low output heart failure: (4) NIKHIL (acute kidney injury): (5) Presence of single chamber implantable cardioverter-defibrillator (ICD): Admission and Anticipated Discharge Date Admission Date: September 21, 2020 Supervising Physician Co-Signing Physician Notes Patient was discussed with bedside nursing I have personally spent 35 minutes of critical care time in the direct management of this patient. This is a life/limb threatening event. This includes time spent evaluating patient, direct bedside care, chart review, placing orders, interpretation of diagnostic studies, discussion with consultants, patient, and/or family members regarding treatment decisions, as well as other required patient management activities. This time is exclusive of all separately billable procedures, and teaching time and separate from and in addition to any other critical care service time. Subjective No overnight events, alert oriented feels improved from yesterday no chest pain no shortness of breath no abdominal pain no diarrhea Review of Systems Review of Systems: As per HPI otherwise negative Physical Exam Physical Exam: General: Alert. nontoxic. Skin: Warm, dry, Head: Atraumatic Ears, nose, mouth and throat: airway patent Cardiovascular: Normal peripheral perfusion: Bedside child monitor reveals extrasystoles occasional runs of nonsustained ventricular tachycardia Respiratory: no respiratory distress, supplemental oxygen present Gastrointestinal: Non distended Musculoskeletal: No deformity Results & Data Results & Data ([facility]) Vital Signs (Past 12 Hours) Vital Signs Temp Pulse Resp BP Pulse Ox Pulse Ox 09/24/20 10:00 37.0 C 86 26 H 94 09/24/20 08:00 36.9 C 75 22 103/67 99 93 09/24/20 07:01 36.9 C 64 21 102/48 L 97 09/24/20 06:02 36.8 C 84 17 103/53 L 99 09/24/20 06:00 36.8 C 73 18 98 09/24/20 05:00 36.8 C 75 22 99/60 L 97 09/24/20 04:00 36.9 C 66 18 94/62 L 98 09/24/20 03:01 37.0 C 68 22 107/55 L 98 09/24/20 02:01 37.0 C 83 21 113/74 96 09/24/20 02:00 37.0 C 78 18 98 09/24/20 01:00 37.0 C 74 18 87/61 L 97 09/24/20 00:00 37.1 C 83 23 96/65 L 98 09/23/20 23:40 88 09/23/20 23:02 37.2 C 74 15 102/65 97 Laboratory Results 09/24/20 09/24/20 09/24/20 Range/Units 05:02 05:02 05:02 WBC 6.57 (4.8-10.8) K/uL RBC 3.34 L (4.7-6.1) M/uL Hgb 11.1 L (14.0-18.0) g/dL Hct 33.6 L (42-52) % MCV 100.6 H (80-100) fL MCH 33.2 (25-34) pg MCHC 33.0 (32-36) g/dL RDW Std Deviation 53.6 H (36.4-46.3) fL RDW Coeff of Gaby 15.3 H (11.5-14.5) % Plt Count 120 L (130-400) K/uL MPV 11.1 H (7.4-10.4) fL Immature Gran % (Auto) 0.2 % Neut % (Auto) 67.5 % Lymph % (Auto) 19.2 % [place] % (Auto) 9.7 % Eos % (Auto) 3.2 % Baso % (Auto) 0.2 % Neut # (Auto) 4.44 (1.4-6.5) K/uL Lymph # (Auto) 1.26 (1.2-3.4) K/uL [place] # (Auto) 0.64 H (0.11-0.59) K/uL Eos # (Auto) 0.21 (0-0.5) K/uL Baso # (Auto) 0.01 (0-0.2) K/uL Immature Gran # (Auto) 0.01 (0.00-0.02) K/uL VBG pH 7.41 (7.36-7.41) VBG pCO2 58 H (38-50) mmHg VBG pO2 52 mmHg VBG HCO3 36 mmol/L VBG O2 Saturation 86.4 % VBG Base Excess 9.3 mEq/L Barometric Pressure 735.7 mm/Hg Sodium 140 (136-145) mmol/L Potassium 3.9 (3.5-5.1) mmol/L Chloride 103 (98-107) mmol/L Carbon Dioxide 34 H (21-32) mmol/L Anion Gap 3.0 (3-11) BUN 50 H (7-18) mg/dl Creatinine 2.73 H (0.6-1.4) mg/dl Est Cr Clr Drug Dosing 23.0 ml/min Est GFR ( Amer) 25.1 ml/min Est GFR (Non-Af Amer) 21.6 ml/min BUN/Creatinine Ratio 18.2 (10-20) Glucose 95 (70-99) mg/dl Lactate (0.4-2.0) mmol/L Calcium 8.3 L (8.5-10.1) mg/dl Phosphorus 3.3 (2.5-4.9) mg/dl Magnesium 2.3 (1.8-2.4) mg/dl Total Bilirubin 1.3 H (0.2-1) mg/dl Direct Bilirubin 0.4 H (0-0.2) mg/dl AST 95 H (15-37) U/L ALT 162 H (12-78) U/L Alkaline Phosphatase 128 H (45-117) U/L Total Protein 6.4 (6.4-8.2) gm/dl Albumin 3.3 L (3.4-5.0) gm/dl 09/23/20 09/23/20 09/23/20 Range/Units 23:06 16:39 16:39 WBC (4.8-10.8) K/uL RBC (4.7-6.1) M/uL Hgb (14.0-18.0) g/dL Hct (42-52) % MCV (80-100) fL MCH (25-34) pg MCHC (32-36) g/dL RDW Std Deviation (36.4-46.3) fL RDW Coeff of Gaby (11.5-14.5) % Plt Count (130-400) K/uL MPV (7.4-10.4) fL Immature Gran % (Auto) % Neut % (Auto) % Lymph % (Auto) % [place] % (Auto) % Eos % (Auto) % Baso % (Auto) % Neut # (Auto) (1.4-6.5) K/uL Lymph # (Auto) (1.2-3.4) K/uL [place] # (Auto) (0.11-0.59) K/uL Eos # (Auto) (0-0.5) K/uL Baso # (Auto) (0-0.2) K/uL Immature Gran # (Auto) (0.00-0.02) K/uL VBG pH (7.36-7.41) VBG pCO2 (38-50) mmHg VBG pO2 mmHg VBG HCO3 mmol/L VBG O2 Saturation % VBG Base Excess mEq/L Barometric Pressure mm/Hg Sodium 141 140 (136-145) mmol/L Potassium 4.0 3.8 (3.5-5.1) mmol/L Chloride 103 106 (98-107) mmol/L Carbon Dioxide 34 H 32 (21-32) mmol/L Anion Gap 4.0 2.0 L (3-11) BUN 55 H 58 H (7-18) mg/dl Creatinine 2.89 H 3.09 H D (0.6-1.4) mg/dl Est Cr Clr Drug Dosing 21.7 20.3 ml/min Est GFR ( Amer) 23.4 21.6 ml/min Est GFR (Non-Af Amer) 20.2 18.6 ml/min BUN/Creatinine Ratio 18.9 18.8 (10-20) Glucose 106 H 122 H (70-99) mg/dl Lactate 1.6 (0.4-2.0) mmol/L Calcium 8.2 L 8.1 L (8.5-10.1) mg/dl Phosphorus 3.2 (2.5-4.9) mg/dl Magnesium 2.1 (1.8-2.4) mg/dl Total Bilirubin (0.2-1) mg/dl Direct Bilirubin (0-0.2) mg/dl AST (15-37) U/L ALT (12-78) U/L Alkaline Phosphatase (45-117) U/L Total Protein (6.4-8.2) gm/dl Albumin (3.4-5.0) gm/dl 09/23/20 Range/Units 16:39 WBC (4.8-10.8) K/uL RBC (4.7-6.1) M/uL Hgb (14.0-18.0) g/dL Hct (42-52) % MCV (80-100) fL MCH (25-34) pg MCHC (32-36) g/dL RDW Std Deviation (36.4-46.3) fL RDW Coeff of Gaby (11.5-14.5) % Plt Count (130-400) K/uL MPV (7.4-10.4) fL Immature Gran % (Auto) % Neut % (Auto) % Lymph % (Auto) % [place] % (Auto) % Eos % (Auto) % Baso % (Auto) % Neut # (Auto) (1.4-6.5) K/uL Lymph # (Auto) (1.2-3.4) K/uL [place] # (Auto) (0.11-0.59) K/uL Eos # (Auto) (0-0.5) K/uL Baso # (Auto) (0-0.2) K/uL Immature Gran # (Auto) (0.00-0.02) K/uL VBG pH 7.36 (7.36-7.41) VBG pCO2 58 H (38-50) mmHg VBG pO2 57 mmHg VBG HCO3 32 mmol/L VBG O2 Saturation 88.4 % VBG Base Excess 5.2 mEq/L Barometric Pressure 733.8 mm/Hg Sodium (136-145) mmol/L Potassium (3.5-5.1) mmol/L Chloride (98-107) mmol/L Carbon Dioxide (21-32) mmol/L Anion Gap (3-11) BUN (7-18) mg/dl Creatinine (0.6-1.4) mg/dl Est Cr Clr Drug Dosing ml/min Est GFR ( Amer) ml/min Est GFR (Non-Af Amer) ml/min BUN/Creatinine Ratio (10-20) Glucose (70-99) mg/dl Lactate (0.4-2.0) mmol/L Calcium (8.5-10.1) mg/dl Phosphorus (2.5-4.9) mg/dl Magnesium (1.8-2.4) mg/dl Total Bilirubin (0.2-1) mg/dl Direct Bilirubin (0-0.2) mg/dl AST (15-37) U/L ALT (12-78) U/L Alkaline Phosphatase (45-117) U/L Total Protein (6.4-8.2) gm/dl Albumin (3.4-5.0) gm/dl Coding Level of Care Code Critical Care 1st 30-74 mins Diagnoses Admitted to intensive care unit Z78.9 Cardiorenal syndrome with renal failure I13.10 Low output heart failure I50.9 NIKHIL (acute kidney injury) N17.9 Presence of single chamber implantable cardioverter-defibrillator (ICD) Z95.810
--- NOTE | 2020-09-24 12:54 | Hospitalist Progress Note ---
Date of Service September 24, 2020 Assessment & Plan (1) Acute on chronic systolic heart failure: severely depressed EF - 15%. s/p right heart cath 2 days ago with results noted (elevated L & R sided pressures, etc). continue dobutamine infusion. continue bumex infusion. volume status continues to improve. continue metoprolol succinate. not a candidate for NOEL, ARB or entresto due to low BP and acute renal failure. prognosis is very poor. (2) Cardiomyopathy: EF 15-20% as above in systolic CHF. (3) Cardiorenal syndrome with renal failure: As above NIKHIL/ARF slowly improving with dobutamine infusion and time peak Cr 3.7; today 2.7 daily BMP (4) NIKHIL (acute kidney injury): 2nd to severe systolic CHF/low-flow cardiac state/prerenal. slow improvement with creatinine with use of dobutamine and diuresis. BMP in am. of note - peak Cr 3.7; today 2.7. (5) Permanent atrial fibrillation: Continue digoxin + beta jordana for rate control. Recent digoxin level wnl. Rates acceptable while on dobutamine. Strongly consider anticoagulation but previously he declined such. (6) Adult failure to thrive: 2nd to advanced cardiac disease? renal cell ca given the abnormal cysts? other? his frequent belching/burping and appetite issue could be from an upper GI problem which could also be a culprit. poor candidate for endoscopic eval at this time. he has macrocytosis - check TSH, b12 and folate. (7) Bladder wall thickening: Incidental CT finding. No active UTI. Urine cytology pending. (8) Bilateral renal cysts: Noted Urology consult completed; nothing to do at this time daily BMP (9) Presence of single chamber implantable cardioverter-defibrillator (ICD): Noted (10) Gastritis: Continue pantoprazole 40 mg p.o. daily seen on EGD 2017 belching/burping - intractable add pepcid 20mg IV daily add carafate 1mg qid re-eval tomorrow (11) Macrocytic anemia: check b12, folate, and TSH in am (12) Thrombocytopenia: in light of macrocytic anemia - check b12/folate/TSH to start due to "Cardiac cirrhosis"? other? (13) Belching: as above in "gastritis" (14) DVT prophylaxis: heparin BID dosing given impaired renal function updated pt's this evening Admission and Anticipated Discharge Date Admission Date: September 21, 2020 Subjective patient overall feeling better less dyspnea less orthopnea still quite weak main complaint is frequent burping and belching this has been ongoing for months EGD in 2017 (Dr Urrutia Ashok [facility]) with gastritis tele - a.fib Review of Systems Constitutional: + fatigue; no fever and no anorexia Respiratory: + dyspnea on exertion; no cough Cardiovascular: no chest pain and no edema Gastrointestinal: + belching and + nausea; no abdominal pain and no vomiting Physical Exam Constitutional: no acute distress and no altered mental status belching ENMT: external ear and nose normal, oropharynx normal Respiratory: Auscultation: + diminished lung sounds (bases) and + rales (soft, bases ) Cardiovascular: Rate/Rhythm: regular rate and + irregularly irregular Heart Sounds: normal S1, normal S2 and + murmur (1/6 systolic LLSB) Vessels: + JVD (mild), posterior tibial pulses present and dorsalis pedis pulses present Extremities: no edema Gastrointestinal (Abdomen): normal bowel sounds, soft, nontender, no hepatosplenomegaly Psychiatric: A+Ox3, euthymic affect Results & Data Results & Data ([facility]) Vital Signs (Past 12 Hours) Vital Signs Temp Pulse Pulse Resp BP BP Pulse Ox 09/24/20 12:01 37.1 C 88 23 99/53 L 99 09/24/20 11:00 37.0 C 78 16 91/63 L 93 09/24/20 10:57 37.0 C 68 19 102/62 98 09/24/20 10:24 37.0 C 75 24 82/68 L 98 09/24/20 10:23 78 82/68 L 09/24/20 10:00 37.0 C 86 26 H 94 09/24/20 08:00 36.9 C 75 22 103/67 99 09/24/20 07:01 36.9 C 64 21 102/48 L 97 09/24/20 06:02 36.8 C 84 17 103/53 L 99 09/24/20 06:00 36.8 C 73 18 98 09/24/20 05:00 36.8 C 75 22 99/60 L 97 09/24/20 04:00 36.9 C 66 18 94/62 L 98 09/24/20 03:01 37.0 C 68 22 107/55 L 98 09/24/20 02:01 37.0 C 83 21 113/74 96 09/24/20 02:00 37.0 C 78 18 98 09/24/20 01:00 37.0 C 74 18 87/61 L 97 Pulse Ox 09/24/20 12:01 09/24/20 11:00 09/24/20 10:57 09/24/20 10:24 09/24/20 10:23 09/24/20 10:00 09/24/20 08:00 93 09/24/20 07:01 09/24/20 06:02 09/24/20 06:00 09/24/20 05:00 09/24/20 04:00 09/24/20 03:01 09/24/20 02:01 09/24/20 02:00 09/24/20 01:00 PG Care Time/CCT Total # of Minutes Spent Total Time Spent with Patient: Total time spent is greater than 50% in coordination of care (as documented) at patient's floor/unit and/or counseling patient: Coding Level of Care Code 50111 Subseq Hosp Care Lvl 2 Diagnoses Acute on chronic systolic heart failure I50.23 Cardiomyopathy I42.9 Cardiomyopathy type: unspecified Cardiorenal syndrome with renal failure I13.10 NIKHIL (acute kidney injury) N17.9 Permanent atrial fibrillation I48.2 Adult failure to thrive R62.7 Bladder wall thickening N32.89 Bilateral renal cysts N28.1 Presence of single chamber implantable cardioverter-defibrillator (ICD) Z95.810 Gastritis K29.70 Macrocytic anemia D53.9 Thrombocytopenia D69.6 Belching R14.2 DVT prophylaxis Z29.9 (1) Cardiomyopathy Cardiomyopathy type: unspecified Qualified Code(s): I42.9 - Cardiomyopathy, unspecified
--- NOTE | 2020-09-24 13:16 | Cardiology Progress Note ---
Date of Service September 24, 2020 Assessment & Plan Admission and Anticipated Discharge Date Admission Date: September 21, 2020 Subjective He feels better this morning. He is less short of breath. He did not have nocturnal hypoxemia last night the catheter is bothering him slightly. He is not short of breath talking in sentences. Denies any chest pain or chest pressure. He has no lower extremity edema. His abdomen seems slightly less distended. He was reading his science fiction book when I walked in the room. He looks better and appears more comfortable today. Results & Data ([facility]) Vital Signs (Past 12 Hours) Vital Signs Temp Pulse Pulse Resp BP BP Pulse Ox 09/24/20 12:01 37.1 C 88 23 99/53 L 99 09/24/20 11:00 37.0 C 78 16 91/63 L 93 09/24/20 10:57 37.0 C 68 19 102/62 98 09/24/20 10:24 37.0 C 75 24 82/68 L 98 09/24/20 10:23 78 82/68 L 09/24/20 10:00 37.0 C 86 26 H 94 09/24/20 08:00 36.9 C 75 22 103/67 99 09/24/20 07:01 36.9 C 64 21 102/48 L 97 09/24/20 06:02 36.8 C 84 17 103/53 L 99 09/24/20 06:00 36.8 C 73 18 98 09/24/20 05:00 36.8 C 75 22 99/60 L 97 09/24/20 04:00 36.9 C 66 18 94/62 L 98 09/24/20 03:01 37.0 C 68 22 107/55 L 98 09/24/20 02:01 37.0 C 83 21 113/74 96 09/24/20 02:00 37.0 C 78 18 98 Pulse Ox 09/24/20 12:01 09/24/20 11:00 09/24/20 10:57 09/24/20 10:24 09/24/20 10:23 09/24/20 10:00 09/24/20 08:00 93 09/24/20 07:01 09/24/20 06:02 09/24/20 06:00 09/24/20 05:00 09/24/20 04:00 09/24/20 03:01 09/24/20 02:01 09/24/20 02:00 HEENT markedly reduced carotid upstrokes Lungs: Decreased breath sounds in the bases bilaterally Heart: Irregular rate and rhythm no appreciable murmurs Abdomen: Soft distended positive bowel sounds nontender Extremities: No clubbing cyanosis or edema Psychiatric his affect appeared appropriate September 23, 2020 Subjective Assessment & Plan (1) Low output heart failure: (2) Cardiorenal syndrome with renal failure: (3) Atrial fibrillation with RVR: (4) Presence of single chamber implantable cardioverter-defibrillator (ICD): He is diuresing nicely. He feels significantly better. His nocturnal dyspnea has significantly improved he notes even speaking in sentences he feels less short of breath. Cognitively he is feeling better as well. I did reach out to the heart failure team at [facility]. I also reviewed his echocardiogram that was done most recently here in the hospital. The challenges that his right heart is severely weakened in addition to his left heart being severely weakened and with a creatinine of 2-1/2 and his age it would make placement of an LVAD unlikely to be successful. This is especially true if his right heart cannot fill his left heart due to severe RV dysfunction. In light of this I would continue with dobutamine infusion and IV Bumex. He continues to diurese well and is feeling better. This will help him in the short-term. In the weeks to months duration his prognosis is poor.
--- NOTE | 2020-09-24 14:11 | Nephrology Progress Note ---
Date of Service September 24, 2020 Assessment & Plan (1) NIKHIL (acute kidney injury): Acute cardiorenal syndrome. Non-oliguric. Kidney function stable. Electrolytes acceptable. Improvement in volume status noted. No emergent indication for dialysis. Document strict I/O's. Continue diuresis. Monitor metabolic profile q 12 hours while on Bumex gtt. Remains on dobutamine gtt. (2) Cardiorenal syndrome with renal failure: Plan of care discussed with Dr. Del Rosario this AM. (3) Bilateral renal cysts: CT reviewed. Urology follow up encouraged. (4) Bladder wall thickening: Urine microscopy acellular. Urine cytology pending. (5) Chronic kidney disease: CKD IV with baseline creatinine 1.8-2.3 mg/dL. Medications appropriately dosed fo kidney function. Goals of care reviewed, Admission and Anticipated Discharge Date Admission Date: September 21, 2020 Subjective No acute events overnight. Continued improvement in dyspnea at rest. No chest pain. No fevers. Review of Systems Review of Systems: All systems reviewed & are unremarkable except as noted in HPI & below Physical Exam Constitutional: well developed; no acute distress Eyes: no scleral abnormality and no corneal abnormality ENMT: Mouth: no oral mucosal abnormality and oral mucous membranes not dry Neck: normal visual inspection and trachea midline Respiratory: normal respiratory effort Auscultation: lungs clear to auscultation bilaterally Cardiovascular: Rate/Rhythm: + irregularly irregular Heart Sounds: normal S1, normal S2 and + murmur Vessels: + JVD Extremities: no edema Musculoskeletal: Extremities: no cyanosis and no clubbing Skin: normal turgor; no lesions Neurologic: Motor/Sensory: no tremor and no asterixis Psychiatric: Orientation: alert and oriented x 3 Results & Data ([facility]) Vital Signs (Past 12 Hours) Vital Signs Temp Pulse Pulse Resp BP BP Pulse Ox 09/24/20 12:01 37.1 C 88 23 99/53 L 99 09/24/20 11:00 37.0 C 78 16 91/63 L 93 09/24/20 10:57 37.0 C 68 19 102/62 98 09/24/20 10:24 37.0 C 75 24 82/68 L 98 09/24/20 10:23 78 82/68 L 09/24/20 10:00 37.0 C 86 26 H 94 09/24/20 08:00 36.9 C 75 22 103/67 99 05/30/21 07:01 36.9 C 64 21 102/48 L 97 09/24/20 06:02 36.8 C 84 17 103/53 L 99 09/24/20 06:00 36.8 C 73 18 98 09/24/20 05:00 36.8 C 75 22 99/60 L 97 09/24/20 04:00 36.9 C 66 18 94/62 L 98 09/24/20 03:01 37.0 C 68 22 107/55 L 98 Pulse Ox 09/24/20 12:01 09/24/20 11:00 09/24/20 10:57 09/24/20 10:24 09/24/20 10:23 09/24/20 10:00 09/24/20 08:00 93 09/24/20 07:01 09/24/20 06:02 09/24/20 06:00 09/24/20 05:00 09/24/20 04:00 09/24/20 03:01 Laboratory Results Laboratory Results - last 24 hr 09/23/20 09/23/20 09/23/20 16:39 16:39 16:39 WBC RBC Hgb Hct MCV MCH MCHC RDW Std Deviation RDW Coeff of Gaby Plt Count MPV Immature Gran % (Auto) Neut % (Auto) Lymph % (Auto) Hartley % (Auto) Eos % (Auto) Baso % (Auto) Neut # (Auto) Lymph # (Auto) Hartley # (Auto) Eos # (Auto) Baso # (Auto) Immature Gran # (Auto) VBG pH 7.36 VBG pCO2 58 H VBG pO2 57 VBG HCO3 32 VBG O2 Saturation 88.4 VBG Base Excess 5.2 Barometric Pressure 733.8 Sodium 140 Potassium 3.8 Chloride 106 Carbon Dioxide 32 Anion Gap 2.0 L BUN 58 H Creatinine 3.09 H D Est Cr Clr Drug Dosing 20.3 Est GFR ( Amer) 21.6 Est GFR (Non-Af Amer) 18.6 BUN/Creatinine Ratio 18.8 Glucose 122 H Lactate 1.6 Calcium 8.1 L Phosphorus Magnesium Total Bilirubin Direct Bilirubin AST ALT Alkaline Phosphatase Total Protein Albumin 09/23/20 09/24/20 09/24/20 23:06 05:02 05:02 WBC RBC Hgb Hct MCV MCH MCHC RDW Std Deviation RDW Coeff of Gaby Plt Count MPV Immature Gran % (Auto) Neut % (Auto) Lymph % (Auto) Hartley % (Auto) Eos % (Auto) Baso % (Auto) Neut # (Auto) Lymph # (Auto) Hartley # (Auto) Eos # (Auto) Baso # (Auto) Immature Gran # (Auto) VBG pH 7.41 VBG pCO2 58 H VBG pO2 52 VBG HCO3 36 VBG O2 Saturation 86.4 VBG Base Excess 9.3 Barometric Pressure 735.7 Sodium 141 140 Potassium 4.0 3.9 Chloride 103 103 Carbon Dioxide 34 H 34 H Anion Gap 4.0 3.0 BUN 55 H 50 H Creatinine 2.89 H 2.73 H Est Cr Clr Drug Dosing 21.7 23.0 Est GFR ( Amer) 23.4 25.1 Est GFR (Non-Af Amer) 20.2 21.6 BUN/Creatinine Ratio 18.9 18.2 Glucose 106 H 95 Lactate Calcium 8.2 L 8.3 L Phosphorus 3.2 3.3 Magnesium 2.1 2.3 Total Bilirubin 1.3 H Direct Bilirubin 0.4 H AST 95 H ALT 162 H Alkaline Phosphatase 128 H Total Protein 6.4 Albumin 3.3 L 09/24/20 05:02 WBC 6.57 RBC 3.34 L Hgb 11.1 L Hct 33.6 L MCV 100.6 H MCH 33.2 MCHC 33.0 RDW Std Deviation 53.6 H RDW Coeff of Gaby 15.3 H Plt Count 120 L MPV 11.1 H Immature Gran % (Auto) 0.2 Neut % (Auto) 67.5 Lymph % (Auto) 19.2 Hartley % (Auto) 9.7 Eos % (Auto) 3.2 Baso % (Auto) 0.2 Neut # (Auto) 4.44 Lymph # (Auto) 1.26 Hartley # (Auto) 0.64 H Eos # (Auto) 0.21 Baso # (Auto) 0.01 Immature Gran # (Auto) 0.01 VBG pH VBG pCO2 VBG pO2 VBG HCO3 VBG O2 Saturation VBG Base Excess Barometric Pressure Sodium Potassium Chloride Carbon Dioxide Anion Gap BUN Creatinine Est Cr Clr Drug Dosing Est GFR ( Amer) Est GFR (Non-Af Amer) BUN/Creatinine Ratio Glucose Lactate Calcium Phosphorus Magnesium Total Bilirubin Direct Bilirubin AST ALT Alkaline Phosphatase Total Protein Albumin PG Care Time/CCT Total # of Minutes Spent Total Time Spent with Patient: Total time spent is greater than 50% in coordination of care (as documented) at patient's floor/unit and/or counseling patient: Coding Level of Care Code 65853 Subseq Hosp Care Lvl 3 Diagnoses NIKHIL (acute kidney injury) N17.9 Cardiorenal syndrome with renal failure I13.10 Bilateral renal cysts N28.1 Bladder wall thickening N32.89 Chronic kidney disease N18.9
[2020-09-24] MEDS: SUCRALFATE 1 GM/10 ML UDC PO SCH ×3 (15:47→20:13)
[2020-09-24] MEDS: FAMOTIDINE 20 MG in SYRINGE 3 ML IV SCH (15:47)
[2020-09-24] MEDS: DIGOXIN 0.125 MG TAB PO SCH (15:47)
[2020-09-24] MEDS: ONDANSETRON INJ 2 MG/ML 2 ML VIAL IV PRN (20:13)
[2020-09-25 01:46] LABS: BUN Creatinine Ratio 16.8 (10-20); Calcium 8.6 mg/dl (8.5-10.1); Creatinine Clr Calc Pharmacy 20.7 ml/min; Est GFR (African American) 23.9 ml/min; Est GFR (Non-African American) 20.6 ml/min; Magnesium 2.2 mg/dl (1.8-2.4); Potassium 4.1 mmol/L (3.5-5.1)
[2020-09-25 01:52] LABS: Phosphorus 2.6 mg/dl (2.5-4.9)
[2020-09-25 05:41] LABS: Eosinophils # (auto) 0.27 K/uL (0-0.5); Eosinophils % (auto) 3.9 %; Hematocrit (blood only) 36.2 % (42-52); Hemoglobin 11.8 g/dL (14.0-18.0); Immature Granulocytes # (auto) 0.02 K/uL (0.00-0.02); Immature Granulocytes % (auto) 0.3 %; Lymphocytes # (auto) 1.44 K/uL (1.2-3.4); Lymphocytes % (auto) 21.1 %; Mean Corpuscular Hemoglobin 32.7 pg (25-34); Mean Corpuscular Hgb Conc 32.6 g/dL (32-36); Mean Corpuscular Volume 100.3 fL (80-100); Monocytes # (auto) 0.64 K/uL (0.11-0.59); Monocytes % (auto) 9.4 %; Neutrophils # (auto) 4.47 K/uL (1.4-6.5); Neutrophils % (auto) 65.3 %; Platelet Count 126 K/uL (130-400); RDW Coefficient of Variation 15.2 % (11.5-14.5); Red Blood Count 3.61 M/uL (4.7-6.1); White Blood Count 6.84 K/uL (4.8-10.8)
[2020-09-25 06:14] LABS: Albumin Level 3.4 gm/dl (3.4-5.0); BUN Creatinine Ratio 16.6 (10-20); Bilirubin Direct 0.3 mg/dl (0-0.2); Calcium 8.4 mg/dl (8.5-10.1); Est GFR (African American) 25.7 ml/min; Est GFR (Non-African American) 22.2 ml/min; Magnesium 2.3 mg/dl (1.8-2.4); Potassium 3.9 mmol/L (3.5-5.1)
[2020-09-25 06:25] LABS: Bilirubin,Total 1.1 mg/dl (0.2-1); Phosphorus 2.5 mg/dl (2.5-4.9); Thyroid Stimulating Hormone 2.06 uIu/ml (0.300-4.500); Total Protein 6.6 gm/dl (6.4-8.2)
[2020-09-25 06:35] LABS: Folate (Folic Acid) 5.8 ng/ml (>5.38)
[2020-09-25] MEDS: BUMETANIDE 10 MG in DEXTROSE 5% 10 ML IV SCH (07:48)
[2020-09-25] MEDS: SUCRALFATE 1 GM/10 ML UDC PO SCH ×4 (07:49→19:52)
[2020-09-25] MEDS: ATORVASTATIN 10 MG TAB PO SCH (07:49)
[2020-09-25] MEDS: PANTOprazole 40 MG TAB PO SCH (07:49)
[2020-09-25] MEDS: METOPROLOL SUCC 25MG EXT REL TAB PO SCH ×2 (07:49→19:52)
[2020-09-25] MEDS: HEPARIN SOD 5,000 UNIT/0.5 ML VIAL SQ SCH ×2 (07:50→19:51)
[2020-09-25] MEDS: FAMOTIDINE 20 MG in SYRINGE 3 ML IV SCH (07:50)
--- NOTE | 2020-09-25 08:28 | XRay Report ---
XR chest 1V portable CLINICAL HISTORY: Shortness of breath COMPARISON STUDY: 09/23/2020 FINDINGS: The heart remains enlarged. There is a left subclavian pacer/defibrillator present. Trace p leural effusions are suspected. There is prominence of central pulmonary arteries. There is resolving asymmetric pulmonary edema.[ IMPRESSION: 1. Cardiomegaly and resolving asymmetric pulmonary edema. Suspected trace pleural effusions. ACT 112: Negative or not required by law. Electronically signed by: Chiki Larsen M.D. 09/25/2020 8:26 AM
[2020-09-25] MEDS ORDERED: BUMETANIDE IV BOLUS FROM BAG IV ONE (09:36)
--- NOTE | 2020-09-25 09:57 | Nephrology Progress Note ---
Date of Service September 25, 2020 Assessment & Plan (1) NIKHIL (acute kidney injury): Acute cardiorenal syndrome. Non-oliguric. Kidney function stable. Electrolytes acceptable. Continued improvement in volume status noted. No emergent indication for dialysis. Document strict I/O's. Bumex 1 mg IV bolus now and stop gtt. Repeat metabolic profile tomorrow AM. (2) Cardiorenal syndrome with renal failure: Plan of care discussed with ICU team this AM. Per [facility] cardiology, not candidate for LVAD due to R heart dysfunction. (3) Bilateral renal cysts: CT reviewed. Urology follow up encouraged. (4) Chronic kidney disease: CKD IV with baseline creatinine 1.8-2.3 mg/dL. Medications appropriately dosed fo kidney function. Ongoing discussion regarding goals of care in setting of advanced cardiomyopathy. Admission and Anticipated Discharge Date Admission Date: September 21, 2020 Subjective No acute events overnight. Unal reports feeling continued improvement overall. No fevers. Denies chest pain. Review of Systems Review of Systems: All systems reviewed & are unremarkable except as noted in HPI & below Physical Exam Constitutional: well developed; no acute distress Eyes: no scleral abnormality and no corneal abnormality ENMT: Mouth: no oral mucosal abnormality and oral mucous membranes not dry Neck: normal visual inspection and trachea midline Respiratory: normal respiratory effort Auscultation: lungs clear to auscultation bilaterally Cardiovascular: Rate/Rhythm: + irregularly irregular Heart Sounds: normal S1, normal S2 and + murmur Vessels: + JVD Extremities: no edema Musculoskeletal: Extremities: no cyanosis and no clubbing Skin: normal turgor; no lesions Neurologic: Motor/Sensory: no tremor and no asterixis Psychiatric: Orientation: alert and oriented x 3 Results & Data ([facility]) Vital Signs (Past 12 Hours) Vital Signs Temp Pulse Resp BP Pulse Ox 09/25/20 09:00 36.9 C 69 21 95/60 L 94 09/25/20 08:01 36.9 C 82 20 89/55 L 96 09/25/20 08:00 36.9 C 81 16 98 09/25/20 07:00 36.8 C 71 24 101/66 90 09/25/20 06:00 36.8 C 81 24 92/58 L 95 09/25/20 05:01 36.9 C 68 29 H 95/58 L 96 09/25/20 04:00 36.9 C 75 21 99/64 L 96 09/25/20 03:01 37.0 C 75 26 H 118/50 L 98 09/25/20 02:01 37.1 C 72 18 104/57 L 96 09/25/20 01:00 37.1 C 73 26 H 94/61 L 98 09/25/20 00:00 37.3 C 73 27 H 101/54 L 96 09/24/20 23:01 37.3 C 83 32 H 100/50 L 93 09/24/20 22:02 37.3 C 85 23 94/64 L 85 L Laboratory Results Laboratory Results - last 24 hr 09/25/20 09/25/20 09/25/20 01:19 04:56 04:56 WBC RBC Hgb Hct MCV MCH MCHC RDW Std Deviation RDW Coeff of Gaby Plt Count MPV Immature Gran % (Auto) Neut % (Auto) Lymph % (Auto) Gonzales % (Auto) Eos % (Auto) Baso % (Auto) Neut # (Auto) Lymph # (Auto) Gonzales # (Auto) Eos # (Auto) Baso # (Auto) Immature Gran # (Auto) Sodium 139 138 Potassium 4.1 3.9 Chloride 98 100 Carbon Dioxide 37 H 35 H Anion Gap 3.0 3.0 BUN 48 H 44 H Creatinine 2.84 H 2.67 H Est Cr Clr Drug Dosing 20.7 22.0 Est GFR ( Amer) 23.9 25.7 Est GFR (Non-Af Amer) 20.6 22.2 BUN/Creatinine Ratio 16.8 16.6 Glucose 100 H 95 Calcium 8.6 8.4 L Phosphorus 2.6 2.5 Magnesium 2.2 2.3 Total Bilirubin 1.1 H Direct Bilirubin 0.3 H AST 68 H ALT 143 H Alkaline Phosphatase 129 H Total Protein 6.6 Albumin 3.4 Vitamin B12 544 Folate 5.80 TSH 2.060 09/25/20 04:56 WBC 6.84 RBC 3.61 L Hgb 11.8 L Hct 36.2 L MCV 100.3 H MCH 32.7 MCHC 32.6 RDW Std Deviation 54.0 H RDW Coeff of Gaby 15.2 H Plt Count 126 L MPV 11.0 H Immature Gran % (Auto) 0.3 Neut % (Auto) 65.3 Lymph % (Auto) 21.1 Gonzales % (Auto) 9.4 Eos % (Auto) 3.9 Baso % (Auto) 0.0 Neut # (Auto) 4.47 Lymph # (Auto) 1.44 Gonzales # (Auto) 0.64 H Eos # (Auto) 0.27 Baso # (Auto) 0.00 Immature Gran # (Auto) 0.02 Sodium Potassium Chloride Carbon Dioxide Anion Gap BUN Creatinine Est Cr Clr Drug Dosing Est GFR ( Amer) Est GFR (Non-Af Amer) BUN/Creatinine Ratio Glucose Calcium Phosphorus Magnesium Total Bilirubin Direct Bilirubin AST ALT Alkaline Phosphatase Total Protein Albumin Vitamin B12 Folate TSH PG Care Time/CCT Total # of Minutes Spent Total Time Spent with Patient: Total time spent is greater than 50% in coordination of care (as documented) at patient's floor/unit and/or counseling patient: Coding Level of Care Code 17615 Subseq Hosp Care Lvl 3 Diagnoses NIKHIL (acute kidney injury) N17.9 Cardiorenal syndrome with renal failure I13.10 Bilateral renal cysts N28.1 Chronic kidney disease N18.9
[2020-09-25] MEDS ORDERED: FOLIC ACID 1 MG in SYRINGE 9.8 ML IV STA (10:19)
--- NOTE | 2020-09-25 10:22 | Critical Care Progress Note ---
Date of Service September 25, 2020 Assessment & Plan (1) Admitted to intensive care unit: Reason Critically Ill: 75-year-old male with low output heart failure in the setting of nonischemic cardiomyopathy with an EF of 15% presenting with cardiorenal syndrome requiring close hemodynamic monitoring with institution of inotropes and diuretic therapy. NEURO - * CAM ICU: NEGATIVE CARDIAC/VASCULAR - * Low output cardiac failure: * Cardiomyopathy w/ EF of 15% * Underwent diagnostic RIGHT sided cardiac cath with the following findings - * Summary: 1. Low cardiac output 2. Severely elevated left-sided filling pressures 3. Elevated right-sided filling pressures 4. Severe pulmonary hypertension (postcapillary). * Continue dobutamine drip * Patient already w/ ICD in place. * Concerning for end stage disease process. * Permanent A. Fib: * Patient take metoprolol daily. * Has previously refused increasing doses of metoprolol. * Additionally, has also refused anticoagulation. * Continue w/ Dig. * Monitor on telemetry. RESPIRATORY - * COPD/CHF: * Continue w/ NC O2 PRN * Additional pulmonary toilet as needed. GI/NUTRITION - * AHA diet -1500 mL fluid restriction * Prophylaxis: Pantoprazole RENAL/LYTES - * Acute renal failure: Cardiorenal failure. Currently followed by nephrology. Consideration for dialysis in the next 1 to 2 days. Bumex drip increased for nephrology. Nephrology will talk to vascular surgery with regards to a tunneled catheter. No indications for dialysis today. - * Jacobs in place - Strict I&Os. ENDO - * No h/o DM or Thyroid Dz * BSGs per unit protocol. ISS --> gtt per unit policy. HEME - * Stable H&H ID - * No concerns for infection at this time. LINES/IV ACCESS - * PIVs x2 * Jacobs DVT PROPHYLAXIS - * Heparin * SCDs CODE STATUS - * FULL CODE at this time. (2) Cardiorenal syndrome with renal failure: (3) Low output heart failure: (4) NIKHIL (acute kidney injury): (5) Presence of single chamber implantable cardioverter-defibrillator (ICD): Admission and Anticipated Discharge Date Admission Date: September 21, 2020 Subjective Patient seen and examined this morning. Appears to be resting comfortably in bed. Discussed with his mountain bike guide and his bedside nurse. No significant issues at this present time. Creatinine is rising. Currently on Bumex drip. Review of Systems Review of Systems: All systems reviewed & are unremarkable except as noted in Subjective Physical Exam Constitutional: WD/WN, vitals as above no acute distress Respiratory: normal respiratory effort, lungs clear to auscultation Cardiovascular: RRR, no murmur, no edema Gastrointestinal (Abdomen): normal bowel sounds, soft, nontender, no hepatosplenomegaly Neurologic: PERRL, EOMI, accommodation nl, no face palsy, no dysarthria Psychiatric: A+Ox3, euthymic affect Results & Data Results & Data ([facility]) Vital Signs (Past 12 Hours) Vital Signs Temp Pulse Resp BP Pulse Ox 09/25/20 09:00 98.4 F 69 21 95/60 L 94 09/25/20 08:01 98.4 F 82 20 89/55 L 96 09/25/20 08:00 98.4 F 81 16 98 09/25/20 07:00 98.2 F 71 24 101/66 90 09/25/20 06:00 98.2 F 81 24 92/58 L 95 09/25/20 05:01 98.4 F 68 29 H 95/58 L 96 09/25/20 04:00 98.4 F 75 21 99/64 L 96 09/25/20 03:01 98.6 F 75 26 H 118/50 L 98 09/25/20 02:01 98.8 F 72 18 104/57 L 96 09/25/20 01:00 98.8 F 73 26 H 94/61 L 98 09/25/20 00:00 99.1 F 73 27 H 101/54 L 96 09/24/20 23:01 99.1 F 83 32 H 100/50 L 93 vital signs, labs and imaging reviewed Coding Level of Care Code 37177 Subseq Hosp Care Lvl 3 Diagnoses Admitted to intensive care unit Z78.9 Cardiorenal syndrome with renal failure I13.10 Low output heart failure I50.9 NIKHIL (acute kidney injury) N17.9 Presence of single chamber implantable cardioverter-defibrillator (ICD) Z95.810
--- NOTE | 2020-09-25 12:05 | Cardiology Progress Note ---
Date of Service September 25, 2020 Assessment & Plan Admission and Anticipated Discharge Date Admission Date: September 21, 2020 Subjective He is feeling better this morning. He is less short of breath. Nu[place] any chest pain or chest pressure. Has any palpitations or fluttering. Denies any lightheadedness or dizziness. Overall he is much improved since he was placed on dobutamine. Results & Data ([facility]) Vital Signs (Past 12 Hours) Vital Signs Temp Pulse Resp BP Pulse Ox 09/25/20 09:00 36.9 C 69 21 95/60 L 94 09/25/20 08:01 36.9 C 82 20 89/55 L 96 09/25/20 08:00 36.9 C 81 16 98 09/25/20 07:00 36.8 C 71 24 101/66 90 09/25/20 06:00 36.8 C 81 24 92/58 L 95 09/25/20 05:01 36.9 C 68 29 H 95/58 L 96 09/25/20 04:00 36.9 C 75 21 99/64 L 96 09/25/20 03:01 37.0 C 75 26 H 118/50 L 98 09/25/20 02:01 37.1 C 72 18 104/57 L 96 09/25/20 01:00 37.1 C 73 26 H 94/61 L 98 HEENT markedly reduced carotid upstrokes Lungs: Decreased breath sounds in the bases bilaterally Heart: Irregular rate and rhythm no appreciable murmurs Abdomen: Soft distended positive bowel sounds nontender Extremities: No clubbing cyanosis or edema Psychiatric his affect appeared appropriate September 23, 2020 Subjective Assessment & Plan (1) 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 He feels significantly better. His nocturnal dyspnea has resolved. He notes even speaking in sentences that he is no longer short of breath. Cognitively he is feeling better as well. His appetite has improved. I did reach out to the heart failure team on 09/24/2020 at [facility]. I also reviewed his echocardiogram that was done most recently here in the hospital. The challenges that his right heart is severely weakened in addition to his left heart being severely weakened and with a creatinine of 2- 1/2 and his age it would make placement of an LVAD unlikely to be successful. This is especially true if his right heart cannot fill his left heart due to severe RV dysfunction. In light of this I would continue with dobutamine infusion and IV Bumex. He continues to diurese well and is feeling better. He is down to almost 4 L. He will live with a blood pressure in the 90s systolic given the severity of his LV dysfunction.
--- NOTE | 2020-09-25 14:40 | Palliative Care Consultation ---
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 He tells me that no one in his family has lived over the age of 70 and that he considers living this long to be a miracle. He has had a long and very productive career and is grateful to be able to make a difference. I asked him about what he thought the coming days would look like and what he feels is most important to him. He tells me that he needs time to consider these things. We will discuss further in the coming days. (2) Cardiomyopathy: Cardiomyopathy type: unspecified Qualified Code(s): I42.9 - Cardiomyopathy, unspecified (3) Atrial fibrillation with RVR: (4) Low output heart failure: (5) Gastritis: (6) Presence of single chamber implantable cardioverter-defibrillator (ICD): (7) Chronic kidney disease: History of Present Illness Reason for Consultation: goals of care Requesting Physician: Dr. Beckham Attending Physician: Wilfredo Sharma History of Present Illness 75 yo gentleman with severe cardiomyopathy who was admitted for hydration after diuresis. He was found to have NIKHIL which is thought to be related to cardiorenal syndrome. He has had low cardiac output and is currently on dobutamine infusion. He was considered for LVAD at [facility] but was not a candidate. He has also had a 60lb weight loss in the last six months which he attributes to "tummy problems". He is followed by Dr. Eaton and is scheduled to see him tomorrow. He has been on PPI for GERD and bloating. He did have EGD done in the last few years which showed some gastric erythema but was otherwise negative. He feels that this problem is well controlled and is enjoying some fruit and cottage cheese at the time of our visit. He denies pain or dyspnea. We have been consulted to assist with goals of care. Allergies Allergy/AdvReac Type Severity Reaction Status Date / Time No Known Drug Allergies Allergy Unknown . Verified 09/21/20 16:31 Home Medications Medication Instructions Recorded Confirmed Type ergocalciferol (vitamin D2) 1,250 50,000 units PO WEEKLY #12 cap 12/14/18 09/21/20 History mcg (50,000 unit) capsule spironolactone 25 mg tablet 25 mg PO DAILY #30 tab 12/14/18 09/21/20 History atorvastatin 10 mg tablet 10 mg PO DAILY #90 tab 05/25/20 09/21/20 Rx pantoprazole 40 mg tablet,delayed 40 mg PO DAILY #30 tab 06/13/20 09/21/20 Rx release digoxin 125 mcg (0.125 mg) tablet 125 mcg PO Q2D tab 08/01/20 09/21/20 History bumetanide 2 mg tablet 2 mg PO DAILY #90 tab 08/30/20 09/21/20 Rx metoprolol succinate 50 mg 25 mg PO BID tab 09/19/20 09/21/20 History tablet,extended release 24 hr Patient History Medical History Aortic regurgitation Cardiomyopathy Now severe, echo Apr 2020 w/ EF=15-20% Chronic obstructive pulmonary disease Chronic renal insufficiency Dyslipidemia GERD (gastroesophageal reflux disease) Hyperglycemia Hypertension Mitral regurgitation MR (mitral regurgitation) Paroxysmal ventricular tachycardia Systolic CHF with reduced left ventricular function, NYHA class 3 Surgical History History of colonoscopy History of repair of rotator cuff Hx laparoscopic cholecystectomy (2016) Presence of single chamber implantable cardioverter-defibrillator (ICD) (07/2020) Family History Mother Leukemia Sister Acute myocardial infarction Social History Smoking Status: Former smoker Hx Alcohol Use: No Hx Substance Use: No Communication Ability: Effective Beliefs That Will Affect Care: None marital status: Current Living Situation: Spouse How many Children do You have: 2 Other Information That Helps Us Care for You: No Feels Safe at Home: Yes Safety Concerns: Feels Safe At This Time Assistive Devices: Oxygen - Continuous Review of Systems Review of Systems: [place] Symptom Assessment Scale Pain 0/3 Dyspnea 0/3 Anxiety 0/3 Fatigue 1/3 Nausea 0/3 Drowsiness 0/3 Palliative Performance Score 50% Physical Exam Constitutional: no acute distress ENMT: Mouth: oral mucous membranes not dry Respiratory: normal respiratory effort; no labored breathing Cardiovascular: Rate/Rhythm: + irregularly irregular hypotensive Gastrointestinal (Abdomen): Inspection/Auscultation: abdomen not distended Neurologic: awake; not confused Psychiatric: Orientation: alert and oriented x 3 Affect: euthymic affect Results & Data ([facility]) Vital Signs (Past 12 Hours) Vital Signs Temp Pulse Resp BP Pulse Ox 09/25/20 09:00 98.4 F 69 21 95/60 L 94 09/25/20 08:01 98.4 F 82 20 89/55 L 96 09/25/20 08:00 98.4 F 81 16 98 09/25/20 07:00 98.2 F 71 24 101/66 90 09/25/20 06:00 98.2 F 81 24 92/58 L 95 09/25/20 05:01 98.4 F 68 29 H 95/58 L 96 09/25/20 04:00 98.4 F 75 21 99/64 L 96 09/25/20 03:01 98.6 F 75 26 H 118/50 L 98 PG Care Time/CCT Total # of Minutes Spent Total Time Spent with Patient: Total time spent is greater than 50% in coordination of care (as documented) at patient's floor/unit and/or counseling patient: total time spent 60 minutes with more than 50% of time spent on life review with patient and goals of care Coding Level of Care Code 90525 Inpt Consult Level 3 Diagnoses Palliative care encounter Z51.5 Cardiomyopathy I42.9 Cardiomyopathy type: unspecified Atrial fibrillation with RVR I48.91 Low output heart failure I50.9 Gastritis K29.70 Presence of single chamber implantable cardioverter-defibrillator (ICD) Z95.810 Chronic kidney disease N18.9
--- NOTE | 2020-09-25 19:01 | Hospitalist Progress Note ---
Date of Service September 25, 2020 Assessment & Plan (1) Acute on chronic systolic heart failure: severely depressed EF - 15%. s/p right heart cath this admission by Dr Castellon with results noted (elevated L & R sided pressures, etc). remains on dobutamine infusion. bumex infusion stopped today in jenn of bumex 1mg BID dosing. volume status continues to improve with above plan of care. continue metoprolol succinate. not a candidate for NOEL, ARB or entresto due to low BP and acute renal failure. prognosis is very poor. palliative care consult pending. likely can move from ICU to PCU in am tomorrow. BMP am. (2) Cardiomyopathy: EF 15-20% as above in systolic CHF. Dr Casarez called to [facility] to see if he was a candidate for any other modalities. [facility] did not feel he would benefit from other Rx (LVAD, etc). (3) Cardiorenal syndrome with renal failure: As above NIKHIL/ARF slowly improving with dobutamine infusion and time peak Cr 3.7; today 2.6 daily BMP (4) NIKHIL (acute kidney injury): 2nd to severe systolic CHF/low-flow cardiac state/prerenal. slow improvement with creatinine with use of dobutamine. BMP in am. of note - peak Cr 3.7; today 2.6. (5) Permanent atrial fibrillation: Continue digoxin + beta jordana for rate control. Recent digoxin level wnl. Rates acceptable while on dobutamine. Strongly consider anticoagulation but previously he declined such. (6) Adult failure to thrive: 2nd to advanced cardiac disease? renal cell ca given the abnormal cysts? other? his frequent belching/burping and appetite issue could be from an upper GI problem which could also be a culprit. poor candidate for endoscopic eval at this time. (7) Bladder wall thickening: Incidental CT finding. No active UTI. (8) Bilateral renal cysts: Noted Urology consult completed; nothing to do at this time poor candidate to have any w/u for this (9) Presence of single chamber implantable cardioverter-defibrillator (ICD): Noted (10) Gastritis: seen on EGD 2016 belching/burping - intractable added pepcid 20mg IV daily added carafate 1mg qid cont PPI once daily belching modestly better today appetite certainly improved today (11) Macrocytic anemia: TSH, B12 both wnl folate borderline deficient - will replace with folic acid 1mg daily x 30 days (12) Thrombocytopenia: in light of macrocytic anemia - checked b12/folate/TSH b12/tsh wnl folate borderline low - will replace due to "Cardiac cirrhosis"? other? (13) Belching: as above in "gastritis" (14) Abnormal LFTs: 2nd hepatic congestion from severe right heart failure recheck in 2-3 days for stability/improvement (15) DVT prophylaxis: heparin BID updated pt's at bedside today Admission and Anticipated Discharge Date Admission Date: September 21, 2020 Subjective patient with good appetite today. eating well. belching/burping seems less. no abd pain. breathing improved. no dyspnea at rest. has not been out of bed today. tele - a.fib, rates at most low 100s. Review of Systems Constitutional: + fatigue; no anorexia Respiratory: no cough, no dyspnea and no wheezing Cardiovascular: no chest pain, no orthopnea and no edema Gastrointestinal: no abdominal pain, no nausea and no vomiting Physical Exam Constitutional: no acute distress and no altered mental status looks better today ENMT: external ear and nose normal, oropharynx normal Respiratory: Auscultation: + diminished lung sounds (bases) and + rales (soft, bases ) Cardiovascular: Rate/Rhythm: regular rate and + irregularly irregular Heart Sounds: normal S1, normal S2 and + murmur (1/6 systolic LLSB) Vessels: + JVD (mild but improved today; mild hepatojugular reflex as well ), posterior tibial pulses present and dorsalis pedis pulses present Extremities: no edema Gastrointestinal (Abdomen): normal bowel sounds, soft, nontender, no hepatosplenomegaly Psychiatric: A+Ox3, euthymic affect Results & Data Results & Data ([facility]) Vital Signs (Past 12 Hours) Vital Signs Temp Pulse Resp BP Pulse Ox 09/25/20 18:00 37.4 C 67 19 101/55 L 95 09/25/20 17:00 37.4 C 84 21 99/61 L 92 09/25/20 16:40 37.4 C 75 21 102/62 93 09/25/20 16:00 37.3 C 70 24 95 09/25/20 15:01 37.3 C 80 22 99/73 L 94 09/25/20 14:01 37.2 C 75 24 88/63 L 97 09/25/20 13:00 37.1 C 73 15 103/62 93 09/25/20 12:01 37.1 C 94 H 24 92/62 L 91 09/25/20 11:01 37.1 C 80 17 114/58 L 90 09/25/20 10:00 37.0 C 62 14 106/61 91 09/25/20 09:00 36.9 C 69 21 95/60 L 94 09/25/20 08:01 36.9 C 82 20 89/55 L 96 09/25/20 08:00 36.9 C 81 16 98 09/25/20 07:00 36.8 C 71 24 101/66 90 Laboratory Results Laboratory Results - last 24 hr 09/25/20 09/25/20 09/25/20 01:19 04:56 04:56 WBC RBC Hgb Hct MCV MCH MCHC RDW Std Deviation RDW Coeff of Gaby Plt Count MPV Immature Gran % (Auto) Neut % (Auto) Lymph % (Auto) [place] % (Auto) Eos % (Auto) Baso % (Auto) Neut # (Auto) Lymph # (Auto) [place] # (Auto) Eos # (Auto) Baso # (Auto) Immature Gran # (Auto) Sodium 139 138 Potassium 4.1 3.9 Chloride 98 100 Carbon Dioxide 37 H 35 H Anion Gap 3.0 3.0 BUN 48 H 44 H Creatinine 2.84 H 2.67 H Est Cr Clr Drug Dosing 20.7 22.0 Est GFR ( Amer) 23.9 25.7 Est GFR (Non-Af Amer) 20.6 22.2 BUN/Creatinine Ratio 16.8 16.6 Glucose 100 H 95 Calcium 8.6 8.4 L Phosphorus 2.6 2.5 Magnesium 2.2 2.3 Total Bilirubin 1.1 H Direct Bilirubin 0.3 H AST 68 H ALT 143 H Alkaline Phosphatase 129 H Total Protein 6.6 Albumin 3.4 Vitamin B12 544 Folate 5.80 TSH 2.060 09/25/20 04:56 WBC 6.84 RBC 3.61 L Hgb 11.8 L Hct 36.2 L MCV 100.3 H MCH 32.7 MCHC 32.6 RDW Std Deviation 54.0 H RDW Coeff of Gaby 15.2 H Plt Count 126 L MPV 11.0 H Immature Gran % (Auto) 0.3 Neut % (Auto) 65.3 Lymph % (Auto) 21.1 [place] % (Auto) 9.4 Eos % (Auto) 3.9 Baso % (Auto) 0.0 Neut # (Auto) 4.47 Lymph # (Auto) 1.44 [place] # (Auto) 0.64 H Eos # (Auto) 0.27 Baso # (Auto) 0.00 Immature Gran # (Auto) 0.02 Sodium Potassium Chloride Carbon Dioxide Anion Gap BUN Creatinine Est Cr Clr Drug Dosing Est GFR ( Amer) Est GFR (Non-Af Amer) BUN/Creatinine Ratio Glucose Calcium Phosphorus Magnesium Total Bilirubin Direct Bilirubin AST ALT Alkaline Phosphatase Total Protein Albumin Vitamin B12 Folate TSH PG Care Time/CCT Total # of Minutes Spent Total Time Spent with Patient: Total time spent is greater than 50% in coordination of care (as documented) at patient's floor/unit and/or counseling patient: Coding Level of Care Code 42093 Subseq Hosp Care Lvl 2 Diagnoses Acute on chronic systolic heart failure I50.23 Cardiomyopathy I42.9 Cardiomyopathy type: unspecified Cardiorenal syndrome with renal failure I13.10 NIKHIL (acute kidney injury) N17.9 Permanent atrial fibrillation I48.2 Adult failure to thrive R62.7 Bladder wall thickening N32.89 Bilateral renal cysts N28.1 Presence of single chamber implantable cardioverter-defibrillator (ICD) Z95.810 Gastritis K29.70 Macrocytic anemia D53.9 Thrombocytopenia D69.6 Belching R14.2 Abnormal LFTs R94.5 DVT prophylaxis Z29.9 (1) Cardiomyopathy Cardiomyopathy type: unspecified Qualified Code(s): I42.9 - Cardiomyopathy, unspecified
[2020-09-25] MEDS: BUMETANIDE 1 MG in SYRINGE 0 ML IV SCH (19:51)
[2020-09-26 05:16] LABS: Basophils # (auto) 0.02 K/uL (0-0.2); Basophils % (auto) 0.3 %; Eosinophils # (auto) 0.25 K/uL (0-0.5); Eosinophils % (auto) 3.3 %; Hematocrit (blood only) 38.8 % (42-52); Hemoglobin 12.6 g/dL (14.0-18.0); Lymphocytes % (auto) 23.8 %; Mean Corpuscular Hemoglobin 33.2 pg (25-34); Mean Corpuscular Hgb Conc 32.5 g/dL (32-36); Mean Corpuscular Volume 102.1 fL (80-100); Monocytes # (auto) 0.77 K/uL (0.11-0.59); Monocytes % (auto) 10.2 %; Neutrophils # (auto) 4.73 K/uL (1.4-6.5); Neutrophils % (auto) 62.4 %; Platelet Count 142 K/uL (130-400); RDW Coefficient of Variation 15.1 % (11.5-14.5); RDW Standard Deviation 54.4 fL (36.4-46.3); White Blood Count 7.57 K/uL (4.8-10.8)
[2020-09-26 05:53] LABS: Albumin Level 3.5 gm/dl (3.4-5.0); BUN Creatinine Ratio 19.5 (10-20); Calcium 8.8 mg/dl (8.5-10.1); Creatinine Clr Calc Pharmacy 23.2 ml/min; Est GFR (African American) 27.7 ml/min; Est GFR (Non-African American) 23.9 ml/min; Magnesium 2.3 mg/dl (1.8-2.4); Phosphorus 2.2 mg/dl (2.5-4.9)
--- NOTE | 2020-09-26 08:27 | Cardiology Progress Note ---
Date of Service September 26, 2020 Assessment & Plan (1) Low output heart failure: (2) Cardiorenal syndrome with renal failure: (3) Cardiomyopathy: (4) Permanent atrial fibrillation: Patient with severe cardiomyopathy admitted 09/22/2020 with low output heart failure and cardiorenal syndrome. He has responded well to dobutamine infusion with return of his renal function to baseline and marked clinical improvement. I spoke with him for 45 minutes this morning about the implications of his multiple comorbidities and the occurrence of low output failure in the context of acute on chronic renal insufficiency. We will further explore palliative options, since there is little to further to offer in the way of medical therapy, other than repeated hospitalizations for intravenous inotropic support (which are unlikely to improve his quality of life overall). Would recommend weaning dobutamine off over the next few hours, since he is clinically stable and renal function is back to baseline. Please remove his urinary catheter, detailed documentation of urine output is less important currently, the patient desires it removed, and we are likely moving into a palliative mode. In the absence of any significant clinical setback today, if he is able to ambulate short distances and manage self-care, would be reasonable to aim for hospital discharge later today (his would be available to pick him up after 4 PM). Recommended discharge medications: -Metoprolol succinate 25 mg twice daily -Digoxin 0.125 mg every 2 D -Bumetanide sliding scale as follows: weight dose <140 None 140-145 1 mg 145-150 2 mg >150 3 mg He has declined anticoagulation and is likely partially auto anticoagulated due to hepatic congestion from his low output failure (INR 1.6 on admission). Will arrange follow-up with myself, Tiny Khan PA-C (heart failure clinic), and Dr. Browne (palliative care). Admission and Anticipated Discharge Date Admission Date: September 21, 2020 Subjective Patient is doing well this morning. He ate a full breakfast and denies any GI complaints. Denies any dyspnea, chest discomfort, subjective palpitations, or other cardiopulmonary complaints at rest. He would like to have his urinary catheter removed. Rhythm remains atrial fibrillation with controlled ventricular response (70-80 bpm). His dobutamine was reduced from 10 mcg/kg/min to 5 mcg/kg/min. His BUN and creatinine have returned to baseline. Physical Exam Physical Exam: No distress. Weight down about 13 pounds from his outpatient weight 1 week ago. Input/output -637 mL overnight Skin: Ecchymoses right antecubital space, no generalized lesions. HEENT: unremarkable. Neck: Jugular venous pulse at the clavicle at 90 degrees, no carotid bruits. Lungs: Decreased breath sounds but clear. Cardiac: Irregular rhythm with increased pulmonic closure sound, no obvious murmur. Abdomen: Soft and nontender, nondistended. Extremities: no edema, pulses intact. Neurologic: normal affect and conversation, nonfocal. Results & Data ([facility]) Vital Signs (Past 12 Hours) Vital Signs Temp Pulse Resp BP Pulse Ox 09/26/20 06:01 98.4 F 75 16 112/68 09/26/20 04:01 98.6 F 69 18 96/59 L 09/26/20 03:01 98.6 F 73 19 99/65 L 09/26/20 02:01 98.8 F 66 12 106/61 94 09/26/20 01:00 99.0 F 79 5 L 108/63 92 09/26/20 00:01 99.1 F 77 26 H 94/49 L 97 09/26/20 00:00 79 09/25/20 23:01 99.1 F 83 28 H 110/67 93 09/25/20 22:00 99.3 F 67 14 107/64 89 L 09/25/20 21:01 99.1 F 80 28 H 102/64 95 Laboratory Results Normal white count, hemoglobin 12.6, platelet count normalized (up from 126,000 142,000 today). Normal electrolytes with potassium 4.0, BUN 49, creatinine 2.5 (44 and 2.67 yes terday). ALT 143, AST 68 (both declining). PG Care Time/CCT Total # of Minutes Spent Total Time Spent with Patient: Total time spent is greater than 50% in coordination of care (as documented) at patient's floor/unit and/or counseling patient: Coding Level of Care Code 83499 Subseq Hosp Care Lvl 3 Diagnoses Low output heart failure I50.9 Cardiorenal syndrome with renal failure I13.10 Cardiomyopathy I42.9 Cardiomyopathy type: unspecified Permanent atrial fibrillation I48.2 Time Spent (min) 60 (1) Cardiomyopathy Cardiomyopathy type: unspecified Qualified Code(s): I42.9 - Cardiomyopathy, unspecified
[2020-09-26] MEDS ORDERED: FOLIC ACID 1 MG in SYRINGE 9.8 ML IV SCH (09:00)
--- NOTE | 2020-09-26 09:13 | Nephrology Progress Note ---
Date of Service September 26, 2020 Assessment & Plan (1) NIKHIL (acute kidney injury): Acute cardiorenal syndrome. Non-oliguric. Kidney function appears to have returned to baseline. Electrolytes acceptable. Continued improvement in volume status noted. No emergent indication for dialysis. Document strict I/O's. Bumex switched to 2 mg PO BID this AM. Repeat metabolic profile tomorrow AM. (2) Cardiorenal syndrome with renal failure: Plan of care discussed with ICU team this AM. Dobutamine being weaned. (3) Bilateral renal cysts: Urology follow up encouraged depending on goals of care. (4) Chronic kidney disease: CKD IV with baseline creatinine 1.8-2.3 mg/dL. Medications appropriately dosed fo kidney function. Ongoing discussion regarding goals of care in setting of advanced cardiomyopathy. Admission and Anticipated Discharge Date Admission Date: September 21, 2020 Subjective No acute events overnight. No complaints this AM. Review of Systems Review of Systems: All systems reviewed & are unremarkable except as noted in HPI & below Physical Exam Constitutional: well developed; no acute distress Eyes: no scleral abnormality and no corneal abnormality ENMT: Mouth: no oral mucosal abnormality and oral mucous membranes not dry Neck: normal visual inspection and trachea midline Respiratory: normal respiratory effort Auscultation: lungs clear to auscultation bilaterally Cardiovascular: Rate/Rhythm: + irregularly irregular Heart Sounds: normal S1, normal S2 and + murmur Vessels: + JVD Extremities: no edema Musculoskeletal: Extremities: no cyanosis and no clubbing Skin: normal turgor; no lesions Neurologic: Motor/Sensory: no tremor and no asterixis Psychiatric: Orientation: alert and oriented x 3 Results & Data ([facility]) Vital Signs (Past 12 Hours) Vital Signs Temp Pulse Resp BP Pulse Ox 09/26/20 06:01 36.9 C 75 16 112/68 09/26/20 04:01 37.0 C 69 18 96/59 L 09/26/20 03:01 37.0 C 73 19 99/65 L 09/26/20 02:01 37.1 C 66 12 106/61 94 09/26/20 01:00 37.2 C 79 5 L 108/63 92 09/26/20 00:01 37.3 C 77 26 H 94/49 L 97 09/26/20 00:00 79 09/25/20 23:01 37.3 C 83 28 H 110/67 93 09/25/20 22:00 37.4 C 67 14 107/64 89 L Laboratory Results Laboratory Results - last 24 hr 09/26/20 09/26/20 04:52 04:52 WBC 7.57 RBC 3.80 L Hgb 12.6 L Hct 38.8 L MCV 102.1 H MCH 33.2 MCHC 32.5 RDW Std Deviation 54.4 H RDW Coeff of Gaby 15.1 H Plt Count 142 MPV 11.0 H Immature Gran % (Auto) 0.0 Neut % (Auto) 62.4 Lymph % (Auto) 23.8 [place] % (Auto) 10.2 Eos % (Auto) 3.3 Baso % (Auto) 0.3 Neut # (Auto) 4.73 Lymph # (Auto) 1.80 [place] # (Auto) 0.77 H Eos # (Auto) 0.25 Baso # (Auto) 0.02 Immature Gran # (Auto) 0.00 Sodium 136 Potassium 4.0 Chloride 98 Carbon Dioxide 35 H Anion Gap 3.0 BUN 49 H Creatinine 2.51 H Est Cr Clr Drug Dosing 23.2 Est GFR ( Amer) 27.7 Est GFR (Non-Af Amer) 23.9 BUN/Creatinine Ratio 19.5 Glucose 95 Calcium 8.8 Phosphorus 2.2 L Magnesium 2.3 Albumin 3.5 PG Care Time/CCT Total # of Minutes Spent Total Time Spent with Patient: Total time spent is greater than 50% in coordination of care (as documented) at patient's floor/unit and/or counseling patient: Coding Level of Care Code 87455 Subseq Hosp Care Lvl 3 Diagnoses NIKHIL (acute kidney injury) N17.9 Cardiorenal syndrome with renal failure I13.10 Bilateral renal cysts N28.1 Chronic kidney disease N18.9
[2020-09-26] MEDS ORDERED: BUMETANIDE 1 MG TAB PO ONE (09:15)
[2020-09-26] MEDS: BUMETANIDE 1 MG in SYRINGE 0 ML IV SCH (09:27)
[2020-09-26] MEDS: ATORVASTATIN 10 MG TAB PO SCH (09:35)
[2020-09-26] MEDS: PANTOprazole 40 MG TAB PO SCH (09:35)
[2020-09-26] MEDS: HEPARIN SOD 5,000 UNIT/0.5 ML VIAL SQ SCH (09:35)
[2020-09-26] MEDS: SUCRALFATE 1 GM/10 ML UDC PO SCH (09:35)
[2020-09-26] MEDS: METOPROLOL SUCC 25MG EXT REL TAB PO SCH (09:35)
[2020-09-26] MEDS: POT PHOSPHATE MONOBASIC W/ SOD TAB PO SCH ×3 (09:36→16:17)
[2020-09-26] MEDS: FAMOTIDINE 20 MG in SYRINGE 3 ML IV SCH (09:36)
--- NOTE | 2020-09-26 12:57 | Discharge Summary ---
Date of Service date of admission - September 21, 2020 date of discharge - September 26, 2020 Admission HPI Per Admitting Provider This is a 75-year-old male with past medical history of CHF, severe cardiomyopathy with LVEF of 15-20% - that presents today with tachycardia and dyspnea. Patient is pleasant but a somewhat difficult historian. Patient has longstanding cardiomyopathy of which he follows with Dr. King. He is on bumetanide and spironolactone. Patient was seen in Dr. King's o ffice today and had complained that he was having worsening dyspnea over the past 3 days. This was very exertional and was also accompanied by significant orthopnea. Blood pressure was documented 94/63 and pulse was 113. Dr. King was concerned that the patient may be over diuresed and patient was told to present to the emergency room for further evaluation. Time my evaluation, the patient had already been he hydrated with normal saline. At this point his blood pressure was over 100 systolic and heart rate had slowed into the 7090s though he remained in atrial fibrillation at his basel ine. Patient had complained of shortness of breath as previously described. Patient's at bedside also note that the patient had a significant weight loss of approximately 60 pounds over the past 6 months. Patient denies any overt chest pain. He also denies any fever, chills, nausea, diarrhea, constipation. He does note decreased p.o. intake. Principal Diagnosis 1. acute/chronic systolic CHF 2. cardiorenal syndrome 3. acute kidney injury in the setting of CKD stage 4 Discharge Exam Constitutional no acute distress and no altered mental status ENMT external ear and nose normal, oropharynx normal Respiratory Auscultation: + diminished lung sounds (bases b/l ); no rales and no wheezes Cardiovascular Rate/Rhythm: regular rate and + irregularly irregular Heart Sounds: normal S1, normal S2 and + murmur (1/6 systolic LLSB) Vessels: + JVD (minimal), posterior tibial pulses present and dorsalis pedis pulses present Extremities: no edema Gastrointestinal (Abdomen) normal bowel sounds, soft, nontender, no hepatosplenomegaly Psychiatric A+Ox3, euthymic affect Discharge Data Allergies Allergy/AdvReac Type Severity Reaction Status Date / Time No Known Drug Allergies Allergy Unknown . Verified 09/29/20 10:39 Consultations [facility] Cardiology [facility] Nephrology [facility] Palliative Care PT, OT Procedures Performed Operation Date: 09/22/20 09:30 Actual Procedures p Right Heart Cath Only - Selvin Castellon MD s Ultrasound Vascular Access - Selvin Castellon MD Findings: RA 16 RV 59/16 PA 64/36 (47) PCW 41 PaSat 36% AoSat 93% on 2L by pulse ox Aniket CO/CI 2.2/1.2 Thermo CO/CI 1.8/1.0 Started on dobutamine. No significant change to PA sat after 5 minutes. Summary: 1. Low cardiac output 2. Severely elevated left-sided filling pressures 3. Elevated right-sided filling pressures 4. Severe pulmonary hypertension (postcapillary). Echocardiogram - * EF 15-20% * moderate mitral regurgitation * moderate tricuspid regurgitation * mild aortic insufficiency * global hypokinesis Ordered Studies Chest X-Ray 09/21/20 15:01 SINGLE VIEW CHEST CLINICAL HISTORY: Atypical chest pain. FINDINGS: An AP, portable, upright chest radiograph is compared to study dated 09/18/2020. Correlation is made with chest CT dated 02/14/2009. A single lead cardiac AICD is unchanged in position and partially obscures the left upper chest. The heart is enlarged noting atherosclerotic calcification of the thoracic aorta. Enlargement of the central pulmonary arteries suggests pulmonary artery hypertension. The pulmonary vasculature is noncongested. Emphysema and chronic interstitial thickening is similar to previous. Trace pleural effusions are suggested. No airspace consolidation is seen typical for pneumonia. Scarring/atelectasis is noted at the lung bases. There is no pneumothorax. The skeletal structures are osteopenic. The bony thorax is grossly intact. IMPRESSION: 1. Cardiomegaly and AICD. There is no radiographic evidence of congestive failure. 2. Trace pleural effusions. 3. The nodular density questioned on the lateral projection of the 09/18/2020 examination is not appreciated on this single AP view.. ACT 112: Negative or not required by law. Electronically signed by: Severo Campbell M.D. 09/21/2020 3:38 PM Abdomen/Pelvis CT 09/21/20 15:35 CT SCAN OF THE ABDOMEN AND PELVIS WITHOUT CONTRAST CLINICAL HISTORY: nikhil COMPARISON STUDY: CT of abdomen and pelvis performed on February 14, 2009 is not available in the system at this time. TECHNIQUE: CT scan of the abdomen and pelvis was performed from the lung bases to the proximal femurs. Images are reviewed in the axial, sagittal, and coronal planes. IV contrast was not administered for this examination. A dose lowering technique was utilized adhering to the principles of ALARA. CT DOSE: 262.90 mGy.cm FINDINGS: Lower chest: Bilateral pleural effusion, small on the left and moderate on the right associated with diffuse septal thickening and and peribronchial cuffing of the aerated lung parenchyma. Mild four-chamber cardiomegaly. Distal peacemaker leads are seen and associated with beam hardening artifact. Liver: The unenhanced liver is normal in size, contour, and attenuation. There is no intrahepatic biliary ductal dilatation. Gallbladder: Surgically absent. Spleen: Normal in size. Punctate calcifications are seen within splenic parenchyma. Pancreas: Unremarkable. Adrenal glands: Unremarkable. Kidneys: The unenhanced kidneys are normal in size without hydronephrosis.. No renal calculi are identified. Bilateral renal cysts are seen, largest is seen adjacent of the right renal cortex, measuring 9.8 x 7.5 cm in axial dimension and shows internal calcified septa. Bowel: The small bowel and colon are normal in course and caliber. Minimal fat stranding is seen surrounding the cecal and might represent colitis. Appendix is nondilated and gas filled. Peritoneum: There is no intraperitoneal free air or abdominal ascites. Vasculature: The abdominal aorta is normal in course and caliber. Adenopathy: None. Pelvic viscera: Urinary bladder is partially decompressed with significant diffuse thickening of its wall. Prostate gland is mildly enlarged. Bilateral small fat-containing inguinal hernias are seen. Skeletal structures: Mild degenerative changes of the spine. IMPRESSION: 1. Bilateral pleural effusion, cardiomegaly and pulmonary edema. 2. Mild fat stranding surrounding cecum, could represent normal variant or colitis. 3. Bilateral renal cysts, largest is seen on the right and associated with calcified septation. Evaluation is limited due to lack of IV contrast as well as beam hardening artifact. Wall calcifications and septation of the renal cystic lesions could BE sign of neoplastic process. Further evaluation with contrast- enhanced CT or MRI of the abdomen is suggested. 4. Mild diffuse thickening of urinary bladder wall which might be seen in cystitis or neoplastic process. Please correlate with prior history and urinalysis result. ACT 112: Negative or not required by law. The above report was generated using voice recognition software. It may contain grammatical, syntax or spelling errors. Electronically signed by: Shelli Mitchell DO 09/21/2020 4:48 PM Chest X-Ray 09/23/20 07:00 XR chest 1V portable CLINICAL HISTORY: f/u COMPARISON STUDY: Chest radiograph September 21, 2020. FINDINGS: Right hilar prominence is unchanged from earlier exams. Small right pleural effusion is noted. Interstitial thickening and bilateral opacities, greater on the right, have increased since prior exam of September 21, 2020. Cardiomegaly is unchanged. Left pacer/AICD is in place. There is no pneumothorax. IMPRESSION: 1. Increase in interstitial thickening and airspace opacities, greater within the right lung. The findings favor asymmetric pulmonary edema. A superimposed infectious process within the right lung cannot be excluded. 2. Small right pleural effusion. ACT 112: Negative or not required by law. Electronically signed by: Sky Stevenson M.D. 09/23/2020 9:12 AM Chest X-Ray 09/25/20 07:00 XR chest 1V portable CLINICAL HISTORY: Shortness of breath COMPARISON STUDY: 09/23/2020 FINDINGS: The heart remains enlarged. There is a left subclavian pacer/defibrillator present. Trace pleural effusions are suspected. There is prominence of central pulmonary arteries. There is resolving asymmetric pulmonary edema.[ IMPRESSION: 1. Cardiomegaly and resolving asymmetric pulmonary edema. Suspected trace pleural effusions. ACT 112: Negative or not required by law. Electronically signed by: Chiki Larsen M.D. 09/25/2020 8:26 AM Hospital Course (1) Acute on chronic systolic heart failure: Severely depressed EF - 15%. s/p right heart cath this admission by Dr Castellon with results noted (elevated L & R sided pressures, severe pulmonary HTN, etc). Was admitted to the ICU and initiated on inotropic support (dobutamine infusion) and bumex drip for his decompensated CHF and cardiorenal syndrome. Volume status and creatinine improved with the above plan of care. The dobutamine was continued until the AM of hospital discharge at which point it was shut off. He was continued on metoprolol succinate. He is not a candidate for NOEL, ARB or entresto due to low BP and acute renal failure / CKD. Prognosis is very poor given the severity of his cardiomyopathy as well as his CKD. Palliative care consult was completed while hospitalized but patient was not yet ready to pursue hospice. At discharge he will continue - * metoprolol succinate 25mg BID * bumex "sliding scale" based on weight (see discharge instructions in this document) - discharge weight 143 pounds. * digoxin every other day He was counseled on the importance of fluid restriction, salt restriction, etc. Discharge weight was He will f/[place] King in [place] [facility] [place]. There will be coordination between Dr King and Dr Ester Browne, palliative care, to refine his goals for care in light of his severe CHF & poor prognosis. (2) Cardiomyopathy: EF 15-20% as above in systolic CHF. Dr Michael Casarez called to [facility] to see if he was a candidate for any other modalities to help his end-stage CHF. [facility] did not feel he would benefit from other treatment options (LVAD, etc). (3) Cardiorenal syndrome with renal failure: As above NIKHIL/ARF improved with dobutamine infusion and time peak Cr 3.7 Cr on day of discharge 2.5 will need close-up for his renal function in the setting of such severe cardiomyopathy (4) NIKHIL (acute kidney injury): 2nd to severe systolic CHF/low-flow cardiac state/prerenal. slow improvement with creatinine with use of dobutamine. of note - peak Cr 3.7; day of discharge Cr 2.5. (5) Permanent atrial fibrillation: Continue digoxin + beta jordana for rate control. Recent digoxin level wnl. Rates acceptable while on dobutamine. Strongly consider anticoagulation but previously he declined such. (6) Adult failure to thrive: 2nd to advanced cardiac disease? renal cell ca given the abnormal cysts? other? his frequent belching/burping and appetite issue could be from an upper GI problem which could also be one of the culprits. poor candidate for endoscopic eval at this time. (7) Bladder wall thickening: Incidental CT finding. No active UTI. (8) Bilateral renal cysts: Noted Urology consult completed; nothing to do at this time poor candidate to have any w/u for this (9) Presence of single chamber implantable cardioverter-defibrillator (ICD): (10) Gastritis: seen on EGD 2017. patient with intractable belching/burping during the stay, and apparently had had this for months at home. added pepcid 20mg IV daily and carafate 1gm qid to his once-daily PPI. belching modestly better with the above. d/c home on carafate qid PRN in addition to his usual PPI. (11) Macrocytic anemia: TSH, B12 both wnl folate borderline deficient - will replace with folic acid 1mg daily x 14 days (12) Thrombocytopenia: in light of macrocytic anemia - checked b12/folate/TSH b12/tsh wnl folate borderline low - will replace due to "Cardiac cirrhosis"? other? (13) Belching: as above in "gastritis" (14) Abnormal LFTs: 2nd hepatic congestion from severe right heart failure LFTs improved while here Home Health Attestation I certify that this patient is under my care and that I, or a physicians assistant professor of education working with me, had a face to-face encounter that meets the home health [id number] encounter requirements with this patient. The encounter with the patient was in whole, or in part, for the following medical condition, which is the primary reason for home health care (list medical condition): I certify that, based on my findings, the following services are medically necessary home health services: My clinical findings support the need for the above services because: Further, I certify that my clinical findings support that this patient is homebound (i.e. absences from home require considerable and taxing effort and are for medical reasons or rastafari services or infrequently or of short duration when for other reasons) because: Certification for Home Health Services: Based on the above findings, I certify that this patient is confined to the home and needs intermittent nursing home care, physical therapy and/or speech therapy or continues to need occupational therapy. The patient is under my care, and I have initiated the establishment of the plan of care. This patient will be followed by a physician who will periodically review the plan of care. Total Time Total Time Spent Total Time Spent (In Minutes): 40 Total Time Includes: Examination of the Patient, Discharge Planning, Medication Reconciliation and Communication With Other Providers Discharge Plan Discharge Items Patient Disposition: Home - Home Health Services Reason For Visit: failure to thrive Discharge Diagnosis: 1. acute on chronic, severe, congestive heart failure 2. abnormal liver function tests - likely due to congestive heart failure 3. folate deficiency 4. chronic belching - likely esophageal and/or stomach irritation, reflux, or combination of factors 5. acute on chronic kidney disease 6. abnormal appearing bladder on CAT scan Activity: As commented below Activity Comment: light activities; gradually increase as desired/tolerated Lifting: No more than 10 pounds Non-emergency contact: Primary Care Provider and Online Community Manager Call non-emergency contact if: you have any medication questions Follow-up/Referrals: Leo Eddy MD [Primary Care Provider] - (call Dr Eddy for any needs ) Ester Browne MD [Physician] - 10/19/20 1:00 pm (Please follow up with Dr. Browne on 10/19/20 at 1:00 pm. Please arrive to the office at 12:45 pm for your appointment. If you are unable to keep this appointment, please call the office to reschedule at [phone].) Heide Khan PA-C [Physician Clinical Assistant] - 09/28/20 (See Ms Khan in the congestive heart failure clinic with [facility] Cardiology) Diet: Low Sodium (2gm) Fluids: 1500ml (6 cups) Addtl Attending Provider Instructions: Mr Butler, It was our pleasure to care for you while you were admitted at [facility]! You were admitted to the hospital for failure to thrive (feeling poorly, not eating well, etc) along with worsening shortness of breath. At time of admission your pulse rate was fast, your kidney function level (creatinine) was much higher than usual for you, and your blood pressure was low. It was felt that your congestive heart failure was quite active/severe. When the heart is sick the kidneys often get sick with it. You required admission to the ICU given the complexity of your care and the need for several drips including dobutamine and bumex (diuretic) for your congestive heart failure. Dr Selvin Castellon performed a heart catheterization on you showing that both the left side of the heart and the right side of the heart were very weak and not functioning well. The heart catheterization showed that you had copious amounts of water retention in the lungs as well. With use of the above drips and time your water retention resolved. Your kidney function level (creatinine) peaked at 3.7 and is 2.5 at time of discharge. Your discharge weight is 143.8 pounds. The cardiology team including Dr King, as well as Dr Ester Browne from palliative care, both saw you while here. Moving forward Dr King's team as well as Dr Browne will try to manage your symptoms and your congestive heart failure as best as possible. It will be important to restrict your total fluid intake each day to 1500cc and to limit your salt intake to no more than 2000mg. This will help protect against water retention. [id number], given the severity of the heart failure and your kidney disease, it will be challenging to keep your fluid balance in check. Please see the "sliding scale" table below regarding your bumex (bumetanide) diuretic dosing. How much bumetanide you take will depend on what your weight is each morning. If you find your weights rising and you are becoming more short of breath - despite following the table - please contact Ms Khan at the congestive heart failure clinic or Dr King right away. Lastly, we have added the following medications -- * folic acid 1mg daily for 2 weeks for folate deficiency * sucralfate tablet, 1 gram before meals and at bedtime NEEDED for belching, burping, stomach upset, reflux symptoms, etc Follow-up -- see separate section Return to [facility] if -- * you have fevers over 100.5 degrees * you are having significant shortness of breath despite taking all of your heart medication * you have chest pains * you have significant abdominal pain * any other concerns It was a pleasure meeting you and best wishes as you return home today! -Dr Sharma Addtl Mobile Pet Groomer Provider Instructions: Congestive Heart Failure Instructions: Call 911 and go to the Emergency Room if: * You have tightness or pain in your chest that does not go away with rest or Nitroglycerin * You are very short of breath even with rest Call your doctor if any of the following symptoms or problems start or get worse: * Shortness of breath or difficulty breathing * Wake up at night short of breath * Chest pain * Cough * Swelling of your hands, fee, or legs * More fatigued or tired with your normal activity * Palpitations - sudden fast heart beats WEIGHT * Weigh yourself every morning after using the bathroom. * Use the same scale. * Wear the same amount of clothing. * Write your weight down on your chart. * Please follow the "sliding scale" Bumetanide dosing chart as below based on your weights. Bumetanide sliding scale as follows: weight dose <140 None 140-145 Take 1 mg 145-150 Take 2 mg >150 Take 3 mg Take the bumetanide in the morning based on the above. Know that the above table is subject to pattern changer the next few weeks based on how you are feeling. MEDICATIONS * Use this discharge instruction sheet for instructions. * Take your medications at the time your doctor ordered. * Do not skip a dose of your medicines. * If you miss a dose of medicine, take as soon as possible, but DO NOT DOUBLE A DOSE. * Read your medicine information when you get home. * Know all of the side effects of your medicine. * Call your doctor's office if you have any side effects. * Be sure all of your doctors know what medicine and herbs you take (including cold, flu, and herbal medicine). * Pain Medicine: If you do not get relief from your pain, please call your doctor for help. Take the following with you to your follow-up doctor appointments: * Weight Chart * Medication List * List of questions Do not drink excessive alcohol, beer or wine. Pending Studies at Discharge: No Stand-Alone Forms: [facility], Smoking Cessation Medications and DC Order Prescriptions: New folic acid 1 mg tablet 1,000 mcg PO DAILY 14 Days Qty: 14 RF: 0 sucralfate [Carafate] 1 gram tablet 1 g PO ACHS PRN (Reason: belching, stomach upset, reflux) Qty: 30 RF: 0 Continued ergocalciferol (vitamin D2) 50,000 unit capsule 50,000 units PO WEEKLY Qty: 12 RF: 0 atorvastatin 10 mg tablet 10 mg PO DAILY Qty: 90 RF: 3 pantoprazole 40 mg tablet,delayed release (DR/EC) 40 mg PO DAILY Qty: 30 RF: 5 digoxin 125 mcg (0.125 mg) tablet 125 mcg PO Q2D RF: 0 metoprolol succinate 50 mg tablet extended release 24 hr 25 mg PO BID RF: 0 Changed bumetanide 2 mg tablet 2 mg PO DIRECTED Qty: 90 RF: 3 Discontinued spironolactone 25 mg tablet 25 mg PO DAILY Qty: 30 RF: 0 No Action ondansetron HCl [Zofran] 4 mg tablet 4 mg PO Q8H PRN (Reason: nausea and vomiting) Qty: 30 RF: 0 Discharge Orders: Discharge Order (Routine); Ordered 09/26/20 Ordered By: Wilfredo Sharma Admission Data Admit Date/Time: 09/21/20 18:29 Attending Provider: Wilfredo Sharma Admit Provider: Rickey Kulkarni Primary Care Provider: Leo Eddy Other Providers: Jerrod King ; Mitali Nathan ; Neil Del Rosario ; Ester Browne Other Interventions: Discharge Summary Assessment (RN) Last Done: 09/26/20 13:30 Coding Level of Care Code D/C Day Management >30 mins Diagnoses Acute on chronic systolic heart failure I50.23 Cardiomyopathy I42.9 Cardiomyopathy type: unspecified Cardiorenal syndrome with renal failure I13.10 NIKHIL (acute kidney injury) N17.9 Permanent atrial fibrillation I48.2 Adult failure to thrive R62.7 Bladder wall thickening N32.89 Bilateral renal cysts N28.1 Presence of single chamber implantable cardioverter-defibrillator (ICD) Z95.810 Gastritis K29.70 Macrocytic anemia D53.9 Thrombocytopenia D69.6 Belching R14.2 Abnormal LFTs R94.5
[2020-09-26] MEDS: DIGOXIN 0.125 MG TAB PO SCH (16:16)
--- NOTE | 2020-09-26 16:31 | Palliative Care Progress Note ---
Date of Service September 26, 2020 Assessment & Plan (1) Palliative care encounter: He continues to do life review. We discussed the remarkable accomplishments that he's had in his life and what he would like the remaining days to look like. He acknowledges that his health has declined but very much wants to continue being active in the community. He is agreeable to outpatient palliative care followup. Will schedule in coordination with heart failure clinic appointment. Admission and Anticipated Discharge Date Admission Date: September 21, 2020 Subjective Ambulating in hallway, anticipating discharge home. No complaints of dyspnea or pain. Review of Systems Review of Systems: [place] Symptom Assessment Scale Pain 0/3 Dyspnea 0/3 Anxiety 0/3 Fatigue 1/3 Nausea 0/3 Drowsiness 0/3 Palliative Performance Score 50% Physical Exam Constitutional: no acute distress ENMT: Mouth: oral mucous membranes not dry Respiratory: normal respiratory effort; no labored breathing Cardiovascular: Rate/Rhythm: + irregularly irregular Gastrointestinal (Abdomen): Inspection/Auscultation: abdomen not distended Musculoskeletal: Extremities: + muscle atrophy Neurologic: awake; not confused Results & Data ([facility]) Vital Signs (Past 12 Hours) Vital Signs Temp Pulse Pulse Resp BP BP Pulse Ox 09/26/20 16:16 89 09/26/20 14:00 87 18 09/26/20 13:30 98.4 F 78 24 96/60 L 97 09/26/20 12:13 98.4 F 79 24 96/60 L 97 09/26/20 10:38 63 19 94/58 L 94 09/26/20 10:01 99.0 F 80 22 93/62 L 95 09/26/20 09:00 99.0 F 70 12 94/47 L 09/26/20 08:00 98.8 F 86 22 107/62 93 09/26/20 07:00 98.4 F 80 14 105/62 09/26/20 06:01 98.4 F 75 16 112/68 PG Care Time/CCT Total # of Minutes Spent Total Time Spent with Patient: Total time spent is greater than 50% in coordination of care (as documented) at patient's floor/unit and/or counseling patient: total time spent 45 minutes with more than 50% of time spent on goals of care and life review Coding Level of Care Code 03798 Subseq Hosp Care Lvl 3 Diagnoses Palliative care encounter Z51.5
[2020-09-26] MEDS ORDERED: BUMETANIDE 1 MG TAB PO SCH (17:00)
== END 2020-09-26 17:15 | disposition home health service (06) | DRG 286 ==
LOC: ED 14:44 → 2S 18:29 → SUATTDRO 18:29 → 2S 18:35 → 1E 09-22 12:36
PROC: CLB.CRH (2020-09-22 09:30)

== ENCOUNTER 2020-10-09 05:07 | Inpatient (IN) ==
[2020-10-09] MEDS ORDERED: SODIUM CHLORIDE 0.9% 1000ML 1,000 ML IV ONE (05:24)
[2020-10-09] MEDS ORDERED: NOREPINEPHRINE/D5W 8 MG/508 ML IV ONE (06:16)
[2020-10-09] MEDS: NOREPINEPHRINE/D5W 8 MG/508 ML BAG IV SCH ×4 (06:40→22:07)
--- NOTE | 2020-10-09 06:42 | XRay Report ---
XR chest 1V portable CLINICAL HISTORY: SEPSIS COMPARISON STUDY: Chest radiograph September 25, 2020. FINDINGS: Left subclavian pacer/AICD remains in place. Cardiomegaly is unchanged. Pulmonary edema has improved. Mild right basilar opacity has improved. There is no consolidation to suggest pneumonia. N o pneumothorax or pleural effusion is identified. IMPRESSION: 1. Interval improvement in pulmonary edema and right basilar opacity. Mild residual right basilar opa city favors atelectasis. 2. Cardiomegaly. ACT 112: Negative or not required by law. Electronically signed by: Sky Stevenson M.D. 10/09/2020 6:41 AM
[2020-10-09] MEDS ORDERED: STAT IV Infusion **Titration per Protocol STA ×2 (06:48→10:02)
[2020-10-09 06:53] LABS: Mean Corpuscular Hgb Conc 30.8 g/dL (32-36)
[2020-10-09 06:55] LABS: INR 3.8 (0.9-1.1); Partial Thromboplastin Ratio 1.7; Partial Thromboplastin Time 44.4 Seconds (21.0-31.0); Prothrombin Time 34.4 Seconds (9.0-12.0)
[2020-10-09 07:10] LABS: Basophils # (auto) 0.01 K/uL (0-0.2); Basophils % (auto) 0.1 %; Echinocytes 1+; Immature Granulocytes # (auto) 0.08 K/uL (0.00-0.02); Immature Granulocytes % (auto) 0.6 %; Lymphocytes # (auto) 0.91 K/uL (1.2-3.4); Lymphocytes % (auto) 6.6 %; Mean Corpuscular Hemoglobin 33.3 pg (25-34); Mean Corpuscular Volume 108.3 fL (80-100); Monocytes # (auto) 1.84 K/uL (0.11-0.59); Monocytes % (auto) 13.3 %; Neutrophils # (auto) 10.97 K/uL (1.4-6.5); Neutrophils % (auto) 79.4 %; Ovalocytes 1+; Platelet Count 257 K/uL (130-400); Platelet Estimate Normal (Normal); Polychromasia 1+; RDW Coefficient of Variation 16.5 % (11.5-14.5); RDW Standard Deviation 63.2 fL (36.4-46.3); White Blood Count 13.81 K/uL (4.8-10.8)
[2020-10-09 07:12] LABS: Albumin Globulin Ratio 1.2 (0.9-2); Albumin Level 3.9 gm/dl (3.4-5.0); BUN Creatinine Ratio 18.9 (10-20); Bilirubin,Total 4.2 mg/dl (0.2-1); Calcium 9.4 mg/dl (8.5-10.1); Creatinine Clr Calc Pharmacy 9.5 ml/min; Est GFR (African American) 8.6 ml/min; Est GFR (Non-African American) 7.4 ml/min; Globulin 3.3 gm/dl (2.5-4.0); Magnesium 3.1 mg/dl (1.8-2.4); Potassium 6.2 mmol/L (3.5-5.1); Total Protein 7.2 gm/dl (6.4-8.2)
[2020-10-09] MEDS ORDERED: SODIUM BICARBONATE 8.4% INJ 50 MEQ/50 ML VIAL ONE (07:22)
[2020-10-09] MEDS ORDERED: SODIUM BICARB 8.4% INJ 50 MEQ/50 ML SYR IV ONE (07:24)
--- NOTE | 2020-10-09 08:00 | Emergency Department Note ---
Impression & Plan Lactic acidosis, Hypoglycemia, Acute hyperkalemia, Acute renal failure, Hypothermia, Acute hypotension ED Provider Note NAME: ANUM MACKEY AGE: 75 SEX: M ARRIVES VIA: Ambulance INFORMANT: Patient, patient's ED PROVIDER(S): Kelly Grayson DO CHIEF COMPLAINT: Weakness PLAN: Disposition: Admitted to the [facility] service Condition: Critical MEDICAL DECISION MAKING: This is a 75-year-old male patient who presents to the emergency department with increasing generalized weakness and low blood sugar. Patient's explains that the patient had decreased oral intake over the weekend. Patient was noted to be bradycardic and hypotensive here in the emergency department as well as hypoglycemic and hypothermic. Patient has evidence of severe lactic acidosis and overt acute renal failure. Patient has a known history of dilated cardiomyopathy and appears to be in low output failure. He was given a small bolus of IV crystalloid therapy which allowed us to obtain IV access. We were able to maintain his O2 saturations on nasal cannula. Patient did end up requiring IV vasopressor medication to support his blood pressure. He is in critical condition at this point. I made this clear to the patient's and urged her to contact her children. The patient became hypoglycemic again here in the emergency department and was given an amp of D50. Patient was also noted to be hyperkalemic and was given IV sodium bicarbonate. Critical care medicine was notified and he will be admitted to the ICU. Triage Nursing notes reviewed and agree them. Additional history obtained from the patient's is at the bedside Prior medical records reviewed Vital Signs: reviewed and remarkable for hypothermia, hypotension, and bradycard ia Differential diagnosis: Sepsis, renal failure, congestive heart failure, hypoglycemia, medication overdose ER treatment provided: IV normal saline bolus IV Levophed drip D50 IV IV sodium bicarbonate Diagnostics interpreted by me: ECG: Ventricular paced rhythm at a rate of 40 with a wide QRS complex. There is no ectopy or other signs of ischemia. Cardiac Monitoring: Paced rhythm at 42 Laboratory studies: See below Imaging studies: As per my interpretation Portable chest x-ray: No significant pulmonary edema or consolidation/opacity Consultation(s): I discussed the case with Dr. Salcedo from the [facility] service as well as Dr. Delgado from critical care medicine. I also discussed the case with Dr. King who knows the patient well from cardiology. HPI: 75/M arrives for evaluation of generalized weakness. According to EMS and the patient's , he has had increasing weakness over the past 3 days. He has had episodes of nausea and vomiting with loss of appetite. The patient's plan to bring him to the emergency department this morning but she could not get him in the car because he was so weak. EMS was called and they found his blood sugar to be 35. ROS: See above HPI for pertinent positives & negatives. A total of 10 systems reviewed and were otherwise negative. PAST MEDICAL HISTORY:See Below PAST SURGICAL HISTORY:See Below FAMILY HISTORY:See Below SOCIAL HISTORY:See Below HOME MEDICATIONS:See list ALLERGIES:None VITALS:See Below PHYSICAL EXAMINATION: HEENT: Head - normocephalic and atraumatic. Pupils are equal, round, and reactive to light. Extraocular eye muscles are intact, and sclera are anicteric. Nose - moist nasal mucosa without discharge. Mouth -extremely dry buccal mucosa. Oropharynx is nonerythematous and there is no tonsillar exudate or edema noted. Neck: Supple; no JVD or nuchal rigidity Heart: Bradycardic rate and regular rhythm. There is a normal S1 and S2 with no murmurs, clicks, or gallops appreciated. Lungs: Clear to auscultation bilaterally with no wheezes, rales, or rhonchi. Abdomen: Soft, completely nontender, significantly distended, with good bowel sounds. There are no palpable pulsatile masses or hepatosplenomegaly. There is no guarding, rigidity, or rebound noted. Extremities: No evidence of cyanosis, clubbing, or edema. There are easily palpable peripheral pulses. Skin: Very cold/no rashes noted ED COURSE: Times/Reassessments: 515: The patient was evaluated in room B1. A complete history and physical was performed. Previous electronic medical records were reviewed. An order was placed for continuous cardiac monitoring. The patient was in a paced rhythm at a rate of 40. An IV lock was initiated and labs are drawn as above. A complete septic protocol was performed including blood cultures. A twelve-lead EKG was obtained. The patient was significantly hypothermic and a bear hugger was applied. A portable x-ray was performed. The patient was receiving D10 from EMS as his blood sugar had only been 35. The patient was significantly hypotensive upon arrival and was receiving IV normal saline bolus. He received a total of 750 cc of saline. This allowed us to obtain IV access. The patient's blood pressure did respond somewhat to the crystalloid therapy. The patient's did arrive at the bedside. She did provide additional history. We were unable to obtain laboratory studies so I did a groin stick in the patient's left femoral vein. Patient was noted to be significantly hyperkalemic and was given an amp of IV sodium bicarbonate. I did discuss the case with Dr. King on the phone who is familiar with the patient's case. The patient's blood pressure did continue to drop despite the IV normal saline solution so the patient was started on IV Levophed drip. I discussed the patient's wishes with the patient and his . They requested that he be a full code. The patient's blood sugar was checked again and found that it had dropped again so he was given IV D50. I discussed the case with critical care medicine along with the [facility] hospitalist Dr. Salcedo. He is currently speaking with the patient's . I have personally spent greater than 120 minutes of critical care time in the direct management of this patient. This includes bedside care, interpretation of diagnostic studies, and testing, discussion with consultants, patient, and family members, and other required patient management activities. This 120 minutes is in excess of all separately billable procedures. Kelly Grayson, Past Med/Surg History Medical History NIKHIL (acute kidney injury) Aortic regurgitation Cardiogenic shock Chronic obstructive pulmonary disease Chronic renal insufficiency Dyslipidemia Elevated troponin GERD (gastroesophageal reflux disease) Hyperglycemia Hypertension Metabolic acidosis Mitral regurgitation MR (mitral regurgitation) Paroxysmal ventricular tachycardia Permanent atrial fibrillation Systolic CHF with reduced left ventricular function, NYHA class 3 Surgical History History of colonoscopy History of repair of rotator cuff Hx laparoscopic cholecystectomy (2017) Family History Mother Leukemia Sister Acute myocardial infarction Social History Smoking Status: Former smoker Tobacco Type: Cigarettes Hx Alcohol Use: No Hx Substance Use: No Preferred Language: Portuguese Communication Ability: Effective 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 Verified 10/09/20 07:45 Home Meds Home Medications Medication Instructions Recorded Confirmed ergocalciferol (vitamin D2) 1,250 50,000 units PO WEEKLY #12 cap 12/14/18 10/06/20 mcg (50,000 unit) capsule digoxin 125 mcg (0.125 mg) tablet 125 mcg PO Q2D tab 08/01/20 10/06/20 metoprolol succinate 50 mg 25 mg PO BID tab 09/19/20 10/06/20 tablet,extended release 24 hr Previous Rx's Medication Instructions Recorded pantoprazole 40 mg tablet,delayed 40 mg PO DAILY #30 tab 06/13/20 release bumetanide 2 mg PO DIRECTED #90 tab 09/26/20 folic acid 1,000 mcg PO DAILY 14 Days #14 tab 09/26/20 sucralfate [Carafate] 1 g PO ACHS PRN #30 tab 09/26/20 ondansetron HCl 4 mg tablet 4 mg PO Q8H PRN #30 tab 09/29/20 Results & Data (ED) Vital Signs Vital Signs - 24 hr 10/09/20 05:14 10/09/20 05:15 10/09/20 05:20 Temperature 33.4 C L Temperature Source Rectal Pulse Rate 40 L 40 L 48 L Pulse Rate [Right Finger] Pulse Rate from SpO2 Sensor 39 L 40 L Respiratory Rate 23 16 23 Respiratory Effort / Characteristics Respiratory Depth Blood Pressure 82/38 L 82/38 L Blood Pressure [Right Arm] Blood Pressure Mean 52 52 Blood Pressure Mean [Right Arm] Blood Pressure Position Lying Blood Pressure Position [Right Arm] Pulse Oximetry 98 100 99 Oxygen Delivery Method Room Air Oxygen Flow Rate Sepsis Recent Fever Within 48 Hours No Sepsis New/Unexplained Change in Mental Status No Sepsis Action Taken by Nursing Physician Notified Oxygen Flow Rate - Titration Pulse Oximetry Post Tiitration 10/09/20 05:26 10/09/20 05:30 10/09/20 05:31 Temperature Temperature Source Pulse Rate 40 L 40 L Pulse Rate [Right Finger] Pulse Rate from SpO2 Sensor 40 L Respiratory Rate 23 20 23 Respiratory Effort / Characteristics Respiratory Depth Blood Pressure 91/39 L Blood Pressure [Right Arm] Blood Pressure Mean 56 62 Blood Pressure Mean [Right Arm] Blood Pressure Position Blood Pressure Position [Right Arm] Pulse Oximetry 83 L 97 Oxygen Delivery Method Oxygen Flow Rate Sepsis Recent Fever Within 48 Hours Sepsis New/Unexplained Change in Mental Status Sepsis Action Taken by Nursing Oxygen Flow Rate - Titration Pulse Oximetry Post Tiitration 10/09/20 05:35 10/09/20 05:37 10/09/20 05:38 Temperature Temperature Source Pulse Rate 40 L Pulse Rate [Right Finger] 40 L Pulse Rate from SpO2 Sensor 39 L Respiratory Rate 26 H 18 Respiratory Effort / Characteristics Respiratory Depth Normal Blood Pressure 89/43 L Blood Pressure [Right Arm] 89/43 L Blood Pressure Mean 58 Blood Pressure Mean [Right Arm] 58 Blood Pressure Position Blood Pressure Position [Right Arm] Lying Pulse Oximetry 97 96 96 Oxygen Delivery Method Room Air Room Air Oxygen Flow Rate Sepsis Recent Fever Within 48 Hours Sepsis New/Unexplained Change in Mental Status Sepsis Action Taken by Nursing Oxygen Flow Rate - Titration Pulse Oximetry Post Tiitration 10/09/20 05:39 10/09/20 05:40 10/09/20 05:46 Temperature 33.4 C L Temperature Source Rectal Pulse Rate 40 L 40 L Pulse Rate [Right Finger] Pulse Rate from SpO2 Sensor 40 L 40 L Respiratory Rate 25 H 27 H Respiratory Effort / Characteristics Respiratory Depth Blood Pressure 92/47 L 81/51 L Blood Pressure [Right Arm] Blood Pressure Mean 62 61 Blood Pressure Mean [Right Arm] Blood Pressure Position Blood Pressure Position [Right Arm] Pulse Oximetry 94 96 Oxygen Delivery Method Oxygen Flow Rate Sepsis Recent Fever Within 48 Hours Sepsis New/Unexplained Change in Mental Status Sepsis Action Taken by Nursing Oxygen Flow Rate - Titration Pulse Oximetry Post Tiitration 10/09/20 05:49 10/09/20 05:50 10/09/20 05:56 Temperature Temperature Source Pulse Rate 40 L 40 L Pulse Rate [Right Finger] 40 L Pulse Rate from SpO2 Sensor 40 L 39 L Respiratory Rate 16 28 H 26 H Respiratory Effort / Characteristics Respiratory Depth Blood Pressure 89/53 L 92/48 L Blood Pressure [Right Arm] 81/51 L Blood Pressure Mean 65 62 Blood Pressure Mean [Right Arm] 61 Blood Pressure Position Blood Pressure Position [Right Arm] Lying Pulse Oximetry 96 93 83 L Oxygen Delivery Method Room Air Oxygen Flow Rate Sepsis Recent Fever Within 48 Hours Sepsis New/Unexplained Change in Mental Status Sepsis Action Taken by Nursing Oxygen Flow Rate - Titration Pulse Oximetry Post Tiitration 10/09/20 06:00 10/09/20 06:10 10/09/20 06:11 Temperature Temperature Source Pulse Rate 40 L 40 L 46 L Pulse Rate [Right Finger] Pulse Rate from SpO2 Sensor 40 L 40 L 40 L Respiratory Rate 22 25 H 23 Respiratory Effort / Characteristics Respiratory Depth Blood Pressure Blood Pressure [Right Arm] Blood Pressure Mean 68 Blood Pressure Mean [Right Arm] Blood Pressure Position Blood Pressure Position [Right Arm] Pulse Oximetry 100 100 94 Oxygen Delivery Method Oxygen Flow Rate Sepsis Recent Fever Within 48 Hours Sepsis New/Unexplained Change in Mental Status Sepsis Action Taken by Nursing Oxygen Flow Rate - Titration Pulse Oximetry Post Tiitration 10/09/20 06:14 10/09/20 06:20 10/09/20 06:22 Temperature Temperature Source Pulse Rate 40 L 40 L 50 L Pulse Rate [Right Finger] Pulse Rate from SpO2 Sensor Respiratory Rate 27 H 23 20 Respiratory Effort / Characteristics Respiratory Depth Blood Pressure 67/29 L 83/40 L Blood Pressure [Right Arm] Blood Pressure Mean 41 54 Blood Pressure Mean [Right Arm] Blood Pressure Position Blood Pressure Position [Right Arm] Pulse Oximetry Oxygen Delivery Method Oxygen Flow Rate Sepsis Recent Fever Within 48 Hours Sepsis New/Unexplained Change in Mental Status Sepsis Action Taken by Nursing Oxygen Flow Rate - Titration Pulse Oximetry Post Tiitration 10/09/20 06:23 10/09/20 06:28 10/09/20 06:30 Temperature Temperature Source Pulse Rate 40 L Pulse Rate [Right Finger] 60 Pulse Rate from SpO2 Sensor 40 L Respiratory Rate 18 18 27 H Respiratory Effort / Characteristics Non-Labored Respiratory Depth Blood Pressure Blood Pressure [Right Arm] 83/40 L Blood Pressure Mean Blood Pressure Mean [Right Arm] 54 Blood Pressure Position Blood Pressure Position [Right Arm] Lying Pulse Oximetry 95 98 94 Oxygen Delivery Method Nasal Cannula Nasal Cannula Oxygen Flow Rate 2 2 Sepsis Recent Fever Within 48 Hours Sepsis New/Unexplained Change in Mental Status Sepsis Action Taken by Nursing Oxygen Flow Rate - Titration Pulse Oximetry Post Tiitration 10/09/20 06:31 10/09/20 06:34 10/09/20 06:40 Temperature Temperature Source Pulse Rate 53 L 40 L 40 L Pulse Rate [Right Finger] Pulse Rate from SpO2 Sensor 40 L 35 L Respiratory Rate 28 H 23 28 H Respiratory Effort / Characteristics Respiratory Depth Blood Pressure Blood Pressure [Right Arm] Blood Pressure Mean 35 72 Blood Pressure Mean [Right Arm] Blood Pressure Position Blood Pressure Position [Right Arm] Pulse Oximetry 91 98 Oxygen Delivery Method Oxygen Flow Rate Sepsis Recent Fever Within 48 Hours Sepsis New/Unexplained Change in Mental Status Sepsis Action Taken by Nursing Oxygen Flow Rate - Titration Pulse Oximetry Post Tiitration 10/09/20 06:50 10/09/20 06:53 10/09/20 06:56 Temperature Temperature Source Pulse Rate 40 L 40 L Pulse Rate [Right Finger] Pulse Rate from SpO2 Sensor 41 L 40 L Respiratory Rate 13 24 Respiratory Effort / Characteristics Respiratory Depth Blood Pressure 85/50 L Blood Pressure [Right Arm] Blood Pressure Mean 61 Blood Pressure Mean [Right Arm] Blood Pressure Position Blood Pressure Position [Right Arm] Pulse Oximetry 77 L 90 Oxygen Delivery Method Nasal Cannula Oxygen Flow Rate Sepsis Recent Fever Within 48 Hours Sepsis New/Unexplained Change in Mental Status Sepsis Action Taken by Nursing Oxygen Flow Rate - Titration 5 Pulse Oximetry Post Tiitration 96 10/09/20 07:00 10/09/20 07:01 10/09/20 07:10 Temperature Temperature Source Pulse Rate 40 L 40 L 40 L Pulse Rate [Right Finger] Pulse Rate from SpO2 Sensor 40 L 40 L 40 L Respiratory Rate 16 24 27 H Respiratory Effort / Characteristics Respiratory Depth Blood Pressure 93/37 L Blood Pressure [Right Arm] Blood Pressure Mean 55 Blood Pressure Mean [Right Arm] Blood Pressure Position Blood Pressure Position [Right Arm] Pulse Oximetry 92 89 L 96 Oxygen Delivery Method Oxygen Flow Rate Sepsis Recent Fever Within 48 Hours Sepsis New/Unexplained Change in Mental Status Sepsis Action Taken by Nursing Oxygen Flow Rate - Titration Pulse Oximetry Post Tiitration 10/09/20 07:20 10/09/20 07:21 10/09/20 07:30 Temperature Temperature Source Pulse Rate 40 L 40 L 40 L Pulse Rate [Right Finger] Pulse Rate from SpO2 Sensor 40 L 40 L 40 L Respiratory Rate 15 26 H 26 H Respiratory Effort / Characteristics Respiratory Depth Blood Pressure Blood Pressure [Right Arm] Blood Pressure Mean 44 Blood Pressure Mean [Right Arm] Blood Pressure Position Blood Pressure Position [Right Arm] Pulse Oximetry 84 L 85 L 100 Oxygen Delivery Method Nasal Cannula Oxygen Flow Rate 6 Sepsis Recent Fever Within 48 Hours Sepsis New/Unexplained Change in Mental Status Sepsis Action Taken by Nursing Oxygen Flow Rate - Titration Pulse Oximetry Post Tiitration 10/09/20 07:40 10/09/20 07:47 Temperature Temperature Source Pulse Rate 61 Pulse Rate [Right Finger] Pulse Rate from SpO2 Sensor 41 L Respiratory Rate 19 Respiratory Effort / Characteristics Respiratory Depth Blood Pressure Blood Pressure [Right Arm] 89/39 L Blood Pressure Mean Blood Pressure Mean [Right Arm] 55 Blood Pressure Position Blood Pressure Position [Right Arm] Pulse Oximetry Oxygen Delivery Method Oxygen Flow Rate Sepsis Recent Fever Within 48 Hours Sepsis New/Unexplained Change in Mental Status Sepsis Action Taken by Nursing Oxygen Flow Rate - Titration Pulse Oximetry Post Tiitration Laboratory Data Result diagrams: 10/09/20 06:13 10/09/20 20:05 Lab Results 10/09/20 10/09/20 10/09/20 Range/Units 05:12 05:30 05:30 WBC (4.8-10.8) K/uL RBC (4.7-6.1) M/uL Hgb (14.0-18.0) g/dL Hct (42-52) % MCV (80-100) fL MCH (25-34) pg MCHC (32-36) g/dL RDW Std Deviation (36.4-46.3) fL RDW Coeff of Gaby (11.5-14.5) % Plt Count (130-400) K/uL MPV (7.4-10.4) fL Immature Gran % (Auto) % Neut % (Auto) % Lymph % (Auto) % [place] % (Auto) % Eos % (Auto) % Baso % (Auto) % Neut # (Auto) (1.4-6.5) K/uL Lymph # (Auto) (1.2-3.4) K/uL [place] # (Auto) (0.11-0.59) K/uL Eos # (Auto) (0-0.5) K/uL Baso # (Auto) (0-0.2) K/uL Immature Gran # (Auto) (0.00-0.02) K/uL Platelet Estimate (Normal) Polychromasia Ovalocytes Echinocytes PT (9.0-12.0) Seconds INR (0.9-1.1) APTT (21.0-31.0) Seconds PTT Ratio ABG pH ABG pCO2 ABG pO2 ABG HCO3 ABG O2 Saturation ABG Base Excess Alec Test VBG pH (7.36-7.41) VBG pCO2 (38-50) mmHg VBG pO2 mmHg VBG HCO3 mmol/L VBG O2 Saturation % VBG Base Excess mEq/L Barometric Pressure Oxygen Given Sodium (136-145) mmol/L Potassium (3.5-5.1) mmol/L Chloride (98-107) mmol/L Carbon Dioxide (21-32) mmol/L Anion Gap (3-11) BUN (7-18) mg/dl Creatinine (0.6-1.4) mg/dl Est Cr Clr Drug Dosing ml/min Est GFR ( Amer) ml/min Est GFR (Non-Af Amer) ml/min BUN/Creatinine Ratio (10-20) Glucose (70-99) mg/dl POC Glucose 75 (70-99) mg/dl Lactate (0.4-2.0) mmol/L Calcium (8.5-10.1) mg/dl Magnesium (1.8-2.4) mg/dl Total Bilirubin (0.2-1) mg/dl AST (15-37) U/L ALT (12-78) U/L Alkaline Phosphatase (45-117) U/L Total Protein (6.4-8.2) gm/dl Albumin (3.4-5.0) gm/dl Globulin (2.5-4.0) gm/dl Albumin/Globulin Ratio (0.9-2) COVID-19 Eval Order Covid19 at [facility] SARS-CoV-2 (PCR) NEGATIVE (Negative) 10/09/20 10/09/20 10/09/20 Range/Units 05:54 06:13 06:13 WBC 13.81 H (4.8-10.8) K/uL RBC 3.60 L (4.7-6.1) M/uL Hgb 12.0 L (14.0-18.0) g/dL Hct 39.0 L (42-52) % MCV 108.3 H (80-100) fL MCH 33.3 (25-34) pg MCHC 30.8 L (32-36) g/dL RDW Std Deviation 63.2 H (36.4-46.3) fL RDW Coeff of Gaby 16.5 H (11.5-14.5) % Plt Count 257 (130-400) K/uL MPV 12.0 H (7.4-10.4) fL Immature Gran % (Auto) 0.6 % Neut % (Auto) 79.4 % Lymph % (Auto) 6.6 % [place] % (Auto) 13.3 % Eos % (Auto) 0.0 % Baso % (Auto) 0.1 % Neut # (Auto) 10.97 H (1.4-6.5) K/uL Lymph # (Auto) 0.91 L (1.2-3.4) K/uL [place] # (Auto) 1.84 H (0.11-0.59) K/uL Eos # (Auto) 0.00 (0-0.5) K/uL Baso # (Auto) 0.01 (0-0.2) K/uL Immature Gran # (Auto) 0.08 H (0.00-0.02) K/uL Platelet Estimate Normal (Normal) Polychromasia 1+ Ovalocytes 1+ Echinocytes 1+ PT 34.4 H (9.0-12.0) Seconds INR 3.8 H (0.9-1.1) APTT 44.4 H (21.0-31.0) Seconds PTT Ratio 1.7 ABG pH ABG pCO2 ABG pO2 ABG HCO3 ABG O2 Saturation ABG Base Excess Alec Test VBG pH (7.36-7.41) VBG pCO2 (38-50) mmHg VBG pO2 mmHg VBG HCO3 mmol/L VBG O2 Saturation % VBG Base Excess mEq/L Barometric Pressure Oxygen Given Sodium (136-145) mmol/L Potassium (3.5-5.1) mmol/L Chloride (98-107) mmol/L Carbon Dioxide (21-32) mmol/L Anion Gap (3-11) BUN (7-18) mg/dl Creatinine (0.6-1.4) mg/dl Est Cr Clr Drug Dosing ml/min Est GFR ( Amer) ml/min Est GFR (Non-Af Amer) ml/min BUN/Creatinine Ratio (10-20) Glucose (70-99) mg/dl POC Glucose 93 (70-99) mg/dl Lactate (0.4-2.0) mmol/L Calcium (8.5-10.1) mg/dl Magnesium (1.8-2.4) mg/dl Total Bilirubin (0.2-1) mg/dl AST (15-37) U/L ALT (12-78) U/L Alkaline Phosphatase (45-117) U/L Total Protein (6.4-8.2) gm/dl Albumin (3.4-5.0) gm/dl Globulin (2.5-4.0) gm/dl Albumin/Globulin Ratio (0.9-2) COVID-19 Eval Order SARS-CoV-2 (PCR) (Negative) 10/09/20 10/09/20 10/09/20 Range/Units 06:13 06:13 07:09 WBC (4.8-10.8) K/uL RBC (4.7-6.1) M/uL Hgb (14.0-18.0) g/dL Hct (42-52) % MCV (80-100) fL MCH (25-34) pg MCHC (32-36) g/dL RDW Std Deviation (36.4-46.3) fL RDW Coeff of Gaby (11.5-14.5) % Plt Count (130-400) K/uL MPV (7.4-10.4) fL Immature Gran % (Auto) % Neut % (Auto) % Lymph % (Auto) % [place] % (Auto) % Eos % (Auto) % Baso % (Auto) % Neut # (Auto) (1.4-6.5) K/uL Lymph # (Auto) (1.2-3.4) K/uL [place] # (Auto) (0.11-0.59) K/uL Eos # (Auto) (0-0.5) K/uL Baso # (Auto) (0-0.2) K/uL Immature Gran # (Auto) (0.00-0.02) K/uL Platelet Estimate (Normal) Polychromasia Ovalocytes Echinocytes PT (9.0-12.0) Seconds INR (0.9-1.1) APTT (21.0-31.0) Seconds PTT Ratio ABG pH ABG pCO2 ABG pO2 ABG HCO3 ABG O2 Saturation ABG Base Excess Alec Test VBG pH (7.36-7.41) VBG pCO2 (38-50) mmHg VBG pO2 mmHg VBG HCO3 mmol/L VBG O2 Saturation % VBG Base Excess mEq/L Barometric Pressure Oxygen Given Sodium 134 L (136-145) mmol/L Potassium 6.2 H* (3.5-5.1) mmol/L Chloride 92 L (98-107) mmol/L Carbon Dioxide 9 L* (21-32) mmol/L Anion Gap 33.0 H (3-11) BUN 125 H (7-18) mg/dl Creatinine 6.61 H* (0.6-1.4) mg/dl Est Cr Clr Drug Dosing 9.5 ml/min Est GFR ( Amer) 8.6 ml/min Est GFR (Non-Af Amer) 7.4 ml/min BUN/Creatinine Ratio 18.9 (10-20) Glucose 74 (70-99) mg/dl POC Glucose 62 L* (70-99) mg/dl Lactate 15.2 H* (0.4-2.0) mmol/L Calcium 9.4 (8.5-10.1) mg/dl Magnesium 3.1 H (1.8-2.4) mg/dl Total Bilirubin 4.2 H (0.2-1) mg/dl AST 3291 H (15-37) U/L ALT 1962 H (12-78) U/L Alkaline Phosphatase 163 H (45-117) U/L Total Protein 7.2 (6.4-8.2) gm/dl Albumin 3.9 (3.4-5.0) gm/dl Globulin 3.3 (2.5-4.0) gm/dl Albumin/Globulin Ratio 1.2 (0.9-2) COVID-19 Eval Order SARS-CoV-2 (PCR) (Negative) 10/09/20 10/09/20 10/09/20 Range/Units 07:32 08:13 08:13 WBC (4.8-10.8) K/uL RBC (4.7-6.1) M/uL Hgb (14.0-18.0) g/dL Hct (42-52) % MCV (80-100) fL MCH (25-34) pg MCHC (32-36) g/dL RDW Std Deviation (36.4-46.3) fL RDW Coeff of Gaby (11.5-14.5) % Plt Count (130-400) K/uL MPV (7.4-10.4) fL Immature Gran % (Auto) % Neut % (Auto) % Lymph % (Auto) % [place] % (Auto) % Eos % (Auto) % Baso % (Auto) % Neut # (Auto) (1.4-6.5) K/uL Lymph # (Auto) (1.2-3.4) K/uL [place] # (Auto) (0.11-0.59) K/uL Eos # (Auto) (0-0.5) K/uL Baso # (Auto) (0-0.2) K/uL Immature Gran # (Auto) (0.00-0.02) K/uL Platelet Estimate (Normal) Polychromasia Ovalocytes Echinocytes PT (9.0-12.0) Seconds INR (0.9-1.1) APTT (21.0-31.0) Seconds PTT Ratio ABG pH Cancelled ABG pCO2 Cancelled ABG pO2 Cancelled ABG HCO3 Cancelled ABG O2 Saturation Cancelled ABG Base Excess Cancelled Alec Test Cancelled VBG pH 7.05 L (7.36-7.41) VBG pCO2 40 (38-50) mmHg VBG pO2 31 mmHg VBG HCO3 11 mmol/L VBG O2 Saturation < 60.0 % VBG Base Excess -18.9 mEq/L Barometric Pressure Cancelled 728.7 Oxygen Given Cancelled Sodium (136-145) mmol/L Potassium (3.5-5.1) mmol/L Chloride (98-107) mmol/L Carbon Dioxide (21-32) mmol/L Anion Gap (3-11) BUN (7-18) mg/dl Creatinine (0.6-1.4) mg/dl Est Cr Clr Drug Dosing ml/min Est GFR ( Amer) ml/min Est GFR (Non-Af Amer) ml/min BUN/Creatinine Ratio (10-20) Glucose (70-99) mg/dl POC Glucose (70-99) mg/dl Lactate 16.1 H* (0.4-2.0) mmol/L Calcium (8.5-10.1) mg/dl Magnesium (1.8-2.4) mg/dl Total Bilirubin (0.2-1) mg/dl AST (15-37) U/L ALT (12-78) U/L Alkaline Phosphatase (45-117) U/L Total Protein (6.4-8.2) gm/dl Albumin (3.4-5.0) gm/dl Globulin (2.5-4.0) gm/dl Albumin/Globulin Ratio (0.9-2) COVID-19 Eval Order SARS-CoV-2 (PCR) (Negative) Administered Medications Morphine Sulfate (Morphine Sulf/Nss) 250 mg in 250 mls @ 2 mls/hr IV .Q96H ALEX; Protocol Stop: 10/24/20 04:29 Last Titration: 10/10/20 14:17 Dose: 2 mg/hr, 2 mls/hr Documented by: [id number] Cosigned by: [id number] Titration: 10/10/20 04:42 Dose: 2 mg/hr, 2 mls/hr Documented by: [id number] Cosigned by: [id number] Admin: 10/10/20 04:32 Dose: 1 mg/hr, 1 mls/hr Documented by: [id number] Cosigned by: [id number] Lorazepam (Ativan) 0.5 mg in 1 mls @ 1 mls/min IV Q8H ALEX Stop: 11/09/20 13:59 Last Admin: 10/10/20 15:57 Dose: 1 mls/min Documented by: [id number] Morphine Sulfate (Morphine Sulfate 5 Mg/0.25 Ml Udp) 5 mg PO Q3H PRN PRN Reason: Pain or Respiratory Distress Stop: 10/23/20 23:34 Last Admin: 10/10/20 03:30 Dose: 5 mg Documented by: [id number] Morphine Sulfate (Morphine Sulfate 2 Mg/Ml Carp) 2 mg IV Q4H PRN PRN Reason: Pain or Respiratory Distress Stop: 10/23/20 23:34 Last Admin: 10/10/20 03:30 Dose: 2 mg Documented by: [id number] Discontinued Medications Acetaminophen (Acetaminophen 325 Mg Tab) 650 mg PO Q4H PRN PRN Reason: pain/fever Stop: 11/08/20 09:17 Last Admin: 10/09/20 20:22 Dose: 650 mg Documented by: [id number] Calcium Chloride (Calcium Chloride 10% 10 Ml Syr) Confirm Administered Dose 1,000 mg IV .STK-MED ONE Stop: 10/09/20 09:21 Last Admin: 10/09/20 09:25 Dose: 1,000 mg Documented by: [id number] Calcium Gluconate (Calcium Gluconate 1000 Mg/60 Ml Nss) Confirm Administered Dose 1,000 mg IV .STK-MED ONE Stop: 10/09/20 09:10 Last Admin: 10/09/20 10:32 Dose: Not Given Documented by: [id number] Dextrose (Dextrose 50% 50 Ml Syringe) 50 ml IV NOW ONE Stop: 10/09/20 08:33 Last Admin: 10/09/20 08:45 Dose: 50 ml Documented by: [id number] Dextrose (Dextrose 50% 50 Ml Syringe) 50 ml IV NOW ONE Stop: 10/09/20 11:32 Last Admin: 10/09/20 12:12 Dose: 50 ml Documented by: [id number] Dextrose (Dextrose 50% 50 Ml Syringe) 50 ml IV NOW ONE Stop: 10/09/20 12:01 Last Admin: 10/09/20 12:39 Dose: Not Given Documented by: [id number] Dextrose (Dextrose 50% 50 Ml Syringe) 50 ml IV TODAY@1700 ALEX Stop: 10/09/20 17:01 Last Admin: 10/09/20 17:23 Dose: Not Given Documented by: [id number] Dobutamine HCl/Dextrose (Dobutamine 500mg / 250ml D5w) Confirm Administered Dose 500 mg IV .STK-MED ONE Stop: 10/10/20 00:19 Last Admin: 10/10/20 00:27 Dose: 18.4 ml Documented by: [id number] Cosigned by: [id number] Dopamine HCl/Dextrose (Dopamine 400mg / 250ml D5w) Confirm Administered Dose 400 mg IV .STK-MED ONE Stop: 10/09/20 09:13 Last Admin: 10/09/20 09:12 Dose: 7.5 mcg.per.kg Documented by: [id number] Sodium Chloride (Nss 1000ml) 1,000 mls @ 999 mls/hr IV .Q1H1M ONE Stop: 10/09/20 06:24 Last Infusion: 10/09/20 06:53 Dose: 0 mls/hr Documented by: [id number] Admin: 10/09/20 05:26 Dose: 999 mls/hr Documented by: [id number] Norepinephrine Bitartrate (Levophed/D5w) 8 mg in 508 mls @ 40.234 mls/hr IV .[id number] [facility]; Protocol Stop: 11/08/20 06:59 Last Titration: 10/10/20 12:21 Dose: 0 mcg/kg/min, 0 mls/hr Documented by: [id number] Titration: 10/09/20 23:55 Dose: 0.15 mcg/kg/min, 40.2 mls/hr Documented by: [id number] Admin: 10/09/20 22:07 Dose: 0.32 mcg/kg/min, 85.8 mls/hr Documented by: [id number] Cosigned by: [id number] Titration: 10/09/20 20:59 Dose: 0.32 mcg/kg/min, 85.8 mls/hr Documented by: [id number] Cosigned by: [id number] Titration: 10/09/20 16:00 Dose: 0.32 mcg/kg/min, 85.8 mls/hr Documented by: [id number] Admin: 10/09/20 15:00 Dose: 0.3 mcg/kg/min, 80.5 mls/hr Documented by: [id number] Cosigned by: [id number] Titration: 10/09/20 15:00 Dose: 0.3 mcg/kg/min, 80.5 mls/hr Documented by: [id number] Cosigned by: [id number] Titration: 10/09/20 11:50 Dose: 0.3 mcg/kg/min, 80.5 mls/hr Documented by: [id number] Titration: 10/09/20 11:37 Dose: 0.28 mcg/kg/min, 75.1 mls/hr Documented by: [id number] Titration: 10/09/20 10:33 Dose: 0.26 mcg/kg/min, 69.7 mls/hr Documented by: [id number] Titration: 10/09/20 08:22 Dose: 0.2 mcg/kg/min, 53.6 mls/hr Documented by: [id number] Titration: 10/09/20 08:14 Dose: 0.18 mcg/kg/min, 48.3 mls/hr Documented by: [id number] Titration: 10/09/20 08:00 Dose: 0.16 mcg/kg/min, 42.9 mls/hr Documented by: [id number] Titration: 10/09/20 07:51 Dose: 0.14 mcg/kg/min, 37.6 mls/hr Documented by: [id number] Titration: 10/09/20 07:46 Dose: 0.12 mcg/kg/min, 32.2 mls/hr Documented by: [id number] Titration: 10/09/20 07:41 Dose: 0.1 mcg/kg/min, 26.8 mls/hr Documented by: [id number] Titration: 10/09/20 07:33 Dose: 0.07 mcg/kg/min, 18.8 mls/hr Documented by: [id number] Titration: 10/09/20 07:13 Dose: 0.05 mcg/kg/min, 13.4 mls/hr Documented by: [id number] Admin: 10/09/20 06:55 Dose: 0.03 mcg/kg/min, 8 mls/hr Documented by: [id number] Cosigned by: [id number] Titration: 10/09/20 06:55 Dose: 0.01 mcg/kg/min, 2.7 mls/hr Documented by: [id number] Cosigned by: [id number] Admin: 10/09/20 06:40 Dose: 0.01 mcg/kg/min, 2.7 mls/hr Documented by: [id number] Cosigned by: [id number] Dobutamine HCl 500 mg/ (Dextrose) 250 mls @ 10.56 mls/hr IV .[id number] [facility]; Protocol Stop: 11/08/20 10:14 Last Admin: 10/10/20 00:32 Dose: Not Given Documented by: [id number] Titration: 10/10/20 00:30 Dose: 0 mcg/kg/min, 0 mls/hr Documented by: [id number] Titration: 10/09/20 12:40 Dose: 9 mcg/kg/min, 19 mls/hr Documented by: [id number] Titration: 10/09/20 11:49 Dose: 7 mcg/kg/min, 14.8 mls/hr Documented by: [id number] Admin: 10/09/20 10:36 Dose: 5 mcg/kg/min, 10.6 mls/hr Documented by: [id number] Cosigned by: [id number] Hydrocortisone Sodium (Succinate 50 mg/ Syringe) 1 mls @ 4 mls/min IV Q6H ALEX Stop: 11/08/20 10:59 Last Admin: 10/10/20 06:12 Dose: Not Given Documented by: [id number] Admin: 10/09/20 23:10 Dose: 4 mls/min Documented by: [id number] Admin: 10/09/20 17:22 Dose: 4 mls/min Documented by: [id number] Admin: 10/09/20 11:37 Dose: 4 mls/min Documented by: [id number] Sodium Bicarbonate 150 meq/ (Dextrose) 1,150 mls @ 75 mls/hr IV .[id number] ALEX Stop: 11/08/20 10:14 Last Infusion: 10/10/20 12:21 Dose: 0 mls/hr Documented by: [id number] Admin: 10/10/20 01:06 Dose: 75 mls/hr Documented by: [id number] Infusion: 10/10/20 01:06 Dose: 75 mls/hr Documented by: [id number] Admin: 10/09/20 10:37 Dose: 75 mls/hr Documented by: [id number] Cefepime HCl 1,000 mg/ Syringe 11.3 mls @ 5.5 mls/min IV Q24H ALEX Stop: 10/11/20 10:59 Last Admin: 10/09/20 11:36 Dose: 5.5 mls/min Documented by: [id number] Metronidazole (Flagyl) 500 mg in 100 mls @ 100 mls/hr IV Q8H ALEX Stop: 10/11/20 10:59 Last Infusion: 10/10/20 04:35 Dose: 0 mls/hr Documented by: [id number] Admin: 10/10/20 03:35 Dose: 100 mls/hr Documented by: [id number] Infusion: 10/09/20 21:20 Dose: 0 mls/hr Documented by: [id number] Admin: 10/09/20 20:20 Dose: 100 mls/hr Documented by: [id number] Infusion: 10/09/20 12:38 Dose: 0 mls/hr Documented by: [id number] Admin: 10/09/20 11:37 Dose: 100 mls/hr Documented by: [id number] Calcium Gluconate 1,000 mg/ (Sodium Chloride) 60 mls @ 240 mls/hr IV NOW STA Stop: 10/09/20 11:45 Last Infusion: 10/09/20 12:38 Dose: 0 mls/hr Documented by: [id number] Admin: 10/09/20 12:11 Dose: 240 mls/hr Documented by: [id number] Insulin Human Regular 10 units (/ Syringe) 10 mls @ 30 mls/min IV NOW STA Stop: 10/09/20 11:48 Last Admin: 10/09/20 12:11 Dose: 30 mls/min Documented by: [id number] Cosigned by: [id number] Calcium Gluconate 1,000 mg/ (Sodium Chloride) 60 mls @ 240 mls/hr IV NOW ONE Stop: 10/09/20 17:14 Last Infusion: 10/09/20 17:53 Dose: 0 mls/hr Documented by: [id number] Admin: 10/09/20 17:23 Dose: 240 mls/hr Documented by: [id number] Insulin Human Regular 10 units (/ Syringe) 10 mls @ 30 mls/min IV TODAY@1700 [facility] Stop: 10/09/20 17:01 Last Admin: 10/09/20 17:23 Dose: 30 mls/min Documented by: [id number] Cosigned by: [id number] Dobutamine HCl 500 mg/ (Dextrose) 290 mls @ 12.25 mls/hr IV .[id number] [facility]; Protocol Stop: 11/09/20 00:34 Last Titration: 10/10/20 12:21 Dose: 0 mcg/kg/min, 0 mls/hr Documented by: [id number] Admin: 10/10/20 01:06 Dose: 5 mcg/kg/min, 12.3 mls/hr Documented by: [id number] Cosigned by: [id number] Menthol (Cough Drop (Sugar Free) Jackie 24 Jackie/1 Box) Confirm Administered Dose 24 jackie BUCCAL .STK-MED ONE Stop: 10/09/20 14:05 Last Admin: 10/09/20 14:17 Dose: 24 jackie Documented by: [id number] Miscellaneous (Stat Iv Infusion Titration Per Protocol) 1 ea N/A NOW STA Stop: 10/09/20 06:49 Last Admin: 10/09/20 06:52 Dose: 1 ea Documented by: [id number] Morphine Sulfate (Morphine Sulfate 5 Mg/0.25 Ml Udp) Confirm Administered Dose 5 mg .ROUTE .STK-MED ONE Stop: 10/09/20 23:44 Last Admin: 10/09/20 23:52 Dose: 5 mg Documented by: [id number] Morphine Sulfate (Morphine Sulfate 2 Mg/Ml Carp) Confirm Administered Dose 2 mg .ROUTE .STK-MED ONE Stop: 10/09/20 23:44 Last Admin: 10/09/20 23:52 Dose: 2 mg Documented by: [id number] Norepinephrine Bitartrate (Norepinephrine/D5w 8 Mg/508 Ml) Confirm Administered Dose 8 mg IV .STK-MED ONE Stop: 10/09/20 06:17 Last Admin: 10/09/20 06:52 Dose: Not Given Documented by: [id number] Ondansetron HCl (Ondansetron Inj 2 Mg/Ml 2 Ml Vial) 4 mg IV Q4H PRN PRN Reason: Nausea Stop: 11/08/20 09:17 Last Admin: 10/10/20 03:30 Dose: 4 mg Documented by: [id number] Admin: 10/09/20 23:58 Dose: 4 mg Documented by: [id number] Sodium Bicarbonate (Sodium Bicarbonate 8.4% Inj 50 Meq/50 Ml Vial) Confirm Administered Dose 50 meq .ROUTE .STK-MED ONE Stop: 10/09/20 07:23 Last Admin: 10/09/20 07:30 Dose: 50 meq Documented by: [id number] Sodium Bicarbonate (Sodium Bicarb 8.4% Inj 50 Meq/50 Ml Syr) Confirm Administered Dose 50 meq IV .STK-MED ONE Stop: 10/09/20 07:25 Last Admin: 10/09/20 07:30 Dose: Not Given Documented by: [id number] Sodium Bicarbonate (Sodium Bicarb 8.4% Inj 50 Meq/50 Ml Syr) 100 meq IV NOW STA Stop: 10/09/20 16:45 Last Admin: 10/09/20 17:22 Dose: 100 meq Documented by: [id number] Imaging Data Radiologist's Impression: Chest X-Ray 10/09/20 05:24 XR chest 1V portable CLINICAL HISTORY: SEPSIS COMPARISON STUDY: Chest radiograph September 25, 2020. FINDINGS: Left subclavian pacer/AICD remains in place. Cardiomegaly is unchanged. Pulmonary edema has improved. Mild right basilar opacity has improved. There is no consolidation to suggest pneumonia. No pneumothorax or pleural effusion is identified. IMPRESSION: 1. Interval improvement in pulmonary edema and right basilar opacity. Mild residual right basilar opacity favors atelectasis. 2. Cardiomegaly. ACT 112: Negative or not required by law. Electronically signed by: Sky Stevenson M.D. 10/09/2020 6:41 AM Discharge Plan Visit Data Chief Complaint: Lethargic Stated Complaint: WEAK/LETHARGIC ED Provider: Kelly Grayson Discharge Problem: Lactic acidosis, Hypoglycemia, Acute hyperkalemia, Acute renal failure, Hypothermia, Acute hypotension Patient Disposition: Admitted As Inpatient Discharge Instructions Interventions: ED Discharge Assessment Last Done: 10/09/20 08:50 Discharge Problem: Acute renal failure Qualifiers: Acute renal failure type: unspecified Qualified Code(s): N17.9 - Acute kidney failure, unspecified Hypothermia Qualifiers: Encounter type: initial encounter Qualified Code(s): T68.XXXA - Hypothermia, initial encounter
[2020-10-09 08:24] LABS: Base Excess VBG -18.9 mEq/L; HCO3 VBG 11 mmol/L; PCO2 VBG 40 mmHg (38-50); PO2 VBG 31 mmHg; pH VBG 7.05 (7.36-7.41)
[2020-10-09 08:25] LABS: Oxygen Saturation VBG < 60.0 %
[2020-10-09] MEDS ORDERED: DEXTROSE 50% 50 ML SYRINGE IV ONE ×3 (08:32→12:00)
[2020-10-09] MEDS ORDERED: CALCIUM GLUCONATE 10% 10 ML VIAL IV STA (09:05)
[2020-10-09] MEDS ORDERED: CALCIUM GLUCONATE 1000 MG/60 ML NSS IV ONE (09:09)
[2020-10-09] MEDS ORDERED: DOPamine 400MG / 250ML D5W IV ONE (09:12)
[2020-10-09] MEDS ORDERED: ACETAMINOPHEN 325 MG TAB PO PRN (09:18)
[2020-10-09] MEDS ORDERED: CALCIUM CHLORIDE 10% 10 ML SYR IV ONE (09:20)
[2020-10-09] MEDS ORDERED: STAT IV STA (10:08)
[2020-10-09] MEDS: SODIUM BICARBONATE 8.4% 150 MEQ in DEXTROSE 5% 1,000 ML IV SCH (10:37)
[2020-10-09] MEDS ORDERED: CEFEPIME 1,000 MG in SYRINGE 0 ML IV SCH (11:00)
[2020-10-09 11:29] LABS: BUN Creatinine Ratio 17.4 (10-20); Calcium 9.4 mg/dl (8.5-10.1); Creatinine Clr Calc Pharmacy 9.4 ml/min; Est GFR (African American) 8.5 ml/min; Est GFR (Non-African American) 7.4 ml/min; Potassium 6.4 mmol/L (3.5-5.1); Thyroid Stimulating Hormone 4.79 uIu/ml (0.300-4.500)
[2020-10-09] MEDS ORDERED: CALCIUM GLUCONATE 10% 1,000 MG in SODIUM CHLORIDE 0.9% 50 ML IV STA (11:31)
[2020-10-09] MEDS: metroNIDAZOLE 500 MG/100 ML BAG IV SCH ×2 (11:37→20:20)
[2020-10-09] MEDS: HYDROCORTISONE SOD 50 MG in SYRINGE 0 ML IV SCH ×3 (11:37→23:10)
--- NOTE | 2020-10-09 11:37 | Nephrology Consultation ---
Date of Consultation October 09, 2020 Assessment & Plan (1) Cardiogenic shock: 75 year old male with cardiogenic shock with multi organ failure including anuric NIKHIL, elevated LFT, hyperkalemia and metabolic acidosis, on 2 pressor. History of stage IV CKD secondary to cardiorenal syndrome, EF 10-15%. Potassium remained elevated despite getting insulin, D50. Remained anuric despite being on 2 pressors. Overall prognosis remains guarded and patient and family understand that. Patient's family is on their way and would like to keep him full code until they arrive. --patient and family understand that he will not tolerate dialysis even for short time --will continue conservative management to keep the potassium down, give another dose of insulin D50 and Kayexalate --difficult to start bicarb drip considering anuria, volume overload --repeat lab in 2 hours --discussed with intensive care team, palliative care as well as patient's over telephone Will follow and available for any further question or concern. Thank you for allowing me to participate in your patient's care. It was a pleasure to see (2) Lactic acidosis: (3) Acute hyperkalemia: (4) Acute renal failure: (5) Hypothermia: (6) Metabolic acidosis: History of Present Illness Attending Physician: Reuben Salcedo MD History of Present Illness Mr. Rashmi Butler is a 75-year-old male with PMH significant for stage IV CKD secondary to cardiorenal syndrome, cardiomyopathy EF 15-20% admitted to the hospital with progressive weakness, cardiogenic shock, Hyperkalemia, metabolic acidosis and anuric NIKHIL. Nephrology consult requested for further management. EMR records are reviewed in detail during patient's visit. presented to ER this morning with progressive weakness and found to be in cardiogenic shock, currently on 2 pressors. Has been persistently hypotensive with systolic BP ranged from 60 7-93 and diastolic 29- 58. Lab showed NIKHIL creatinine 6.6, potassium 6.2, bicarb 19,, elevated LFT's. Has been aneuric. Received insulin and D50 and repeat lab showed potassium worsened to 6.4. Has been on 2 pressor with systolic BP staying around 80s. Currently on 6 L of oxygen via nasal cannula. Seen by palliative care and plan to continue current management until his family is here. Has longstanding history of severe restrictive/obstructive pulmonary disease with pulmonary hypertension, cardiomyopathy, EF 15-20% range s/p ICD placement, and permanent atrial fibrillation. Has been following with heart failure clinic for diuretics management. Stage IV CKD secondary to cardiorenal syndrome baseline creatinine has been quite variable from 1.8-2.3. Recently renal function has been worsening the setting of need for high-dose diuretics to maintain volume status. Urinalysis with low-grade proteinuria but no hematuria pyuria. CT A/P with normal size kidney with cyst in both kidney and there is concern with 1 cyst in right kidney with septation and calcification inside as well as bladder wall thickening. Ex- smoker quit smoking more than 20 years ago, drinks alcohol rarely. Retired [employer]. He has been pale and lethargy, but awake, alert and answered questions appropriately. Allergies Allergy/AdvReac Type Severity Reaction Status Date / Time No Known Drug Allergies Allergy Unknown . Verified 10/09/20 07:45 Home Medications Medication Instructions Recorded Confirmed Type ergocalciferol (vitamin D2) 1,250 50,000 units PO WEEKLY #12 cap 12/14/18 10/06/20 History mcg (50,000 unit) capsule pantoprazole 40 mg tablet,delayed 40 mg PO DAILY #30 tab 06/13/20 10/06/20 Rx release digoxin 125 mcg (0.125 mg) tablet 125 mcg PO Q2D tab 08/01/20 10/06/20 History metoprolol succinate 50 mg 25 mg PO BID tab 09/19/20 10/06/20 History tablet,extended release 24 hr bumetanide 2 mg PO DIRECTED #90 tab 09/26/20 10/06/20 Rx folic acid 1,000 mcg PO DAILY 14 Days #14 tab 09/26/20 10/06/20 Rx sucralfate [Carafate] 1 g PO ACHS PRN #30 tab 09/26/20 10/06/20 Rx ondansetron HCl 4 mg tablet 4 mg PO Q8H PRN #30 tab 09/29/20 10/06/20 Rx Patient History Medical History (Updated 10/09/20 @ 11:59 by Mitali Nathan MD) NIKHIL (acute kidney injury) Aortic regurgitation Cardiogenic shock Chronic obstructive pulmonary disease Chronic renal insufficiency Dyslipidemia Elevated troponin GERD (gastroesophageal reflux disease) Hyperglycemia Hypertension Metabolic acidosis Mitral regurgitation MR (mitral regurgitation) Paroxysmal ventricular tachycardia Permanent atrial fibrillation Systolic CHF with reduced left ventricular function, NYHA class 3 Surgical History History of colonoscopy History of repair of rotator cuff Hx laparoscopic cholecystectomy (2017) Family History Mother Leukemia Sister Acute myocardial infarction Social History Smoking Status: Former smoker Tobacco Type: Cigarettes Hx Alcohol Use: No Hx Substance Use: No Communication Ability: Effective Beliefs That Will Affect Care: None marital status: Current Living Situation: Spouse How many Children do You have: 2 Feels Safe at Home: Yes Assistive Devices: Oxygen - Continuous Review of Systems Review of Systems: All systems reviewed & are unremarkable except as noted in Subjective Physical Exam Constitutional: WD/WN, vitals as above + ill appearing and + lethargic; no acute distress Pale Eyes: + anicteric sclerae ENMT: external ear and nose normal, oropharynx normal Ears: no hearing impairment Neck: normal visual inspection and trachea midline Respiratory: no respiratory distress and no cough Auscultation: + diminished lung sounds; no crackles Cardiovascular: Rate/Rhythm: + bradycardic and + irregularly irregular Heart Sounds: normal S1 and normal S2 Gastrointestinal (Abdomen): normal bowel sounds, soft, nontender, no hepatosplenomegaly Inspection/Auscultation: normal bowel sounds Percussion/Palpation: abdomen soft; abdomen nontender, no guarding and abdomen not rigid Musculoskeletal: Extremities: extremities normal to inspection Skin: + turgor decreased Neurologic: moves all extremities and awake Psychiatric: A+Ox3, euthymic affect Results & Data ([facility]) Vital Signs (Past 12 Hours) Vital Signs Temp Pulse Pulse Resp BP BP Pulse Ox 10/09/20 08:50 40 L 20 100 10/09/20 08:30 40 L 21 100 10/09/20 08:25 40 L 19 100 10/09/20 08:20 40 L 24 100 10/09/20 08:14 53 L 24 100 10/09/20 08:10 40 L 22 98 10/09/20 08:02 40 L 21 99 10/09/20 08:00 40 L 21 92 10/09/20 07:50 40 L 23 77/58 L 92 10/09/20 07:47 89/39 L 10/09/20 07:41 44 L 23 89/39 L 100 10/09/20 07:40 61 19 10/09/20 07:30 40 L 26 H 100 10/09/20 07:21 40 L 26 H 85 L 10/09/20 07:20 40 L 15 84 L 10/09/20 07:10 40 L 27 H 96 10/09/20 07:01 40 L 24 93/37 L 89 L 10/09/20 07:00 40 L 16 92 10/09/20 06:53 40 L 24 85/50 L 90 10/09/20 06:50 40 L 13 77 L 10/09/20 06:40 40 L 28 H 10/09/20 06:34 40 L 23 98 10/09/20 06:31 53 L 28 H 91 10/09/20 06:30 40 L 27 H 94 10/09/20 06:28 60 18 83/40 L 98 10/09/20 06:23 18 95 10/09/20 06:22 50 L 20 83/40 L 10/09/20 06:20 40 L 23 10/09/20 06:14 40 L 27 H 67/29 L 10/09/20 06:11 46 L 23 94 10/09/20 06:10 40 L 25 H 100 10/09/20 06:00 40 L 22 100 10/09/20 05:56 40 L 26 H 92/48 L 83 L 10/09/20 05:50 40 L 28 H 89/53 L 93 10/09/20 05:49 40 L 16 81/51 L 96 10/09/20 05:46 40 L 27 H 81/51 L 96 10/09/20 05:40 40 L 25 H 92/47 L 94 10/09/20 05:39 33.4 C L 10/09/20 05:38 40 L 18 89/43 L 96 10/09/20 05:37 96 10/09/20 05:35 40 L 26 H 89/43 L 97 10/09/20 05:31 40 L 23 97 10/09/20 05:30 40 L 20 10/09/20 05:26 23 91/39 L 83 L 10/09/20 05:20 48 L 23 82/38 L 99 10/09/20 05:15 33.4 C L 40 L 16 82/38 L 100 10/09/20 05:14 40 L 23 98 PG Care Time/CCT Total # of Minutes Spent Total Time Spent with Patient: Total time spent is greater than 50% in coordination of care (as documented) at patient's floor/unit and/or counseling patient: Coding Level of Care Code 83172 Initial Inpt Care Lvl 3 Diagnoses Cardiogenic shock R57.0 Lactic acidosis E87.2 Acute hyperkalemia E87.5 Acute renal failure N17.9 Acute renal failure type: unspecified Hypothermia T68.XXXA Encounter type: initial encounter Metabolic acidosis E87.2 (1) Acute renal failure Acute renal failure type: unspecified Qualified Code(s): N17.9 - Acute kidney failure, unspecified (2) Hypothermia Encounter type: initial encounter Qualified Code(s): T68.XXXA - Hypothermia, initial encounter
[2020-10-09 11:46] LABS: T4 Free Thyroxine 1.57 ng/dl (0.8-1.6)
[2020-10-09] MEDS ORDERED: INSULIN HUMAN REGULAR PER UNIT 10 UNITS in SYRINGE 9.9 ML IV STA (11:47)
--- NOTE | 2020-10-09 11:56 | Critical Care Consultation ---
Date of Consultation October 09, 2020 Assessment & Plan (1) Cardiogenic shock: Neurologic: Encephalopathy likely secondary to decreased perfusion given his cardiogenic shock Pulmonary: Currently requiring 6 L of oxygen via nasal cannula. Cardiovascular: Cardiogenic shock on Levophed and dobutamine. Maintain systolic blood pressures above 90. Start on stress dose steroids of hydrocortisone given hypothermia. Bradycardia has improved with increasing the pacemaker rate to 80 bpm. Bradyc ardia is likely mediated by his severe hyperkalemia. Bear hugger in place to help improve the hypothermia. Hypothermia likely secondary to underlying cardiogenic shock. We will check his digoxin level. Hold all antihypertensives and beta-blockers. Gastrointestinal: N.p.o. transaminitis secondary to congestive hepatopathy from heart failure. Renal: Acute renal failure secondary to cardiogenic shock. Nephrology on board. He will be a very poor candidate for hemodialysis. Started on bicarbonate drip due to acidosis. Hyperkalemia being managed with insulin, D50 and calcium gluconate as a temporizing measure. Jacobs in place. Anuric. Infectious disease: Empirically started on cefepime and Flagyl. MRSA screen pending. Hematologic: No significant issues at present. Endocrine: TSH mildly elevated to 4.79. Likely not the source of his hypothermia. VTE prophylaxis: On hold at present. CODE STATUS: Full code. Patient's prognosis is extremely poor. Palliative care is on board. I have personally spent 37 minutes of critical care time in the direct management of this patient. This is a life/limb threatening event. This includes time spent evaluating patient, direct bedside care, chart review, placing orders, interpretation of diagnostic studies, discussion with consultants, patient, and family members, as well as other required patient management activities. This time is exclusive of all separately billable procedures, and teaching time and separate from and in addition to any other critical care service time. Thank you for allowing us to participate in the care of this patient. (2) Acute renal failure: (3) Acute hyperkalemia: (4) Lactic acidosis: History of Present Illness Reason for Consultation: Cardiogenic shock and renal failure Attending Physician: Reuben Salcedo MD History of Present Illness 75-year-old male with a past medical history of severe cardiomyopathy with an EF of 15% presenting to the ER due to altered mental status. Review of systems is limited from the patient given encephalopathy. He does endorse some mild abdominal pain. He denies any chest pain at present. His urine output has been ill. He was refusing a Jacosb catheter in the emergency department. His labs are suggestive of renal failure with hyperkalemia. He is hypotensive and currently on Levophed and dobutamine. He was also bradycardic. Cardiology was by and changed his pacemaker rate to 80 bpm from 40 bpm as he was undergoing pacing from his pacemaker. Allergies Allergy/AdvReac Type Severity Reaction Status Date / Time No Known Drug Allergies Allergy Unknown . Verified 10/09/20 07:45 Home Medications Medication Instructions Recorded Confirmed Type ergocalciferol (vitamin D2) 1,250 50,000 units PO WEEKLY #12 cap 12/14/18 10/06/20 History mcg (50,000 unit) capsule pantoprazole 40 mg tablet,delayed 40 mg PO DAILY #30 tab 06/13/20 10/06/20 Rx release digoxin 125 mcg (0.125 mg) tablet 125 mcg PO Q2D tab 08/01/20 10/06/20 History metoprolol succinate 50 mg 25 mg PO BID tab 09/19/20 10/06/20 History tablet,extended release 24 hr bumetanide 2 mg PO DIRECTED #90 tab 09/26/20 10/06/20 Rx folic acid 1,000 mcg PO DAILY 14 Days #14 tab 09/26/20 10/06/20 Rx sucralfate [Carafate] 1 g PO ACHS PRN #30 tab 09/26/20 10/06/20 Rx ondansetron HCl 4 mg tablet 4 mg PO Q8H PRN #30 tab 09/29/20 10/06/20 Rx Patient History Medical History NIKHIL (acute kidney injury) Aortic regurgitation Chronic obstructive pulmonary disease Chronic renal insufficiency Dyslipidemia Elevated troponin GERD (gastroesophageal reflux disease) Hyperglycemia Hypertension Mitral regurgitation MR (mitral regurgitation) Paroxysmal ventricular tachycardia Permanent atrial fibrillation Systolic CHF with reduced left ventricular function, NYHA class 3 Surgical History History of colonoscopy History of repair of rotator cuff Hx laparoscopic cholecystectomy (2017) Family History Mother Leukemia Sister Acute myocardial infarction Social History Smoking Status: Former smoker Tobacco Type: Cigarettes Hx Alcohol Use: No Hx Substance Use: No Communication Ability: Effective Beliefs That Will Affect Care: None marital status: Current Living Situation: Spouse How many Children do You have: 2 Feels Safe at Home: Yes Assistive Devices: Oxygen - Continuous Review of Systems Review of Systems: Limited due to cognitive status. Physical Exam Constitutional: + acute distress and + ill appearing Respiratory: normal respiratory effort, lungs clear to auscultation Cardiovascular: Rate/Rhythm: + bradycardic Heart Sounds: + murmur Extremities: no edema Gastrointestinal (Abdomen): normal bowel sounds, soft, nontender, no hepatosplenomegaly Results & Data Results & Data ([facility]) Vital Signs (Past 12 Hours) Vital Signs Temp Pulse Pulse Resp BP BP Pulse Ox 10/09/20 08:50 40 L 20 100 10/09/20 08:30 40 L 21 100 10/09/20 08:25 40 L 19 100 10/09/20 08:20 40 L 24 100 10/09/20 08:14 53 L 24 100 10/09/20 08:10 40 L 22 98 10/09/20 08:02 40 L 21 99 10/09/20 08:00 40 L 21 92 10/09/20 07:50 40 L 23 77/58 L 92 10/09/20 07:47 89/39 L 10/09/20 07:41 44 L 23 89/39 L 100 10/09/20 07:40 61 19 10/09/20 07:30 40 L 26 H 100 10/09/20 07:21 40 L 26 H 85 L 10/09/20 07:20 40 L 15 84 L 10/09/20 07:10 40 L 27 H 96 10/09/20 07:01 40 L 24 93/37 L 89 L 10/09/20 07:00 40 L 16 92 10/09/20 06:53 40 L 24 85/50 L 90 10/09/20 06:50 40 L 13 77 L 10/09/20 06:40 40 L 28 H 10/09/20 06:34 40 L 23 98 10/09/20 06:31 53 L 28 H 91 10/09/20 06:30 40 L 27 H 94 10/09/20 06:28 60 18 83/40 L 98 10/09/20 06:23 18 95 10/09/20 06:22 50 L 20 83/40 L 10/09/20 06:20 40 L 23 10/09/20 06:14 40 L 27 H 67/29 L 10/09/20 06:11 46 L 23 94 10/09/20 06:10 40 L 25 H 100 10/09/20 06:00 40 L 22 100 10/09/20 05:56 40 L 26 H 92/48 L 83 L 10/09/20 05:50 40 L 28 H 89/53 L 93 10/09/20 05:49 40 L 16 81/51 L 96 10/09/20 05:46 40 L 27 H 81/51 L 96 10/09/20 05:40 40 L 25 H 92/47 L 94 10/09/20 05:39 92.1 F L 10/09/20 05:38 40 L 18 89/43 L 96 10/09/20 05:37 96 10/09/20 05:35 40 L 26 H 89/43 L 97 10/09/20 05:31 40 L 23 97 10/09/20 05:30 40 L 20 10/09/20 05:26 23 91/39 L 83 L 10/09/20 05:20 48 L 23 82/38 L 99 10/09/20 05:15 92.1 F L 40 L 16 82/38 L 100 10/09/20 05:14 40 L 23 98 Vital signs, labs and imaging reviewed Coding Level of Care Code Critical Care 1st 30-74 mins Diagnoses Cardiogenic shock R57.0 Acute renal failure N17.9 Acute renal failure type: unspecified Acute hyperkalemia E87.5 Lactic acidosis E87.2 Time Spent (min) 37 (1) Acute renal failure Acute renal failure type: unspecified Qualified Code(s): N17.9 - Acute kidney failure, unspecified
--- NOTE | 2020-10-09 12:08 | Cardiology Consultation ---
Date of Consultation October 09, 2020 Assessment & Plan (1) Cardiogenic shock: He has poor perfusion due to his reduced LV systolic function. This likely has resulted in his renal failure. Currently aneuric, hyperkalemic and possibly even uremic. He has been placed back on pressors including dobutamine with some improvement in blood pressure but no improved renal function or urine output. In the absence of mechanical augmentation, his clinical condition is likely to deteriorate. It seems reasonable to transition him to comfort care. He did have an element of bradycardia which is new. Her a possibly related to digoxin toxicity in the setting of acute renal failure. As he was pacing at his lower rate limit dye increase this to 80 beats per minute to improve cardiac output. We will need to hold his digoxin in the setting of his renal failure and electrolyte derangements. (2) Ventricular tachycardia: He appears to have had some recordings of ventricular tachycardia. These will regular ventricular rhythms recorded through his device. The overall heart rate was low. This could have accounted for some of his symptoms recently such as his presyncope. I did reprogrammed his device to treat some of these slow episodes of ventricular tachycardia. Based on his overall poor prognosis did not feel like he needed an amiodarone infusion. The setting of his electrolyte abnormalities this may not prove efficacious in any regard. Certainly need to consider transition to comfort care and deactivation of the device therapies. History of Present Illness Reason for Consultation: Heart failure Requesting Physician: Matias Attending Physician: Reuben Salcedo MD History of Present Illness The patient is a 75-year-old gentleman with a longstanding history of a severe cardiomyopathy. He was admitted to the [facility] at the end of August for symptoms of decompensated heart failure. That time he did require dobutamine infusion in order to improve his volume status. He was sent home believed to be high risk for decompensation. Over the past week the patient appears to have had a decline in his overall health status. He apparently has been eating very little. He has been having worsening breathing trouble. He has been quite listless. Is brought to the emergency room and found to be hypothermic, hypotensive, poorly perfused and in renal failure. At the time of my interview the patient was somnolent. He was very listless. He did not volunteer any specific complaints. He does not appear to have an appetite. He did not report breathing trouble. No pain. Allergies Allergy/AdvReac Type Severity Reaction Status Date / Time No Known Drug Allergies Allergy Unknown . Verified 10/09/20 07:45 Home Medications Medication Instructions Recorded Confirmed Type ergocalciferol (vitamin D2) 1,250 50,000 units PO WEEKLY #12 cap 12/14/18 10/06/20 History mcg (50,000 unit) capsule pantoprazole 40 mg tablet,delayed 40 mg PO DAILY #30 tab 06/13/20 10/06/20 Rx release digoxin 125 mcg (0.125 mg) tablet 125 mcg PO Q2D tab 08/01/20 10/06/20 History metoprolol succinate 50 mg 25 mg PO BID tab 09/19/20 10/06/20 History tablet,extended release 24 hr bumetanide 2 mg PO DIRECTED #90 tab 09/26/20 10/06/20 Rx folic acid 1,000 mcg PO DAILY 14 Days #14 tab 09/26/20 10/06/20 Rx sucralfate [Carafate] 1 g PO ACHS PRN #30 tab 09/26/20 10/06/20 Rx ondansetron HCl 4 mg tablet 4 mg PO Q8H PRN #30 tab 09/29/20 10/06/20 Rx Patient History Medical History NIKHIL (acute kidney injury) Aortic regurgitation Cardiogenic shock Chronic obstructive pulmonary disease Chronic renal insufficiency Dyslipidemia Elevated troponin GERD (gastroesophageal reflux disease) Hyperglycemia Hypertension Metabolic acidosis Mitral regurgitation MR (mitral regurgitation) Paroxysmal ventricular tachycardia Permanent atrial fibrillation Systolic CHF with reduced left ventricular function, NYHA class 3 Surgical History History of colonoscopy History of repair of rotator cuff Hx laparoscopic cholecystectomy (2017) Family History Mother Leukemia Sister Acute myocardial infarction Social History Smoking Status: Former smoker Tobacco Type: Cigarettes Hx Alcohol Use: No Hx Substance Use: No Preferred Language: Greek Communication Ability: Effective Broadcast Technician Required: No Beliefs That Will Affect Care: None marital status: Current Living Situation: Spouse How many Children do You have: 2 Feels Safe at Home: Yes Assistive Devices: Glasses Review of Systems Review of Systems: Unobtainable due to reduced consciousness Physical Exam Physical Exam: The patient is somnolent. He is easily arousable and did answer questions appropriately. He appears to have appropriate insight into his medical condition. HEENT: Anicteric Lungs: Clear to auscultation bilaterally. He has good air movement without use of accessory muscles. No rales wheezes or rhonchi. Cardiac: Bradycardic. Pulses: Poor perfusion with weak pulses. Extremities: Mild lower extremity edema. No clubbing. Skin: I did not appreciate any rashes on examination today. Results & Data ([facility]) Vital Signs (Past 12 Hours) Vital Signs Temp Pulse Pulse Resp BP BP Pulse Ox 10/09/20 08:50 40 L 20 100 10/09/20 08:30 40 L 21 100 10/09/20 08:25 40 L 19 100 10/09/20 08:20 40 L 24 100 10/09/20 08:14 53 L 24 100 10/09/20 08:10 40 L 22 98 10/09/20 08:02 40 L 21 99 10/09/20 08:00 40 L 21 92 10/09/20 07:50 40 L 23 77/58 L 92 10/09/20 07:47 89/39 L 10/09/20 07:41 44 L 23 89/39 L 100 10/09/20 07:40 61 19 10/09/20 07:30 40 L 26 H 100 10/09/20 07:21 40 L 26 H 85 L 10/09/20 07:20 40 L 15 84 L 10/09/20 07:10 40 L 27 H 96 10/09/20 07:01 40 L 24 93/37 L 89 L 10/09/20 07:00 40 L 16 92 10/09/20 06:53 40 L 24 85/50 L 90 10/09/20 06:50 40 L 13 77 L 10/09/20 06:40 40 L 28 H 10/09/20 06:34 40 L 23 98 10/09/20 06:31 53 L 28 H 91 10/09/20 06:30 40 L 27 H 94 10/09/20 06:28 60 18 83/40 L 98 10/09/20 06:23 18 95 10/09/20 06:22 50 L 20 83/40 L 10/09/20 06:20 40 L 23 10/09/20 06:14 40 L 27 H 67/29 L 10/09/20 06:11 46 L 23 94 10/09/20 06:10 40 L 25 H 100 10/09/20 06:00 40 L 22 100 10/09/20 05:56 40 L 26 H 92/48 L 83 L 10/09/20 05:50 40 L 28 H 89/53 L 93 10/09/20 05:49 40 L 16 81/51 L 96 10/09/20 05:46 40 L 27 H 81/51 L 96 10/09/20 05:40 40 L 25 H 92/47 L 94 10/09/20 05:39 33.4 C L 10/09/20 05:38 40 L 18 89/43 L 96 10/09/20 05:37 96 10/09/20 05:35 40 L 26 H 89/43 L 97 10/09/20 05:31 40 L 23 97 10/09/20 05:30 40 L 20 10/09/20 05:26 23 91/39 L 83 L 10/09/20 05:20 48 L 23 82/38 L 99 10/09/20 05:15 33.4 C L 40 L 16 82/38 L 100 10/09/20 05:14 40 L 23 98 Laboratory Results Abnormal Lab Results 10/09/20 10/09/20 10/09/20 05:12 05:30 05:30 WBC RBC Hgb Hct MCV MCH MCHC RDW Std Deviation RDW Coeff of Gaby Plt Count MPV Immature Gran % (Auto) Neut % (Auto) Lymph % (Auto) Hemphill % (Auto) Eos % (Auto) Baso % (Auto) Neut # (Auto) Lymph # (Auto) Hemphill # (Auto) Eos # (Auto) Baso # (Auto) Immature Gran # (Auto) Platelet Estimate Polychromasia Ovalocytes Echinocytes PT INR APTT PTT Ratio ABG pH ABG pCO2 ABG pO2 ABG HCO3 ABG O2 Saturation ABG Base Excess Alec Test VBG pH VBG pCO2 VBG pO2 VBG HCO3 VBG O2 Saturation VBG Base Excess Barometric Pressure Oxygen Given Sodium Potassium Chloride Carbon Dioxide Anion Gap BUN Creatinine Est Cr Clr Drug Dosing Est GFR ( Amer) Est GFR (Non-Af Amer) BUN/Creatinine Ratio Glucose POC Glucose 75 Lactate Calcium Magnesium Total Bilirubin AST ALT Alkaline Phosphatase Total Protein Albumin Globulin Albumin/Globulin Ratio TSH Free T4 Digitoxin COVID-19 Eval Order Covid19 at [facility] SARS-CoV-2 (PCR) NEGATIVE 10/09/20 10/09/20 10/09/20 05:54 06:13 06:13 WBC 13.81 H RBC 3.60 L Hgb 12.0 L Hct 39.0 L MCV 108.3 H MCH 33.3 MCHC 30.8 L RDW Std Deviation 63.2 H RDW Coeff of Gaby 16.5 H Plt Count 257 MPV 12.0 H Immature Gran % (Auto) 0.6 Neut % (Auto) 79.4 Lymph % (Auto) 6.6 Hemphill % (Auto) 13.3 Eos % (Auto) 0.0 Baso % (Auto) 0.1 Neut # (Auto) 10.97 H Lymph # (Auto) 0.91 L Hemphill # (Auto) 1.84 H Eos # (Auto) 0.00 Baso # (Auto) 0.01 Immature Gran # (Auto) 0.08 H Platelet Estimate Normal Polychromasia 1+ Ovalocytes 1+ Echinocytes 1+ PT 34.4 H INR 3.8 H APTT 44.4 H PTT Ratio 1.7 ABG pH ABG pCO2 ABG pO2 ABG HCO3 ABG O2 Saturation ABG Base Excess Alec Test VBG pH VBG pCO2 VBG pO2 VBG HCO3 VBG O2 Saturation VBG Base Excess Barometric Pressure Oxygen Given Sodium Potassium Chloride Carbon Dioxide Anion Gap BUN Creatinine Est Cr Clr Drug Dosing Est GFR ( Amer) Est GFR (Non-Af Amer) BUN/Creatinine Ratio Glucose POC Glucose 93 Lactate Calcium Magnesium Total Bilirubin AST ALT Alkaline Phosphatase Total Protein Albumin Globulin Albumin/Globulin Ratio TSH Free T4 Digitoxin COVID-19 Eval Order SARS-CoV-2 (PCR) 10/09/20 10/09/20 10/09/20 06:13 06:13 07:09 WBC RBC Hgb Hct MCV MCH MCHC RDW Std Deviation RDW Coeff of Gaby Plt Count MPV Immature Gran % (Auto) Neut % (Auto) Lymph % (Auto) Hemphill % (Auto) Eos % (Auto) Baso % (Auto) Neut # (Auto) Lymph # (Auto) Hemphill # (Auto) Eos # (Auto) Baso # (Auto) Immature Gran # (Auto) Platelet Estimate Polychromasia Ovalocytes Echinocytes PT INR APTT PTT Ratio ABG pH ABG pCO2 ABG pO2 ABG HCO3 ABG O2 Saturation ABG Base Excess Alec Test VBG pH VBG pCO2 VBG pO2 VBG HCO3 VBG O2 Saturation VBG Base Excess Barometric Pressure Oxygen Given Sodium 134 L Potassium 6.2 H* Chloride 92 L Carbon Dioxide 9 L* Anion Gap 33.0 H BUN 125 H Creatinine 6.61 H* Est Cr Clr Drug Dosing 9.5 Est GFR ( Amer) 8.6 Est GFR (Non-Af Amer) 7.4 BUN/Creatinine Ratio 18.9 Glucose 74 POC Glucose 62 L* Lactate 15.2 H* Calcium 9.4 Magnesium 3.1 H Total Bilirubin 4.2 H AST 3291 H ALT 1962 H Alkaline Phosphatase 163 H Total Protein 7.2 Albumin 3.9 Globulin 3.3 Albumin/Globulin Ratio 1.2 TSH Free T4 Digitoxin COVID-19 Eval Order SARS-CoV-2 (PCR) 10/09/20 10/09/20 10/09/20 07:32 08:13 08:13 WBC RBC Hgb Hct MCV MCH MCHC RDW Std Deviation RDW Coeff of Gaby Plt Count MPV Immature Gran % (Auto) Neut % (Auto) Lymph % (Auto) Hemphill % (Auto) Eos % (Auto) Baso % (Auto) Neut # (Auto) Lymph # (Auto) Hemphill # (Auto) Eos # (Auto) Baso # (Auto) Immature Gran # (Auto) Platelet Estimate Polychromasia Ovalocytes Echinocytes PT INR APTT PTT Ratio ABG pH Cancelled ABG pCO2 Cancelled ABG pO2 Cancelled ABG HCO3 Cancelled ABG O2 Saturation Cancelled ABG Base Excess Cancelled Alec Test Cancelled VBG pH 7.05 L VBG pCO2 40 VBG pO2 31 VBG HCO3 11 VBG O2 Saturation < 60.0 VBG Base Excess -18.9 Barometric Pressure Cancelled 728.7 Oxygen Given Cancelled Sodium Potassium Chloride Carbon Dioxide Anion Gap BUN Creatinine Est Cr Clr Drug Dosing Est GFR ( Amer) Est GFR (Non-Af Amer) BUN/Creatinine Ratio Glucose POC Glucose Lactate 16.1 H* Calcium Magnesium Total Bilirubin AST ALT Alkaline Phosphatase Total Protein Albumin Globulin Albumin/Globulin Ratio TSH Free T4 Digitoxin COVID-19 Eval Order SARS-CoV-2 (PCR) 10/09/20 10/09/20 10/09/20 08:25 09:40 10:15 WBC RBC Hgb Hct MCV MCH MCHC RDW Std Deviation RDW Coeff of Gaby Plt Count MPV Immature Gran % (Auto) Neut % (Auto) Lymph % (Auto) Hemphill % (Auto) Eos % (Auto) Baso % (Auto) Neut # (Auto) Lymph # (Auto) Hemphill # (Auto) Eos # (Auto) Baso # (Auto) Immature Gran # (Auto) Platelet Estimate Polychromasia Ovalocytes Echinocytes PT INR APTT PTT Ratio ABG pH ABG pCO2 ABG pO2 ABG HCO3 ABG O2 Saturation ABG Base Excess Alec Test VBG pH VBG pCO2 VBG pO2 VBG HCO3 VBG O2 Saturation VBG Base Excess Barometric Pressure Oxygen Given Sodium 131 L Potassium 6.4 H* Chloride 92 L Carbon Dioxide 11 L Anion Gap 28.0 H BUN 116 H Creatinine 6.66 H* Est Cr Clr Drug Dosing 9.4 Est GFR ( Amer) 8.5 Est GFR (Non-Af Amer) 7.4 BUN/Creatinine Ratio 17.4 Glucose 129 H POC Glucose 53 L* 116 H Lactate Calcium 9.4 Magnesium Total Bilirubin AST ALT Alkaline Phosphatase Total Protein Albumin Globulin Albumin/Globulin Ratio TSH 4.790 H Free T4 1.57 Digitoxin COVID-19 Eval Order SARS-CoV-2 (PCR) 10/09/20 11:32 WBC RBC Hgb Hct MCV MCH MCHC RDW Std Deviation RDW Coeff of Gaby Plt Count MPV Immature Gran % (Auto) Neut % (Auto) Lymph % (Auto) Hemphill % (Auto) Eos % (Auto) Baso % (Auto) Neut # (Auto) Lymph # (Auto) Hemphill # (Auto) Eos # (Auto) Baso # (Auto) Immature Gran # (Auto) Platelet Estimate Polychromasia Ovalocytes Echinocytes PT INR APTT PTT Ratio ABG pH ABG pCO2 ABG pO2 ABG HCO3 ABG O2 Saturation ABG Base Excess Alec Test VBG pH VBG pCO2 VBG pO2 VBG HCO3 VBG O2 Saturation VBG Base Excess Barometric Pressure Oxygen Given Sodium Potassium Chloride Carbon Dioxide Anion Gap BUN Creatinine Est Cr Clr Drug Dosing Est GFR ( Amer) Est GFR (Non-Af Amer) BUN/Creatinine Ratio Glucose POC Glucose Lactate Calcium Magnesium Total Bilirubin AST ALT Alkaline Phosphatase Total Protein Albumin Globulin Albumin/Globulin Ratio TSH Free T4 Digitoxin Cancelled COVID-19 Eval Order SARS-CoV-2 (PCR) Diagnostic Findings Improvement in pulmonary edema versus old studies. No other acute findings. PG Care Time/CCT Total # of Minutes Spent Total Time Spent with Patient: Total time spent is greater than 50% in review coordinator rdination of care (as documented) at patient's floor/unit and/or counseling patient: Coding Level of Care Code 86002 Initial Inpt Care Lvl 3 Diagnoses Cardiogenic shock R57.0 Ventricular tachycardia I47.2
--- NOTE | 2020-10-09 12:41 | Electrocardiogram Report ---
Test Reason : Blood Pressure : / mmHG Vent. Rate : 040 BPM Atrial Rate : 038 BPM P-R Int : 000 ms QRS Dur : 232 ms QT Int : 736 ms P-R-T Axes : 000 -80 099 degrees QTc Int : 599 ms Ventricular-paced rhythm Abnormal ECG When compared with ECG of 21-SEP-2020 14:59, Electronic ventricular pacemaker has replaced Atrial fibrillation Vent. rate has decreased BY 51 BPM Confirmed by Selvin Mortensen ([id number]) on 10/09/2020 12:41:01 PM Referred By: REFERRED SELF Confirmed By:Devang Mortensen
--- NOTE | 2020-10-09 12:44 | Palliative Care Consultation ---
Date of Consultation October 09, 2020 Assessment & Plan (1) Palliative care encounter: I met with Mrs Butler and later with Rashmi separately. Both understand that his prognosis is poor. He had initially requested full code and that everything be done to prolong his life. His supports this and feels that she does not want to do anything to hasten his . We talked about the expectation for his quality of life and how long they expected him to live. We discussed that unfortunately, his prognosis is quite poor and that he is likely to within hours to a day or two. Given his multiorgan failure it is unlikely that he would survive CPR. We also discussed that avoiding CPR and intubation would not hasten his but allow him to naturally. They have two adult children who live out of town who are on their way to see him. They are requesting that he remain full code until the children arrive in the hope that they will be able to see him. I did discuss this with Dr. Beckham. Followup labs show further increase in potassium. I talked with Rashmi and his about the concern about continued increase in potassium. I also spoke with nephrology about possible dialysis. He would not be a candidate for dialysis given his hypotension and low cardiac output. Both children are due to arrive this evening. We will continue current measures in the hope that they will be able to visit with Rashmi when they arrive. (2) Cardiogenic shock: (3) Hypothermia: Encounter type: initial encounter Qualified Code(s): T68.XXXA - Hypothermia, initial encounter (4) Acute renal failure: Acute renal failure type: unspecified Qualified Code(s): N17.9 - Acute kidney failure, unspecified (5) Acute hyperkalemia: (6) Metabolic acidosis: History of Present Illness Reason for Consultation: goals of care Requesting Physician: Dr. Salcedo Attending Physician: Reuben Salcedo MD History of Present Illness 75 yo gentleman with cardiomyopathy and EF of 15% who was hospitalized about two weeks ago with heart failure. He had progressive weakness, dyspnea and anorexia at home per his and presented to ER. He now has hepatic and renal failure due to low cardiac output. He is hypotensive and bradycardic. He also has a potassium level of 6.2. He is able to answer some questions and tells me that he is "not good". He denies pain or dyspnea but complains of dry mouth. He has been a full code and we are consulted to assist with goals of care. Allergies Allergy/AdvReac Type Severity Reaction Status Date / Time No Known Drug Allergies Allergy Unknown . Verified 10/09/20 07:45 Home Medications Medication Instructions Recorded Confirmed Type ergocalciferol (vitamin D2) 1,250 50,000 units PO WEEKLY #12 cap 12/14/18 10/06/20 History mcg (50,000 unit) capsule pantoprazole 40 mg tablet,delayed 40 mg PO DAILY #30 tab 06/13/20 10/06/20 Rx release digoxin 125 mcg (0.125 mg) tablet 125 mcg PO Q2D tab 08/01/20 10/06/20 History metoprolol succinate 50 mg 25 mg PO BID tab 09/19/20 10/06/20 History tablet,extended release 24 hr bumetanide 2 mg PO DIRECTED #90 tab 09/26/20 10/06/20 Rx folic acid 1,000 mcg PO DAILY 14 Days #14 tab 09/26/20 10/06/20 Rx sucralfate [Carafate] 1 g PO ACHS PRN #30 tab 09/26/20 10/06/20 Rx ondansetron HCl 4 mg tablet 4 mg PO Q8H PRN #30 tab 09/29/20 10/06/20 Rx Patient History Medical History NIKHIL (acute kidney injury) Aortic regurgitation Cardiogenic shock Chronic obstructive pulmonary disease Chronic renal insufficiency Dyslipidemia Elevated troponin GERD (gastroesophageal reflux disease) Hyperglycemia Hypertension Metabolic acidosis Mitral regurgitation MR (mitral regurgitation) Paroxysmal ventricular tachycardia Permanent atrial fibrillation Systolic CHF with reduced left ventricular function, NYHA class 3 Surgical History History of colonoscopy History of repair of rotator cuff Hx laparoscopic cholecystectomy (2017) Family History Mother Leukemia Sister Acute myocardial infarction Social History Smoking Status: Former smoker Tobacco Type: Cigarettes Hx Alcohol Use: No Hx Substance Use: No Communication Ability: Effective Beliefs That Will Affect Care: None marital status: Current Living Situation: Spouse How many Children do You have: 2 Feels Safe at Home: Yes Assistive Devices: Oxygen - Continuous Review of Systems Review of Systems: [place] Symptom Assessment Scale Pain 0/3 Dyspnea 1/3 Nausea 0/3 Anxiety 1/3 Fatigue 3/3 Drowsiness 1/3 Pallliative Performance Score 20% Physical Exam Constitutional: + ill appearing ENMT: Mouth: + dry oral mucous membranes Respiratory: no labored breathing Cardiovascular: Rate/Rhythm: + bradycardic Musculoskeletal: Extremities: + muscle atrophy Neurologic: awake; not confused Results & Data ([facility]) Vital Signs (Past 12 Hours) Vital Signs Temp Pulse Pulse Resp BP BP Pulse Ox 10/09/20 08:50 40 L 20 100 10/09/20 08:30 40 L 21 100 10/09/20 08:25 40 L 19 100 10/09/20 08:20 40 L 24 100 10/09/20 08:14 53 L 24 100 10/09/20 08:10 40 L 22 98 10/09/20 08:02 40 L 21 99 10/09/20 08:00 40 L 21 92 10/09/20 07:50 40 L 23 77/58 L 92 10/09/20 07:47 89/39 L 10/09/20 07:41 44 L 23 89/39 L 100 10/09/20 07:40 61 19 10/09/20 07:30 40 L 26 H 100 10/09/20 07:21 40 L 26 H 85 L 10/09/20 07:20 40 L 15 84 L 10/09/20 07:10 40 L 27 H 96 10/09/20 07:01 40 L 24 93/37 L 89 L 10/09/20 07:00 40 L 16 92 10/09/20 06:53 40 L 24 85/50 L 90 10/09/20 06:50 40 L 13 77 L 10/09/20 06:40 40 L 28 H 10/09/20 06:34 40 L 23 98 10/09/20 06:31 53 L 28 H 91 10/09/20 06:30 40 L 27 H 94 10/09/20 06:28 60 18 83/40 L 98 10/09/20 06:23 18 95 10/09/20 06:22 50 L 20 83/40 L 10/09/20 06:20 40 L 23 10/09/20 06:14 40 L 27 H 67/29 L 10/09/20 06:11 46 L 23 94 10/09/20 06:10 40 L 25 H 100 10/09/20 06:00 40 L 22 100 10/09/20 05:56 40 L 26 H 92/48 L 83 L 10/09/20 05:50 40 L 28 H 89/53 L 93 10/09/20 05:49 40 L 16 81/51 L 96 10/09/20 05:46 40 L 27 H 81/51 L 96 10/09/20 05:40 40 L 25 H 92/47 L 94 10/09/20 05:39 92.1 F L 10/09/20 05:38 40 L 18 89/43 L 96 10/09/20 05:37 96 10/09/20 05:35 40 L 26 H 89/43 L 97 10/09/20 05:31 40 L 23 97 10/09/20 05:30 40 L 20 10/09/20 05:26 23 91/39 L 83 L 10/09/20 05:20 48 L 23 82/38 L 99 10/09/20 05:15 92.1 F L 40 L 16 82/38 L 100 10/09/20 05:14 40 L 23 98 PG Care Time/CCT Total # of Minutes Spent Total Time Spent with Patient: Total time spent is greater than 50% in coordination of care (as documented) at patient's floor/unit and/or counseling patient: total time spent 100 minutes with more than 50% of time spent on code status, goals of care, prognosis, family support, coordination of care. Coding Level of Care Code 32255 Inpt Consult Level 5 Diagnoses Palliative care encounter Z51.5 Cardiogenic shock R57.0 Hypothermia T68.XXXA Encounter type: initial encounter Acute renal failure N17.9 Acute renal failure type: unspecified Acute hyperkalemia E87.5 Metabolic acidosis E87.2 Time Spent (min) 100
--- NOTE | 2020-10-09 12:53 | Communication Note ---
Date of Service: October 09, 2020 I had a lengthy discussion with the patient and the at bedside. We discussed at length regarding what is involved with CPR and intubation/mechanical ventilation. At this time, the patient and the have decided that the patient would like to be a DO NOT RESUSCITATE and DO NOT INTUBATE in the event of a cardiac arrest or worsening respiratory failure. He would like to keep the "status quo" until his children arrive later this evening. He understands that he is in acute renal failure and that he would ultimately succumb to his renal failure without more aggressive intervention such as dialysis. His CODE STATUS has been changed to DNR/DNI in the medical record to reflect his wishes. Coding Level of Care Code None
[2020-10-09] MEDS ORDERED: COUGH DROP (SUGAR FREE) LOZ 24 LOZ/1 BOX BUCCAL ONE (14:04)
--- NOTE | 2020-10-09 15:16 | History & Physical Report ---
Date of Service October 09, 2020 Assessment & Plan (1) Cardiogenic shock: End stage of heart failure, leading to cardiogenic shock and malperfusion of organs. - Presently alive only due to Levophed, dobutamine, and bicarbonate drips - Plan to keep status quo until children arrive to say goodbye. Will likely pass imminently once the drips are stopped. - DNR/DNI now. Admission and Anticipated Discharge Date Admission Date: October 09, 2020 History of Present Illness Primary Care Provider: Leo Eddy MD 75yo M w/ longstanding hx of cardiomyopathy who presents in cardiogenic shock. He was unresponsive at home. In the ED, his initial BP was in the 40s systolic which improved with gentle IV fluids and initiation of Levophed. He is arousable, but somnolent for me. He reports "less shortness of breath" but is unable to further explain. He does not answer other review of systems. Allergies Allergy/AdvReac Type Severity Reaction Status Date / Time No Known Drug Allergies Allergy Unknown . Verified 10/09/20 07:45 Home Medications Medication Instructions Recorded Confirmed Type ergocalciferol (vitamin D2) 1,250 50,000 units PO WEEKLY #12 cap 12/14/18 10/06/20 History mcg (50,000 unit) capsule pantoprazole 40 mg tablet,delayed 40 mg PO DAILY #30 tab 06/13/20 10/06/20 Rx release digoxin 125 mcg (0.125 mg) tablet 125 mcg PO Q2D tab 08/01/20 10/06/20 History metoprolol succinate 50 mg 25 mg PO BID tab 09/19/20 10/06/20 History tablet,extended release 24 hr bumetanide 2 mg PO DIRECTED #90 tab 09/26/20 10/06/20 Rx folic acid 1,000 mcg PO DAILY 14 Days #14 tab 09/26/20 10/06/20 Rx sucralfate [Carafate] 1 g PO ACHS PRN #30 tab 09/26/20 10/06/20 Rx ondansetron HCl 4 mg tablet 4 mg PO Q8H PRN #30 tab 09/29/20 10/06/20 Rx Past Med/Surg History Medical History NIKHIL (acute kidney injury) Aortic regurgitation Cardiogenic shock Chronic obstructive pulmonary disease Chronic renal insufficiency Dyslipidemia Elevated troponin GERD (gastroesophageal reflux disease) Hyperglycemia Hypertension Metabolic acidosis Mitral regurgitation MR (mitral regurgitation) Paroxysmal ventricular tachycardia Permanent atrial fibrillation Systolic CHF with reduced left ventricular function, NYHA class 3 Surgical History History of colonoscopy History of repair of rotator cuff Hx laparoscopic cholecystectomy (2017) Family History Mother Leukemia Sister Acute myocardial infarction Social History Smoking Status: Former smoker Tobacco Type: Cigarettes Hx Alcohol Use: No Hx Substance Use: No Preferred Language: Romanian Communication Ability: Effective House Designer Required: No Beliefs That Will Affect Care: None marital status: Current Living Situation: Spouse How many Children do You have: 2 Other Information That Helps Us Care for You: No Feels Safe at Home: Yes Safety Concerns: Feels Safe At This Time Assistive Devices: Glasses Review of Systems Review of Systems: Unobtainable due to reduced consciousness Physical Exam Constitutional: WD/WN, vitals as above + acute distress Eyes: EOM intact bilaterally; no conjunctival abnormality ENMT: external ear and nose normal, oropharynx normal Neck: trachea midline, no thyromegaly normal visual inspection Respiratory: normal respiratory effort, lungs clear to auscultation no respiratory distress Cardiovascular: Rate/Rhythm: regular rhythm and + bradycardic Heart Sounds: normal S1 and normal S2 Vessels: + JVD Extremities: + edema Gastrointestinal (Abdomen): Inspection/Auscultation: abdomen normal to inspection; abdomen not distended Skin: Cool extremities, but not mottled. Neurologic: moves all extremities and awake Psychiatric: Orientation: oriented to person and cooperative; + not alert Results & Data Results & Data ([facility]) Vital Signs (Past 12 Hours) Vital Signs Temp Pulse Pulse Resp BP BP Pulse Ox 10/09/20 14:00 18 100 10/09/20 13:00 20 10/09/20 09:30 34.0 C L 40 L 20 92 10/09/20 08:50 40 L 20 100 10/09/20 08:30 40 L 21 100 10/09/20 08:25 40 L 19 100 10/09/20 08:20 40 L 24 100 10/09/20 08:14 53 L 24 100 10/09/20 08:10 40 L 22 98 10/09/20 08:02 40 L 21 99 10/09/20 08:00 40 L 21 92 10/09/20 07:50 40 L 23 77/58 L 92 10/09/20 07:47 89/39 L 10/09/20 07:41 44 L 23 89/39 L 100 10/09/20 07:40 61 19 10/09/20 07:30 40 L 26 H 100 10/09/20 07:21 40 L 26 H 85 L 10/09/20 07:20 40 L 15 84 L 10/09/20 07:10 40 L 27 H 96 10/09/20 07:01 40 L 24 93/37 L 89 L 10/09/20 07:00 40 L 16 92 10/09/20 06:53 40 L 24 85/50 L 90 10/09/20 06:50 40 L 13 77 L 10/09/20 06:40 40 L 28 H 10/09/20 06:34 40 L 23 98 10/09/20 06:31 53 L 28 H 91 10/09/20 06:30 40 L 27 H 94 10/09/20 06:28 60 18 83/40 L 98 10/09/20 06:23 18 95 10/09/20 06:22 50 L 20 83/40 L 10/09/20 06:20 40 L 23 10/09/20 06:14 40 L 27 H 67/29 L 10/09/20 06:11 46 L 23 94 10/09/20 06:10 40 L 25 H 100 10/09/20 06:00 40 L 22 100 10/09/20 05:56 40 L 26 H 92/48 L 83 L 10/09/20 05:50 40 L 28 H 89/53 L 93 10/09/20 05:49 40 L 16 81/51 L 96 10/09/20 05:46 40 L 27 H 81/51 L 96 10/09/20 05:40 40 L 25 H 92/47 L 94 10/09/20 05:39 33.4 C L 10/09/20 05:38 40 L 18 89/43 L 96 10/09/20 05:37 96 10/09/20 05:35 40 L 26 H 89/43 L 97 10/09/20 05:31 40 L 23 97 10/09/20 05:30 40 L 20 10/09/20 05:26 23 91/39 L 83 L 10/09/20 05:20 48 L 23 82/38 L 99 10/09/20 05:15 33.4 C L 40 L 16 82/38 L 100 10/09/20 05:14 40 L 23 98 Code Status & VTE Plan VTE Prophylaxis Plan VTE Prophylaxis will be ordered: Yes PG Care Time/CCT Total # of Minutes Spent Total Time Spent with Patient: Total time spent is greater than 50% in coordination of care (as documented) at patient's floor/unit and/or counseling patient: Coding Level of Care Code 79437 Initial Inpt Care Lvl 3 Diagnoses Cardiogenic shock R57.0
[2020-10-09] MEDS ORDERED: INSULIN ASPART 100 UNITS/ML 3 ML PEN SC SCH (16:30)
[2020-10-09 16:32] LABS: BUN Creatinine Ratio 19.2 (10-20); Calcium 7.7 mg/dl (8.5-10.1); Creatinine Clr Calc Pharmacy 8.9 ml/min; Est GFR (African American) 8.3 ml/min; Est GFR (Non-African American) 7.2 ml/min; Potassium 6.2 mmol/L (3.5-5.1)
[2020-10-09] MEDS ORDERED: SODIUM BICARB 8.4% INJ 50 MEQ/50 ML SYR IV STA (16:44)
[2020-10-09] MEDS ORDERED: INSULIN HUMAN REGULAR IV ONE (16:45)
[2020-10-09 16:47] LABS: Beta-Hydroxybutyrate 4.14 mg/dl (0.2-2.81)
[2020-10-09] MEDS ORDERED: DEXTROSE 50% 50 ML SYRINGE IV SCH (17:00)
[2020-10-09] MEDS ORDERED: CALCIUM GLUCONATE 10% 1,000 MG in SODIUM CHLORIDE 0.9% 50 ML IV ONE (17:00)
[2020-10-09] MEDS ORDERED: INSULIN HUMAN REGULAR PER UNIT 10 UNITS in SYRINGE 9.9 ML IV SCH (17:00)
[2020-10-09 20:52] LABS: BUN Creatinine Ratio 17.7 (10-20); Calcium 6.2 mg/dl (8.5-10.1); Creatinine Clr Calc Pharmacy 10.3 ml/min; Est GFR (African American) 9.8 ml/min; Est GFR (Non-African American) 8.5 ml/min
[2020-10-09 21:06] LABS: Beta-Hydroxybutyrate 3.27 mg/dl (0.2-2.81)
--- NOTE | 2020-10-09 21:59 | Communication Note ---
Date of Service: October 09, 2020 Called by bedside nursing overnight, as family desired to have discussions on current status of Mr. Butler; updated on findings of labs throughout the day, as well as had extended discussions on his desires. At this time, Mr. Butler and family expressed that his desire and their desire would be for him to be continued on his current medications without change however would like to no longer do blood work or lab draws at this time. Discussed that while these medications he is currently on are keeping the "status quo"as time continues to pass he will continue to have worsening of his multisystem organ failure and ultimately succumb to his diseases without further aggressive intervention. They agree that at this time that is not their desire, however they would like to keep him comfortable for as long as possible. As he is currently able to express his wishes, family would like to continue with these medications with consideration of transition to full comfort care following his decline to the point where he is no longer able to verbalize his desires. In an effort to maintain comfort, stopped all lab draws and provided with pain medicine that can be utilized and increased as needed to maintain comfort. Resident Activity Tracking Resident Involvement: Resident Care Provided Care Provided: [facility]
[2020-10-09] MEDS ORDERED: MoRPHine SULFATE 2 MG/ML CARP IV PRN (23:35)
[2020-10-09] MEDS ORDERED: MoRPHine SULFATE 5 MG/0.25 ML UDP ONE (23:43)
[2020-10-09] MEDS ORDERED: MoRPHine SULFATE 2 MG/ML CARP ONE (23:43)
[2020-10-09] MEDS: ONDANSETRON INJ 2 MG/ML 2 ML VIAL IV PRN (23:58)
[2020-10-10] MEDS ORDERED: DOBUTamine 500MG / 250ML D5W IV ONE (00:18)
[2020-10-10] MEDS: SODIUM BICARBONATE 8.4% 150 MEQ in DEXTROSE 5% 1,000 ML IV SCH (01:06)
[2020-10-10] MEDS: MoRPHine SULFATE 5 MG/0.25 ML UDP PO PRN ×2 (03:30→23:27)
[2020-10-10] MEDS: ONDANSETRON INJ 2 MG/ML 2 ML VIAL IV PRN (03:30)
[2020-10-10] MEDS: metroNIDAZOLE 500 MG/100 ML BAG IV SCH (03:35)
[2020-10-10] MEDS ORDERED: LORazepam 0.5 MG/1 ML VIAL IV PRN (04:09)
[2020-10-10] MEDS ORDERED: PROMETHAZINE HCL 12.5 MG in SODIUM CHLORIDE 0.9% 50 ML IV PRN (04:09)
[2020-10-10] MEDS ORDERED: LORazepam 0.5 MG TAB PO PRN (04:09)
[2020-10-10] MEDS ORDERED: STAT IV Infusion **Titration per Protocol STA (04:19)
[2020-10-10] MEDS ORDERED: MoRPHine SULF/NSS 250 MG/250 ML BTL IV SCH (04:30)
[2020-10-10] MEDS: HYDROCORTISONE SOD 50 MG in SYRINGE 0 ML IV SCH (06:12)
[2020-10-10] MEDS ORDERED: Nursing to Pharmacy Communication SCH (06:30)
--- NOTE | 2020-10-10 11:16 | Palliative Care Progress Note ---
Date of Service October 10, 2020 Assessment & Plan (1) Palliative care encounter: Family arrived to Mr. Butler's room later in the evening last night. We appreciate the covering hospitalist team with supporting the family through this difficult transition. Vasoactive medications were discontinued and he was transitioned to comfort focused care. All medications and blood draws discontinued that do not focus on comfort. Symptom management discussed with nursing. Should patient live longer than a few days and require increase of morphine infusion, would suggest switching opioids to avoid opioid toxicity, last creatinine 5.91. Will order scheduled Ativan to prevent any myoclonic jerks as a result of possibility of him having opioid toxicity. Palliative will follow. (2) Cardiogenic shock: (3) Hypothermia: (4) Acute renal failure: (5) Acute hyperkalemia: (6) Metabolic acidosis: Admission and Anticipated Discharge Date Admission Date: October 09, 2020 Review of Systems Review of Systems: [place] Symptom Assessment Scale Pain 0/3 Dyspnea 1/3 Nausea 0/3 Anxiety 1/3 Fatigue 3/3 Drowsiness 1/3 Pallliative Performance Score 20% Physical Exam Constitutional: + ill appearing ENMT: Mouth: + dry oral mucous membranes Respiratory: no labored breathing Cardiovascular: Rate/Rhythm: + bradycardic Musculoskeletal: Extremities: + muscle atrophy Neurologic: awake; not confused Results & Data ([facility]) Vital Signs (Past 12 Hours) Vital Signs Temp Pulse Resp BP Pulse Ox 10/10/20 09:20 35.3 C L 80 13 85 L 10/10/20 09:10 35.3 C L 80 16 82 L 10/10/20 09:00 35.3 C L 80 13 109/61 74 L 10/10/20 08:50 35.2 C L 80 15 71 L 10/10/20 08:40 35.2 C L 80 16 73 L 10/10/20 08:30 35.2 C L 80 16 115/71 95 10/10/20 08:20 35.2 C L 80 14 89 L 10/10/20 08:10 35.2 C L 80 15 87 L 10/10/20 08:00 35.2 C L 80 13 112/72 96 10/10/20 07:50 35.3 C L 80 17 96 10/10/20 07:40 35.3 C L 80 28 H 82 L 10/10/20 07:30 35.3 C L 80 15 106/68 95 10/10/20 07:20 35.3 C L 80 15 78 L 10/10/20 07:10 35.4 C L 80 18 69 L 10/10/20 07:00 35.4 C L 80 15 87/58 L 93 10/10/20 06:50 35.4 C L 80 15 81 L 10/10/20 06:40 35.4 C L 80 13 96 10/10/20 06:30 35.5 C L 80 16 124/59 L 67 L 10/10/20 06:00 35.6 C L 80 15 118/60 70 L 10/10/20 05:30 35.7 C L 80 16 125/60 73 L 10/10/20 05:01 35.9 C L 80 15 119/81 80 L 10/10/20 04:30 36.1 C L 80 15 155/66 H 98 10/10/20 04:00 36.1 C L 80 23 150/62 H 100 10/10/20 03:30 36.1 C L 80 31 H 162/54 H 96 10/10/20 03:00 36.2 C L 80 19 148/62 H 92 10/10/20 02:30 36.2 C L 80 22 150/64 H 92 10/10/20 02:00 36.3 C L 80 32 H 140/61 90 10/10/20 01:30 36.3 C L 80 20 141/65 H 93 10/10/20 01:01 36.4 C L 80 21 147/46 H 92 10/10/20 01:00 20 92 10/10/20 00:30 36.6 C 80 19 154/41 H 89 L 10/10/20 00:00 36.6 C 80 21 146/65 H 94 10/09/20 23:59 80 10/09/20 23:30 36.6 C 80 21 160/47 H 94 PG Care Time/CCT Total # of Minutes Spent Total Time Spent with Patient: Total time spent is greater than 50% in coordination of care (as documented) at patient's floor/unit and/or counseling patient: 35 minutes with > 50% of that time spent assessing the patient, evaluating symptom management, updating family, and collaborating with IDT Coding Level of Care Code 52176 Subseq Hosp Care Lvl 3 Diagnoses Palliative care encounter Z51.5 Cardiogenic shock R57.0 Hypothermia T68.XXXA Encounter type: initial encounter Acute renal failure N17.9 Acute renal failure type: unspecified Acute hyperkalemia E87.5 Metabolic acidosis E87.2 Time Spent (min) 35 (1) Acute renal failure Acute renal failure type: unspecified Qualified Code(s): N17.9 - Acute kidney failure, unspecified (2) Hypothermia Encounter type: initial encounter Qualified Code(s): T68.XXXA - Hypothermia, initial encounter
--- NOTE | 2020-10-10 11:59 | Critical Care Progress Note ---
Date of Service October 10, 2020 Assessment & Plan (1) Cardiogenic shock: 75-year-old male with a past medical history of ischemic cardiomyopathy with an EF of 10 to 15% who presented to the ICU in cardiogenic shock and acute renal failure. Patient is currently on comfort measures only. He is off all vasoactive medications. Palliative care is following the patient. Transfer orders are in place for transfer out of the ICU. (2) Acute renal failure: (3) Acute hyperkalemia: (4) Lactic acidosis: Admission and Anticipated Discharge Date Admission Date: October 09, 2020 Subjective Patient seen and examined this morning and discussed on multidisciplinary rounds. Morphine infusion started overnight. Patient is currently on comfort measures. He appears comfortable at this time and is resting in bed. Review of Systems Review of Systems: Unobtainable due to cognitive status Physical Exam Constitutional: Appears comfortable laying in bed. Appears chronically ill. Respiratory: normal respiratory effort; no respiratory distress Cardiovascular: RRR, no murmur, no edema Neurologic: Lethargic. Psychiatric: A+Ox3, euthymic affect Results & Data Results & Data ([facility]) Vital Signs (Past 12 Hours) Vital Signs Temp Pulse Resp BP Pulse Ox 10/10/20 09:20 95.5 F L 80 13 85 L 10/10/20 09:10 95.5 F L 80 16 82 L 10/10/20 09:00 95.5 F L 80 13 109/61 74 L 10/10/20 08:50 95.4 F L 80 15 71 L 10/10/20 08:40 95.4 F L 80 16 73 L 10/10/20 08:30 95.4 F L 80 16 115/71 95 10/10/20 08:20 95.4 F L 80 14 89 L 10/10/20 08:10 95.4 F L 80 15 87 L 10/10/20 08:00 95.4 F L 80 13 112/72 96 10/10/20 07:50 95.5 F L 80 17 96 10/10/20 07:40 95.5 F L 80 28 H 82 L 10/10/20 07:30 95.5 F L 80 15 106/68 95 10/10/20 07:20 95.5 F L 80 15 78 L 10/10/20 07:10 95.7 F L 80 18 69 L 10/10/20 07:00 95.7 F L 80 15 87/58 L 93 10/10/20 06:50 95.7 F L 80 15 81 L 10/10/20 06:40 95.7 F L 80 13 96 10/10/20 06:30 95.9 F L 80 16 124/59 L 67 L 10/10/20 06:00 96.1 F L 80 15 118/60 70 L 10/10/20 05:30 96.3 F L 80 16 125/60 73 L 10/10/20 05:01 96.6 F L 80 15 119/81 80 L 10/10/20 04:30 97.0 F L 80 15 155/66 H 98 10/10/20 04:00 97.0 F L 80 23 150/62 H 100 10/10/20 03:30 97.0 F L 80 31 H 162/54 H 96 10/10/20 03:00 97.2 F L 80 19 148/62 H 92 10/10/20 02:30 97.2 F L 80 22 150/64 H 92 10/10/20 02:00 97.3 F L 80 32 H 140/61 90 10/10/20 01:30 97.3 F L 80 20 141/65 H 93 10/10/20 01:01 97.5 F L 80 21 147/46 H 92 10/10/20 01:00 20 92 10/10/20 00:30 97.9 F 80 19 154/41 H 89 L 10/10/20 00:00 97.9 F 80 21 146/65 H 94 10/09/20 23:59 80 Vital signs reviewed. Coding Level of Care Code 91792 Subseq Hosp Care Lvl 2 Diagnoses Cardiogenic shock R57.0 Acute renal failure N17.9 Acute renal failure type: unspecified Acute hyperkalemia E87.5 Lactic acidosis E87.2 (1) Acute renal failure Acute renal failure type: unspecified Qualified Code(s): N17.9 - Acute kidney failure, unspecified
--- NOTE | 2020-10-10 13:24 | Hospitalist Progress Note ---
Date of Service October 10, 2020 Assessment & Plan (1) Cardiogenic shock: End stage of heart failure, leading to cardiogenic shock and malperfusion of organs. 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 His BP actually stabilized off pressors. On my review, he is having periods of apnea, but appears comfortable. - DNR/DNI now. - Will move to 3rd floor when able. If he does live longer, can consider home with hospice in another day or so. (2) Comfort measures only status: - As above Admission and Anticipated Discharge Date Admission Date: October 09, 2020 Subjective Asleep. Review of Systems Review of Systems: Unobtainable due to reduced consciousness Physical Exam Constitutional: + frail appearing and comfortable Eyes: no conjunctival abnormality ENMT: external ear and nose normal, oropharynx normal Neck: trachea midline, no thyromegaly normal visual inspection Respiratory: + abnormal respiratory pattern (Some apneic periods.); no respiratory distress Cardiovascular: Rate/Rhythm: regular rate and regular rhythm Heart Sounds: normal S1 and normal S2 Gastrointestinal (Abdomen): Inspection/Auscultation: abdomen normal to inspection; abdomen not distended Neurologic: + does not move all extremities and + not awake Psychiatric: Orientation: + not alert Results & Data Results & Data ([facility]) Vital Signs (Past 12 Hours) Vital Signs Temp Pulse Resp BP Pulse Ox 10/10/20 09:20 35.3 C L 80 13 85 L 10/10/20 09:10 35.3 C L 80 16 82 L 10/10/20 09:00 35.3 C L 80 13 109/61 74 L 10/10/20 08:50 35.2 C L 80 15 71 L 10/10/20 08:40 35.2 C L 80 16 73 L 10/10/20 08:30 35.2 C L 80 16 115/71 95 10/10/20 08:20 35.2 C L 80 14 89 L 10/10/20 08:10 35.2 C L 80 15 87 L 10/10/20 08:00 35.2 C L 80 13 112/72 96 10/10/20 07:50 35.3 C L 80 17 96 10/10/20 07:40 35.3 C L 80 28 H 82 L 10/10/20 07:30 35.3 C L 80 15 106/68 95 10/10/20 07:20 35.3 C L 80 15 78 L 10/10/20 07:10 35.4 C L 80 18 69 L 10/10/20 07:00 35.4 C L 80 15 87/58 L 93 10/10/20 06:50 35.4 C L 80 15 81 L 10/10/20 06:40 35.4 C L 80 13 96 10/10/20 06:30 35.5 C L 80 16 124/59 L 67 L 10/10/20 06:00 35.6 C L 80 15 118/60 70 L 10/10/20 05:30 35.7 C L 80 16 125/60 73 L 10/10/20 05:01 35.9 C L 80 15 119/81 80 L 10/10/20 04:30 36.1 C L 80 15 155/66 H 98 10/10/20 04:00 36.1 C L 80 23 150/62 H 100 10/10/20 03:30 36.1 C L 80 31 H 162/54 H 96 10/10/20 03:00 36.2 C L 80 19 148/62 H 92 10/10/20 02:30 36.2 C L 80 22 150/64 H 92 10/10/20 02:00 36.3 C L 80 32 H 140/61 90 10/10/20 01:30 36.3 C L 80 20 141/65 H 93 PG Care Time/CCT Total # of Minutes Spent Total Time Spent with Patient: Total time spent is greater than 50% in coordination of care (as documented) at patient's floor/unit and/or counseling patient: Coding Level of Care Code 45759 Subseq Hosp Care Lvl 3 Diagnoses Cardiogenic shock R57.0 Comfort measures only status Z51.5
[2020-10-10] MEDS ORDERED: LORazepam 0.5 MG TAB PO SCH (15:00)
[2020-10-10] MEDS: LORazepam 0.5 MG/1 ML VIAL IV SCH ×2 (15:57→22:03)
--- NOTE | 2020-10-10 17:39 | Communication Note ---
Date of Service: October 10, 2020 Defibrillator therapies deactivated using the gis programmer. Magnet removed.. Pacing function maintained.
[2020-10-10] MEDS: ATROPINE SULFATE 1% OP SOLN 5 ML BTL SL PRN ×2 (22:01→23:16)
[2020-10-11] MEDS: ATROPINE SULFATE 1% OP SOLN 5 ML BTL SL PRN (03:01)
--- NOTE | 2020-10-11 04:16 | Death Pronouncement Note ---
Date of Service October 11, 2020 Pronouncement Note Admission Date Admission Date: October 09, 2020 Date and Time of Date of : 10/11/20 Time of : 03:40 Contributing Factors (1) Palliative care encounter: (2) Cardiogenic shock: (3) Hypothermia: (4) Acute renal failure: (5) Acute hyperkalemia: (6) Metabolic acidosis: Additional Data Confirmation of : no pulse, no respirations, no heart sounds and pupils fixed and dilated Family: at bedside Attending physician: Cesar Haro Was code activated?: No Autopsy requested?: No latent print examiner notified?: No Resident Activity Tracking Resident Involvement: Resident Care Provided Care Provided: Adult Hospital Medicine
--- NOTE | 2020-10-11 21:24 | Discharge Summary ---
Date of Service October 11, 2020 No billing for this note. Did not see the patient this day. Admission HPI Per Admitting Provider 75yo M w/ longstanding hx of cardiomyopathy who presents in cardiogenic shock. He was unresponsive at home. In the ED, his initial BP was in the 40s systolic w hich improved with gentle IV fluids and initiation of Levophed. He is arousable, but somnolent for me. He reports "less shortness of breath" but is unable to further explain. He does not answer other review of systems. Principal Diagnosis Cardiogenic shock Discharge Data Allergies Allergy/AdvReac Type Severity Reaction Status Date / Time No Known Drug Allergies Allergy Unknown . Verified 10/09/20 07:45 Consultations 10/09/20 07:20 ED Decision to Admit Stat 10/09/20 09:18 Consult Cardiology Routine Consult Director [facility] Routine Consult Nephrology Routine Consult Palliative Care Routine 10/10/20 04:09 Consult Palliative Care Routine Hospital Course (1) Cardiogenic shock: End stage of heart failure, leading to cardiogenic shock and malperfusion of organs. 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 His BP actually stabilized off pressors. On my review, he is having periods of apnea, but appears comfortable. - DNR/DNI now. - Will move to 3rd floor when able. If he does live longer, can consider home with hospice in another day or so. (2) Comfort measures only status: - As above Total Time Total Time Spent Total Time Spent (In Minutes): 0 Discharge Plan Discharge Items Patient Disposition: Discharge Diagnosis: acute hyperkalemia Addtl Attending Provider Instructions: secondary to acute hyperkalemia, secondary to acute renal failure, secondary to acute on chronic heart failure Coding Level of Care Code None Diagnoses Cardiogenic shock R57.0 Comfort measures only status Z51.5
== END 2020-10-11 06:12 | disposition expired | DRG 292 ==
LOC: ED 05:07 → 1E 08:15 → SUATTDRO 08:15 → 1E 08:50 → 2W 10-10 10:12